=== PATIENT | male | born 1980 | race American Indian/Alaskan Native ===

== ENCOUNTER 2020-12-24 15:55 | Emergency (ER) | payer OTHER, SELFPAY ==
[2020-12-24 16:01] VITALS: BP 160/81; PULSE 102; RESP 18; TEMP 36.8; O2SAT 98; BMI 37.1
--- NOTE | 2020-12-24 16:19 | ECG_ITS ---
Test Reason : OD Blood Pressure : / mmHG Vent. Rate : 091 BPM Atrial Rate : 091 BPM P-R Int : 176 ms QRS Dur : 090 ms QT Int : 404 ms P-R-T Axes : 039 047 007 degrees QTc Int : 496 ms Normal sinus rhythm Possible Left atrial enlargement Prolonged QT Abnormal ECG When compared with ECG of 10-JUN-2014 00:23, No significant change was found Referred By: Mario Telles Electronically Signed By:AVINASH HOGAN
--- NOTE | 2020-12-24 16:19 | PC.NURSE ---
per provider concerns that pt has been given narcan due to nausea/uncontrolled diarrhea.
--- NOTE | 2020-12-24 16:22 | ED.GENADULT ---
HPI - General Adult General Chief complaint: General Medical Stated complaint: SUBSTANCE ABUSE,ABD PAIN Time Seen by Provider: 12/24/20 16:18 Source: patient Mode of arrival: EMS Limitations: no limitations History of Present Illness HPI narrative: Patient's T of substance abuse on methadone says that he used cocaine not any heroin or fentanyl [place] incontinent of stool and urine diffuse abdominal pain in the ER when patient arrived patient has been vomiting multiple times Related Data Allergies Allergy/AdvReac Type Severity Reaction Status Date / Time bee pollen [BEE STINGS] Allergy Intermediate HIVES Unverified 04/17/20 15:56 Penicillins Allergy Mild UNKNOWN Unverified 04/17/20 15:56 penicillin V Allergy Unknown Verified 03/04/20 00:00 SANJAY DELIGHT Allergy Mild HIVES Uncoded 04/17/20 15:56 Review of Systems Review of Systems: Constitutional : No Weight loss, No Fever, No Chills ENT/Mouth : No sore throat, No Rhinorrhea Eyes: No Eye Pain, No Swelling Cardiovascular : No Chest Pain, no palpitations Respiratory : No Cough, No Sputum, no shortness of breath Gastrointestinal : + Nausea, + Vomiting, + Diarrhea, ++ abdominal Pain, no black stools Genitourinary : No Dysuria, No Urinary Frequency Musculoskeletal : No joint pain, No Myalgias, No Joint Swelling Skin : No Skin Lesions, No rash Neuro : No Weakness, No Numbness, No Dizziness, No Headache Psych : No Anxiety/Panic, No Depression Heme/Lymph: No Bruising, No Lymphadenopathy Endocrine : No Polyuria, No Polydipsia All other systems reviewed and are negative PMFSH Past Medical History Medical History Crack cocaine use Drug abuse Heroin abuse Social History Social History Advance Directives: No Advance Directives Information Provided: No Physical Exam Vital Signs: Vital Signs: Last Vital Signs Temp 98.7 F 12/24/20 18:00 Pulse 93 12/24/20 18:00 Resp 16 12/24/20 18:00 BP 133/78 12/24/20 18:00 Pulse Ox 95 12/24/20 18:00 Body Mass Index 37.1 Appearance: Alert. Oriented X3. Diaphoretic retching and vomiting with perfuse watery diarrhea tachycardic. Eyes: PERRLA, No Nystagmus ENT: Pharynx normal. Oral Mucosa moist Neck: Normal inspection. Neck supple. CVS: Normal heart rate and rhythm. Pulses normal. Respiratory: No respiratory distress. Equal air entry bilateral, no wheezing/rales/rhonchi Abdomen: Soft and diffuse abdominal tenderness no focal tenderness or guarding Bowel sounds are present, no mass palpable, no CVA tenderness Skin: Skin warm and dry. Normal skin color. Normal skin turgor. Extremities: No lower extremity edema. No calf tenderness Neuro: Oriented X 3. No motor deficit. No sensory deficit.No cerebellar signs , cranial nerves II-XII intact Medical Decision Making MDM Narrative Medical decision making narrative: Patient likely opiate use and bystander likely gave him Narcan that the patient had withdrawal symptoms because patient is on methadone having diarrhea yawning nausea vomiting after Ativan patient is feeling much better. At this time patient able to drink p.o. fluids ambulatory discharge patient home patient refused to give urine sample of labs does not want detox Lab Data Labs: Lab Results 12/24/20 Range/Units 16:50 COVID-19 ([facility]) Negative (Negative) COVID-19 Clin Com See Note Discharge Plan Discharge Clinical Impression: Active substance abuse Patient Disposition: Home, Self-Care Instructions: Polysubstance Abuse (ED) Additional Instructions: Stop using cocaine/opiates Drink plenty of fluids follow-up with detox
[2020-12-24] MEDS: ondansetron HCL 4 MG/2 ML VIAL IVPUSH (16:52)
[2020-12-24] MEDS: Prochlorperazine Edisylate 10 MG/2 ML VIAL IVPUSH (16:52)
[2020-12-24] MEDS: 0.9 % Sodium Chloride 1,000 ML 999 ML IVCONT (16:52)
[2020-12-24] MEDS: Loperamide HCl 2 MG CAPSULE 4 MG PO (16:54)
[2020-12-24] MEDS: LORazepam 2 MG/ML VIAL IVPUSH (16:55)
--- NOTE | 2020-12-24 17:39 | PC.NURSE ---
per to md, due to multiple staff members attempting blood, including phlebotomy, plan to cancel labs.
[2020-12-24 17:44] LABS: COVID-19 Test Negative (Negative)
[2020-12-24 18:00] VITALS: BP 133/78; PULSE 93; RESP 16; TEMP 37.1; O2SAT 95
--- NOTE | 2020-12-24 18:11 | PC.NURSE ---
PATIENT ASK FOR A GLASS OF WATER ,PATIENT WAS ABLE TO HOLD FLUID DOWN .
--- NOTE | 2020-12-24 18:20 | MHC.RECOVSUP ---
? Reason for consult Recovery Support o Current location: ED19 o Identified substance use concern: Cocain - Withdrawal ? Intervention o Community resources provided o Harm reduction discussion ? Plan: o Patient to follow up with [facility] after discharge ? Additional information: Patient is currently on MAT(Methadone) for Heroin use.. But decided to use cocain and he states that he don't what happen(he blanked out) States that someone thought he was overdosing and Narcan Him.. and he went on a bad withdraw due to the Methadone.. Patient states that he is feeling better now.. We spoke about recovery and [facility] and he stated that he needs to try something new and that he will be checking it out..
== END 2020-12-24 19:21 | disposition home or self-care (01) ==
PROVIDERS: Emergency Provider Internal Medicine
DX: F11.19 Opioid abuse with unspecified opioid-induced disorder (principal); F14.10 Cocaine abuse, uncomplicated; Z20.822 Contact with and (suspected) exposure to COVID-19; Z71.51 Drug abuse counseling and surveillance of drug abuser; Z79.899 Other long term (current) drug therapy
CPT/HCPCS: 36415; 87635; 93005; 96365; 96375; 99284; J2060; J2405

== ENCOUNTER 2021-08-06 09:49 | Outpatient (REF) | payer OTHER, SELFPAY ==
[2021-08-06 14:29] LABS: Binax Now Covid-19 Ag Negative (Negative)
[2021-08-06 14:30] LABS: Binax Internal Control QC Valid
== END 2021-08-06 09:50 | disposition home or self-care (01) ==
LOC: HO.HMGCLDS 09:49
PROVIDERS: Visit Provider Physician Assistant
DX: Z20.822 Contact with and (suspected) exposure to COVID-19 (principal); J06.9 Acute upper respiratory infection, unspecified
CPT/HCPCS: 36415

== ENCOUNTER 2022-02-24 07:49 | Outpatient (REF) | payer OTHER, SELFPAY ==
[2022-02-24 08:43] LABS: COVID-19 Test Positive (Negative); IDNOW Serial# 16C4AD1C
== END 2022-02-24 07:50 | disposition home or self-care (01) ==
LOC: HO.LAB 07:49
PROVIDERS: PCP Internal Medicine; Visit Provider Internal Medicine
DX: Z20.822 Contact with and (suspected) exposure to COVID-19 (principal)
CPT/HCPCS: 87635; C9803

== ENCOUNTER 2022-12-14 10:05 | Emergency (ER) | payer OTHER, SELFPAY ==
--- NOTE | ~2022-12-14 | XR_ITS ---
EXAMINATION: XR TIBIA AND FIBULA, LEFT CLINICAL INFORMATION: Pain. Injury. COMPARISON: None available. TECHNIQUE: AP and lateral views of the left tibia and fibula were obtained. FINDINGS: The bones and soft tissues are normal. No fracture. No osseous lesions. XR/XR tibia fibula LT 2V IMPRESSION: Normal left tibia and fibula.
[2022-12-14 10:11] VITALS: BP 140/89; PULSE 70; RESP 18; TEMP 36.3; O2SAT 95; BMI 32.4
--- NOTE | 2022-12-14 10:28 | ED.GENADULT ---
HPI - General Adult General Chief complaint: General Medical Stated complaint: L Leg Cellulitis Time Seen by Provider: 12/14/22 10:27 Source: patient Mode of arrival: ambulatory Limitations: no limitations History of Present Illness HPI narrative: Patient is a 42 year old assigned male at with a history of IVDU presenting to the emergency department today with left lower leg swelling. Patient states that he caught his left lower leg on a pricker navas and now it is swollen, warm, and red. Patient states that this has happened to him before, he was given IV antibiotics then sent home on oral antibiotics. Patient states that he will not be staying in the hospital. Patient denies any dizziness, lightheadedness, abdominal pain, nausea, vomiting, fever, chills, blurry vision, double vision, loss of vision, chest pain, difficulty breathing, shortness of breath, back pain, night sweats, pain with urination, increased urinary frequency, increased urinary urgency, blood in his urine or stool, syncope or a near syncopal episode, bowel incontinence, bladder incontinence, bowel retention, bladder retention, or any other complaints at this time. Onset (ago): day(s) (4) Location: left and lower extremity Severity: moderate Severity scale (1-10): 5 Pain Consistency: constant Relieving factors: none Exacerbating factors: none Associated symptoms: denies other symptoms Treatments prior to arrival: none Related Data Previous Rx's Medication Instructions Recorded cephalexin 500 mg capsule 500 mg PO Q6H 7 days #28 caps 12/14/22 doxycycline hyclate 100 mg tablet 100 mg PO BID 7 days #14 tabs 12/14/22 Allergies Allergy/AdvReac Type Severity Reaction Status Date / Time penicillin V Allergy Unknown Verified 03/03/20 00:00 Review of Systems Constitutional: Constitutional: Reports no additional constitutional complaints, Denies chills, Denies fever(s) and Denies night sweats Eyes: Eyes: Reports no additional eye complaints, Denies blurry vision, Denies change in vision, Denies diplopia, Denies eye discharge, Denies loss of vision and Denies eye pain ENT: Denies dizziness Cardiovascular: Cardiovascular: Reports no additional cardiovascular complaints, Denies chest pain, Denies lightheadedness, Denies Loss of Consciousness and Denies dyspnea Respiratory: Respiratory: Reports no additional respiratory complaints and Denies dyspnea Gastrointestinal: Gastrointestinal: Reports no additional gastrointestinal complaints, Denies abdominal pain, Denies melena, Denies hematochezia, Denies change in bowel habits and Denies change in stool character Genitourinary: Genitourinary: Reports no additional male genitourinary complaints, Denies hematuria, Denies oliguria, Denies difficulty urinating, Denies dysuria, Denies urinary frequency, Denies urinary hesitancy, Denies urinary incontinence and Denies urinary urgency Musculoskeletal: Musculoskeletal: Reports no additional musculoskeletal complaints, Denies numbness and Denies tingling Comments: left lower leg swelling, warmth, and redness Neurologic: Denies dizziness, Denies loss of vision, Denies numbness and Denies tingling Psychiatric: Psychiatric: Reports no additional psychiatric complaints Endocrine: Endocrine: Reports no additional endocrine complaints Hematologic/Lymphatic: Hematologic/Lymphatic: Reports no additional hematologic/lymphatic complaints Allergic/Immunologic: Allergic/Immunologic: Reports no additional allergic/immunologic complaints PMFSH Past Medical History Attestation statement: The following information was validated with the patient. Source: old records reviewed and nursing notes reviewed Social History Social History Smoked in Last 30 Days: No Use of substances other than those prescribed or required for medical reasons: No Advance Directives: No Advance Directives Information Provided: No Physical Exam ED Vital Signs: Vital Signs - 24 hr 12/14/22 10:11 12/14/22 11:20 12/14/22 13:31 Temperature 97.3 F 98.9 F 98.7 F Pulse Rate 70 59 66 Respiratory Rate 18 16 Blood Pressure 140/89 H 113/63 124/71 Pulse Oximetry 95 96 97 Oxygen Delivery Method Room Air Room Air Room Air BMI result Body Mass Index 32.4 Const General: cooperative, no acute distress, alert and awake Nutritional Appearance: well nourished Orientation/consciousness: patient oriented x3 Limitations: no limitations HENMT Head: Yes normal to inspection and Yes atraumatic Ears: hearing grossly normal bilaterally and external ears normal General nose exam: Normal external nose present, no nasal discharge noted and no epistaxis Face and sinus: Yes normal facial exam, No abrasion and No laceration Mouth: Normal oral and palatal mucosa present, no drooling and no muffled voice Eyes General: appearance normal, both eyes and all related structures Periorbital: periorbital findings normal Eyelids: Yes eyelids normal Conjunctivae: conjunctivae normal Pupils: Equal, round and reactive pupils present EOM: EOMs intact bilaterally Neck Neck: Yes normal visual inspection, Yes full ROM and Yes no lymphadenopathy Chest Chest palpation & inspection: normal inspection of the chest Resp Effort & Inspection: normal respiratory effort and able to speak in complete sentences GI Inspection: Yes normal to inspection Neuro General: patient oriented x3 and moves all extremities Cranial nerves: Yes Equal, round and reactive pupils present Cognition (Neuro): normal cognition Motor exam (neuro): 5/5 motor strength present throughout Sensory Exam: Normal double simultaneous stimulation for sensation Coordination: [id number] test normal Extrem Other: General: Yes full ROM and Yes capillary refill normal Psych Appearance: grossly normal Mental Status: mental status grossly normal Affect: normal affect Attitude: cooperative Thought process: Normal thought process present Thought content: Normal thought content present Insight: Good insight present (Psych) Medications Administered Discontinued Medications Generic Name Dose Route Start Last Admin Trade Name Freq PRN Reason Stop Dose Admin Ceftriaxone Sodium 2 gm/ 50 mls @ 100 mls/hr 12/14/22 10:34 12/14/22 11:38 Sodium Chloride IV 12/14/22 11:03 Infused ONCE ONE Infusion Sodium Chloride 2,190 mls @ 2,190 mls/hr 12/14/22 10:37 12/14/22 12:20 Ns IV 12/14/22 11:36 Infused .Q1H STA Infusion Vancomycin HCl 2,000 mg in 500 mls @ 250 mls/hr 12/14/22 10:45 12/14/22 11:16 Vancomycin/Ns IV 12/14/22 12:44 250 mls/hr ONCE ONE Administration Medical Decision Making Medical Decision Making [facility] Narrative: Patient is a 42 year old assigned male at with a history of IVDUD presenting to the emergency department today with left lower leg infection. Patient's physical exam was as shown in the physical exam portion of this chart. Patient has a significant cellulitis present to the left lower extremity. Patient's blood work showed an elevated ESR of 46 and CRP of 7.83. Patient's left tib fib x-ray showed no acute process. I explained my physical exam findings as well as all test results to the patient. I answered all questions asked by the patient. I explained to the patient that given his history of IVDU and how severe this infection is, I recommend admission to the hospital for continued IV antibiotics and monitoring. Patient declined admission. I went over all risks to signing out against medical advice from the hospital and the patient verbalized understanding of these risks but continued to demand to leave. Patient received IV fluids and antibiotics while in the department. Patient's clinical presentation was not consistent with sepsis (@1200). I stressed the importance of the patient taking his medication as prescribed. I stressed the importance of the patient following up with his primary care provider. I stressed the importance of the patient returning to the emergency department immediately if he changes his mind about hospital admission, his symptoms were to worsen or if he were to develop any dizziness, shortness of breath difficulty breathing, chest pain, blurry vision, loss of vision, nausea, vomiting, abdominal pain, fever, chills, back pain, or any other complaints. Patient verbalized agreement and understanding with the risks associated with his decision to sign out against medical advice and he proceeded to sign out against medical advice. Differential Diagnosis Differential Diagnoses: The differential diagnosis associated with the presentation includes left lower leg cellulitis, history of IV drug use Admission/Observation Consideration of admission/observation: Escalation of care including admission/observation considered I recommended hospital admission for continued IV antibiotics and monitoring however, the patient refused admission and signed out against medical advice. Lab Data MDM Lab Attestation statement: I reviewed the patient's lab results. 12/14/22 10:56 12/14/22 10:56 Labs: Lab Results 12/14/22 12/14/22 12/14/22 Range/Units 10:55 10:56 10:56 WBC 7.7 (4.8-10.8) X10*3/uL RBC 4.67 (4.60-5.80) X10*6/uL Hgb 13.5 L (14.0-18.0) g/dl Hct 40.0 L (42.0-52.0) % MCV 85.7 (80.0-98.0) fL MCH 28.9 (27.0-33.0) pg MCHC 33.8 (31.0-36.0) g/dl RDW 13.5 (11.0-16.0) % Plt Count 241 (160-400) X10*3/uL MPV 10.0 (9.4-12.4) fL Immature Gran % (Auto) 0.9 H (0.0-0.4) % Neut % (Auto) 69.9 (45-73) % Lymph % (Auto) 18.9 L (20-40) % [place] % (Auto) 7.0 (2-11) % Eos % (Auto) 2.9 (0-4) % Baso % (Auto) 0.4 (0-2) % Lymph # (Auto) 1.5 (1.2-4.9) X10*3/uL [place] # (Auto) 0.5 (0.1-1.2) X10*3/uL Eos # (Auto) 0.2 (0.0-0.4) X10*3/uL Baso # (Auto) 0.0 (0.0-0.2) X10*3/uL Abs Immat Gran (auto) 0.07 H (0.00-0.03) X10*3/uL Absolute Neuts (auto) 5.4 (2.0-8.3) x10*3/uL Absolute Nucleated RBC 0.000 (0.0-0.012) X10*3/uL Nucleated RBC % (auto) 0.0 (0.0-0.2) /100WBC ESR 46 H (0-15) MM/HR Sodium (135-145) mmol/L Potassium (3.3-5.1) mmol/L Chloride (96-108) mmol/L Carbon Dioxide (22-29) mmol/L Anion Gap (12-20) BUN (9-16) mg/dL Creatinine (0.5-1.4) mg/dL Estim Creat Clear Calc Estimated GFR Random Glucose (60-115) mg/dL Lactic Acid 1.2 (0.5-2.0) mmol/L Calcium (8.4-10.2) mg/dL Magnesium (1.6-2.6) mg/dL Total Bilirubin (0.0-1.0) mg/dL AST (5-37) U/L ALT (0-40) U/L Alkaline Phosphatase (39-117) U/L C-Reactive Protein (< or = 0.50) mg/dL Total Protein (6.5-8.0) g/dL Albumin (3.5-5.0) g/dL 12/14/22 Range/Units 10:56 WBC (4.8-10.8) X10*3/uL RBC (4.60-5.80) X10*6/uL Hgb (14.0-18.0) g/dl Hct (42.0-52.0) % MCV (80.0-98.0) fL MCH (27.0-33.0) pg MCHC (31.0-36.0) g/dl RDW (11.0-16.0) % Plt Count (160-400) X10*3/uL MPV (9.4-12.4) fL Immature Gran % (Auto) (0.0-0.4) % Neut % (Auto) (45-73) % Lymph % (Auto) (20-40) % [place] % (Auto) (2-11) % Eos % (Auto) (0-4) % Baso % (Auto) (0-2) % Lymph # (Auto) (1.2-4.9) X10*3/uL [place] # (Auto) (0.1-1.2) X10*3/uL Eos # (Auto) (0.0-0.4) X10*3/uL Baso # (Auto) (0.0-0.2) X10*3/uL Abs Immat Gran (auto) (0.00-0.03) X10*3/uL Absolute Neuts (auto) (2.0-8.3) x10*3/uL Absolute Nucleated RBC (0.0-0.012) X10*3/uL Nucleated RBC % (auto) (0.0-0.2) /100WBC ESR (0-15) MM/HR Sodium 139 (135-145) mmol/L Potassium 3.8 (3.3-5.1) mmol/L Chloride 100 (96-108) mmol/L Carbon Dioxide 29 (22-29) mmol/L Anion Gap 14 (12-20) BUN 16 (9-16) mg/dL Creatinine 0.72 (0.5-1.4) mg/dL Estim Creat Clear Calc 156.8 Estimated GFR > 60 Random Glucose 87 (60-115) mg/dL Lactic Acid (0.5-2.0) mmol/L Calcium 9.2 (8.4-10.2) mg/dL Magnesium 1.9 (1.6-2.6) mg/dL Total Bilirubin 0.5 (0.0-1.0) mg/dL AST 22 (5-37) U/L ALT 21 (0-40) U/L Alkaline Phosphatase 140 H (39-117) U/L C-Reactive Protein 7.83 H (< or = 0.50) mg/dL Total Protein 7.2 (6.5-8.0) g/dL Albumin 3.8 (3.5-5.0) g/dL Independent Interpretation I performed an independent interpretation of an: Plain X-Ray Interpretation: My interpretation is in agreement with the radiologist's impression of this imaging study. EXAMINATION: XR TIBIA AND FIBULA, LEFT CLINICAL INFORMATION: Pain. Injury.? COMPARISON: None available.? TECHNIQUE: AP and lateral views of the left tibia and fibula were obtained. FINDINGS: The bones and soft tissues are normal. No fracture. No osseous lesions. XR/XR tibia fibula LT 2V IMPRESSION: Normal left tibia and fibula. Dictated By: Debby Anguiano MD Signed By: Electronically signed by Debby Anguiano MD 12/14/22 9983 Critical Care Time Critical Care Time Critical Care Time: Yes Total Critical Care Time: 45 Attestation: I spent 45 minutes of Critical Care Time with this patient. This does not include time spent on separately reported billable procedures. Discharge Plan Discharge Clinical Impression: Cellulitis Patient Disposition: Left Against Medical Advice Instructions: Cellulitis (DC) Additional Instructions: I recommended medical admission for continued IV antibiotics and monitoring of this infection however, you have refused to do so, even after being warned of the risks including , permanent disability, stroke, heart attack, sepsis, etc. Return to the emergency department immediately if your symptoms worsen or if you develop any dizziness, shortness of breath, difficulty breathing, chest pain, blurry vision, loss of vision, nausea, vomiting, abdominal pain, fever, chills, back pain, or any other complaints. Prescriptions: New cephalexin 500 mg capsule 500 mg PO Q6H 7 Days Qty: 28 0RF doxycycline hyclate 100 mg tablet 100 mg PO BID 7 Days Qty: 14 0RF Referrals: Sushma Marroquin MD [Primary Care Provider] - Stand Alone Forms: Against Medical Advice Interventions: ED Discharge Assessment Last Done: 12/14/22 13:49 Discharge Date/Time: 12/14/22 13:50 Print Language: Syriac
[2022-12-14 11:03] LABS: MANUAL DIFF FLAG NO
[2022-12-14] MEDS: 0.9 % Sodium Chloride 2,190 ML 2190 ML IV (11:03)
[2022-12-14] MEDS: cefTRIAXone sodium 2 GM in 0.9 % Sodium Chloride 50 ML IV (11:03)
[2022-12-14 11:05] LABS: Basophils Percent Auto 0.4 % (0-2); Eosinophils Absolute Auto 0.2 X10*3/uL (0.0-0.4); Eosinophils Percent Auto 2.9 % (0-4); Hemoglobin 13.5 g/dl (14.0-18.0); Imm Gran Abs Auto 0.07 X10*3/uL (0.00-0.03); Imm Gran Pct Auto 0.9 % (0.0-0.4); Lymphocytes Absolute Auto 1.5 X10*3/uL (1.2-4.9); Lymphocytes Percent Auto 18.9 % (20-40); Mean Corpuscular HGB Conc 33.8 g/dl (31.0-36.0); Mean Corpuscular Hemoglobin 28.9 pg (27.0-33.0); Mean Corpuscular Volume 85.7 fL (80.0-98.0); Monocytes Absolute Auto 0.5 X10*3/uL (0.1-1.2); Neutrophils Absolute Auto 5.4 x10*3/uL (2.0-8.3); Neutrophils Percent Auto 69.9 % (45-73); Platelet Count 241 X10*3/uL (160-400); Red Blood Count 4.67 X10*6/uL (4.60-5.80); Red Cell Distribution Width 13.5 % (11.0-16.0); White Blood Count 7.7 X10*3/uL (4.8-10.8)
[2022-12-14] MEDS: vancomycin/NS 2,000 MG/500 ML PLAST..BAG 250 MG IV (11:16)
[2022-12-14 11:17] LABS: Lactic Acid 1.2 mmol/L (0.5-2.0)
[2022-12-14 11:20] VITALS: BP 113/63; PULSE 59; TEMP 37.2; O2SAT 96
[2022-12-14 11:21] LABS: Alanine Aminotransferase 21 U/L (0-40); Albumin Level 3.8 g/dL (3.5-5.0); Alkaline Phosphatase 140 U/L (39-117); Anion Gap 14 (12-20); Aspartate Amino Transferase 22 U/L (5-37); Bilirubin Total 0.5 mg/dL (0.0-1.0); Blood Urea Nitrogen 16 mg/dL (9-16); C Reactive Protein 7.83 mg/dL (< or = 0.50); Calcium 9.2 mg/dL (8.4-10.2); Carbon Dioxide 29 mmol/L (22-29); Chloride 100 mmol/L (96-108); Creatinine Clr Calc Pharmacy 156.8; Estimated Glomerular Filt Rate > 60; Glucose Random 87 mg/dL (60-115); Magnesium 1.9 mg/dL (1.6-2.6); Potassium 3.8 mmol/L (3.3-5.1); Sodium 139 mmol/L (135-145); Total Protein 7.2 g/dL (6.5-8.0)
[2022-12-14 11:42] LABS: Erythrocyte Sedimentation Rate 46 MM/HR (0-15)
[2022-12-14 13:31] VITALS: BP 124/71; PULSE 66; RESP 16; TEMP 37.1; O2SAT 97
--- NOTE | 2022-12-14 13:50 | PC.NURSE ---
pt signed AMA form. pt declined to be admitted to hosp after much encouragement from provider.
== END 2022-12-14 13:50 | disposition left against medical advice (07) ==
PROVIDERS: Physician Assistant Medical; Emergency Provider Student in an Organized Health Care Education/Training Program; PCP Internal Medicine
DX: L03.116 Cellulitis of left lower limb (principal)
CPT/HCPCS: 36415; 73590; 80053; 83605; 83735; 85025; 85652; 86140; 87040; 96361; 96374; 96375; 99284; 99285; J0696; J3370

== ENCOUNTER 2024-01-17 18:30 | Emergency (ER) | payer OTHER, SELFPAY ==
--- NOTE | ~2024-01-17 | CT_ITS ---
EXAMINATION: CT ABDOMEN AND PELVIS WITHOUT CONTRAST CLINICAL INFORMATION: Right flank pain. COMPARISON: No pertinent prior studies are available for comparison. TECHNIQUE: Multidetector volumetric imaging was performed from the superior aspect of the liver through the pubic symphysis without contrast per renal stone protocol. Sagittal and coronal reformatted images were obtained on the technologist workstation. This CT examination was performed using dose optimization techniques as appropriate, variously including the following: *Automated exposure control *Adjustment of mA and/or kV according to patient size (this includes techniques or standardized protocols for targeted exams where dose is matched to indication/reason for exam; i.e. extremities or head) *Use of iterative reconstruction technique DLP: 631 mGy-cm. FINDINGS: LUNG BASES: Mild linear dependent atelectasis LIVER, GALLBLADDER, BILIARY TREE: The non-contrast liver is normal in size, shape, and attenuation. No focal hepatic lesion or biliary ductal dilatation is present. The gallbladder is contracted but otherwise unremarkable with no evidence of radiopaque gallstones, gallbladder wall thickening, or obvious pericholecystic inflammatory changes. PANCREAS: Unremarkable. SPLEEN: Unremarkable. ADRENAL GLANDS: Unremarkable. KIDNEYS AND URETERS: The kidneys are normal in size, shape, and attenuation. No hydronephrosis, hydroureter, or perinephric stranding. Nonobstructing 3 mm calculi in the lower pole collecting system of the right kidney. BLADDER: Decompressed and unremarkable GASTROINTESTINAL TRACT: Scattered colonic diverticulosis. No colonic wall thickening or pericolonic inflammatory change. Normal-appearing appendix in the right lower quadrant. Visualized small bowel unremarkable ABDOMINAL WALL: No significant hernia is appreciated. LYMPHOVASCULAR STRUCTURES: No lymphadenopathy. The aorta is unremarkable.. PELVIC VISCERA: Unremarkable. OSSEUS STRUCTURES: Unremarkable. CT/CT abdomen pelvis wo IV con IMPRESSION: Chronic appearing changes as described above.
[2024-01-17 18:56] VITALS: BP 135/61; PULSE 63; RESP 18; TEMP 37.2; O2SAT 97; BMI 27.3
--- NOTE | 2024-01-17 18:59 | ED_ITS ---
HPI - General Adult General Chief complaint: Abdominal Pain Stated complaint: kidney stones Time Seen by Provider: 01/17/24 20:52 Source: patient Mode of arrival: ambulatory Limitations: no limitations History of Present Illness ED Provider: Dr. Roxi Salvador HPI narrative: Patient comes to the emergency room complaining of right-sided flank pain starting today. Patient states that he has history of kidney stones. Denies dysuria or hematuria. Denies abdominal pain, denies any injury. Denies fever or chills Related Data Home Medications ?Medication ?Instructions ?Recorded ?Confirmed methadone 10 mg/5 mL oral solution 95 mg PO DAILY 08/06/21 Previous Rx's ?Medication ?Instructions ?Recorded albuterol sulfate 90 mcg/actuation 1 inh inhalation Q4-6H PRN 01/23/21 aerosol inhaler (Ventolin HFA) shortness of breath or wheezing #8.5 grams azithromycin 500 mg tablet 500 mg PO DAILY 5 days #5 tabs 01/23/21 prednisone 20 mg tablet 20 mg PO .COMPLEX #18 tabs 01/23/21 cephalexin 500 mg capsule 500 mg PO Q6H 7 days #28 caps 12/14/22 doxycycline hyclate 100 mg tablet 100 mg PO BID 7 days #14 tabs 12/14/22 ketorolac 10 mg tablet 10 mg PO Q8H PRN pain #10 tabs 01/17/24 prednisone 20 mg tablet 20 mg PO DAILY #3 tabs 01/17/24 Allergies Allergy/AdvReac Type Severity Reaction Status Date / Time bee pollen [BEE STINGS] Allergy Intermediate HIVES Verified 01/17/24 18:58 Penicillins Allergy Mild UNKNOWN Verified 01/17/24 18:58 penicillin V Allergy Unknown unknown Verified 01/17/24 18:58 SANJAY DELIGHT Allergy Mild HIVES Uncoded 01/17/24 18:58 Review of Systems 2 Review of Systems: Constitutional : No Weight loss, No Fever, No Chills, No Night Sweats, No Fatigue, No Malaise ENT/Mouth : No Hearing loss, No Ear Pain, No Nasal Congestion, No Sinus Pain, No Hoarseness, No sore throat, No Rhinorrhea, No Swallowing Difficulty Eyes: No Eye Pain, No Swelling, No Redness, No Foreign Body, No Discharge, No Vision Changes Cardiovascular : No Chest Pain, No SOB, No Dyspnea on Exertion, No Orthopnea, No Edema, No Palpitations Respiratory : No Cough, No Sputum, No Wheezing, No Smoke Exposure, No Dyspnea Gastrointestinal : No Nausea, No Vomiting, No Diarrhea, No Constipation, No abdominal Pain, No Hematochezia, No Melena Genitourinary : no irregular bleeding, No Dysuria, No Urinary Frequency, No Hematuria, No Urinary Incontinence, No Urgency, complaining of right-sided Flank Pain, No Urinary Flow Changes, No Hesitancy Musculoskeletal : No joint pain, No Myalgias, No Joint Swelling Skin : No Skin Lesions, No rash Neuro : No Weakness, No Numbness, No Paresthesias, No Loss of Consciousness, No Dizziness, No Headache Psych : No Anxiety/Panic, No Depression, No SI/HI/AH/VH, No Social Issues, Heme/Lymph: No Bruising, No Bleeding,No Lymphadenopathy Endocrine : No Polyuria, No Polydipsia, No Temperature Intolerance [facility] Past Medical History Medical History (Updated 01/18/24 @ 00:02 by Denisa Driscoll) Kidney stones Crack cocaine use Heroin abuse Drug abuse Social History Social History (System 05/19/23 @ 14:18 by Charito Antunez) Smoked in Last 30 Days: No Use of substances other than those prescribed or required for medical reasons: No Substance Use Type: Former Substance User Advance Directives: No Advance Directives Information Provided: No Physical Exam ED Vital Signs: Vital Signs - 24 hr 01/17/24 18:56 01/17/24 20:00 01/17/24 21:23 Temperature 98.9 F 98.2 F 98.2 F Pulse Rate 63 56 56 Respiratory Rate 18 13 13 Blood Pressure 135/61 111/71 111/71 Pulse Oximetry 97 95 95 Oxygen Delivery Method Room Air Room Air Room Air BMI result Body Mass Index 27.3 Const Other: Appearance: Alert. Oriented X3. No acute distress. Eyes: Pupils equal, round and reactive to light. ENT: Pharynx normal. Neck: Normal inspection. Neck supple. No lymph nodes noted. No crepitus CVS: Normal heart rate and rhythm. Pulses normal. Normal S1 and S2 Respiratory: No respiratory distress. Breath sounds normal. No Wheezing. No rales Abdomen: Soft and nontender. No rigidity. No distention. No abdominal pain Back: Pain to palpation over the middle back pain on the right, questionable CVA tenderness Skin: Skin warm and dry. Normal skin color. Normal skin turgor. Extremities: No lower extremity edema. No Lacerations. No Rash Neuro: Oriented X 3. No motor deficit. No sensory deficit. Moving all extremities. No slurred speech. CN 2 through 12 grossly intact Psych: calm, cooperative, normal affect Course Course Course Narrative: RME: DOne by Adin. 43-year-old male history of kidney stones presents to ED for right flank pain with nausea and vomiting. Patient has positive right CVA flank. Labs CT scan ordered. Medications Administered Discontinued Medications Generic Name Dose Route Start Last Admin Trade Name Freq PRN Reason Stop Dose Admin Cyclobenzaprine HCl 10 mg 01/17/24 20:59 01/17/24 21:11 Cyclobenzaprine Hcl 10 Mg Tablet PO 01/17/24 21:00 10 mg ONCE ONE Administration Ketorolac Tromethamine 60 mg 01/17/24 20:58 01/17/24 21:12 Ketorolac Tromethamine 60 Mg/2 Ml Vial IM 01/17/24 20:59 60 mg ONCE ONE Administration Prednisone 20 mg 01/17/24 20:58 01/17/24 21:11 Prednisone 20 Mg Tablet PO 01/17/24 20:59 20 mg ONCE ONE Administration Medical Decision Making Medical Decision Making [facility] Narrative: -my interpretation of labs: Hematology and chemistry at baseline, urinalysis negative for UTI or blood in the urine -my interpretation of CT scan of abdomen: Approximately 2-3 mm kidney stone within the kidney, ureters clear -is double the patient may be experiencing musculoskeletal pain rather than pain from a kidney stone, there is no blood in the urine or dilation to suggest a kidney stone passed. It may be a renal colic -patient was given IM Toradol, p.o. prednisone and cyclobenzaprine Differential Diagnosis Differential Diagnoses: The differential diagnosis associated with the presentation includes (As above) Admission/Observation Consideration of admission/observation: Escalation of care including admission/observation considered (Given patient's initial presentation, observation considered) Lab Data [facility] Lab Attestation statement: I reviewed the patient's lab results. 01/17/24 19:33 01/17/24 19:33 Labs: Lab Results 01/17/24 Range/Units 19:33 WBC 9.4 (4.8-10.8) X10*3/uL RBC 4.67 (4.60-5.80) X10*6/uL Hgb 13.4 L (14.0-18.0) g/dl Hct 40.3 L (42.0-52.0) % MCV 86.3 (80.0-98.0) fL MCH 28.7 (27.0-33.0) pg MCHC 33.3 (31.0-36.0) g/dl RDW 14.6 (11.0-16.0) % Plt Count 243 (160-400) X10*3/uL MPV 9.7 (9.4-12.4) fL Immature Gran % (Auto) 0.3 (0.0-0.4) % Neut % (Auto) 59.5 (45-73) % Lymph % (Auto) 31.3 (20-40) % [place] % (Auto) 6.6 (2-11) % Eos % (Auto) 2.0 (0-4) % Baso % (Auto) 0.3 (0-2) % Lymph # (Auto) 2.9 (1.2-4.9) X10*3/uL [place] # (Auto) 0.6 (0.1-1.2) X10*3/uL Eos # (Auto) 0.2 (0.0-0.4) X10*3/uL Baso # (Auto) 0.0 (0.0-0.2) X10*3/uL Abs Immat Gran (auto) 0.03 (0.00-0.03) X10*3/uL Absolute Neuts (auto) 5.6 (2.0-8.3) x10*3/uL Absolute Nucleated RBC 0.000 (0.0-0.012) X10*3/uL Nucleated RBC % (auto) 0.0 (0.0-0.2) /100WBC Sodium 136 (135-145) mmol/L Potassium 4.5 (3.3-5.1) mmol/L Chloride 101 (96-108) mmol/L Carbon Dioxide 27 (22-29) mmol/L Anion Gap 13 (12-20) BUN 16 (9-16) mg/dL Creatinine 0.93 (0.5-1.4) mg/dL Estim Creat Clear Calc 106.8 Estimated GFR > 60 Random Glucose 99 (60-115) mg/dL Calcium 9.2 (8.4-10.2) mg/dL Total Bilirubin 0.2 (0.0-1.0) mg/dL AST 19 (5-37) U/L ALT 16 (0-40) U/L Alkaline Phosphatase 120 H (39-117) U/L Total Protein 7.7 (6.5-8.0) g/dL Albumin 3.9 (3.5-5.0) g/dL Urine Color Yellow Urine Appearance Clear Urine pH 6.0 (5.0-9.0) Ur Specific [place] >= 1.030 H (1.005-1.025) Urine Protein Negative (Neg-Trace) mg/dL Urine Glucose (UA) Negative (Negative) mg/dL Urine Ketones Negative (Negative) mg/dL Urine Blood Negative (Negative) Urine Nitrite Negative (Negative) Ur Leukocyte Esterase Negative (Negative) Urine Opiates Screen POSITIVE H (Not Detect) Ur Buprenorphine Scrn Not Detected (Not Detect) ng/mL Ur Oxycodone Screen Not Detected (Not Detect) ng/mL Urine Methadone Screen Positive H (Not Detect) ng/mL Urine Fentanyl Screen POSITIVE H (Not Detect) Ur Barbiturates Screen Not Detected (Not Detect) Ur Phencyclidine Scrn Not Detected (Not Detect) Ur Amphetamines Screen Not Detected (Not Detect) U Benzodiazepines Scrn Not Detected (Not Detect) Urine Cocaine Screen POSITIVE H (Not Detect) U Marijuana (THC) Screen Not Detected (Not Detect) Independent Interpretation I performed an independent interpretation of an: CT Scan Radiology Impression Discussion of test interpretation with radiology: I have reviewed the radiologist's reading. Radiologist Impression: LUNG BASES: Mild linear dependent atelectasis LIVER, GALLBLADDER, BILIARY TREE: The non-contrast liver is normal in size, shape, and attenuation. No focal hepatic lesion or biliary ductal dilatation is present. The gallbladder is contracted but otherwise unremarkable with no evidence of radiopaque gallstones, gallbladder wall thickening, or obvious pericholecystic inflammatory changes. PANCREAS: Unremarkable. SPLEEN: Unremarkable. ADRENAL GLANDS: Unremarkable. KIDNEYS AND URETERS: The kidneys are normal in size, shape, and attenuation. No hydronephrosis, hydroureter, or perinephric stranding. Nonobstructing 3 mm calculi in the lower pole collecting system of the right kidney. BLADDER: Decompressed and unremarkable GASTROINTESTINAL TRACT: Scattered colonic diverticulosis. No colonic wall thickening or pericolonic inflammatory change. Normal-appearing appendix in the right lower quadrant. Visualized small bowel unremarkable ABDOMINAL WALL: No significant hernia is appreciated. LYMPHOVASCULAR STRUCTURES: No lymphadenopathy. The aorta is unremarkable.. PELVIC VISCERA: Unremarkable. OSSEUS STRUCTURES: Unremarkable. CT/CT abdomen pelvis wo IV con IMPRESSION: Chronic appearing changes as described above. Critical Care Time Critical Care Time Critical Care Time: Yes Total Critical Care Time: 35 Attestation: I have personally provided critical care time. Time includes review of lab data, radiology results, discussion with consultants, and monitoring for potential decompensation. Intervention performed as documented. Discharge Plan Discharge Clinical Impression: Renal colic Patient Disposition: Home, Self-Care Instructions: Renal Colic (ED) Additional Instructions: Please follow-up with your primary care physician tomorrow. If you have any worsening or new symptoms, please return to the emergency room or call 911 Prescriptions: New ketorolac 10 mg tablet 10 mg PO Q8H PRN (Reason: pain) Qty: 10 0RF Rx Instructions: maximum total duration of 5 days from all oral, intranasal, or parenteral formulations prednisone 20 mg tablet 20 mg PO DAILY Qty: 3 0RF No Action cephalexin 500 mg capsule 500 mg PO Q6H 7 Days Qty: 28 0RF doxycycline hyclate 100 mg tablet 100 mg PO BID 7 Days Qty: 14 0RF albuterol sulfate [Ventolin HFA] 90 mcg/actuation HFA aerosol inhaler 1 inh inhalation Q4-6H PRN (Reason: shortness of breath or wheezing) Qty: 8.5 0RF prednisone 20 mg tablet 20 mg PO .COMPLEX Qty: 18 0RF Rx Instructions: 20 mg PO 3 p.o. daily for 3 days followed by 2 p.o. daily for 3 days followed by 1 p.o. daily for 3 days; azithromycin 500 mg tablet 500 mg PO DAILY 5 Days Qty: 5 0RF methadone 10 mg/5 mL solution 95 mg PO DAILY Interventions: ED Discharge Assessment Last Done: 01/17/24 21:23 Discharge Date/Time: 01/17/24 21:23 Print Language: Yemeni
[2024-01-17 19:37] LABS: MANUAL DIFF FLAG NO
[2024-01-17 19:38] LABS: Basophils Percent Auto 0.3 % (0-2); Eosinophils Absolute Auto 0.2 X10*3/uL (0.0-0.4); Hematocrit 40.3 % (42.0-52.0); Hemoglobin 13.4 g/dl (14.0-18.0); Imm Gran Abs Auto 0.03 X10*3/uL (0.00-0.03); Imm Gran Pct Auto 0.3 % (0.0-0.4); Lymphocytes Absolute Auto 2.9 X10*3/uL (1.2-4.9); Lymphocytes Percent Auto 31.3 % (20-40); Mean Corpuscular HGB Conc 33.3 g/dl (31.0-36.0); Mean Corpuscular Hemoglobin 28.7 pg (27.0-33.0); Mean Corpuscular Volume 86.3 fL (80.0-98.0); Mean Platelet Volume 9.7 fL (9.4-12.4); Monocytes Absolute Auto 0.6 X10*3/uL (0.1-1.2); Monocytes Percent Auto 6.6 % (2-11); Neutrophils Absolute Auto 5.6 x10*3/uL (2.0-8.3); Neutrophils Percent Auto 59.5 % (45-73); Platelet Count 243 X10*3/uL (160-400); Red Blood Count 4.67 X10*6/uL (4.60-5.80); Red Cell Distribution Width 14.6 % (11.0-16.0); White Blood Count 9.4 X10*3/uL (4.8-10.8)
[2024-01-17 19:41] LABS: Appearance Urine Clear; Color Urine Yellow; Glucose Urine UA Negative (Negative); Leukocyte Esterase Urine Negative (Negative); Nitrite Urine Negative (Negative); Specific Gravity - Urine >= 1.030 (1.005-1.025); Urine Blood Negative (Negative); Urine Ketones Negative (Negative); Urine Protein Negative (Neg-Trace)
[2024-01-17 20:00] VITALS: BP 111/71; PULSE 56; RESP 13; TEMP 36.8; O2SAT 95
[2024-01-17 20:00] LABS: Alanine Aminotransferase 16 U/L (0-40); Albumin Level 3.9 g/dL (3.5-5.0); Alkaline Phosphatase 120 U/L (39-117); Anion Gap 13 (12-20); Aspartate Amino Transferase 19 U/L (5-37); Bilirubin Total 0.2 mg/dL (0.0-1.0); Blood Urea Nitrogen 16 mg/dL (9-16); Calcium 9.2 mg/dL (8.4-10.2); Carbon Dioxide 27 mmol/L (22-29); Chloride 101 mmol/L (96-108); Creatinine Clr Calc Pharmacy 106.8; Estimated Glomerular Filt Rate > 60; Glucose Random 99 mg/dL (60-115); Potassium 4.5 mmol/L (3.3-5.1); Sodium 136 mmol/L (135-145); Total Protein 7.7 g/dL (6.5-8.0)
[2024-01-17] MEDS: predniSONE 20 MG TABLET PO (21:11)
[2024-01-17] MEDS: Cyclobenzaprine HCl 10 MG TABLET PO (21:11)
[2024-01-17] MEDS: Ketorolac Tromethamine 60 MG/2 ML VIAL IM (21:12)
[2024-01-17 21:23] VITALS: BP 111/71; PULSE 56; RESP 13; TEMP 36.8; O2SAT 95
[2024-01-17 22:03] LABS: Amphetamine Screen Urine Not Detected (Not Detect); Barbiturates, Urine Not Detected (Not Detect); Benzodiazepines Screen Urine Not Detected (Not Detect); Buprenorphine Scr Not Detected (Not Detect); Cannabinoid Screen Urine Not Detected (Not Detect); Cocaine Screen Urine POSITIVE (Not Detect); Fentanyl, urine POSITIVE (Not Detect); Methadone Screen, Urine Positive (Not Detect); Opiate Screen Urine POSITIVE (Not Detect); Oxycodone Screen Urine Not Detected (Not Detect); Phencyclidine Screen Urine Not Detected (Not Detect)
== END 2024-01-17 21:23 | disposition home or self-care (01) ==
PROVIDERS: Physician Assistant; Emergency Provider Emergency Medicine; PCP Internal Medicine
DX: N20.0 Calculus of kidney (principal); Z87.442 Personal history of urinary calculi; R10.9 Unspecified abdominal pain; R11.2 Nausea with vomiting, unspecified; F11.20 Opioid dependence, uncomplicated; Z79.899 Other long term (current) drug therapy
CPT/HCPCS: 36415; 74176; 80053; 80307; 81003; 85025; 96372; 99284; J1885

== ENCOUNTER 2024-02-01 08:44 | Emergency (ER) | payer OTHER, SELFPAY ==
--- NOTE | ~2024-02-01 | US_ITS ---
EXAMINATION: US RETROPERITONEAL LIMITED (RENAL ONLY) CLINICAL INFORMATION: Right flank pain. COMPARISON: CT abdomen/pelvis 01/17/2024 TECHNIQUE: Real-time imaging of the kidneys. FINDINGS: RIGHT KIDNEY: 12.6 x 4.9 x 5.6 cm (SAG x AP x TRV). The kidney is normal in size, contour, and echogenicity. Renal cortical thickness is normal. No focal parenchymal lesions. 5 mm mid to lower pole nonobstructing calculus. No hydronephrosis. LEFT KIDNEY: 12.6 x 5.6 x 5.3 cm (SAG x AP x TRV). The kidney is normal in size, contour, and echogenicity. Renal cortical thickness is normal. No focal parenchymal lesions. 5 mm midpole nonobstructing calcification possibly vascular. No hydronephrosis. US/US renal BI IMPRESSION: Bilateral 5 mm nonobstructing calcifications. No hydronephrosis.
[2024-02-01 08:54] VITALS: BP 127/86; PULSE 94; RESP 18; TEMP 36.9; O2SAT 94; BMI 25.1
[2024-02-01] MEDS: Ketorolac Tromethamine 30 MG/ML VIAL IVPUSH (09:25)
[2024-02-01] MEDS: 0.9 % Sodium Chloride 1,000 ML 500 ML IVCONT (09:26)
[2024-02-01 09:29] LABS: MANUAL DIFF FLAG NO
--- NOTE | 2024-02-01 09:29 | PC.NURSE ---
pt has difficult iv access, this rn failed iv attempts x 2 in L fa. IV was est 22 ga in r fa. pt abd is soft and nontender with no discoloration. labs and urine have been sent to l;ab, pt is awaiting us.
[2024-02-01 09:30] LABS: Basophils Absolute Auto 0.1 X10*3/uL (0.0-0.2); Basophils Percent Auto 0.3 % (0-2); Eosinophils Absolute Auto 0.1 X10*3/uL (0.0-0.4); Eosinophils Percent Auto 0.5 % (0-4); Hematocrit 35.6 % (42.0-52.0); Hemoglobin 11.5 g/dl (14.0-18.0); Imm Gran Abs Auto 0.21 X10*3/uL (0.00-0.03); Imm Gran Pct Auto 1.3 % (0.0-0.4); Lymphocytes Absolute Auto 1.5 X10*3/uL (1.2-4.9); Lymphocytes Percent Auto 9.1 % (20-40); Mean Corpuscular HGB Conc 32.3 g/dl (31.0-36.0); Mean Corpuscular Volume 86.8 fL (80.0-98.0); Mean Platelet Volume 9.5 fL (9.4-12.4); Monocytes Absolute Auto 0.9 X10*3/uL (0.1-1.2); Monocytes Percent Auto 5.3 % (2-11); Neutrophils Absolute Auto 13.4 x10*3/uL (2.0-8.3); Neutrophils Percent Auto 83.5 % (45-73); Platelet Count 520 X10*3/uL (160-400); Red Cell Distribution Width 14.6 % (11.0-16.0)
[2024-02-01 09:38] LABS: Appearance Urine Cloudy; Color Urine Orange; Leukocyte Esterase Urine Trace (Negative); Nitrite Urine Positive (Negative); PH 5.5 (5.0-9.0); Specific Gravity - Urine >= 1.030 (1.005-1.025); UMIC TRIGGER UACC YES; Urine Blood Negative (Negative); Urine Protein 100 (2+) mg/dL (Neg-Trace)
[2024-02-01 09:44] LABS: Anion Gap 14 (12-20); Blood Urea Nitrogen 12 mg/dL (9-16); Calcium 9.6 mg/dL (8.4-10.2); Carbon Dioxide 34 mmol/L (22-29); Chloride 92 mmol/L (96-108); Creatinine Clr Calc Pharmacy 121.1; Estimated Glomerular Filt Rate > 60; Glucose Random 95 mg/dL (60-115); Sodium 137 mmol/L (135-145)
[2024-02-01 09:47] LABS: Bacteria Urine 2+ (None Seen); Epith (RTE) Cast Present; Granular Casts Urine Present; Hyaline Casts Urine 0-2 /LPF (0-2); RBC Urine 0-2 /HPF (0-2); UACC Culture Trigger YES; WBC Urine 0-5 /HPF (0-5)
[2024-02-01 10:30] VITALS: BP 123/72; PULSE 82; RESP 16; O2SAT 91
--- NOTE | 2024-02-01 11:40 | ED_ITS ---
HPI - Male Genitourinary General Chief complaint: Urogenital-Male Stated complaint: R FLANK PAIN,PAINFUL URINTION PER EMS Time Seen by Provider: 02/01/24 08:50 Source: patient Mode of arrival: ambulatory Limitations: no limitations History of Present Illness ED Provider: Dr. Orta HPI Narrative: Patient with right flank pain which he thinks is secondary to renal colic. Patient states that his pain has been getting worse. Onset (ago): day(s) Duration: constant Severity: moderate Related Data Home Medications ?Medication ?Instructions ?Recorded ?Confirmed methadone 10 mg/5 mL oral solution 95 mg PO DAILY 08/06/21 Previous Rx's ?Medication ?Instructions ?Recorded albuterol sulfate 90 mcg/actuation 1 inh inhalation Q4-6H PRN 01/23/21 aerosol inhaler (Ventolin HFA) shortness of breath or wheezing #8.5 grams azithromycin 500 mg tablet 500 mg PO DAILY 5 days #5 tabs 01/23/21 prednisone 20 mg tablet 20 mg PO .COMPLEX #18 tabs 01/23/21 cephalexin 500 mg capsule 500 mg PO Q6H 7 days #28 caps 12/14/22 doxycycline hyclate 100 mg tablet 100 mg PO BID 7 days #14 tabs 12/14/22 ketorolac 10 mg tablet 10 mg PO Q8H PRN pain #10 tabs 01/17/24 prednisone 20 mg tablet 20 mg PO DAILY #3 tabs 01/17/24 cephalexin 500 mg capsule 500 mg PO QID 10 days #40 caps 02/01/24 naproxen 500 mg tablet (Naprosyn) 500 mg PO BID #20 tabs 02/01/24 Allergies Allergy/AdvReac Type Severity Reaction Status Date / Time bee pollen [BEE STINGS] Allergy Intermediate HIVES Verified 02/01/24 08:56 Penicillins Allergy Mild UNKNOWN Verified 02/01/24 08:56 penicillin V Allergy Unknown unknown Verified 02/01/24 08:56 SANJAY DELIGHT Allergy Mild HIVES Uncoded 02/01/24 08:56 Review of Systems 2 Review of Systems: Yes all other systems are reviewed and are negative Neurologic: Denies Sensory deficit (Neuro) PMFSH Past Medical History Medical History Kidney stones Crack cocaine use Heroin abuse Drug abuse Social History Social History Substance Use Type: Former Substance User Advance Directives: No Physical Exam 2 Vital Signs: Vital Signs: Last Vital Signs Temp 98.5 F 02/01/24 08:54 Pulse 82 02/01/24 10:30 Resp 16 02/01/24 10:30 BP 123/72 02/01/24 10:30 Pulse Ox 91 L 02/01/24 10:30 O2 Del Method Room Air 02/01/24 10:30 BMI result Body Mass Index 25.1 Const: Other: male looking older than stated age in mild distress Nutritional Appearance: average body habitus Orientation/consciousness: oriented to person and patient oriented x3 Limitations: no limitations HEENT: Head: Yes normal to inspection Ears: external ears normal General nose exam: Normal external nose present Mouth: Normal oral and palatal mucosa present and oropharynx normal Throat: Yes posterior oropharynx normal Eyes: General: appearance normal, both eyes and all related structures Neck: Other: supple Neck: Yes normal visual inspection Chest: Chest palpation & inspection: normal inspection of the chest Resp: Auscultation: clear to auscultation bilaterally Cardio: Jugular venous distension: no JVD Rate: regular rate Rhythm: r egular rhythm Heart sounds: S1 normal heart sound present and S2 normal heart sound present GI: Inspection: Yes normal to inspection Palpation (GI): Soft to palpation, nontender and No hepatosplenomegaly present Auscultation: normal bowel sounds Back/Spine/Pelvis: Other: right CVAT Skin: General skin exam: no rashes or lesions noted Neuro: General: oriented to person and patient oriented x3 Cranial nerves: Yes CN's II-XII intact bilaterally Motor exam (neuro): 5/5 motor strength present throughout Sensory Exam: No Sensory deficit (Neuro) Extrem: General: Yes normal to inspection Psych: Appearance: grossly normal Course Reevaluation(s) Reevaluation #1: elevated WBC with nitrites in urine will treat for pyelonephritis Time: 11:57 Medications Administered Discontinued Medications Generic Name Dose Route Start Last Admin Trade Name Freq PRN Reason Stop Dose Admin Sodium Chloride 1,000 mls @ 500 mls/hr 02/01/24 09:00 02/01/24 11:55 Ns IVCONT 02/01/24 10:59 Infused .Q2H [place] Infusion Ceftriaxone Sodium 1 gm/ 50 mls @ 100 mls/hr 02/01/24 10:16 02/01/24 11:52 Sodium Chloride IV 02/01/24 10:45 100 mls/hr ONCE ONE Administration Ketorolac Tromethamine 30 mg 02/01/24 08:53 02/01/24 09:25 Ketorolac Tromethamine 30 Mg/Ml Vial IVPUSH 02/01/24 08:54 30 mg ONCE ONE Administration Potassium Chloride 20 meq 02/01/24 10:15 02/01/24 11:53 Potassium Chloride Er 20 Meq Tab.Er.Prt PO 02/01/24 10:16 20 meq ONCE ONE Administration Medical Decision Making Differential Diagnosis Differential Diagnoses: The differential diagnosis associated with the presentation includes (renal colic, pyelonephritis, UTI) Admission/Observation Consideration of admission/observation: Escalation of care including admission/observation considered (upon arrival admission was considered) Lab Data 02/01/24 09:21 02/01/24 09:21 Labs: Lab Results 02/01/24 Range/Units 09:21 WBC 16.0 H (4.8-10.8) X10*3/uL RBC 4.10 L (4.60-5.80) X10*6/uL Hgb 11.5 L (14.0-18.0) g/dl Hct 35.6 L (42.0-52.0) % MCV 86.8 (80.0-98.0) fL MCH 28.0 (27.0-33.0) pg MCHC 32.3 (31.0-36.0) g/dl RDW 14.6 (11.0-16.0) % Plt Count 520 H D (160-400) X10*3/uL MPV 9.5 (9.4-12.4) fL Immature Gran % (Auto) 1.3 H (0.0-0.4) % Neut % (Auto) 83.5 H (45-73) % Lymph % (Auto) 9.1 L (20-40) % [place] % (Auto) 5.3 (2-11) % Eos % (Auto) 0.5 (0-4) % Baso % (Auto) 0.3 (0-2) % Lymph # (Auto) 1.5 (1.2-4.9) X10*3/uL [place] # (Auto) 0.9 (0.1-1.2) X10*3/uL Eos # (Auto) 0.1 (0.0-0.4) X10*3/uL Baso # (Auto) 0.1 (0.0-0.2) X10*3/uL Abs Immat Gran (auto) 0.21 H (0.00-0.03) X10*3/uL Absolute Neuts (auto) 13.4 H (2.0-8.3) x10*3/uL Absolute Nucleated RBC 0.000 (0.0-0.012) X10*3/uL Nucleated RBC % (auto) 0.0 (0.0-0.2) /100WBC Sodium 137 (135-145) mmol/L Potassium 3.0 L D (3.3-5.1) mmol/L Chloride 92 L (96-108) mmol/L Carbon Dioxide 34 H (22-29) mmol/L Anion Gap 14 (12-20) BUN 12 (9-16) mg/dL Creatinine 0.82 (0.5-1.4) mg/dL Estim Creat Clear Calc 121.1 Estimated GFR > 60 Random Glucose 95 (60-115) mg/dL Calcium 9.6 (8.4-10.2) mg/dL Urine Color [place] Urine Appearance Cloudy Urine pH 5.5 (5.0-9.0) Ur Specific [place] >= 1.030 H (1.005-1.025) Urine Protein 100 (2+) H (Neg-Trace) mg/dL Urine Glucose (UA) See Note (Negative) mg/dL Urine Ketones See Note (Negative) mg/dL Urine Blood Negative (Negative) Urine Nitrite Positive H (Negative) Ur Leukocyte Esterase Trace H (Negative) Urine RBC 0-2 (0-2) /HPF Urine WBC 0-5 (0-5) /HPF Ur Squamous Epith Cells 6-10 (0-2) /HPF Urine Bacteria 2+ (None Seen) Epithelial Casts Present Hyaline Casts 0-2 (0-2) /LPF Granular Casts Present Independent Interpretation I performed an independent interpretation of an: Ultrasound (no hydro seen) Radiology Impression Discussion of test interpretation with radiology: I have reviewed the radiologist's reading. External Record Review External record reviewed: Outpatient record Chronic Conditions Patient?s care impacted by: Other (polysubstance abuse) Social Determinants Patient?s care significantly limited by Social Determinants of Health including: Alcoholism and drug addiction in family Discharge Plan Discharge Clinical Impression: Urinary tract infection, Acute pyelonephritis Patient Disposition: Home, Self-Care Instructions: Urinary Tract Infection in Men (ED) Prescriptions: New naproxen [Naprosyn] 500 mg tablet 500 mg PO BID Qty: 20 0RF cephalexin 500 mg capsule 500 mg PO QID 10 Days Qty: 40 0RF No Action ketorolac 10 mg tablet 10 mg PO Q8H PRN (Reason: pain) Qty: 10 0RF Rx Instructions: maximum total duration of 5 days from all oral, intranasal, or parenteral formulations prednisone 20 mg tablet 20 mg PO DAILY Qty: 3 0RF cephalexin 500 mg capsule 500 mg PO Q6H 7 Days Qty: 28 0RF doxycycline hyclate 100 mg tablet 100 mg PO BID 7 Days Qty: 14 0RF albuterol sulfate [Ventolin HFA] 90 mcg/actuation HFA aerosol inhaler 1 inh inhalation Q4-6H PRN (Reason: shortness of breath or wheezing) Qty: 8.5 0RF prednisone 20 mg tablet 20 mg PO .COMPLEX Qty: 18 0RF Rx Instructions: 20 mg PO 3 p.o. daily for 3 days followed by 2 p.o. daily for 3 days followed by 1 p.o. daily for 3 days; azithromycin 500 mg tablet 500 mg PO DAILY 5 Days Qty: 5 0RF methadone 10 mg/5 mL solution 95 mg PO DAILY Print Language: Brazilian
[2024-02-01] MEDS: cefTRIAXone sodium 1 GM in 0.9 % Sodium Chloride 50 ML IV (11:52)
[2024-02-01] MEDS: Potassium Chloride ER 20 MEQ TAB.ER.PRT PO (11:53)
[2024-02-01 12:26] VITALS: BP 123/72; PULSE 82; RESP 16; TEMP 36.9; O2SAT 91
== END 2024-02-01 12:27 | disposition home or self-care (01) ==
PROVIDERS: Emergency Provider Emergency Medicine; PCP Internal Medicine
DX: N39.0 Urinary tract infection, site not specified (principal); N12 Tubulo-interstitial nephritis, not specified as acute or chronic; R10.9 Unspecified abdominal pain; F19.90 Other psychoactive substance use, unspecified, uncomplicated
CPT/HCPCS: 36415; 76775; 80048; 81001; 85025; 87086; 96361; 96374; 96375; 99284; J0696; J1885

== ENCOUNTER 2024-02-06 08:16 | Outpatient (AMB) | payer OTHER, SELFPAY ==
--- NOTE | 2024-02-06 08:33 | MHC.OFFWIV ---
Intake Vital Signs 02/06/24 08:34 Height 5 ft 11 in Weight 196 lb 8 oz BMI 27.4 BP 120/74 Blood Pressure Location Rt brachial Position Sitting Pulse 80 Pulse Source Pulse Oximeter Temp 98.6 F Temp Source Oral Pulse Oximetry (%) 94 Intake Visit Reasons: EP body aches chills loss appetite fever Intake Note: pt is here for positive at home covid test Patient Tobacco Use Status: Never used Tobacco Allergies bee pollen [BEE STINGS] Allergy (Intermediate, Verified 02/06/24 08:40) HIVES Penicillins Allergy (Mild, Verified 02/06/24 08:40) UNKNOWN penicillin V Allergy (Unknown, Verified 02/06/24 08:40) unknown SANJAY DELIGHT Allergy (Mild, Uncoded 02/01/24 08:56) HIVES Do you need a note to return to daycare/school/sports/work: No HPI HPI Comments History of Present Illness Details The patient is a 43-year-old male complaining of 3 days of fatigue, fevers, chills, body aches. He states prior to that, he had a bout of a kidney infection with kidney stones. He denies any chest pain or shortness of breath but does state he has asthma and is in need of an inhaler. He states nothing seems to make it better or worse [facility] Medical History Kidney stones Crack cocaine use Heroin abuse Drug abuse Social History Patient Tobacco Use Status: Never used Tobacco Substance Use Type: Former Substance User Review of Systems Const All systems reviewed & are unremarkable except as noted in HPI and below Physical Exam Vital Signs: Last Vital Signs Temp 98.6 F 02/06/24 08:34 Pulse 80 02/06/24 08:34 BP 120/74 02/06/24 08:34 Pulse Ox 94 02/06/24 08:34 BMI result Body Mass Index 27.4 Const General: cooperative, healthy appearing, comfortable, no acute distress and well developed Orientation/consciousness: patient oriented x3 Limitations: no limitations HEENT Head: Yes normal to inspection General nose exam: Normal external nose present and Normal nares present Eyes General: appearance normal, both eyes and all related structures Neck Neck: Yes normal visual inspection and Yes full ROM Resp Effort & Inspection: normal respiratory effort and able to speak in complete sentences Auscultation: clear to auscultation bilaterally Cardio Rate: regular rate Rhythm: regular rhythm Heart sounds: normal S1 and S2 Skin General skin exam: no rashes or lesions noted Neuro General: patient oriented x3 Extrem General: Yes normal to inspection Assessment & Plan Assessment & Plan (1) URI (upper respiratory infection): Code(s): J06.9 - Acute upper respiratory infection, unspecified Qualifiers: URI type: unspecified viral URI Qualified Code(s): J06.9 - Acute upper respiratory infection, unspecified Plan: sent covid/flu/rsv test. Pt would be too late to start Paxlovid. Recommended treat himself with [id number] medications and isolating himself 24 hours after symptoms resolve. Plan see above Orders: Orders SARS-CoV2/FLU/RSV Today J06.9 - Acute upper respiratory infection, unspecified Medications: New albuterol sulfate 90 mcg/actuation 2 puffs inhalation Q6H PRN 8.5 grams 0RF shortness of breath or wheezing Coding Level of Care Code Est Pt Level 3 (66221) Diagnoses Viral upper respiratory tract infection J06.9 URI type: unspecified viral URI
[2024-02-06 08:34] VITALS: BP 120/74; PULSE 80; TEMP 37; O2SAT 94; BMI 27.4
== END 2024-02-06 09:16 | disposition home or self-care (01) ==
PROVIDERS: PCP Internal Medicine; Visit Provider Physician Assistant
DX: J06.9 Acute upper respiratory infection, unspecified (principal)
CPT/HCPCS: 99213

== ENCOUNTER 2024-02-06 10:44 | Outpatient (REF) | payer OTHER, SELFPAY | END 2024-02-06 10:45 | disposition home or self-care (01) | LOC: HO.CHCLNP 10:44 | PROVIDERS: Visit Provider Physician Assistant | DX: Z13.89 Encounter for screening for other disorder (principal) ==

== ENCOUNTER 2024-02-07 10:05 | Outpatient (AMB) | payer OTHER, SELFPAY ==
[2024-02-07 10:10] VITALS: BP 126/78; PULSE 80; O2SAT 98
--- NOTE | 2024-02-07 10:10 | A.OFFPC_ITS ---
Vital Signs 3 02/07/24 10:10 Weight 194 lb 6 oz BP 126/78 Blood Pressure Location Rt brachial Position Sitting Pulse 80 Pulse Source Pulse Oximeter Pulse Oximetry (%) 98 Oxygen Delivery Method Room Air Intake Visit Reasons: Kidney Stones Allergies bee pollen [BEE STINGS] Allergy (Intermediate, Verified 02/07/24 10:17) HIVES Penicillins Allergy (Mild, Verified 02/07/24 10:17) UNKNOWN penicillin V Allergy (Unknown, Verified 02/07/24 10:17) unknown SANJAY DELIGHT Allergy (Mild, Uncoded 02/01/24 08:56) HIVES Medication List - Last Reconciled 02/07/24 by Sushma Marroquin MD albuterol sulfate 90 mcg/actuation (Ventolin HFA) 1 inh inhalation Q4-6H PRN albuterol sulfate 90 mcg/actuation 2 puffs inhalation Q6H PRN cephalexin 500 mg PO QID 10 days methadone 95 mg PO DAILY naproxen (Naprosyn) 500 mg PO BID Tobacco use date assessed: 02/07/24 Dental Screening Dental Screen Date: 02/07/24 Did you have a dental visit in the last 12 months?: No Did you have a dental problem in the last 6 months where you did not have access to dental care?: No Was dental information given to patient?: No HPI Kidney Stones 2 HPI0 Details Patient is a 43-year-old gentleman who came in today for his initial establish care visit and hospital discharge follow-up dated 02/01/2024 Patient presented to emergency room [facility] with a chief complaint of right flank pain and painful urination Which started few days prior to arrival and was getting worse In emergency room patient was found to be slightly anemic with hemoglobin of 11.5 And leukocytosis of 16 UA shows positive nitrite After evaluation patient was discharged with a diagnosis of acute pyelonephritis and was started on cephalexin 500 mg q.i.d. 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 How often do you have a drink containing alcohol?: Never 3. How often do you have six or more drinks on one occasion?: Never Total Score: 0 Score Reviewed/Action Taken: Yes Review of Systems Const Denies chills and Denies fever(s) ENT Denies epistaxis and Denies nasal discharge Card Denies chest pain Resp Denies chest congestion, Denies cough and Denies hemoptysis GI Denies diarrhea and Denies nausea Skin/Breast Denies rash Neuro Reports no additional complaints Psych Reports no additional complaints Endo Reports no additional complaints Physical exam (Primary Care) Vital Signs: Last Vital Signs Pulse 80 02/07/24 10:10 BP 126/78 02/07/24 10:10 Pulse Ox 98 02/07/24 10:10 Oxygen Delivery Method Room Air 02/07/24 10:10 Tobacco/Smoking Status: Tobacco use Status Tobacco use date assessed 02/07/24 02/07/24 10:17 Patient Tobacco Use Status Never used Tobacco 02/07/24 10:15 e-Cigarette/Vaping Use Never Used 02/07/24 10:17 Const General: cooperative, comfortable and no acute distress Orientation/consciousness: patient oriented x3 HENMT Head: Yes normocephalic Eyes General: appearance normal, both eyes and all related structures Neck Neck: Yes supple Resp Effort & Inspection: normal respiratory effort, no cough and no stridor Cardio Rhythm: regular rhythm Heart sounds: S1 normal heart sound present and S2 normal heart sound present Back/Spine/Pelvis Back/spine/pelvis image: 2 1. Pain with percussion Skin General skin exam: turgor normal Neuro General: patient oriented x3, tone normal and moves all extremities Extrem Right lower extremity: no edema Left lower extremity: no edema Assessment and Plan Assessment & Plan (1) Encounter to establish care: Code(s): Z76.89 - Persons encountering health services in other specified circumstances (2) Kidney stones: Code(s): N20.0 - Calculus of kidney (3) Acute pyelonephritis: Code(s): N10 - Acute pyelonephritis (4) Methadone dependence: Code(s): F11.20 - Opioid dependence, uncomplicated (5) Anemia: Code(s): D64.9 - Anemia, unspecified Qualifiers: Anemia type: other cause Other causes of anemia: chronic disease, other Qualified Code(s): D63.8 - Anemia in other chronic diseases classified elsewhere (6) Allergic asthma: Code(s): J45.909 - Unspecified asthma, uncomplicated Qualifiers: Asthma complication type: uncomplicated Asthma persistence: i ntermittent Asthma severity: mild Qualified Code(s): J45.20 - Mild intermittent asthma, uncomplicated Plan Patient is a 43-year-old gentleman who came in today for his initial establish care visit and hospital discharge follow-up dated 02/01/2024 Patient presented to emergency room [facility] with a chief complaint of right flank pain and painful urination Which started few days prior to arrival and was getting worse In emergency room patient was found to be slightly anemic with hemoglobin of 11.5 And leukocytosis of 16 UA shows positive nitrite After evaluation patient was discharged with a diagnosis of acute pyelonephritis and was started on cephalexin 500 mg q.i.d. 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 Orders: Referrals 2 Urology Referral N10 - Acute pyelonephritis, N20.0 - Calculus of kidney Medications: New 2 nitrofurantoin monohyd/m-cryst 100 mg (Macrobid) must administer with a meal/food 100 mg PO Q12H 14 caps 0RF 7 days Discontinued 2 cephalexin Discontinued Reason: Doctor's Order 500 mg PO QID 10 days 40 caps 0RF Coding Level of Care Code New Pt Level 4 (93582) Diagnoses Encounter to establish care Z76.89 Kidney stones N20.0 Acute pyelonephritis N10 Methadone dependence F11.20 Anemia in other chronic diseases classified elsewhere D63.8 Anemia type: other cause Other causes of anemia: chronic disease, other Mild intermittent extrinsic asthma without complication J45.20 Asthma complication type: uncomplicated Asthma persistence: intermittent Asthma severity: mild
== END 2024-02-07 11:27 | disposition home or self-care (01) ==
PROVIDERS: PCP Internal Medicine; Visit Provider Internal Medicine
DX: Z76.89 Persons encountering health services in other specified circumstances (principal); N20.0 Calculus of kidney; N10 Acute pyelonephritis; F11.20 Opioid dependence, uncomplicated; D63.8 Anemia in other chronic diseases classified elsewhere; J45.20 Mild intermittent asthma, uncomplicated
CPT/HCPCS: 99204

== ENCOUNTER 2024-02-18 09:37 | Inpatient (IN) | payer OTHER, SELFPAY ==
[2024-02-18] VITALS (8 sets, daily range): BP systolic 120–134; BP diastolic 74–83; PULSE 66–88; RESP 14–24; TEMP 36.7–38; O2SAT 88–96; BMI 25.7
--- NOTE | 2024-02-18 | ECG_ITS ---
Test Reason : SHORTNESS OF BREATH Blood Pressure : / mmHG Vent. Rate : 079 BPM Atrial Rate : 079 BPM P-R Int : 162 ms QRS Dur : 094 ms QT Int : 366 ms P-R-T Axes : 016 074 -18 degrees QTc Int : 419 ms Normal sinus rhythm Nonspecific ST and T wave abnormality Abnormal ECG When compared with ECG of 24-DEC-2020 16:58, Nonspecific T wave abnormality now evident in Anterolateral leads QT has shortened Referred By: Troy Acosta Electronically Signed By:ROSITA GARCIA MD
--- NOTE | ~2024-02-18 | XR_ITS ---
EXAMINATION: XR CHEST CLINICAL INFORMATION: Follow-up right chest tube COMPARISON: 02/22/2024 TECHNIQUE: Frontal view of the chest was obtained. FINDINGS: There are 2 pigtail catheters overlying the right lung base, one of which is new compared to prior. Stable appearance of right IJ central line. Lungs are mildly hypoinflated. Residual small right pleural effusion is suspected with adjacent heterogeneous basilar parenchymal opacity. No appreciable pneumothorax. Subsegmental atelectasis in the mid to lower left lung. The cardiomediastinal silhouette is stable. No acute osseous findings are seen. XR/XR chest 1V IMPRESSION: Two pigtail catheters overlying the right lung base, one of which is new compared to prior. Residual small right pleural effusion suspected along with adjacent basilar opacity.
--- NOTE | ~2024-02-18 | US_ITS ---
43-year-old man with a right paraspinal abscess that communicates with the known right empyema. Patient presents for drainage of the paraspinal abscess. PROCEDURES: 1. Limited preprocedure ultrasound of the back. Permanent images saved in PACS. 2. Ultrasound-guided drainage of the right paraspinal abscess. 3. Limited post procedure ultrasound of the back. Permanent images saved in PACS. CLINICIANS: Curt Montemayor PA-C MEDICATIONS: -Lidocaine 1% 10 mL SQ -Antibiotics: None -For additional details, please see nursing flowsheet. COMPLICATIONS: None ESTIMATED BLOOD LOSS: < 5 ml CONTRAST: None SPECIMENS: Sample sent for culture. PROCEDURE NOTE: The procedure, risks, benefits, and alternatives were carefully explained to the patient and written informed consent was obtained. The patient was placed in a sitting position on the exam table. A timeout was performed. A limited ultrasound of the neck was performed to localize the right paravertebral abscess and choose appropriate needle entry and trajectory. The patient was prepped and draped in usual sterile fashion. The skin and deeper soft tissues were anesthetized with lidocaine. Under ultrasound guidance, a 10 [place] all-purpose drain was placed into the paraspinal abscess via trocar technique. A total of 5 mL of thick purulent/bloody fluid was aspirated. A sample sent for culture. The drain was secured to the skin with a 3-0 nylon suture. A dry dressing was applied. The drainage catheter was connected to a ANASTASIA bulb. There were no immediate complications. The patient was stable after the procedure and was transferred back to the medical floor. US/US drain visceral Impression: Ultrasound drainage of right paraspinal abscess This procedure was performed by Curt Montemayor PA-C and supervised by Dr. Boo.
--- NOTE | ~2024-02-18 | XR_ITS ---
EXAMINATION: XR CHEST CLINICAL INFORMATION: Reason for Exam f/u right thoracotomy, decortication COMPARISON: Chest radiograph 02/24/2024, CT chest 02/23/2024 TECHNIQUE: One view of the chest FINDINGS: Lines and tubes: Right internal jugular central venous catheter tip terminates overlying the cavoatrial junction. EKG leads overlie the patient. Right-sided thoracostomy tubes in similar alignment. Surgical clips overlie the right hemithorax. Similar right chest wall subcutaneous emphysema. Similar moderate left and small right pleural effusions with patchy multifocal parenchymal airspace opacities possibly slightly increased in the right upper lobe with respect to prior. There is subdiaphragmatic lucency under the right hemidiaphragm raising the suspicion for potential extraluminal free air. No pneumothorax. Unchanged cardiomediastinal silhouette with some leftward mediastinal shift. XR/XR chest 1V IMPRESSION: 1. There is subdiaphragmatic lucency under the right hemidiaphragm raising the suspicion for potential extraluminal intra-abdominal free air, recommend correlation with clinical symptoms and CT abdomen and pelvis could be confirmatory if warranted. 2. Similar moderate left and small right pleural effusions with patchy multifocal parenchymal airspace opacities possibly slightly increased in the right upper lobe with respect to prior. 3. Right-sided thoracostomy tubes in similar alignment. Similar right chest wall subcutaneous emphysema. The findings and recommendations were discussed with Hannah العلي by telephone at 02/25/2024 4:29 PM and it was ascertained that the content and urgency of the report was understood at the time of direct communication.
--- NOTE | ~2024-02-18 | XR_ITS ---
EXAMINATION: XR CHEST CLINICAL INFORMATION: Status post right decortication COMPARISON: 02/25/2024 TECHNIQUE: Frontal view of the chest was obtained. FINDINGS: Right IJ central line tip lies in the region of the upper right atrium. Redemonstrated right chest tube with tip at the apex. Redemonstrated elevation of the right hemidiaphragm. Redemonstrated lucency at the right lung base, for which it is difficult with certainty whether this represents a basilar pneumothorax versus intra-abdominal free air. Persistent heterogeneous opacity in the mid to lower right lung along with small pleural effusion. Left lung appears well-aerated. The cardiomediastinal silhouette is stable. No acute osseous findings are seen. XR/XR chest 1V IMPRESSION: 1. Redemonstrated lucency at the right lung base, for which it is difficult with certainty whether this represents a basilar pneumothorax versus intra-abdominal free air. 2. Persistent heterogeneous opacity in the mid to lower right lung along with small pleural effusion, similar to prior.
--- NOTE | ~2024-02-18 | XR_ITS ---
EXAMINATION: XR CHEST CLINICAL INFORMATION: Central line placement COMPARISON: CT chest from 02/18/2024 TECHNIQUE: Frontal view of the chest was obtained. FINDINGS: Right internal jugular central venous catheter is seen with the distal tip at the cavoatrial junction in good position. No pneumothorax. There is opacification of the right lung base with an air-fluid level consistent with underlying empyema. Left lung is grossly clear. XR/XR chest 1V IMPRESSION: 1. Right internal jugular central venous catheter in good position. No pneumothorax. 2. Right lung base empyema.
--- NOTE | ~2024-02-18 | XR_ITS ---
EXAMINATION: XR CHEST CLINICAL INFORMATION: Follow-up chest tube COMPARISON: Chest radiograph 02/18/2024 CT chest 02/18/2024 TECHNIQUE: Frontal view of the chest was obtained. FINDINGS: Since the prior study, a chest tube is present at the right lung base and there is been decrease in size of a large right pleural effusion/empyema. There is no pneumothorax. A right IJ catheter remains with its tip in the mid right atria. There are some patchy parenchymal changes in the right lung sparing the apices. No evidence of CHF. No left pleural effusion XR/XR chest 1V IMPRESSION: Decrease in size of right pleural effusion/empyema with chest tube in place. No pneumothorax.
--- NOTE | ~2024-02-18 | CT_ITS ---
EXAMINATION: CT CHEST WITHOUT IV CONTRAST CT ABDOMEN AND PELVIS WITHOUT IV CONTRAST CLINICAL INFORMATION: Pain. Right flank pain. Evaluate for obstructive uropathy. COMPARISON: CT of abdomen and pelvis from 01/17/2024. TECHNIQUE: Noncontrast multidetector CT imaging examination of the chest, abdomen and pelvis was performed. Coronal and sagittal reformatted images were generated at the technologist's workstation and submitted for review. This CT examination was performed using dose optimization techniques as appropriate, variously including the following: *Automated exposure control *Adjustment of mA and/or kV according to patient size (this includes techniques or standardized protocols for targeted exams where dose is matched to indication/reason for exam; i.e. extremities or head) *Use of iterative reconstruction technique DLP: 244 mGy-cm for the chest CT and 627 mGy-cm for the abdomen/pelvis CT FINDINGS: CHEST - LUNGS AND PLEURA: Trachea and mainstem bronchi are widely patent and normal in caliber. Trace left pleural effusion is present and there appears to be minimal atelectasis in the posteroinferior left lower lobe. A thick-walled fluid collection containing gas bubbles and air-fluid level is present in the posterior right hemithorax. This appears to be arising out of the pleural space and compressing the right lower lobe. The collection measures up to nearly 14 cm transverse, 11.5 cm AP and 19 cm craniocaudal and exerts mass effect upon the posterior right hemidiaphragm and underlying liver. There also appears to be fluid and gas in the posterior extrapleural space, and fluid appears to be tracking around region of 9th and 10th ribs, and a fluid collection in the adjacent right paraspinal muscles is 5.7 x 3.9 x 13.5 cm. CARDIOVASCULAR: The heart size is normal. No pericardial effusion. Pulmonary arteries and thoracic aorta are normal in caliber. MEDIASTINUM/LOWER NECK: No mediastinal mass. The esophagus and partially visualized thyroid gland are unremarkable. LYMPHATICS: No axillary or internal mammary lymphadenopathy. No bulky hilar lymphadenopathy is seen on this noncontrast examination. Mild lymphadenopathy is present within the mediastinum. For example, a subcarinal lymph node is 1.2 cm in short axis dimension and nearby lymph nodes adjacent proximal mainstem bronchi measure up to 1 cm short axis dimension. BONES AND THORACIC SOFT TISSUES: There appears to be increased irregularity at the right 10th rib costotransverse junction and osteopenia of the rib and mild fragmentation of the transverse process. Several gas bubbles are present within the paraspinal tissues of the posterior lower thoracic spine. There are no erosions at thoracic vertebral endplates. Schmorl's nodes of the T7 and T12 superior endplates. Hemangioma of the T5 vertebral body. ABDOMEN AND PELVIS - HEPATOBILIARY: There is hepatomegaly and diffuse hepatic steatosis. No focal liver lesions are seen on this noncontrast examination. Gallbladder is unremarkable. No dilated bile ducts. PANCREAS: No edema, mass or pancreatic ductal dilatation. SPLEEN: 16.5 cm maximum dimension. ADRENAL GLANDS: Normal. KIDNEYS AND URETERS: Kidneys are normal in size. No hydronephrosis. 0.2 x 0.4 cm calyceal stone of the lower pole of the right kidney. The ureters are unremarkable. BOWEL AND PERITONEUM: Stomach is unremarkable. No dilated bowel loops. No evidence of inflammatory change along the gastrointestinal tract. No pneumoperitoneum. Trace amount free fluid is seen in the posterior pelvic cul-de-sac. ABDOMINAL WALL: Chronic protrusion of fat into the proximal left inguinal canal. VESSELS: Unremarkable. LYMPH NODES: No pathologic sized lymph nodes in the abdomen or pelvis. No inguinal lymphadenopathy. BLADDER AND PROSTATE GLAND: Unremarkable. MUSCULOSKELETAL: Lumbar vertebra have well preserved height and alignment. Lumbar disc spaces are maintained. Sacroiliac joints are unremarkable. CT/CT abdomen pelvis wo IV con IMPRESSION: * Compared to 01/17/2024, there appears to be new articular surface irregularity at the costotransverse junction of the right 10th rib and mild osseous fragmentation of the transverse process. In this region, there is a circumscribed fluid collection (as well as gas bubbles) in the paraspinal tissues and fluid filling the posterior pleural space of the right hemithorax. The loculated collection exerts mass effect upon the right lower lobe. Consider possibility that infection has arisen out of the area of the right 10th costotransverse junction. Alternatively, if this patient had recent pneumonia, then there could have been development of a large empyema and decompression into the posterior paraspinal tissues. * Diffuse hepatic steatosis and hepatosplenomegaly. * Small stone in the lower pole the right kidney. No ureteral stones or hydroureteronephrosis.
--- NOTE | ~2024-02-18 | US_ITS ---
PROCEDURE: Ultrasound-guided chest tube placement HISTORY: Right empyema SPECIMEN: A specimen was appropriately labeled and sent to the laboratory as requested ACCESS: 5 fr Yueh needle/catheter MEDICATIONS: 10 mL 1% lidocaine TECHNIQUE/FINDINGS Appropriate preprocedural clinical history and imaging studies were reviewed. The patient was brought to the department and placed in the seated position. Ultrasound images of the right thorax were obtained to localize a large complex fluid collection. Permanent ultrasound images were saved. The risks and benefits and possible complications were discussed with the patient and consent form was signed. An area of the patient's right back was prepped and draped in the usual sterile fashion. 10 mL of 1% lidocaine was used to obtain local anesthesia of the skin and deeper tissues. A 25 gauge hypodermic needle was introduced to sample pleural fluid and demonstrate a safe access route. A 5 [place] Yueh catheter was then used to access the pleural cavity. Thick purulent fluid was immediately aspirated. A 0.035 guidewire was then placed through the catheter and coiled into the chest. The access site was then dilated. A 12 fr locking catheter was then advanced over the wire and into the right pleural space. The wire was removed and the catheter was secured to the skin with a 3-0 Ethilon suture and a sterile dressing was applied over the site. The catheter was then connected to a closed chest drainage system. The patient tolerated the procedure well. There were no immediate complications US/US drain thoracentesis Impression: Ultrasound-guided right chest tube placement yielding thick purulent fluid. This procedures performed by Curt Montemayor PA-C and supervised by Dr. Boo.
--- NOTE | ~2024-02-18 | CT_ITS ---
EXAMINATION: CT CHEST WITH CONTRAST CLINICAL INFORMATION: Right lung abscess and empyema COMPARISON: 02/18/2024 TECHNIQUE: Multidetector volumetric CT imaging of the chest was obtained after the administration of 65 mL of Omnipaque 350 intravenous contrast without immediate adverse reactions. Axial MIP volume rendering provided. Sagittal and coronal reformatted images were obtained. This CT examination was performed using dose optimization techniques as appropriate, variously including the following: *Automated exposure control *Adjustment of mA and/or kV according to patient size (this includes techniques or standardized protocols for targeted exams where dose is matched to indication/reason for exam; i.e. extremities or head) *Use of iterative reconstruction technique DLP: 141 mGy-cm FINDINGS: LUNGS/PLEURA: Large thick-walled fluid collection in the right hemithorax is markedly decreased in size. A drainage catheter is is seen in the posterior/inferior pleural space. There is residual loculated thick walled fluid collection with areas of fluid and air consistent with empyema more superiorly from the drainage catheter and could represent undrained loculated segments of the empyema. Largest area measures approximately 7.1 x 3.19 cm. There is a second drainage catheter in the subcutaneous soft tissues of the right posterior chest wall. No significant residual fluid is seen around the drainage catheter. There is however still an undrained paraspinal musculature abscess more medially although this is decreased in size and currently measures 4.2 x 2.3 cm. There is improved aeration within the right lower lobe. There are patchy areas of atelectasis and airspace opacity throughout the right lower lobe. Increased peribronchial vascular groundglass opacities seen within the right middle lobe compared to the prior exam. Left lung base atelectasis and trace left pleural effusion is again seen. MEDIASTINUM: Heart is mildly enlarged. Pericardium appears normal. Diffuse lymphadenopathy throughout the mediastinum and bilateral carmenza. There is a right internal jugular vein central venous catheter extending into the cavoatrial junction. AXILLA: No lymphadenopathy. UPPER ABDOMEN: Unremarkable OSSEOUS STRUCTURES: Cortical lucency is again noted is seen within the medial right 10th posterior rib and costovertebral junction CT/CT chest w IV con IMPRESSION: 1. Marked interval decrease in size of the right pleural empyema. There is a residual loculated empyema more superiorly from the drainage catheter which could represent undrained segments of the empyema. 2. No significant residual fluid around the drainage catheter in the subcutaneous soft tissues of the right posterior chest wall. There is however still an undrained paraspinal musculature abscess more medially although this is decreased in size. 3. Improved aeration within the right lower lobe with patchy areas of atelectasis and airspace opacity. Increased peribronchial vascular groundglass opacities within the right middle lobe compared to the prior exam. 4. Diffuse lymphadenopathy throughout the mediastinum and bilateral carmenza.
--- NOTE | ~2024-02-18 | XR_ITS ---
EXAMINATION: XR CHEST CLINICAL INFORMATION: f/u right thoracotomy, decortication COMPARISON: Chest x-ray and CT chest February 23, 2024 TECHNIQUE: Frontal portable view of the chest was obtained. 1722 hours FINDINGS: Air collection under the right right hemidiaphragm versus subpulmonic air consistent with recent surgery. 2 right-sided chest tubes in place. Linear and patchy airspace opacities at lung bases bilateral. Right IJ catheter tip projects over the right atrium. XR/XR chest 1V IMPRESSION: 1. Air collection under right hemidiaphragm versus subpulmonic air consistent with recent surgery. 2. 2 right-sided chest tubes in place. 3. Bibasilar airspace disease.
--- NOTE | ~2024-02-18 | XR_ITS ---
EXAMINATION: XR CHEST CLINICAL INFORMATION: Follow-up right pleural effusion. COMPARISON: Chest radiograph 02/21/2024 TECHNIQUE: Frontal view of the chest was obtained. FINDINGS: Heart size within normal limits allowing for technique. Some mild patchy changes are present in the right lung similar to prior. A pigtail catheter is present at the right lung base unchanged in position when compared to prior. There is no significant pleural effusion seen. No pneumothorax. Right IJ catheter with tip at right atrium. XR/XR chest 1V IMPRESSION: No significant pleural effusion is seen. Right-sided pigtail catheter is unchanged in position.
--- NOTE | ~2024-02-18 | XR_ITS ---
EXAMINATION: XR CHEST CLINICAL INFORMATION: Follow-up chest tube removal. COMPARISON: 02/27/2024 5:[address] chest 02/23/2024. TECHNIQUE: Frontal view of the chest was obtained on 02/27/2024 at 12:10 PM. FINDINGS: The heart size is borderline. A right IJ line has its tip in unchanged position in the right atrium. Compared with the prior study, the right-sided chest tube has been removed. Bibasilar atelectasis is again noted. Curvilinear lucency at the right lung base remains present with differential diagnosis including free intraperitoneal air versus small loculated subpulmonic pneumothorax. XR/XR chest 1V IMPRESSION: Status post removal of right-sided chest tube. Curvilinear lucency at the right lung base remains present with differential diagnosis including free intraperitoneal air versus small loculated subpulmonic pneumothorax. CT scan could distinguish between these 2. I suspect that the more likely diagnosis is loculated pneumothorax as some loculated air could be seen in this region on the 02/23/2024 CT scan.
[2024-02-18 09:54] LABS: Appearance Urine Cloudy; Glucose Urine UA Negative (Negative); Leukocyte Esterase Urine Small (1+) (Negative); PH 5.5 (5.0-9.0); Specific Gravity - Urine 1.025 (1.005-1.025); UMIC TRIGGER UACC YES; Urine Blood Negative (Negative); Urine Ketones Negative (Negative)
[2024-02-18 09:55] LABS: Color Urine Orange
--- NOTE | 2024-02-18 09:59 | ED_ITS ---
HPI - Male Genitourinary General Chief complaint: Urogenital-Male Stated complaint: Kidney Stones & UTI Time Seen by Provider: 02/18/24 09:50 Source: patient Mode of arrival: ambulatory Limitations: no limitations History of Present Illness ED Provider: DR. Melchor HPI Narrative: 43-year-old male came in for evaluation of right flank pain, patient with history of kidney stones, and recently was diagnosed with right pyelonephritis and just finished a course of oral antibiotic (Keflex ). Patient return for persistence of right flank pain. No nausea, no vomiting , no dysuria, no hematuria. Patient had remote history of kidney stones with lithotripsy Related Data Home Medications ?Medication ?Instructions ?Recorded ?Confirmed methadone 10 mg/5 mL oral solution 95 mg PO DAILY 08/06/21 02/07/24 Previous Rx's ?Medication ?Instructions ?Recorded albuterol sulfate 90 mcg/actuation 1 inh inhalation Q4-6H PRN 01/23/21 aerosol inhaler (Ventolin HFA) shortness of breath or wheezing #8.5 grams naproxen 500 mg tablet (Naprosyn) 500 mg PO BID #20 tabs 02/01/24 albuterol sulfate 90 mcg/actuation 2 puff inhalation Q6H PRN 02/06/24 aerosol inhaler shortness of breath or wheezing #8.5 grams nitrofurantoin 100 mg PO Q12H 7 days #14 caps 02/07/24 monohydrate/macrocrystals 100 mg capsule (Macrobid) Allergies Allergy/AdvReac Type Severity Reaction Status Date / Time bee pollen [BEE STINGS] Allergy Intermediate HIVES Verified 02/18/24 09:41 Penicillins Allergy Mild UNKNOWN Verified 02/18/24 09:41 penicillin V Allergy Unknown unknown Verified 02/18/24 09:41 SANJAY DELIGHT Allergy Mild HIVES Uncoded 02/18/24 09:41 Review of Systems 2 Review of Systems: all other systems are reviewed and are negative Constitutional: Reports as per HPI and Reports no additional constitutional complaints Eyes: Reports as per HPI and Reports no additional eye complaints Reports system reviewed and no additional complaints, except as documented Cardiovascular: Reports as per HPI and Reports no additional cardiovascular complaints Respiratory: Reports as per HPI and Reports no additional respiratory complaints Gastrointestinal: Reports as per HPI and Reports no additional gastrointestinal complaints Genitourinary: Reports no additional female genitourinary complaints Musculoskeletal: Reports no additional musculoskeletal complaints Skin/Breast: Reports system reviewed and no additional complaints, except as docu Psychiatric: Reports no additional psychiatric complaints Endocrine: Reports no additional endocrine complaints Hematologic/Lymphatic: Reports no additional hematologic/lymphatic complaints Allergic/Immunologic: Reports no additional allergic/immunologic complaints Reports system reviewed and no additional complaints, except as documented and Reports Abnormal speech present [facility] Past Medical History Medical History Kidney stones Crack cocaine use Heroin abuse Drug abuse Social History Social History Housing: Apartment Patient Tobacco Use Status: Never used Tobacco Smoked in Last 30 Days: No e-Cigarette/Vaping Use: Never Used Use of substances other than those prescribed or required for medical reasons: No Substance Use Type: Former Substance User Advance Directives: No Advance Directives Information Provided: No service: No Current occupational status: unemployed Cognitive needs: No Hearing needs: No Vision needs: No Physical Exam 2 Vital Signs: Vital Signs: Last Vital Signs Temp 98.2 F 02/18/24 12:56 Pulse 66 02/18/24 12:56 Resp 14 02/18/24 12:56 BP 120/78 02/18/24 12:56 Pulse Ox 92 02/18/24 12:56 O2 Del Method Room Air 02/18/24 12:56 BMI result Body Mass Index 25.7 Vital signs have been reviewed and appear to be correct. Blood pressure elevated. Heart rate normal. Respiratory rate normal. Temperature normal. Oxygen saturation normal. Appearance: Alert. Oriented X3. No acute distress. Head: Normal external exam. Normocephalic. Atraumatic. No [place] signs noted. No raccoon eyes noted Eyes: PERRLA. EOMI. Conjunctiva and sclera normal. Eyelids normal. ENT: TM's Normal. Pharynx normal. Uvula midline. Moist mucous membranes. No trismus noted. No drooling noted. No muffled voice noted. Neck: Normal inspection. Neck supple. FROM. No adenopathy. Thyroid Normal. No meningeal signs. No neck mass noted. CVS: Normal heart rate and rhythm. Heart sound normal. No murmurs noted. Pulses normal throughout. Respiratory: No respiratory distress. Painless inspiration. Breath sounds normal. No wheezes/rales/rhonchi noted. Chest nontender. No accessory muscle usage noted or decreased air movement noted. Abdomen: Soft and nontender. Bowel sounds normal in all 4 quadrants. No distention noted. No organomegaly noted. No visible injury noted. Back: R CVA tenderness. 5 x 5 cm area of bulging very tender to touch, normal color skin above it. Full range of motion noted. Skin: Skin warm and dry. Normal skin color. Normal skin turgor. No rashes/lesions/lacerations noted. Extremities: No lower extremity edema. Extremities exhibit normal range of motion. Extremities nontender. Neuro: Oriented X 3. Cranial nerve exam: II-XII are grossly intact No motor deficit. No sensory deficit. Reflexes normal. Course Reevaluation(s) Reevaluation #1: right flank pain previously diagnosed with right pyelonephritis finish a course of Keflex patient return for increased pain and persistent of symptoms. 1. Urine is not suggesting UTI or pyelonephritis. 2. CT of the chest showing right intrathoracic mass that could be a fluid collection. 3. Start the patient on prophylactic antibiotic. 4. The case discussed with Dr. Almazan who recommended to admit to the hospitalist service, get Infectious Disease consultation, pulmonary disease consultation, and IR when available. The case discussed with Dr. Acosta who agreed on the plan. Time: 15:04 Medications Administered Generic Name Dose Route Start Last Admin Trade Name Freq PRN Reason Stop Dose Admin Levofloxacin 250 mg in 50 mls @ 50 mls/hr 02/18/24 14:00 02/18/24 14:46 Levaquin IV 02/18/24 16:59 50 mls/hr Q1H [place] Administration Discontinued Medications Generic Name Dose Route Start Last Admin Trade Name Freq PRN Reason Stop Dose Admin Sodium Chloride 1,000 mls @ 999 mls/hr 02/18/24 09:57 02/18/24 14:49 Ns IV 02/18/24 10:57 Infused .Q1H1M ONE Infusion Ceftriaxone Sodium 1 gm/ 50 mls @ 100 mls/hr 02/18/24 09:57 02/18/24 11:28 Sodium Chloride IV 02/18/24 10:26 Infused ONCE ONE Infusion Ketorolac Tromethamine 30 mg 02/18/24 09:57 02/18/24 10:46 Ketorolac Tromethamine 30 Mg/Ml Vial IVPUSH 02/18/24 09:58 30 mg ONCE ONE Administration Oxycodone HCl 5 mg 02/18/24 10:04 02/18/24 10:45 Oxycodone Hcl Immed Release 5 Mg Tablet PO 02/18/24 10:05 5 mg ONCE ONE Administration Medical Decision Making Differential Diagnosis Differential Diagnoses: The differential diagnosis associated with the presentation includes ( UTI, pyelonephritis, empyema, pneumonia, pleural effusion, obstructive uropathy, colitis, diverticulitis,) Admission/Observation Consideration of admission/observation: Escalation of care including admission/observation considered Consult Healthcare Provider Management of the patient was discussed with: Hospitalist ( Dr. Acosta) and Allocation Analyst (Dr. Almazan) Lab Data MDM Lab Attestation statement: I reviewed the patient's lab results. 02/18/24 10:33 02/18/24 10:33 Labs: Lab Results 02/18/24 02/18/24 02/18/24 Range/Units 09:48 10:33 10:34 WBC 15.1 H (4.8-10.8) X10*3/uL RBC 3.65 L (4.60-5.80) X10*6/uL Hgb 9.8 L (14.0-18.0) g/dl Hct 30.2 L (42.0-52.0) % MCV 82.7 (80.0-98.0) fL MCH 26.8 L (27.0-33.0) pg MCHC 32.5 (31.0-36.0) g/dl RDW 14.2 (11.0-16.0) % Plt Count 363 D (160-400) X10*3/uL MPV 9.8 (9.4-12.4) fL Immature Gran % (Auto) 1.1 H (0.0-0.4) % Neut % (Auto) 81.9 H (45-73) % Lymph % (Auto) 9.9 L (20-40) % [place] % (Auto) 6.3 (2-11) % Eos % (Auto) 0.6 (0-4) % Baso % (Auto) 0.2 (0-2) % Lymph # (Auto) 1.5 (1.2-4.9) X10*3/uL [place] # (Auto) 1.0 (0.1-1.2) X10*3/uL Eos # (Auto) 0.1 (0.0-0.4) X10*3/uL Baso # (Auto) 0.0 (0.0-0.2) X10*3/uL Abs Immat Gran (auto) 0.17 H (0.00-0.03) X10*3/uL Absolute Neuts (auto) 12.5 H (2.0-8.3) x10*3/uL Absolute Nucleated RBC 0.000 (0.0-0.012) X10*3/uL Nucleated RBC % (auto) 0.0 (0.0-0.2) /100WBC Smear Tech's Comments VERIFIED Sodium 133 L (135-145) mmol/L Potassium 3.8 D (3.3-5.1) mmol/L Chloride 92 L (96-108) mmol/L Carbon Dioxide 28 (22-29) mmol/L Anion Gap 17 (12-20) BUN 10 (9-16) mg/dL Creatinine 0.69 (0.5-1.4) mg/dL Estim Creat Clear Calc 143.9 Estimated GFR > 60 Random Glucose 112 (60-115) mg/dL Lactic Acid 1.1 (0.5-2.0) mmol/L Calcium 9.1 (8.4-10.2) mg/dL Total Bilirubin 1.1 H (0.0-1.0) mg/dL Direct Bilirubin 0.8 H (0.0-0.5) mg/dL AST 33 (5-37) U/L ALT 27 (0-40) U/L Alkaline Phosphatase 466 H (39-117) U/L Total Protein 7.5 (6.5-8.0) g/dL Albumin 2.6 L (3.5-5.0) g/dL Lipase 7 L (8-78) U/L Urine Color [place] A Urine Appearance Cloudy Urine pH 5.5 (5.0-9.0) Ur Specific [place] 1.025 (1.005-1.025) Urine Protein See Note (Neg-Trace) mg/dL Urine Glucose (UA) Negative (Negative) mg/dL Urine Ketones Negative (Negative) mg/dL Urine Blood Negative (Negative) Urine Nitrite See Note (Negative) Ur Leukocyte Esterase Small (1+) H (Negative) Urine RBC 0-2 (0-2) /HPF Urine WBC 0-5 (0-5) /HPF Ur Squamous Epith Cells 3-5 (0-2) /HPF Urine Bacteria None Seen (None Seen) Hyaline Casts 0-2 (0-2) /LPF Independent Interpretation I performed an independent interpretation of an: CT Scan ( chest/ Abdomen/ Pelvis:* Compared to 01/17/2024, there appears to be new articular surface irregularity at the costotransverse junction of the right 10th rib and mild osseous fragmentation of the transverse process. In this region, there is a circumscribed fluid collection (as well as gas bubbles)) Radiology Impression Discussion of test interpretation with radiology: I have reviewed the radiologist's reading. Critical Care Time Critical Care Time Critical Care Time: Yes Total Critical Care Time: 60 Attestation: The patient was critically ill with a high probability of imminent or life- threatening deterioration. I spent greater than 30 minutes of discontinuous time evaluating the patient, delivering critical care at the bedside, discussing evaluating data with consultants. Critical care time does not include time spent performing separately billable procedures or teaching. Time spent performing critical care was 60 minutes. Discharge Plan Discharge Clinical Impression: Acute flank pain Patient Disposition: Admitted As Inpatient Prescriptions: No Action naproxen [Naprosyn] 500 mg tablet 500 mg PO BID Qty: 20 0RF albuterol sulfate [Ventolin HFA] 90 mcg/actuation HFA aerosol inhaler 1 inh inhalation Q4-6H PRN (Reason: shortness of breath or wheezing) Qty: 8.5 0RF methadone 10 mg/5 mL solution 95 mg PO DAILY nitrofurantoin monohyd/m-cryst [Macrobid] 100 mg capsule 100 mg PO Q12H 7 Days Qty: 14 0RF Rx Instructions: must administer with a meal/food albuterol sulfate 90 mcg/actuation HFA aerosol inhaler 2 puff inhalation Q6H PRN (Reason: shortness of breath or wheezing) Qty: 8.5 0RF Print Language: Romansh
[2024-02-18 10:02] LABS: Bacteria Urine None Seen (None Seen); Hyaline Casts Urine 0-2 /LPF (0-2); RBC Urine 0-2 /HPF (0-2); UACC Culture Trigger YES; WBC Urine 0-5 /HPF (0-5)
--- NOTE | 2024-02-18 10:32 | PC.NURSE ---
Pt reports UTI symptoms for last month, taking PO ABX but it hasn't been working. Now reports right flank pain, 10/ along with urinary symptoms. Pt appears uncomfortable. Alert and oriented, breathing even and unlabored, skim clammy.
[2024-02-18 10:41] LABS: PLT CLUMP 1; Red Cell Distribution Width 14.2 % (11.0-16.0); SCAN SMEAR FLAG 1
[2024-02-18] MEDS: oxyCODONE HCl Immed Release 5 MG TABLET PO ×3 (10:45→22:30)
[2024-02-18] MEDS: Ketorolac Tromethamine 30 MG/ML VIAL IVPUSH (10:46)
[2024-02-18] MEDS: 0.9 % Sodium Chloride 1,000 ML 999 ML IV (10:47)
[2024-02-18] MEDS: cefTRIAXone sodium 1 GM in 0.9 % Sodium Chloride 50 ML IV (10:47)
[2024-02-18 10:52] LABS: Basophils Percent Auto 0.2 % (0-2); Eosinophils Absolute Auto 0.1 X10*3/uL (0.0-0.4); Eosinophils Percent Auto 0.6 % (0-4); Hematocrit 30.2 % (42.0-52.0); Hemoglobin 9.8 g/dl (14.0-18.0); Imm Gran Abs Auto 0.17 X10*3/uL (0.00-0.03); Imm Gran Pct Auto 1.1 % (0.0-0.4); Lymphocytes Absolute Auto 1.5 X10*3/uL (1.2-4.9); Lymphocytes Percent Auto 9.9 % (20-40); MANUAL DIFF FLAG SCAN; Mean Corpuscular HGB Conc 32.5 g/dl (31.0-36.0); Mean Corpuscular Hemoglobin 26.8 pg (27.0-33.0); Mean Corpuscular Volume 82.7 fL (80.0-98.0); Mean Platelet Volume 9.8 fL (9.4-12.4); Monocytes Percent Auto 6.3 % (2-11); Neutrophils Absolute Auto 12.5 x10*3/uL (2.0-8.3); Neutrophils Percent Auto 81.9 % (45-73); Red Blood Count 3.65 X10*6/uL (4.60-5.80)
[2024-02-18 10:56] LABS: Lactic Acid 1.1 mmol/L (0.5-2.0)
[2024-02-18 10:59] LABS: White Blood Count 15.1 X10*3/uL (4.8-10.8)
[2024-02-18 11:00] LABS: Alanine Aminotransferase 27 U/L (0-40); Albumin Level 2.6 g/dL (3.5-5.0); Alkaline Phosphatase 466 U/L (39-117); Anion Gap 17 (12-20); Aspartate Amino Transferase 33 U/L (5-37); Bilirubin Direct 0.8 mg/dL (0.0-0.5); Bilirubin Total 1.1 mg/dL (0.0-1.0); Blood Urea Nitrogen 10 mg/dL (9-16); Calcium 9.1 mg/dL (8.4-10.2); Carbon Dioxide 28 mmol/L (22-29); Chloride 92 mmol/L (96-108); Creatinine Clr Calc Pharmacy 143.9; Estimated Glomerular Filt Rate > 60; Glucose Random 112 mg/dL (60-115); Lipase 7 U/L (8-78); Platelet Count 363 X10*3/uL (160-400); Potassium 3.8 mmol/L (3.3-5.1); Sodium 133 mmol/L (135-145); Total Protein 7.5 g/dL (6.5-8.0)
[2024-02-18 11:02] LABS: SLIDE REVIEW VERIFIED
[2024-02-18] MEDS: levoFLOXacin/D5W 250 MG/50 ML PIGGYBACK 50 MG IV ×3 (14:46→17:14)
--- NOTE | 2024-02-18 15:19 | P.HPHOSP_ITS ---
History of Present Illness Date of Service: 02/18/24 Chief Complaint: Right mid back pain with radiation to right anterior chest. 43-year-old gentleman with past medical history significant for mild intermittent asthma on prn albuterol, history of opioid use disorder on methadone, was recently evaluated at [facility] on January 31 for right flank pain and painful urination was diagnosed to have acute pyelonephritis and was discharged home on Keflex 500 mg q.i.d. for 10 days and Naprosyn a renal ultrasound showed bilateral 5 mm non obstructing calculus, no hydronephrosis, Prior to that patient evaluated in ED on January 16 for renal colic and abdominal and pelvic CT scan was obtained that was unremarkable, patient presented today due to persistent constant, severe right mid chest pain with radiation to right anterior chest of 2-3 weeks' duration associated with weight loss 10-15 lb, decreased appetite, intermittent nausea, chills, mild cough productive of yellow phlegm and shortness of breath, he denies vomiting, no diarrhea, no abdominal pain, no urinary symptoms of urgency frequency, no fevers , denies trauma, in the emergency room workup showed WBC count 15.1 hematocrit 30.2 down from 40.3 on January 22, sodium 133, potassium 3.8 creatinine 0.69, alk-phos 466, total bili 1.1 normal AST and ALT, albumin 2.6, U tox positive for opiates, methadone, fentanyl, cocaine patient denies history of smoking, no alcohol, denies history of IV drug use, he sniffs cocaine and heroin, CT abdomen pelvis and CT chest showed thick walled fluid collection containing gas bubbles and air-fluid in the posterior right hemithorax appears to be arising out of the pleural space and compressing the right lower lobe collection measures nearly 14 cm transfers, 11.5 cm AP and 19 cm craniocaudal and exert mass effect upon the posterior right hemidiaphragm and underlying liver there also appears to be fluid and gas in the posterior extrapleural space and fluid appears to be tracking around region of 9th and 10th ribs and a fluid collection in the adjacent right paraspinal muscle is 5.7 x 3.9 x13.5 cm, in emergency room patient treated with IV analgesics, IV vancomycin and Levaquin now being admitted for continued IV antibiotic and for IR consultation for chest tube placement on Tuesday as per thoracic surgery recommendation. Review of Systems 2 Review of Systems: General no headache, no dizziness positive chills, weight loss decreased appetite CVS no chest pain, no palpitation. Respiratory mild cough productive of yellowish phlegm Gastrointestinal + nausea, no vomiting, no abdominal pain no urgency no frequency Skin no rash All other system reviewed and are negative [facility] Medical History Kidney stones Crack cocaine use Heroin abuse Drug abuse Pertinent family history: Both parents are alive, father and grandfather have diabetes mellitus, grandmother had breast cancer, grandfather has prostate cancer. Social History Household Members: Family Housing: House Patient Tobacco Use Status: Never used Tobacco Smoked in Last 30 Days: No e-Cigarette/Vaping Use: Never Used Use of substances other than those prescribed or required for medical reasons: No Substance Use Type: Crack/Cocaine Currently Displaying Signs/Symptoms of Drug Intoxication Withdrawal: No Have you been hit, kicked, punched, or otherwise hurt by someone within the past year? If so, by whom?: No Do you feel safe in your current relationship?: No Current Relationship Is there a partner from a previous relationship who is making you feel unsafe now?: No Are you made to feel afraid or neglected: No Advance Directives: No Advance Directives Information Provided: No Do you have a plan to hurt others: No Plan Recently lost weight without trying: Yes How much weight loss: 2-13 pounds Eating poorly because of decreased appetite: Yes Nutrition screen score: 4 Nutrition Risks: Anorexia Poor oral hygiene: No service: No Current occupational status: unemployed Cognitive needs: No Hearing needs: No Vision needs: No Meds Allergies Allergy/AdvReac Type Severity Reaction Status Date / Time bee pollen [BEE STINGS] Allergy Intermediate HIVES Verified 02/18/24 09:41 Penicillins Allergy Mild UNKNOWN Verified 02/18/24 09:41 penicillin V Allergy Unknown unknown Verified 02/18/24 09:41 SANJAY DELIGHT Allergy Mild HIVES Uncoded 02/18/24 09:41 Active Medications: Current Medications Acetaminophen (Acetaminophen 325 Mg Tablet) 650 mg PO Q6H PRN PRN Reason: Pain, Mild (Pain Scale 1-3), fever or headache Calcium Carbonate (Calcium Carbonate 750 Mg Tab.Chew) 750 mg PO Q4H PRN PRN Reason: Heartburn Hydromorphone HCl (Hydromorphone Hcl 0.5 Mg/0.5 Ml Syringe) 0.5 mg IVPUSH Q4H PRN; Protocol PRN Reason: Pain, Severe (Pain Scale 7-10) Vancomycin HCl (Vancomycin/Ns) 2,000 mg in 500 mls @ 250 mls/hr IV ONCE ONE Stop: 02/18/24 15:26 Levofloxacin (Levaquin) 250 mg in 50 mls @ 50 mls/hr IV Q1H [place] Stop: 02/18/24 16:59 Last Admin: 02/18/24 14:46 Dose: 50 mls/hr Vancomycin HCl 1,250 mg/ (Sodium Chloride) 250 mls @ 166.667 mls/hr IV Q12H [place] Cefepime HCl 2 gm/ Sodium (Chloride) 50 mls @ 100 mls/hr IV Q8H [place] Magnesium Hydroxide (Milk Of Magnesia 30 Ml Oral.Susp) 30 ml PO DAILY PRN PRN Reason: Constipation Melatonin (Melatonin 3 Mg Tablet) 6 mg PO BEDTIME PRN PRN Reason: Insomnia Oxycodone HCl (Oxycodone Hcl Immed Release 5 Mg Tablet) 5 mg PO Q6H PRN PRN Reason: Pain, Severe (Pain Scale 7-10) Pharmacy Consult (Consult Rx Vancomycin Dosing) 1 each MISCELLANE DAILY PRN PRN Reason: Consult order Sodium Chloride (0.9 % Sodium Chloride Flush 3 Ml Syringe) 3 ml [facility]FLUSH [facility] Home Medications ?Medication ?Instructions ?Recorded ?Confirmed ?Last Taken ?Type methadone 10 mg/5 mL oral solution 140 mg PO DAILY 08/06/21 02/19/24 02/18/24 08:19 History 140 mg Physical Exam 2 Vital Signs and Narrative: Vital Signs: Last Vital Signs Temp 98.2 F 02/18/24 12:56 Pulse 66 02/18/24 12:56 Resp 14 02/18/24 12:56 BP 120/78 02/18/24 12:56 Pulse Ox 92 02/18/24 12:56 O2 Del Method Room Air 02/18/24 12:56 BMI result Body Mass Index 25.7 Const: Other: General awake alert x3 in acute distress due to pain. Anicteric sclera Neck no JVD. CVS regular rate rhythm, Respiratory lungs diminished breath sounds right base, no respiratory distress, no wheeze, no rhonchi. Gastrointestinal abdomen soft, mild right upper abdominal tenderness to palpation,bowel sounds audible, no guarding , no rigidity. Extremities no edema. Back right mid back raised golf ball size area tender to palpation ,no redness, no warmth no fluctuation or induration /right lower thoracic paraspinal swelling ,tender to palpation. Neuro non focal, speech clear. Skin no rash Psych appropriate affect Results Labs 02/19/24 05:33 02/19/24 05:33 Labs: Laboratory Results - last 24 hr 02/18/24 02/18/24 02/18/24 09:48 10:33 10:34 MCV 82.7 MCH 26.8 L MCHC 32.5 RDW 14.2 Plt Count 363 D MPV 9.8 Immature Gran % (Auto) 1.1 H Neut % (Auto) 81.9 H Lymph % (Auto) 9.9 L [place] % (Auto) 6.3 Eos % (Auto) 0.6 Baso % (Auto) 0.2 Lymph # (Auto) 1.5 [place] # (Auto) 1.0 Eos # (Auto) 0.1 Baso # (Auto) 0.0 Abs Immat Gran (auto) 0.17 H Absolute Neuts (auto) 12.5 H Absolute Nucleated RBC 0.000 Nucleated RBC % (auto) 0.0 Smear Tech's Comments VERIFIED Anion Gap 17 Estim Creat Clear Calc 143.9 Estimated GFR > 60 Random Glucose 112 Lactic Acid 1.1 Calcium 9.1 Total Bilirubin 1.1 H Direct Bilirubin 0.8 H AST 33 ALT 27 Alkaline Phosphatase 466 H Total Protein 7.5 Albumin 2.6 L Lipase 7 L Urine Color [place] A Urine Appearance Cloudy Urine pH 5.5 Ur Specific [place] 1.025 Urine Protein See Note Urine Glucose (UA) Negative Urine Ketones Negative Urine Blood Negative Urine Nitrite See Note Ur Leukocyte Esterase Small (1+) H Urine RBC 0-2 Urine WBC 0-5 Ur Squamous Epith Cells 3-5 Urine Bacteria None Seen Hyaline Casts 0-2 Imaging Radiologist's Impressions: Impressions Abdomen/Pelvis CT 02/18/24 11:05 IMPRESSION: * Compared to 01/17/2024, there appears to be new articular surface irregularity at the costotransverse junction of the right 10th rib and mild osseous fragmentation of the transverse process. In this region, there is a circumscribed fluid collection (as well as gas bubbles) in the paraspinal tissues and fluid filling the posterior pleural space of the right hemithorax. The loculated collection exerts mass effect upon the right lower lobe. Consider possibility that infection has arisen out of the area of the right 10th costotransverse junction. Alternatively, if this patient had recent pneumonia, then there could have been development of a large empyema and decompression into the posterior paraspinal tissues. * Diffuse hepatic steatosis and hepatosplenomegaly. * Small stone in the lower pole the right kidney. No ureteral stones or hydroureteronephrosis. Chest CT 02/18/24 11:05 IMPRESSION: * Compared to 01/17/2024, there appears to be new articular surface irregularity at the costotransverse junction of the right 10th rib and mild osseous fragmentation of the transverse process. In this region, there is a circumscribed fluid collection (as well as gas bubbles) in the paraspinal tissues and fluid filling the posterior pleural space of the right hemithorax. The loculated collection exerts mass effect upon the right lower lobe. Consider possibility that infection has arisen out of the area of the right 10th costotransverse junction. Alternatively, if this patient had recent pneumonia, then there could have been development of a large empyema and decompression into the posterior paraspinal tissues. * Diffuse hepatic steatosis and hepatosplenomegaly. * Small stone in the lower pole the right kidney. No ureteral stones or hydroureteronephrosis. Assessment and Plan (1) Methadone dependence: Status: Acute (2) Acute upper back pain: Status: Acute (3) Acute hyponatremia: Status: Acute Plan 43-year-old gentleman with past medical history significant for mild intermittent asthma on prn albuterol, history of opioid use disorder on methadone, recently treated for acute pyelonephritis with Keflex presented to [facility] emergency room with greater than 2 week history of right upper back pain with radiation to right anterior chest associated with chills, weight loss, decreased appetite, shortness of breath , workup in the emergency room showed Thick walled fluid collection containing gas bubbles and air-fluid level in the posterior right hemithorax appear to be arising out of the pleural space and compressing the right lower lobe, exerting mass effect upon the posterior right hemidiaphragm and underlying liver there also appears to be fluid and gas in the posterior extrapleural space and fluid appears to be tracking around region of 9th and 10th ribs and a fluid collection in the adjacent right paraspinal muscle, patient will be admitted to [facility] for IV antibiotics and IR drainage. CT abdomen and pelvis obtained January 16 showed normal lung examination except mild linear dependent atelectasis/and nonobstructing 3 mm calculi lower pole collecting system of right kidney. Abdominal ultrasound January 31 showed 5 mm lower pole nonobstructing calculus right kidney and 5 mm nonobstructing calcification possibly vascular left kidney with no hydronephrosis Acute Right upper back and anterior chest wall pain : due to a loculated fluid collection exerting mass effect upon right lower lobe/and possible infection arising from the right 10 costo transverse junction (likely purulent fluid collection with history of IV drug use) Case discussed with Dr. Almazan from thoracic surgery he recommend patient to be admitted to medical service and consult IR for chest tube placement on Tuesday; he doesn't believe the patient needs to be transfer out for this. Will treat with IV vancomycin , IV cefepime and flagyl, follow blood cultures x2 (allergy to penicillin) IR consultation for chest tube placement/pulmonary consultation/ID consultation IV Dilaudid and oxycodone for pain management Cough medication/supportive care Acute on chronic normocytic anemia Likely due to infection monitor CBC, hematocrit above transfusion threshold Acute hyponatremia likely due to pulmonary process and decreased by mouth intake Treat underlying infection, IV normal saline, check TSH and serum osmolality Follow BMP Opiate use disorder continue methadone Illicit drug use U tox positive for fentanyl, cocaine, methadone and opiates, initially denied IV drug use later agreed for using IV drugs 6-8 weeks ago. Addiction Team consult Mild Intermittent asthma continue home inhalers no acute exacerbation noted DVT prophylaxis with Lovenox Full code In my clinical judgment patient need to night inpatient hospitalization for management of fluid collection right hemithorax with mass affect right lower lobe, requiring IV antibiotics, IR drainage and expert consultation treatment can not be provided in less acute setting. Quality Stroke Does the patient have a stroke diagnosis?: No VTE Prior VTE?: No VTE Risk Level:: Medical - moderate - high VTE Device Contraindication: Treatment Not Indicated VTE Drug Contraindication: N/A - Med Ordered
--- NOTE | 2024-02-18 15:22 | PHA.MEDREC ---
Pharmacy Consult ? Medication Reconciliation Pharmacy has completed the medication reconciliation. Spoke with patient to confirm. He finished his antibiotics and is not currently taking anything for the pain. He reports methadone 140mg last took this morning and he gets it from [facility].
--- NOTE | 2024-02-18 15:40 | PC.NURSE ---
Pt very hard IV stick, took multiple attempts to get initial IV access. ABX late due to pt having pain with vanco infusing, tolerated other ABX better. Having other RNs attempt IV access for vanco.
[2024-02-18] MEDS: HYDROmorphone HCl 0.5 MG/0.5 ML SYRINGE IVPUSH ×2 (15:51→19:59)
[2024-02-18 16:24] LABS: Thyroid Stimulating Hormone 0.28 uIU/mL (0.32-4.0)
--- NOTE | 2024-02-18 16:50 | PHA.PROG ---
Admission Date/Time: February 18, 2024 15:07 Indication: Weight in k.7 kg Adjusted body weight in K.7 [place] body weight in Kg: Obesity Dosing Indication % IBW: Serum Creatinine - Last 168 Hours 02/18/24 10:33 Creatinine 0.69 Estimated CrCl and GFR - Last 168 Hours 02/18/24 10:33 Estim Creat Clear Calc 143.9 Estimated GFR > 60 Vancomycin Loading Dose: 2000 Current Vancomycin Dosing Regimen:1250 MG Q 12 HOURS Vancomycin Monitoring using AUC goal of 400 - 600 range with trough as surrogate marker: Date and Time for next Vancomycin Level to be drawn: 02/19/24 1400 Pharmacist Comments on Vancomycin Plan: WILL CHECK A RANDOM LEVEL AFTER 2 DOSES Vancomycin dosing will take advantage of [employer] as a clinical decision support tool that uses Bayesian modeling to calculate individual patient's pharmacokinetic parameters and forecast the patient's drug concentration time course with the target goal AUC 24 range of 400 - 600 mg/L/hr.
--- NOTE | 2024-02-18 16:53 | PC.NURSE ---
EJ attempted by provider unsuccessful. U.S guided line placed by provider in left arm, patent, Vanco started. Approx 20 mins later, pt alerted RN that he has pain in left arm at IV, IV noted to be infiltrated and swollen. Vanco stopped and arm wrapped. Pt is very hard IV stick, awaiting provider orders for further guidance.
[2024-02-18] MEDS: 0.9 % Sodium Chloride Flush 3 ML SYRINGE IVFLUSH (17:14)
--- NOTE | 2024-02-18 17:37 | PC.NURSE ---
Admitting provider requested ED provider do central line. MD at bedside at this time placing central line.
[2024-02-18] MEDS: 0.9 % Sodium Chloride 1,000 ML 100 ML IVCONT (18:17)
--- NOTE | 2024-02-18 18:18 | PC.NURSE ---
Pt tolerated central line placement well, triple lumen in right side placed by MD. Md confirmed on xray.
[2024-02-18] MEDS: vancomycin/NS 2,000 MG/500 ML PLAST..BAG 250 MG IV (18:20)
--- NOTE | 2024-02-18 18:25 | PC.NURSE ---
Pt noted to have increased WOB and increase in cough with sputum production. SPo2 assessed and is 88-90% on RA. Pt placed on 2L O2 NC and repositioned more upright, reports overall improvement in breathing. Sat improves to 93-96% on O2. Provider alerted.
[2024-02-18] MEDS: cefEPime HCl 2 GM in 0.9 % Sodium Chloride 50 ML IV (21:59)
[2024-02-18] MEDS: Melatonin 3 MG TABLET 6 MG PO (22:07)
[2024-02-18] MEDS: ondansetron HCL 4 MG/2 ML VIAL IVPUSH (23:31)
[2024-02-19] VITALS (8 sets, daily range): BP systolic 103–131; BP diastolic 60–78; PULSE 66–78; RESP 17–22; TEMP 36.2–37.3; O2SAT 92–95
[2024-02-19] MEDS: HYDROmorphone HCl 0.5 MG/0.5 ML SYRINGE IVPUSH ×6 (01:51→22:36)
[2024-02-19] MEDS: ondansetron HCL 4 MG/2 ML VIAL IVPUSH ×4 (01:53→22:00)
--- NOTE | 2024-02-19 04:07 | PC.NURSE ---
CMT alerted this nurse of pt entering ventricular bigeminy. pt no c/o new changes. episode of n/v preceded entering bigeminy rhythm. quickly converted back to NSR. vitals normal, charted, and MD aware. zofran given with therapeutic effect. pt with call small in reach, plan of care ongoing.
[2024-02-19] MEDS: vancomycin HCL 1,250 MG in 0.9 % Sodium Chloride 250 ML 166.67 MG IV (04:29)
[2024-02-19 06:13] LABS: Anion Gap 12 (12-20); Blood Urea Nitrogen 10 mg/dL (9-16); Calcium 8.9 mg/dL (8.4-10.2); Carbon Dioxide 30 mmol/L (22-29); Chloride 95 mmol/L (96-108); Creatinine Clr Calc Pharmacy 121.1; Estimated Glomerular Filt Rate > 60; Glucose Random 124 mg/dL (60-115); Potassium 3.3 mmol/L (3.3-5.1); Sodium 134 mmol/L (135-145)
[2024-02-19] MEDS: cefEPime HCl 2 GM in 0.9 % Sodium Chloride 50 ML IV ×3 (06:19→21:35)
[2024-02-19] MEDS: oxyCODONE HCl Immed Release 5 MG TABLET PO (06:19)
[2024-02-19 06:26] LABS: Hematocrit 26.8 % (42.0-52.0); Hemoglobin 8.8 g/dl (14.0-18.0); Mean Corpuscular HGB Conc 32.8 g/dl (31.0-36.0); Mean Corpuscular Hemoglobin 27.3 pg (27.0-33.0); Mean Corpuscular Volume 83.2 fL (80.0-98.0); Platelet Count 379 X10*3/uL (160-400); Red Blood Count 3.22 X10*6/uL (4.60-5.80); Red Cell Distribution Width 14.4 % (11.0-16.0); White Blood Count 15.8 X10*3/uL (4.8-10.8)
--- NOTE | 2024-02-19 06:37 | PC.NURSE ---
Methadone dose verification- Patient gave this RN verbal permission to speak with Alana to verify current methadone dosage. According to Elis, RN patient last dosed yesterday 02/18/24 @8:19am for Methadone 140mg PO. He was provided with 2 take home bottles at that time as well.
--- NOTE | 2024-02-19 07:47 | HE.PHANOTE ---
Methadone verification form received, Marcela Iman methadone dose 140 mg, last dose 02/18/24
[2024-02-19] MEDS: methADONE HCl 20 MG/2 ML ORAL.CONC 140 MG PO (08:09)
[2024-02-19] MEDS: 0.9 % Sodium Chloride Flush 3 ML SYRINGE IVFLUSH ×3 (08:09→21:42)
[2024-02-19] MEDS: 0.9 % Sodium Chloride 1,000 ML 100 ML IVCONT ×3 (08:10→22:37)
--- NOTE | 2024-02-19 08:26 | MHC.CM.PN ---
CM met with Patient at bedside. Patient lives in an apartment with his Parents and he is functionally independent. Home/resume Methadone from [facility] VS [facility] if LT IVABT is needed. CM has initiated and will follow for dc planning. PCP is Dr. Sushma Marroquin.
[2024-02-19] MEDS: Calcium Carbonate 750 MG TAB.CHEW PO (09:35)
[2024-02-19] MEDS: Famotidine/PF 20 MG/2 ML VIAL IVPUSH (09:35)
[2024-02-19] MEDS: metroNIDAZOLE/NS 500 MG/100 ML PIGGYBACK 100 MG IV ×2 (09:35→17:14)
--- NOTE | 2024-02-19 11:45 | P.CONPL_ITS ---
History of Present Illness History of Present Illness Consult date: 02/19/24 Chief complaint: Right mid back pain Narrative: This is an inpatient pulmonary consultation. The patient is a 43-year-old gentleman with past medical history significant for mild intermittent asthma on prn albuterol, history of opioid use disorder presents to the ED with persistent constant, severe right mid chest pain with radiation to right anterior chest of 2-3 weeks' duration associated with weight loss 10-15 lb, decreased appetite, intermittent nausea, chills, mild cough productive of yellow phlegm and shortness of breath, he denies vomiting, no diarrhea, no abdominal pain, CT chest, personally reviewed by me, showed thick walled fluid collection containing gas bubbles and air-fluid in the posterior right hemithorax appears to be arising out of the pleural space and compressing the right lower lobe collection measures nearly 14 cm transfers, 11.5 cm AP and 19 cm craniocaudal and exert mass effect upon the posterior right hemidiaphragm and underlying liver there also appears to be fluid and gas in the posterior extrapleural space and fluid appears to be tracking around region of 9th and 10th ribs and a fluid collection in the adjacent right paraspinal muscle is 5.7 x 3.9 x13.5 cm, in emergency room patient treated with IV analgesics, IV vancomycin and Levaquin now being admitted for continued IV antibiotic. The patient is awaiting thoracic surgery evaluation. Review of Systems 2 Review of Systems: General no headache, no dizziness positive chills, weight loss decreased appetite CVS no chest pain, no palpitation. Respiratory mild cough productive of yellowish phlegm Gastrointestinal + nausea, no vomiting, no abdominal pain no urgency no frequency Skin no rash All other system reviewed and are negative PMFSH Past Medical History Medical History Kidney stones Crack cocaine use Heroin abuse Drug abuse Social History Social History Household Members: Family Housing: House Patient Tobacco Use Status: Never used Tobacco Smoked in Last 30 Days: No e-Cigarette/Vaping Use: Never Used Use of substances other than those prescribed or required for medical reasons: No Substance Use Type: Crack/Cocaine Currently Displaying Signs/Symptoms of Drug Intoxication Withdrawal: No Have you been hit, kicked, punched, or otherwise hurt by someone within the past year? If so, by whom?: No Do you feel safe in your current relationship?: No Current Relationship Is there a partner from a previous relationship who is making you feel unsafe now?: No Are you made to feel afraid or neglected: No Advance Directives: No Advance Directives Information Provided: No Do you have a plan to hurt others: No Plan Recently lost weight without trying: Yes How much weight loss: 2-13 pounds Eating poorly because of decreased appetite: Yes Nutrition screen score: 4 Nutrition Risks: Anorexia Poor oral hygiene: No service: No Current occupational status: unemployed Cognitive needs: No Hearing needs: No Vision needs: No Meds Allergies Allergy/AdvReac Type Severity Reaction Status Date / Time bee pollen [BEE STINGS] Allergy Intermediate HIVES Verified 02/18/24 09:41 Penicillins Allergy Mild UNKNOWN Verified 02/18/24 09:41 penicillin V Allergy Unknown unknown Verified 02/18/24 09:41 SANJAY DELIGHT Allergy Mild HIVES Uncoded 02/18/24 09:41 Active Medications: Current Medications Acetaminophen (Acetaminophen 325 Mg Tablet) 650 mg PO Q6H PRN PRN Reason: Pain, Mild (Pain Scale 1-3), fever or headache Albuterol Sulfate (Albuterol Sulfate 90 Mcg 8 Gm Inhaler) 2 puff INHALE Q6H PRN PRN Reason: shortness of breath or wheezing Calcium Carbonate (Calcium Carbonate 750 Mg Tab.Chew) 750 mg PO Q4H PRN PRN Reason: Heartburn Last Admin: 02/19/24 09:35 Dose: 750 mg Famotidine (Famotidine/Pf 20 Mg/2 Ml Vial) 20 mg IVPUSH DAILY [facility] Last Admin: 02/19/24 09:35 Dose: 20 mg Guaifenesin/Dextromethorphan (Guaifenesin Dm 200/20/10 Ml 10 Ml Syrup) 10 ml PO TID [facility] Last Admin: 02/19/24 08:11 Dose: Not Given Hydromorphone HCl (Hydromorphone Hcl 0.5 Mg/0.5 Ml Syringe) 0.5 mg IVPUSH Q4H PRN; Protocol PRN Reason: Pain, Severe (Pain Scale 7-10) Last Admin: 02/19/24 09:35 Dose: 0.5 mg Vancomycin HCl 1,250 mg/ (Sodium Chloride) 250 mls @ 166.667 mls/hr IV Q12H [facility] Last Infusion: 02/19/24 06:29 Dose: Infused Cefepime HCl 2 gm/ Sodium (Chloride) 50 mls @ 100 mls/hr IV Q8H [facility] Last Infusion: 02/19/24 07:48 Dose: Infused Sodium Chloride (Ns) 1,000 mls @ 100 mls/hr IVCONT .Q10H [facility] Last Admin: 02/19/24 08:10 Dose: 100 mls/hr Metronidazole (Flagyl) 500 mg in 100 mls @ 100 mls/hr IV Q8H [facility] Last Infusion: 02/19/24 10:35 Dose: Infused Magnesium Hydroxide (Milk Of Magnesia 30 Ml Oral.Susp) 30 ml PO DAILY PRN PRN Reason: Constipation Melatonin (Melatonin 3 Mg Tablet) 6 mg PO BEDTIME PRN PRN Reason: Insomnia Last Admin: 02/18/24 22:07 Dose: 6 mg Methadone HCl (Methadone Hcl 20 Mg/2 Ml Oral.Conc) 140 mg PO DAILY [facility] Last Admin: 02/19/24 08:09 Dose: 140 mg Ondansetron HCl (Ondansetron Hcl 4 Mg/2 Ml Vial) 4 mg IVPUSH Q6H PRN PRN Reason: Nausea and Vomiting Last Admin: 02/19/24 05:34 Dose: 4 mg Oxycodone HCl (Oxycodone Hcl Immed Release 5 Mg Tablet) 5 mg PO Q4H PRN PRN Reason: Pain, Moderate(Pain Scale 4-6) Last Admin: 02/19/24 06:19 Dose: 5 mg Pharmacy Consult (Consult Rx Vancomycin Dosing) 1 each MISCELLANE DAILY PRN PRN Reason: Consult order Sodium Chloride (0.9 % Sodium Chloride Flush 3 Ml Syringe) 3 ml IVFLUSH QSHIFT [facility] Last Admin: 02/19/24 08:09 Dose: 3 ml Home Medications ?Medication ?Instructions ?Recorded ?Confirmed ?Last Taken ?Type methadone 10 mg/5 mL oral solution 140 mg PO DAILY 08/06/21 02/19/24 02/18/24 08:19 History 140 mg Physical Exam 2 Vital Signs: Vital Signs: Last Vital Signs Temp 97.3 F 02/19/24 11:22 Pulse 66 02/19/24 11:22 Resp 17 02/19/24 11:22 BP 122/73 02/19/24 11:22 Pulse Ox 94 02/19/24 11:22 O2 Del Method Nasal Cannula 02/19/24 11:22 O2 Flow Rate 2 02/19/24 11:22 BMI result Body Mass Index 25.7 Const: General: cooperative, no acute distress and well developed O rientation/consciousness: patient oriented x3 Limitations: no limitations HEENT: Head: Yes normal to inspection General nose exam: Normal external nose present and Normal nares present Eyes: General: appearance normal, both eyes and all related structures Neck: Neck: Yes normal visual inspection and Yes full ROM Resp: Effort & Inspection: normal respiratory effort and able to speak in complete sentences Auscultation: clear to auscultation bilaterally Cardio: Rate: regular rate Rhythm: regular rhythm Heart sounds: normal S1 and S2 Back/Spine/Pelvis: Thoracic/Lumbar Spine: mass Skin: General skin exam: no rashes or lesions noted Neuro: General: patient oriented x3 Extrem: General: Yes normal to inspection Results Laboratory Findings 02/19/24 05:33 02/19/24 05:33 Abnormal lab findings: Abnormal Labs 02/18/24 02/18/24 02/19/24 09:48 10:33 05:33 WBC 15.1 H 15.8 H RBC 3.65 L 3.22 L Hgb 9.8 L 8.8 L Hct 30.2 L 26.8 L MCH 26.8 L Immature Gran % (Auto) 1.1 H Neut % (Auto) 81.9 H Lymph % (Auto) 9.9 L Abs Immat Gran (auto) 0.17 H Absolute Neuts (auto) 12.5 H Sodium 133 L 134 L Chloride 92 L 95 L Carbon Dioxide 30 H Random Glucose 124 H Total Bilirubin 1.1 H Direct Bilirubin 0.8 H Alkaline Phosphatase 466 H Albumin 2.6 L Lipase 7 L TSH 0.28 L Urine Color [place] A Ur Leukocyte Esterase Small (1+) H Assessment and Plan (1) Empyema lung: Status: Acute (2) Abscess: Status: Acute (3) IV drug abuse: Status: Acute Plan continue abx: CTX/VAnco/Flagyl Needs an urgent surgical evaluation and evacuation of purulent fluid collection. guarged Procedures Date of Service Date of Service: 02/19/24
--- NOTE | 2024-02-19 13:23 | HO.PM.IMPN ---
Subjective Subjective Date of Service: 02/19/24 Interval History: Being followed for right mid back and anterior chest wall pain. Complaining of shortness of breath, persistent upper back and upper abdominal pain, had low-grade fever overnight, complaining of chills, nausea and indigestion, tolerating diet, no diarrhea, no headache, no dizziness no other acute issues overnight. Review of Systems All other system reviewed and are negative. Physical Exam Vital Signs: Vital Signs: Last Vital Signs Temp 97.3 F 02/19/24 11:22 Pulse 66 02/19/24 11:22 Resp 17 02/19/24 11:22 BP 122/73 02/19/24 11:22 Pulse Ox 94 02/19/24 11:22 O2 Del Method Nasal Cannula 02/19/24 11:22 O2 Flow Rate 2 02/19/24 11:22 BMI result Body Mass Index 25.7 Const: Other: General awake alert x3 ,in acute distress due to pain. Anicteric sclera Neck no JVD. CVS regular rate rhythm, Respiratory lungs diminished breath sounds right base, no respiratory distress, no wheeze, no rhonchi. Gastrointestinal abdomen soft, mild right upper abdominal tenderness to palpation,bowel sounds audible, no guarding , no rigidity. Extremities no edema. Back right mid back raised golf ball size area tender to palpation ,no redness, no warmth, no fluctuation ,or induration /right lower thoracic paraspinal swelling ,tender to palpation. Neuro non focal, speech clear. Skin no rash Psych appropriate affect Objective Data Active Medications Acetaminophen (Acetaminophen 325 Mg Tablet) 650 mg PO Q6H PRN PRN Reason: Pain, Mild (Pain Scale 1-3), fever or headache Albuterol Sulfate (Albuterol Sulfate 90 Mcg 8 Gm Inhaler) 2 puff INHALE Q6H PRN PRN Reason: shortness of breath or wheezing Calcium Carbonate (Calcium Carbonate 750 Mg Tab.Chew) 750 mg PO Q4H PRN PRN Reason: Heartburn Last Admin: 02/19/24 09:35 Dose: 750 mg Documented By: LEONARD Famotidine (Famotidine/Pf 20 Mg/2 Ml Vial) 20 mg IVPUSH DAILY [place] Last Admin: 02/19/24 09:35 Dose: 20 mg Documented By: LEONARD Guaifenesin/Dextromethorphan (Guaifenesin Dm 200/20/10 Ml 10 Ml Syrup) 10 ml PO TID [facility] Last Admin: 02/19/24 08:11 Dose: Not Given Documented By: LEONARD Non-Admin Reason: Patient Refused Hydromorphone HCl (Hydromorphone Hcl 0.5 Mg/0.5 Ml Syringe) 0.5 mg IVPUSH Q4H PRN; Protocol PRN Reason: Pain, Severe (Pain Scale 7-10) Last Admin: 02/19/24 09:35 Dose: 0.5 mg Documented By: LEONARD Vancomycin HCl 1,250 mg/ (Sodium Chloride) 250 mls @ 166.667 mls/hr IV Q12H [facility] Last Infusion: 02/19/24 06:29 Dose: Infused Documented By: JEEVAN Cefepime HCl 2 gm/ Sodium (Chloride) 50 mls @ 100 mls/hr IV Q8H [facility] Last Infusion: 02/19/24 07:48 Dose: Infused Documented By: LEONARD Sodium Chloride (Ns) 1,000 mls @ 100 mls/hr IVCONT .Q10H [facility] Last Admin: 02/19/24 08:10 Dose: 100 mls/hr Documented By: LEONARD Metronidazole (Flagyl) 500 mg in 100 mls @ 100 mls/hr IV Q8H [facility] Last Infusion: 02/19/24 10:35 Dose: Infused Documented By: LEONARD Magnesium Hydroxide (Milk Of Magnesia 30 Ml Oral.Susp) 30 ml PO DAILY PRN PRN Reason: Constipation Melatonin (Melatonin 3 Mg Tablet) 6 mg PO BEDTIME PRN PRN Reason: Insomnia Last Admin: 02/18/24 22:07 Dose: 6 mg Documented By: JEEVAN Methadone HCl (Methadone Hcl 20 Mg/2 Ml Oral.Conc) 140 mg PO DAILY [facility] Last Admin: 02/19/24 08:09 Dose: 140 mg Documented By: LEONARD Ondansetron HCl (Ondansetron Hcl 4 Mg/2 Ml Vial) 4 mg IVPUSH Q6H PRN PRN Reason: Nausea and Vomiting Last Admin: 02/19/24 05:34 Dose: 4 mg Documented By: JEEVAN Comments: approved early administration Oxycodone HCl (Oxycodone Hcl Immed Release 5 Mg Tablet) 5 mg PO Q4H PRN PRN Reason: Pain, Moderate(Pain Scale 4-6) Last Admin: 02/19/24 06:19 Dose: 5 mg Documented By: JEEVAN Pharmacy Consult (Consult Rx Vancomycin Dosing) 1 each MISCELLANE DAILY PRN PRN Reason: Consult order Sodium Chloride (0.9 % Sodium Chloride Flush 3 Ml Syringe) 3 ml IVFLUSH QSHIFT [facility] Last Admin: 02/19/24 08:09 Dose: 3 ml Documented By: LEONARD Labs 02/19/24 05:33 02/19/24 05:33 Labs: Laboratory Results - last 24 hr 02/18/24 02/19/24 10:33 05:33 MCV 83.2 MCH 27.3 MCHC 32.8 RDW 14.4 Plt Count 379 MPV 10.0 Absolute Nucleated RBC 0.000 Nucleated RBC % (auto) 0.0 Anion Gap 12 Estim Creat Clear Calc 121.1 Estimated GFR > 60 Random Glucose 124 H Calcium 8.9 TSH 0.28 L Microbiology Microbiology Results: Microbiology 02/18/24 10:39 Blood Culture - Preliminary Blood - Venous No growth after 24 hours. 02/18/24 10:33 Blood Culture - Preliminary Blood - Venous No growth after 24 hours. Assessment and Plan (1) IV drug abuse: Status: Acute (2) Abscess: Status: Acute (3) Empyema lung: Status: Acute (4) Acute hyponatremia: Status: Acute Plan 43-year-old gentleman with past medical history significant for mild intermittent asthma on prn albuterol, history of opioid use disorder on methadone, recently treated for acute pyelonephritis with Keflex presented to [facility] emergency room with greater than 2 week history of right upper back pain with radiation to right anterior chest associated with chills, weight loss, decreased appetite, shortness of breath , workup in the emergency room showed Thick walled fluid collection containing gas bubbles and air-fluid level in the posterior right hemithorax appear to be arising out of the pleural space and compressing the right lower lobe, exerting mass effect upon the posterior right hemidiaphragm and underlying liver there also appears to be fluid and gas in the posterior extrapleural space and fluid appears to be tracking around region of 9th and 10th ribs and a fluid collection in the adjacent right paraspinal muscle, patient will be admitted to [facility] for IV antibiotics and IR drainage. CT abdomen and pelvis obtained January 16 showed normal lung examination except mild linear dependent atelectasis/and nonobstructing 3 mm calculi lower pole collecting system of right kidney. Abdominal ultrasound January 31 showed 5 mm lower pole nonobstructing calculus right kidney and 5 mm nonobstructing calcification possibly vascular left kidney with no hydronephrosis Acute Right upper back and anterior chest wall pain : due to a loculated fluid collection exerting mass effect upon right lower lobe/and possible infection arising from the right 10 costo transverse junction (likely purulent fluid collection with history of IV drug use) Sepsis due to empyema with leukocytosis and tachypnea,. Case discussed with Dr. Almazan from thoracic surgery he recommend patient to be admitted to medical service and consult IR for chest tube placement on Tuesday; he doesn't believe the patient needs to be transfer out for this. Continue IV vancomycin , IV cefepime and flagyl, follow blood cultures x2 (allergy to penicillin) IR consultation for chest tube placement/ID consultation Seen by pulmonology they recommend urgent evacuation of purulent fluid collection right chest. Continue IV Dilaudid and oxycodone for pain management, antiemetics, IV Pepcid for GI prophylaxis. Cough medication/supportive care NPO after midnight/check PT INR CBC and BMP Acute hypoxic respiratory failure Likely due to above continue O2 supplement, monitor respiratory status closely. Acute on chronic normocytic anemia Likely due to infection, H&H dropped to 26.8 likely dilutional and from infection, monitor CBC, hematocrit above transfusion threshold. Acute hyponatremia likely due to pulmonary process and decreased by mouth intake. Treat underlying infection, IV normal saline, TSH 0.28 , question subclinical hyperthyroidism.Follow BMP. Opiate use disorder continue methadone. Illicit drug use U tox positive for fentanyl, cocaine, methadone and opiates, initially denied IV drug use later agreed for using IV drugs 6-8 weeks ago. Addiction Team consult. Mild Intermittent asthma continue home inhalers no acute exacerbation noted DVT prophylaxis with compression boots Full code In my clinical judgment patient need continued inpatient hospitalization for management of fluid collection right hemithorax with mass affect right lower lobe, requiring IV antibiotics, IR drainage and expert consultation treatment can not be provided in less acute setting. Quality Stroke Does the patient have a stroke diagnosis?: No VTE Prior VTE?: No VTE Risk Level:: Medical - moderate - high VTE Device Contraindication: Treatment Not Indicated VTE Drug Contraindication: N/A - Med Ordered
[2024-02-19] MEDS: Benzonatate 100 MG CAPSULE PO ×2 (14:48→21:35)
[2024-02-19] MEDS: Potassium Chloride ER 20 MEQ TAB.ER.PRT 40 MEQ PO (14:48)
[2024-02-19 15:03] LABS: Vancomycin Random 17.3 mcg/mL (15-20)
--- NOTE | 2024-02-19 15:13 | HE.PHANOTE ---
marija suarez: Continue current dosing regimen. Current trough is 17.3. expected auc is 588 with 1250 q12. Renal function is stable at this time. Continue daily monitoring of creatinine and will recheck trough on 02/19 to ensure safety and efficacy. He is slightly higher than insight believes he should be at this time so dose may need to be reduced once next level comes back.
[2024-02-19] MEDS: oxyCODONE HCl Immed Release 5 MG TABLET 7.5 MG PO ×2 (15:26→21:40)
[2024-02-19] MEDS: vancomycin HCL 1,250 MG in 0.9 % Sodium Chloride 250 ML 1667.66 MG IV (15:28)
[2024-02-19] MEDS: Acetaminophen 325 MG TABLET 650 MG PO (19:06)
[2024-02-19] MEDS: Melatonin 3 MG TABLET 6 MG PO (22:36)
[2024-02-20] VITALS (7 sets, daily range): BP systolic 106–146; BP diastolic 60–80; PULSE 67–86; RESP 18–20; TEMP 36.9–37.7; O2SAT 91–97
[2024-02-20] MEDS: metroNIDAZOLE/NS 500 MG/100 ML PIGGYBACK 100 MG IV ×2 (00:50→08:20)
[2024-02-20] MEDS: oxyCODONE HCl Immed Release 5 MG TABLET 7.5 MG PO ×4 (01:43→16:08)
[2024-02-20] MEDS: HYDROmorphone HCl 0.5 MG/0.5 ML SYRINGE IVPUSH ×4 (03:00→22:51)
[2024-02-20] MEDS: vancomycin HCL 1,250 MG in 0.9 % Sodium Chloride 250 ML 166.67 MG IV ×2 (04:22→17:36)
[2024-02-20] MEDS: ondansetron HCL 4 MG/2 ML VIAL IVPUSH ×2 (04:22→19:53)
[2024-02-20] MEDS: cefEPime HCl 2 GM in 0.9 % Sodium Chloride 50 ML IV ×3 (05:59→21:07)
[2024-02-20 07:11] LABS: Anion Gap 15 (12-20); Blood Urea Nitrogen 9 mg/dL (9-16); Calcium 8.8 mg/dL (8.4-10.2); Carbon Dioxide 26 mmol/L (22-29); Chloride 98 mmol/L (96-108); Creatinine Clr Calc Pharmacy 121.1; Estimated Glomerular Filt Rate > 60; Glucose Random 95 mg/dL (60-115); Potassium 3.6 mmol/L (3.3-5.1); Sodium 135 mmol/L (135-145)
[2024-02-20 07:17] LABS: INTERNATIONAL NORM RATIO 2.7 (0.9-1.1); Prothrombin Time 32.4 SEC (11.1-13.3)
[2024-02-20 07:31] LABS: Hematocrit 26.9 % (42.0-52.0); Hemoglobin 8.6 g/dl (14.0-18.0); Mean Corpuscular Hemoglobin 27.1 pg (27.0-33.0); Mean Corpuscular Volume 84.9 fL (80.0-98.0); Mean Platelet Volume 10.2 fL (9.4-12.4); Platelet Count 383 X10*3/uL (160-400); Red Blood Count 3.17 X10*6/uL (4.60-5.80); Red Cell Distribution Width 14.5 % (11.0-16.0); White Blood Count 14.1 X10*3/uL (4.8-10.8)
[2024-02-20] MEDS: 0.9 % Sodium Chloride Flush 3 ML SYRINGE IVFLUSH ×2 (08:11→17:35)
[2024-02-20] MEDS: methADONE HCl 20 MG/2 ML ORAL.CONC 140 MG PO (08:13)
[2024-02-20] MEDS: Benzonatate 100 MG CAPSULE PO ×3 (08:15→19:49)
[2024-02-20] MEDS: Phytonadione (Vit K1) Oral 10 MG/ML AMPUL PO (08:16)
[2024-02-20] MEDS: Famotidine/PF 20 MG/2 ML VIAL IVPUSH (08:21)
--- NOTE | 2024-02-20 08:48 | HO.THORCONS ---
History of Present Illness Consult details Consult date: 02/20/24 Narrative: Patient presents with a proximally 2 to three-week history of feeling unwell with right-sided chest pain, respiratory symptoms including shortness of breath. Patient was evaluated ER and workup was including CT scan of the chest demonstrates a right empyema. Patient has a significant intra thoracic collection which is compressing the right lower lobe. Patient was admitted and underwent restorative measures as well as thoracic and pulmonary consultation. Chart was reviewed patient evaluated. Patient has significant history of IVDA. He denies any other chronic illnesses including HIV or hepatitis. He states he has been tested for these several times and is negative. He has never had any respiratory issues of significance prior to this. [facility] Past Medical History Medical History Kidney stones Crack cocaine use Heroin abuse Drug abuse Social History Social History Household Members: Family Housing: House Patient Tobacco Use Status: Never used Tobacco Smoked in Last 30 Days: No e-Cigarette/Vaping Use: Never Used Use of substances other than those prescribed or required for medical reasons: No Substance Use Type: Crack/Cocaine Currently Displaying Signs/Symptoms of Drug Intoxication Withdrawal: No Have you been hit, kicked, punched, or otherwise hurt by someone within the past year? If so, by whom?: No Do you feel safe in your current relationship?: No Current Relationship Is there a partner from a previous relationship who is making you feel unsafe now?: No Are you made to feel afraid or neglected: No Advance Directives: No Advance Directives Information Provided: No Do you have a plan to hurt others: No Plan Recently lost weight without trying: Yes How much weight loss: 2-13 pounds Eating poorly because of decreased appetite: Yes Nutrition screen score: 4 Nutrition Risks: Anorexia Poor oral hygiene: No service: No Current occupational status: unemployed Cognitive needs: No Hearing needs: No Vision needs: No Meds Allergies Allergy/AdvReac Type Severity Reaction Status Date / Time bee pollen [BEE STINGS] Allergy Intermediate HIVES Verified 02/18/24 09:41 Penicillins Allergy Mild UNKNOWN Verified 02/18/24 09:41 penicillin V Allergy Unknown unknown Verified 02/18/24 09:41 SANJAY DELIGHT Allergy Mild HIVES Uncoded 02/18/24 09:41 Active Medications: Current Medications Acetaminophen (Acetaminophen 325 Mg Tablet) 650 mg PO Q6H PRN PRN Reason: Pain, Mild (Pain Scale 1-3), fever or headache Last Admin: 02/19/24 19:06 Dose: 650 mg Albuterol Sulfate (Albuterol Sulfate 90 Mcg 8 Gm Inhaler) 2 puff INHALE Q6H PRN PRN Reason: shortness of breath or wheezing Benzonatate (Benzonatate 100 Mg Capsule) 100 mg PO TID [facility] Last Admin: 02/20/24 08:15 Dose: 100 mg Calcium Carbonate (Calcium Carbonate 750 Mg Tab.Chew) 750 mg PO Q4H PRN PRN Reason: Heartburn Last Admin: 02/19/24 09:35 Dose: 750 mg Famotidine (Famotidine/Pf 20 Mg/2 Ml Vial) 20 mg IVPUSH DAILY [facility] Last Admin: 02/20/24 08:21 Dose: 20 mg Hydromorphone HCl (Hydromorphone Hcl 0.5 Mg/0.5 Ml Syringe) 0.5 mg IVPUSH Q4H PRN; Protocol PRN Reason: Pain, Severe (Pain Scale 7-10) Last Admin: 02/20/24 08:09 Dose: 0.5 mg Vancomycin HCl 1,250 mg/ (Sodium Chloride) 250 mls @ 166.667 mls/hr IV Q12H [facility] Last Infusion: 02/20/24 06:05 Dose: Infused Cefepime HCl 2 gm/ Sodium (Chloride) 50 mls @ 100 mls/hr IV Q8H [facility] Last Admin: 02/20/24 05:59 Dose: 100 mls/hr Sodium Chloride (Ns) 1,000 mls @ 100 mls/hr IVCONT .Q10H [facility] Last Admin: 02/19/24 22:37 Dose: 100 mls/hr Metronidazole (Flagyl) 500 mg in 100 mls @ 100 mls/hr IV Q8H [facility] Last Admin: 02/20/24 08:20 Dose: 100 mls/hr Magnesium Hydroxide (Milk Of Magnesia 30 Ml Oral.Susp) 30 ml PO DAILY PRN PRN Reason: Constipation Melatonin (Melatonin 3 Mg Tablet) 6 mg PO BEDTIME PRN PRN Reason: Insomnia Last Admin: 02/19/24 22:36 Dose: 6 mg Methadone HCl (Methadone Hcl 20 Mg/2 Ml Oral.Conc) 140 mg PO DAILY [facility] Last Admin: 02/20/24 08:13 Dose: 140 mg Ondansetron HCl (Ondansetron Hcl 4 Mg/2 Ml Vial) 4 mg IVPUSH Q6H PRN PRN Reason: Nausea and Vomiting Last Admin: 02/20/24 04:22 Dose: 4 mg Oxycodone HCl (Oxycodone Hcl Immed Release 5 Mg Tablet) 7.5 mg PO Q4H PRN PRN Reason: Pain, Moderate(Pain Scale 4-6) Last Admin: 02/20/24 05:40 Dose: 7.5 mg Pharmacy Consult (Consult Rx Vancomycin Dosing) 1 each MISCELLANE DAILY PRN PRN Reason: Consult order Sodium Chloride (0.9 % Sodium Chloride Flush 3 Ml Syringe) 3 ml IVFLUSH [facility] Last Admin: 02/20/24 08:11 Dose: 3 ml Home Medications ?Medication ?Instructions ?Recorded ?Confirmed ?Last Taken ?Type methadone 10 mg/5 mL oral solution 140 mg PO DAILY 08/06/21 02/19/24 02/18/24 08:19 History 140 mg Physical Exam Vital Signs: Vital Signs: Last Vital Signs Temp 98.4 F 02/20/24 08:00 Pulse 86 02/20/24 08:00 Resp 18 02/20/24 08:00 BP 146/80 H 02/20/24 08:00 Pulse Ox 97 02/20/24 08:00 O2 Del Method Room Air 02/20/24 08:00 O2 Flow Rate 2 02/20/24 03:12 BMI result Body Mass Index 25.7 Chest: Other: Chest diminished breath sounds right, left clear. GI: Other: Abdomen moderately corpulent, soft, benign Results Labs 02/20/24 05:35 02/20/24 05:35 Labs: Abnormal lab results 02/20/24 Range/Units 05:35 WBC 14.1 H (4.8-10.8) X10*3/uL RBC 3.17 L (4.60-5.80) X10*6/uL Hgb 8.6 L (14.0-18.0) g/dl Hct 26.9 L (42.0-52.0) % PT 32.4 H (11.1-13.3) SEC INR 2.7 H (0.9-1.1) Short CBC 02/20/24 Range/Units 05:35 WBC 14.1 H (4.8-10.8) X10*3/uL Hgb 8.6 L (14.0-18.0) g/dl Hct 26.9 L (42.0-52.0) % Plt Count 383 (160-400) X10*3/uL BMP 02/20/24 05:35 Sodium 135 Potassium 3.6 Chloride 98 Carbon Dioxide 26 BUN 9 Creatinine 0.82 Calcium 8.8 Urine 02/18/24 Range/Units 09:48 Urine Color Yell A Urine Appearance Cloudy Urine pH 5.5 (5.0-9.0) Ur Specific [place] 1.025 (1.005-1.025) Urine Protein See Note (Neg-Trace) mg/dL Urine Glucose (UA) Negative (Negative) mg/dL All other labs normal. Assessment and Plan (1) Empyema lung: Status: Acute Plan Current plan is to arrange for IR directed drainage of the patient's posterior lateral collection indirect further interventions and studies based on these results. If the patient has a good result with resolution of the parapneumonic effusion, he can avoid tPA or decortication. To follow Procedures Date of Service Date of Service: 02/20/24
--- NOTE | 2024-02-20 10:24 | PM.PROC ---
Brief Operative Note Date of procedure: 02/20/24 Pre-op diagnosis: Right empyema Post-op diagnosis: same Procedure: US right chest tube 12 fr drain placed. Thick purulent fluid aspirated. Anesthesia: local Disposition: floor
[2024-02-20] MEDS: Lidocaine HCl 1 % MPF 5 ML VIAL 10 ML SUBCUT (11:03)
[2024-02-20 11:12] LABS: Prothrombin Time 24.2 SEC (11.1-13.3)
[2024-02-20] MEDS: 0.9 % Sodium Chloride 1,000 ML 100 ML IVCONT (11:43)
--- NOTE | 2024-02-20 11:52 | MHC.CM.PN ---
Per rounds, pt is not ready for DC, he is getting a chest tube today. CM to follow and assist with DC planning.
--- NOTE | 2024-02-20 13:57 | HO.PM.IMPN ---
Subjective Subjective Date of Service: 02/20/24 Interval History: Being followed for right upper back and right-sided chest pain due to large fluid collection with mass affect on right lung. Complaining of persistent right-sided pain, oxygenation stable on 2 L, denies worsening shortness of breath, no fevers, no chills WBC trending down, NPO for chest tube placement no acute issues overnight. Review of Systems All other system reviewed and are negative. Physical Exam Vital Signs: Vital Signs: Last Vital Signs Temp 99.0 F 02/20/24 11:58 Pulse 67 02/20/24 11:58 Resp 18 02/20/24 11:58 BP 112/61 02/20/24 11:58 Pulse Ox 95 02/20/24 11:58 O2 Del Method Room Air 02/20/24 11:58 O2 Flow Rate 2 02/20/24 03:12 BMI result Body Mass Index 25.7 Const: Other: General awake alert x3 ,in acute distress due to pain. Anicteric sclera Neck no JVD. CVS regular rate rhythm, Respiratory lungs diminished breath sounds right base, no respiratory distress, no wheeze, no rhonchi. Right chest tube in place. Gastrointestinal abdomen soft, mild right upper abdominal tenderness to palpation,bowel sounds audible, no guarding , no rigidity. Extremities no edema. Neuro non focal, speech clear. Skin no rash Psych appropriate affect Objective Data Active Medications Acetaminophen (Acetaminophen 325 Mg Tablet) 650 mg PO Q6H PRN PRN Reason: Pain, Mild (Pain Scale 1-3), fever or headache Last Admin: 02/19/24 19:06 Dose: 650 mg Documented By: LEONARD Albuterol Sulfate (Albuterol Sulfate 90 Mcg 8 Gm Inhaler) 2 puff INHALE Q6H PRN PRN Reason: shortness of breath or wheezing Benzonatate (Benzonatate 100 Mg Capsule) 100 mg PO TID [facility] Last Admin: 02/20/24 08:15 Dose: 100 mg Documented By: PEPITO Calcium Carbonate (Calcium Carbonate 750 Mg Tab.Chew) 750 mg PO Q4H PRN PRN Reason: Heartburn Last Admin: 02/19/24 09:35 Dose: 750 mg Documented By: LEONARD Famotidine (Famotidine/Pf 20 Mg/2 Ml Vial) 20 mg IVPUSH DAILY [facility] Last Admin: 02/20/24 08:21 Dose: 20 mg Documented By: PEPITO Hydromorphone HCl (Hydromorphone Hcl 0.5 Mg/0.5 Ml Syringe) 0.5 mg IVPUSH Q3H PRN; Protocol PRN Reason: Pain, Severe (Pain Scale 7-10) Vancomycin HCl 1,250 mg/ (Sodium Chloride) 250 mls @ 166.667 mls/hr IV Q12H [facility] Last Infusion: 02/20/24 06:05 Dose: Infused Documented By: SNOW Cefepime HCl 2 gm/ Sodium (Chloride) 50 mls @ 100 mls/hr IV Q8H [facility] Last Infusion: 02/20/24 11:52 Dose: Infused Documented By: PEPITO Sodium Chloride (Ns) 1,000 mls @ 100 mls/hr IVCONT .Q10H [facility] Last Admin: 02/20/24 11:43 Dose: 100 mls/hr Documented By: PEPITO Metronidazole (Flagyl) 500 mg in 100 mls @ 100 mls/hr IV Q8H [facility] Last Infusion: 02/20/24 11:52 Dose: Infused Documented By: PEPITO Magnesium Hydroxide (Milk Of Magnesia 30 Ml Oral.Susp) 30 ml PO DAILY PRN PRN Reason: Constipation Melatonin (Melatonin 3 Mg Tablet) 6 mg PO BEDTIME PRN PRN Reason: Insomnia Last Admin: 02/19/24 22:36 Dose: 6 mg Documented By: SNOW Methadone HCl (Methadone Hcl 20 Mg/2 Ml Oral.Conc) 140 mg PO DAILY [facility] Last Admin: 02/20/24 08:13 Dose: 140 mg Documented By: PEPITO Ondansetron HCl (Ondansetron Hcl 4 Mg/2 Ml Vial) 4 mg IVPUSH Q6H PRN PRN Reason: Nausea and Vomiting Last Admin: 02/20/24 04:22 Dose: 4 mg Documented By: SNOW Oxycodone HCl (Oxycodone Hcl Immed Release 5 Mg Tablet) 7.5 mg PO Q4H PRN PRN Reason: Pain, Moderate(Pain Scale 4-6) Last Admin: 02/20/24 11:51 Dose: 7.5 mg Documented By: PEPITO Pharmacy Consult (Consult Rx Vancomycin Dosing) 1 each MISCELLANE DAILY PRN PRN Reason: Consult order Sodium Chloride (0.9 % Sodium Chloride Flush 3 Ml Syringe) 3 ml IVFLUSH QSHIFT [facility] Last Admin: 02/20/24 08:11 Dose: 3 ml Documented By: PEPITO Labs 02/20/24 05:35 02/20/24 05:35 Labs: Laboratory Results - last 24 hr 02/19/24 02/20/24 02/20/24 14:16 05:35 10:58 MCV 84.9 MCH 27.1 MCHC 32.0 RDW 14.5 Plt Count 383 MPV 10.2 Absolute Nucleated RBC 0.000 Nucleated RBC % (auto) 0.0 PT 32.4 H 24.2 H D INR 2.7 H 2.0 H Anion Gap 15 Estim Creat Clear Calc 121.1 Estimated GFR > 60 Random Glucose 95 Calcium 8.8 Random Vancomycin 17.3 Blood Type O Positive Antibody Screen NEGATIVE Microbiology Microbiology Results: Microbiology 02/18/24 10:39 Blood Culture - Preliminary Blood - Venous No growth after 48 hours. 02/18/24 10:33 Blood Culture - Preliminary Blood - Venous No growth after 48 hours. 02/18/24 Unknown Urine Culture - Final Urine clean catch - Clean Catch Midstream No growth. Assessment and Plan (1) IV drug abuse: Status: Acute (2) Abscess: Status: Acute (3) Empyema lung: Status: Acute (4) Acute hyponatremia: Status: Acute Plan 43-year-old gentleman with past medical history significant for mild intermittent asthma on prn albuterol, history of opioid use disorder on methadone, recently treated for acute pyelonephritis with Keflex presented to [place] emergency room with greater than 2 week history of right upper back pain with radiation to right anterior chest associated with chills, weight loss, decreased appetite, shortness of breath , workup in the emergency room showed Thick walled fluid collection containing gas bubbles and air-fluid level in the posterior right hemithorax appear to be arising out of the pleural space and compressing the right lower lobe, exerting mass effect upon the posterior right hemidiaphragm and underlying liver there also appears to be fluid and gas in the posterior extrapleural space and fluid appears to be tracking around region of 9th and 10th ribs and a fluid collection in the adjacent right paraspinal muscle, patient will be admitted to [facility] for IV antibiotics and IR drainage. CT abdomen and pelvis obtained January 16 showed normal lung examination except mild linear dependent atelectasis/and nonobstructing 3 mm calculi lower pole collecting system of right kidney. Abdominal ultrasound January 31 showed 5 mm lower pole nonobstructing calculus right kidney and 5 mm nonobstructing calcification possibly vascular left kidney with no hydronephrosis Acute Right upper back and anterior chest wall pain : due to a loculated fluid collection exerting mass effect upon right lower lobe/and possible infection arising from the right 10 costo transverse junction likely empyema Sepsis due to empyema with leukocytosis and tachypnea,. WBC trending down, tachypnea resolved Continue IV vancomycin , IV cefepime and flagyl, started on 02/17, blood cultures x2 are negative IR place right-sided chest tube 40 cc thick purulent fluid was drained, later noticed to have 140 mL fluid in chest tube Continue IV Dilaudid and oxycodone for pain management, antiemetics, Pepcid for GI prophylaxis. Cough medication/supportive care Follow fluid g stain culture sensitivity and adjust antibiotics. Seen by Dr. Almazan depending on progress, it will be decided regarding tPA versus decortication. Being followed by pulmonology. Repeat chest x-ray at a.m. Elevated INR due to poor nutrition treated with vitamin K INR improved from 2.7-2.0 Acute hypoxic respiratory failure Likely due to above continue O2 supplement, monitor respiratory status closely. Acute on chronic normocytic anemia Likely due to infection, H&H dropped to 26.9 likely dilutional and from infection, monitor CBC, hematocrit above transfusion threshold. Check stool guaiac and iron studies Acute hyponatremia likely due to pulmonary process and decreased by mouth intake. Resolved with IV fluid, TSH 0.28 likely subclinical hyperthyroidism outpatient TSH follow-up Opiate use disorder continue methadone. Illicit drug use U tox positive for fentanyl, cocaine, methadone and opiates, initially denied IV drug use later agreed for using IV drugs 6-8 weeks ago. Addiction Team consult. Mild Intermittent asthma continue home inhalers no acute exacerbation noted. DVT prophylaxis with compression boots/add Lovenox Full code In my clinical judgment patient need continued inpatient hospitalization for management of fluid collection right hemithorax status post chest tube placement on IV antibiotics required close follow-up on chest tube drainage and further treatment depending on progress, treatment can not be provided in less acute setting. Quality Stroke Does the patient have a stroke diagnosis?: No VTE Prior VTE?: No VTE Risk Level:: Medical - moderate - high VTE Device Contraindication: Treatment Not Indicated VTE Drug Contraindication: N/A - Med Ordered
[2024-02-20 15:07] LABS: Vancomycin Random 15.4 mcg/mL (15-20)
[2024-02-20] MEDS: metroNIDAZOLE/NS 500 MG/100 ML PIGGYBACK 1000 MG IV (18:37)
[2024-02-21] MEDS: metroNIDAZOLE/NS 500 MG/100 ML PIGGYBACK 100 MG IV ×2 (00:32→08:22)
[2024-02-21] MEDS: HYDROmorphone HCl 0.5 MG/0.5 ML SYRINGE IVPUSH ×7 (01:57→23:50)
[2024-02-21] MEDS: oxyCODONE HCl Immed Release 5 MG TABLET 7.5 MG PO ×4 (03:10→21:56)
[2024-02-21] MEDS: ondansetron HCL 4 MG/2 ML VIAL IVPUSH ×2 (03:10→20:10)
[2024-02-21] MEDS: vancomycin HCL 1,250 MG in 0.9 % Sodium Chloride 250 ML 166.67 MG IV ×2 (03:11→15:44)
[2024-02-21 03:19] VITALS: BP 108/63; PULSE 70; RESP 18; TEMP 37.3; O2SAT 94
[2024-02-21] MEDS: cefEPime HCl 2 GM in 0.9 % Sodium Chloride 50 ML IV ×3 (05:35→21:48)
[2024-02-21 06:37] LABS: Hematocrit 26.5 % (42.0-52.0); Hemoglobin 8.7 g/dl (14.0-18.0); Mean Corpuscular HGB Conc 32.8 g/dl (31.0-36.0); Mean Corpuscular Hemoglobin 27.7 pg (27.0-33.0); Mean Corpuscular Volume 84.4 fL (80.0-98.0); Mean Platelet Volume 9.5 fL (9.4-12.4); Platelet Count 361 X10*3/uL (160-400); Red Blood Count 3.14 X10*6/uL (4.60-5.80); Red Cell Distribution Width 14.5 % (11.0-16.0); White Blood Count 11.4 X10*3/uL (4.8-10.8)
[2024-02-21 07:03] LABS: Creatinine Clr Calc Pharmacy 132.4; Estimated Glomerular Filt Rate > 60; Iron 12 mcg/dL (45-160); Percent Iron Saturation 13 % (15-50); Total Iron Binding Capacity 95 mcg/dL (228-428); Unsaturated Iron Binding 83 ug/dL
[2024-02-21 07:19] LABS: Ferritin 1029 ng/mL (20-250)
[2024-02-21 07:47] VITALS: BP 110/65; PULSE 70; RESP 20; TEMP 36; O2SAT 92
[2024-02-21] MEDS: Famotidine/PF 20 MG/2 ML VIAL IVPUSH (08:06)
[2024-02-21] MEDS: Benzonatate 100 MG CAPSULE PO ×3 (08:06→20:05)
[2024-02-21] MEDS: methADONE HCl 20 MG/2 ML ORAL.CONC 140 MG PO (08:08)
[2024-02-21] MEDS: 0.9 % Sodium Chloride Flush 3 ML SYRINGE IVFLUSH ×3 (08:23→23:35)
--- NOTE | 2024-02-21 08:59 | PM.PNTS ---
Subjective Subjective Date of Service: 02/21/24 Interval history: Status post IR drainage of right pleural collection. Patient had a tremendous response to chest tube placement. Chest x-ray this morning demonstrates complete resolution of pleural fluid. Pleur-evac demonstrates grossly purulent material. Physical Exam Vital Signs: Vital Signs: Last Vital Signs Temp 96.8 F 02/21/24 07:47 Pulse 70 02/21/24 07:47 Resp 20 02/21/24 07:47 BP 110/65 02/21/24 07:47 Pulse Ox 92 02/21/24 07:47 O2 Del Method Nasal Cannula 02/21/24 07:47 O2 Flow Rate 1 02/21/24 07:47 BMI result Body Mass Index 25.7 Chest: Other: Chest breath sounds bilaterally. Chest tube intact and Pleur-evac as noted above. Procedures Date of Service Date of Service: 02/21/24 Progress Note: A&P Assessment and plan (1) Empyema lung: Status: Acute Plan Continue current plan. Await final culture results. Encourage incentive spirometry, out of bed. To follow Time Spent With Patient Time: Total time managing care of this patient today ____ minutes. Quality Stroke Does the patient have a stroke diagnosis?: No VTE Prior VTE?: No VTE Risk Level:: Medical - moderate - high VTE Device Contraindication: Treatment Not Indicated VTE Drug Contraindication: N/A - Med Ordered
[2024-02-21 10:56] VITALS: BP 110/63; PULSE 57; RESP 20; TEMP 36.1; O2SAT 93
--- NOTE | 2024-02-21 12:18 | HO.PM.IMPN ---
Subjective Subjective Date of Service: 02/21/24 Interval History: Complaining of pain right chest, persistent purulent drainage from right chest tube, no fevers no chills, tolerating diet no nausea no vomiting no abdominal pain, no other acute events overnight. Review of Systems All other system reviewed and are negative. Physical Exam Vital Signs: Vital Signs: Last Vital Signs Temp 97.0 F 02/21/24 10:56 Pulse 57 02/21/24 10:56 Resp 20 02/21/24 10:56 BP 110/63 02/21/24 10:56 Pulse Ox 93 02/21/24 10:56 O2 Del Method Nasal Cannula 02/21/24 10:56 O2 Flow Rate 1 02/21/24 10:56 BMI result Body Mass Index 25.7 Const: Other: General awake alert x3 ,in acute distress due to pain. Anicteric sclera Neck no JVD. CVS regular rate rhythm, Respiratory lungs improved aeration right base, no respiratory distress, no wheeze, no rhonchi. Right chest tube in place. Gastrointestinal abdomen soft, mild right upper abdominal tenderness to palpation,bowel sounds audible, no guarding , no rigidity. Extremities no edema. Neuro non focal, speech clear. Skin no rash Psych appropriate affect Objective Data Active Medications Acetaminophen (Acetaminophen 325 Mg Tablet) 650 mg PO Q6H PRN PRN Reason: Pain, Mild (Pain Scale 1-3), fever or headache Last Admin: 02/19/24 19:06 Dose: 650 mg Documented By: LEONARD Albuterol Sulfate (Albuterol Sulfate 90 Mcg 8 Gm Inhaler) 2 puff INHALE Q6H PRN PRN Reason: shortness of breath or wheezing Benzonatate (Benzonatate 100 Mg Capsule) 100 mg PO TID [facility] Last Admin: 02/21/24 08:06 Dose: 100 mg Documented By: NELLY Calcium Carbonate (Calcium Carbonate 750 Mg Tab.Chew) 750 mg PO Q4H PRN PRN Reason: Heartburn Last Admin: 02/19/24 09:35 Dose: 750 mg Documented By: LEONARD Famotidine (Famotidine/Pf 20 Mg/2 Ml Vial) 20 mg IVPUSH DAILY [facility] Last Admin: 02/21/24 08:06 Dose: 20 mg Documented By: NELLY Hydromorphone HCl (Hydromorphone Hcl 0.5 Mg/0.5 Ml Syringe) 0.5 mg IVPUSH Q3H PRN; Protocol PRN Reason: Pain, Severe (Pain Scale 7-10) Last Admin: 02/21/24 09:44 Dose: 0.5 mg Documented By: NELLY Vancomycin HCl 1,250 mg/ (Sodium Chloride) 250 mls @ 166.667 mls/hr IV Q12H [facility] Last Infusion: 02/21/24 06:29 Dose: Infused Documented By: MARTHA Cefepime HCl 2 gm/ Sodium (Chloride) 50 mls @ 100 mls/hr IV Q8H [facility] Last Infusion: 02/21/24 06:22 Dose: Infused Documented By: MARTHA Metronidazole (Flagyl) 500 mg in 100 mls @ 100 mls/hr IV Q8H [facility] Last Infusion: 02/21/24 09:22 Dose: Infused Documented By: NELLY Magnesium Hydroxide (Milk Of Magnesia 30 Ml Oral.Susp) 30 ml PO DAILY PRN PRN Reason: Constipation Melatonin (Melatonin 3 Mg Tablet) 6 mg PO BEDTIME PRN PRN Reason: Insomnia Last Admin: 02/19/24 22:36 Dose: 6 mg Documented By: SNOW Methadone HCl (Methadone Hcl 20 Mg/2 Ml Oral.Conc) 140 mg PO DAILY [facility] Last Admin: 02/21/24 08:08 Dose: 140 mg Documented By: NELLY Ondansetron HCl (Ondansetron Hcl 4 Mg/2 Ml Vial) 4 mg IVPUSH Q6H PRN PRN Reason: Nausea and Vomiting Last Admin: 02/21/24 03:10 Dose: 4 mg Documented By: MARTHA Oxycodone HCl (Oxycodone Hcl Immed Release 5 Mg Tablet) 7.5 mg PO Q4H PRN PRN Reason: Pain, Moderate(Pain Scale 4-6) Last Admin: 02/21/24 08:07 Dose: 7.5 mg Documented By: NELLY Pharmacy Consult (Consult Rx Vancomycin Dosing) 1 each MISCELLANE DAILY PRN PRN Reason: Consult order Sodium Chloride (0.9 % Sodium Chloride Flush 3 Ml Syringe) [facility] Last Admin: 02/21/24 08:23 Dose: 3 ml Documented By: NELLY Labs 02/21/24 06:20 02/21/24 06:20 Labs: Laboratory Results - last 24 hr 02/20/24 02/21/24 14:37 06:20 MCV 84.4 MCH 27.7 MCHC 32.8 RDW 14.5 Plt Count 361 MPV 9.5 Absolute Nucleated RBC 0.000 Nucleated RBC % (auto) 0.0 Estim Creat Clear Calc 132.4 Estimated GFR > 60 Iron 12 L TIBC 95 L % Saturation 13 L Unsat Iron Binding 83 Ferritin 1029 H Random Vancomycin 15.4 Microbiology Microbiology Results: Microbiology 02/20/24 10:30 Gram Stain - Final Pleural Fluid Routine Culture - Preliminary Staphylococcus aureus Anaerobic Culture - Preliminary Culture in progress. 02/18/24 10:39 Blood Culture - Preliminary Blood - Venous No growth after 48 hours. 02/18/24 10:33 Blood Culture - Preliminary Blood - Venous No growth after 48 hours. Assessment and Plan (1) IV drug abuse: Status: Acute (2) Abscess: Status: Acute (3) Empyema lung: Status: Acute (4) Acute hyponatremia: Status: Acute Plan 43-year-old gentleman with past medical history significant for mild intermittent asthma on prn albuterol, history of opioid use disorder on methadone, recently treated for acute pyelonephritis with Keflex presented to [place] emergency room with greater than 2 week history of right upper back pain with radiation to right anterior chest associated with chills, weight loss, decreased appetite, shortness of breath , workup in the emergency room showed Thick walled fluid collection containing gas bubbles and air-fluid level in the posterior right hemithorax appear to be arising out of the pleural space and compressing the right lower lobe, exerting mass effect upon the posterior right hemidiaphragm and underlying liver there also appears to be fluid and gas in the posterior extrapleural space and fluid appears to be tracking around region of 9th and 10th ribs and a fluid collection in the adjacent right paraspinal muscle, patient will be admitted to [facility] for IV antibiotics and IR drainage. CT abdomen and pelvis obtained January 16 showed normal lung examination except mild linear dependent atelectasis/and nonobstructing 3 mm calculi lower pole collecting system of right kidney. Abdominal ultrasound January 31 showed 5 mm lower pole nonobstructing calculus right kidney and 5 mm nonobstructing calcification possibly vascular left kidney with no hydronephrosis Acute Right upper back and anterior chest wall pain : due to a loculated fluid collection exerting mass effect upon right lower lobe/and possible infection arising from the right 10 costo transverse junction likely empyema Sepsis due to empyema with leukocytosis and tachypnea,. WBC trending down, tachypnea resolved on IV vancomycin , IV cefepime and flagyl, started on 02/17, blood cultures x2 negative 48h, right pleural fluid culture positive for Staph aureus, sensitivity pending Will DC IV Flagyl , follow final sensitivities IR place right-sided chest tube 40 cc thick purulent fluid was drained, later noticed to have >2000 ml drainage in last 24 hours Continue IV Dilaudid and oxycodone for pain management, antiemetics, Pepcid for GI prophylaxis. Cough medication/supportive care/IS Repeat chest x-ray showed decrease in size of right pleural effusion/empyema, no pneumothorax Being followed by thoracic surgery. Elevated INR due to poor nutrition treated with vitamin K INR improved from 2.7-2.0 Acute hypoxic respiratory failure Likely due to above continue O2 supplement, wean as tolerated not on home oxygen. Acute on chronic normocytic anemia Likely due to infection, H&H dropped to 26.9 likely dilutional and from infection, repeat hematocrit unchanged , hematocrit above transfusion threshold. Iron studies showed low iron, elevated ferritin, likely anemia of inflammatory disease/poor nutrition, will place on iron supplement upon dc , stool guaiac pend. Acute hyponatremia likely due to pulmonary process and decreased by mouth intake. Resolved with IV fluid, TSH 0.28 likely subclinical hyperthyroidism check T4 and T3 Opiate use disorder continue methadone. Illicit drug use U tox positive for fentanyl, cocaine, methadone and opiates, initially denied IV drug use later agreed for using IV drugs 6-8 weeks ago. Addiction Team consult. Mild Intermittent asthma continue home inhalers no acute exacerbation noted. DVT prophylaxis with compression boots/add Lovenox Full code In my clinical judgment patient need continued inpatient hospitalization for management of fluid collection right hemithorax status post chest tube placement on IV antibiotics required close follow-up on chest tube drainage and further treatment depending on progress, treatment can not be provided in less acute setting. Quality Stroke Does the patient have a stroke diagnosis?: No VTE Prior VTE?: No VTE Risk Level:: Medical - moderate - high VTE Device Contraindication: Treatment Not Indicated VTE Drug Contraindication: N/A - Med Ordered
--- NOTE | 2024-02-21 12:34 | PC.NURSE ---
this rn assumed care at shift change, attending md clayton requested to document i'o for patient chest tube on the date of 02/20/24 am shift. this rn found a reading of 1250 as of 7am this am. output creamy valencia in color i/o documented per md request
[2024-02-21 14:20] LABS: Vancomycin Random 13.6 mcg/mL (15-20)
--- NOTE | 2024-02-21 14:26 | HE.PHANOTE ---
Re: Vanco Renal function improving. Trough returned at 13.6. Continue current dose of 1250 mg 12HM, with predicted AUC 457, predicted trough 12.1. Next random trough to be drawn 02/21 @1400.
[2024-02-21 15:40] VITALS: BP 113/72; PULSE 75; RESP 16; TEMP 36.4; O2SAT 94
--- NOTE | 2024-02-21 16:15 | MHC.RECOVRN ---
Briefly met with pt in 472 after consult placed to Addiction Medicine for OUD. Pt had presented to the ED after recent dx with UTI and kidney infection, had been sent home with abx but reported no improvement. Pt reported pain in right flank and urinary symptoms. Upon evaluation, pt admitted for treatment of acute right upper back and anterior chest wall pain due to a loculated fluid collection exerting mass effect upon right lower lobe/and possible infection. Pt sitting in chair, awake, alert, easily engages in conversation. Discussion was brief as mom was present. Pt reports he is currently receiving methadone, 140 mg daily x 4 years through [employer]. Pt reports he is comfortable at this dose. Plan for t/w to meet with pt to continue conversation tomorrow.
[2024-02-21 19:37] VITALS: BP 115/73; PULSE 61; RESP 19; TEMP 36.8; O2SAT 92
[2024-02-21 23:46] VITALS: BP 130/74; PULSE 71; RESP 18; TEMP 36.1; O2SAT 94
[2024-02-22] MEDS: oxyCODONE HCl Immed Release 5 MG TABLET 7.5 MG PO ×2 (01:52→22:13)
[2024-02-22] MEDS: ondansetron HCL 4 MG/2 ML VIAL IVPUSH ×2 (01:53→17:30)
[2024-02-22 03:53] VITALS: BP 121/69; PULSE 68; RESP 19; TEMP 37.2; O2SAT 95
[2024-02-22] MEDS: HYDROmorphone HCl 0.5 MG/0.5 ML SYRINGE IVPUSH ×5 (04:02→20:17)
[2024-02-22] MEDS: vancomycin HCL 1,250 MG in 0.9 % Sodium Chloride 250 ML 166.66 MG IV (04:03)
[2024-02-22] MEDS: cefEPime HCl 2 GM in 0.9 % Sodium Chloride 50 ML IV ×3 (05:45→22:05)
[2024-02-22 07:23] LABS: Creatinine Clr Calc Pharmacy 130.7; Estimated Glomerular Filt Rate > 60
[2024-02-22 07:38] VITALS: BP 128/67; PULSE 65; RESP 20; TEMP 36.8; O2SAT 90
--- NOTE | 2024-02-22 07:46 | HO.PM.IMPN ---
Subjective Subjective Date of Service: 02/22/24 Interval History: Seen in follow up for empyema Interval history: Reports only mild discomfort in the left chest. No shortness of breath, cough. Chest tube in place with serosanguinous draingage Review of Systems Review of Systems: Yes all other systems are reviewed and are negative Physical Exam Vital Signs: Vital Signs: Last Vital Signs Temp 98.3 F 02/22/24 07:38 Pulse 65 02/22/24 07:38 Resp 20 02/22/24 07:38 BP 128/67 02/22/24 07:38 Pulse Ox 90 L 02/22/24 07:38 O2 Del Method Room Air 02/22/24 07:38 O2 Flow Rate 1 02/21/24 23:46 BMI result Body Mass Index 25.7 Constitutional - Awake and Alert, No apparent distress Eyes - PERRLA, EOMI Cardiovascular - S1S2, RRR, No edema Respiratory - Normal lung expansion, Normal respiratory effort, No respiratory distress, CTA bilaterally Chest- baseball sized area of swelling/fluctuance over the left posterior chest focal ttp. Chest tube in place Gastrointestinal - NT / ND; +BS; No rebound or guarding - No CVA tenderness Extremities - no calf tenderness bilaterally, no swelling Musculoskeletal - Normal inspection, normal ROM Skin - Warm/Dry Neurological - Alert & oriented x3, CN II-XII in tact, 5/5 strength BUE and BLE Psychological - Appropriate affect Objective Data Active Medications Acetaminophen (Acetaminophen 325 Mg Tablet) 650 mg PO Q6H PRN PRN Reason: Pain, Mild (Pain Scale 1-3), fever or headache Last Admin: 02/19/24 19:06 Dose: 650 mg Documented By: LEONARD Albuterol Sulfate (Albuterol Sulfate 90 Mcg 8 Gm Inhaler) 2 puff INHALE Q6H PRN PRN Reason: shortness of breath or wheezing Benzonatate (Benzonatate 100 Mg Capsule) 100 mg PO TID [facility] Last Admin: 02/21/24 20:05 Dose: 100 mg Documented By: NAKUL Calcium Carbonate (Calcium Carbonate 750 Mg Tab.Chew) 750 mg PO Q4H PRN PRN Reason: Heartburn Last Admin: 02/19/24 09:35 Dose: 750 mg Documented By: LEONARD Famotidine (Famotidine/Pf 20 Mg/2 Ml Vial) 20 mg IVPUSH DAILY [facility] Last Admin: 02/21/24 08:06 Dose: 20 mg Documented By: NELLY Hydromorphone HCl (Hydromorphone Hcl 0.5 Mg/0.5 Ml Syringe) 0.5 mg IVPUSH Q3H PRN; Protocol PRN Reason: Pain, Severe (Pain Scale 7-10) Last Admin: 02/22/24 04:02 Dose: 0.5 mg Documented By: KAYE Vancomycin HCl 1,250 mg/ (Sodium Chloride) 250 mls @ 166.667 mls/hr IV Q12H [facility] Last Infusion: 02/22/24 05:45 Dose: Infused Documented By: KAYE Cefepime HCl 2 gm/ Sodium (Chloride) 50 mls @ 100 mls/hr IV Q8H [facility] Last Infusion: 02/22/24 06:23 Dose: Infused Documented By: KAYE Magnesium Hydroxide (Milk Of Magnesia 30 Ml Oral.Susp) 30 ml PO DAILY PRN PRN Reason: Constipation Melatonin (Melatonin 3 Mg Tablet) 6 mg PO BEDTIME PRN PRN Reason: Insomnia Last Admin: 02/19/24 22:36 Dose: 6 mg Documented By: SNOW Methadone HCl (Methadone Hcl 20 Mg/2 Ml Oral.Conc) 140 mg PO DAILY [facility] Last Admin: 02/21/24 08:08 Dose: 140 mg Documented By: NELLY Ondansetron HCl (Ondansetron Hcl 4 Mg/2 Ml Vial) 4 mg IVPUSH Q6H PRN PRN Reason: Nausea and Vomiting Last Admin: 02/22/24 01:53 Dose: 4 mg Documented By: KAYE Oxycodone HCl (Oxycodone Hcl Immed Release 5 Mg Tablet) 7.5 mg PO Q4H PRN PRN Reason: Pain, Moderate(Pain Scale 4-6) Last Admin: 02/22/24 01:52 Dose: 7.5 mg Documented By: KAYE Pharmacy Consult (Consult Rx Vancomycin Dosing) 1 each MISCELLANE DAILY PRN PRN Reason: Consult order Sodium Chloride (0.9 % Sodium Chloride Flush 3 Ml Syringe) 3 ml IVFLUSH QSHIFT [facility] Last Admin: 02/21/24 23:35 Dose: 3 ml Documented By: HO.ANDERM Labs 02/21/24 06:20 02/22/24 06:46 Labs: Laboratory Results - last 24 hr 02/21/24 02/22/24 13:55 06:46 Hold Purple Top SEE NOTE Estim Creat Clear Calc 130.7 Estimated GFR > 60 Random Vancomycin 13.6 L Microbiology Microbiology Results: Microbiology 02/20/24 10:30 Gram Stain - Final Pleural Fluid Routine Culture - Preliminary Staphylococcus aureus Anaerobic Culture - Preliminary Culture in progress. Assessment and Plan (1) IV drug abuse: Status: Acute (2) Abscess: Status: Acute (3) Empyema lung: Status: Acute (4) Acute hyponatremia: Status: Acute Plan 43-year-old gentleman with past medical history significant for mild intermittent asthma on prn albuterol, history of opioid use disorder on methadone, recently treated for acute pyelonephritis with Keflex presented to [place] emergency room with greater than 2 week history of right upper back pain with radiation to right anterior chest associated with chills, weight loss, decreased appetite, shortness of breath , workup in the emergency room showed Thick walled fluid collection containing gas bubbles and air-fluid level in the posterior right hemithorax appear to be arising out of the pleural space and compressing the right lower lobe, exerting mass effect upon the posterior right hemidiaphragm and underlying liver there also appears to be fluid and gas in the posterior extrapleural space and fluid appears to be tracking around region of 9th and 10th ribs and a fluid collection in the adjacent right paraspinal muscle, patient will be admitted to [facility] for IV antibiotics and IR drainage. CT abdomen and pelvis obtained January 16 showed normal lung examination except mild linear dependent atelectasis/and nonobstructing 3 mm calculi lower pole collecting system of right kidney. Abdominal ultrasound January 31 showed 5 mm lower pole nonobstructing calculus right kidney and 5 mm nonobstructing calcification possibly vascular left kidney with no hydronephrosis Acute Right upper back and anterior chest wall pain : due to a loculated fluid collection exerting mass effect upon right lower lobe/and possible infection arising from the right 10 costo transverse junction likely empyema Sepsis due to empyema with leukocytosis and tachypnea,. WBC trending down, tachypnea resolved on IV vancomycin , IV cefepime and flagyl, started on 02/17, blood cultures x2 negative 48h, right pleural fluid culture positive for Staph aureus, sensitivity pending Will DC IV Flagyl and cefepime on 02/21. Pleural fluid culture growing MRSA IR place right-sided chest tube 40 cc thick purulent fluid was drained, later noticed to have >2000 ml drainage in last 24 hours. Now with serosanguinout drainage 02/21. Chest tube to be removed tomorrow per Dr. Almazan Continue IV Dilaudid and oxycodone for pain management, antiemetics, Pepcid for GI prophylaxis. Cough medication/supportive care/IS Repeat chest x-ray showed decrease in size of right pleural effusion/empyema, no pneumothorax Being followed by thoracic surgery still with focal collection R posterior chest. IR to drainage under U/S 02/21 for symptomatic relief On discharge PO linezolid 600mg BID x2-[address] Espitia to see outpatient to determine final duration Elevated INR due to poor nutrition treated with vitamin K INR improved from 2.7-2.0 Acute hypoxic respiratory failure Likely due to above continue O2 supplement, wean as tolerated not on home oxygen. Acute on chronic normocytic anemia Likely due to infection, H&H dropped to 26.9 likely dilutional and from infection, repeat hematocrit unchanged , hematocrit above transfusion threshold. Iron studies showed low iron, elevated ferritin, likely anemia of inflammatory disease/poor nutrition, will place on iron supplement upon dc , stool guaiac pend. Acute hyponatremia likely due to pulmonary process and decreased by mouth intake. Resolved with IV fluid, TSH 0.28 likely subclinical hyperthyroidism check T4 and T3 Opiate use disorder continue methadone. Illicit drug use U tox positive for fentanyl, cocaine, methadone and opiates, initially denied IV drug use later agreed for using IV drugs 6-8 weeks ago. Addiction Team consult. Mild Intermittent asthma continue home inhalers no acute exacerbation noted. DVT prophylaxis with compression boots/add Lovenox Full code In my clinical judgment patient need continued inpatient hospitalization for management of fluid collection right hemithorax status post chest tube placement on IV antibiotics required close follow-up on chest tube drainage and further treatment depending on progress, treatment can not be provided in less acute setting. Plan for Quality Stroke Does the patient have a stroke diagnosis?: No VTE Prior VTE?: No VTE Risk Level:: Medical - moderate - high VTE Device Contraindication: Treatment Not Indicated VTE Drug Contraindication: N/A - Med Ordered
[2024-02-22] MEDS: Famotidine/PF 20 MG/2 ML VIAL IVPUSH (07:52)
[2024-02-22] MEDS: 0.9 % Sodium Chloride Flush 3 ML SYRINGE IVFLUSH ×3 (07:52→20:17)
[2024-02-22] MEDS: Benzonatate 100 MG CAPSULE PO ×3 (07:52→20:17)
[2024-02-22] MEDS: methADONE HCl 20 MG/2 ML ORAL.CONC 140 MG PO (07:52)
--- NOTE | 2024-02-22 08:58 | PM.PNTS ---
Subjective Subjective Date of Service: 02/22/24 Interval history: Feels improved this morning, denies shortness of breath. Able to ambulate to bathroom. Using incentive spirometer. Physical Exam Vital Signs: Vital Signs: Last Vital Signs Temp 98.3 F 02/22/24 07:38 Pulse 65 02/22/24 07:38 Resp 20 02/22/24 07:38 BP 128/67 02/22/24 07:38 Pulse Ox 90 L 02/22/24 07:38 O2 Del Method Room Air 02/22/24 07:38 O2 Flow Rate 1 02/21/24 23:46 BMI result Body Mass Index 25.7 Const: General: comfortable and alert Orientation/consciousness: patient oriented x3 Chest: Other: right posterior chest tube in place seropurulent drainage in pleurvac, no air leak Resp: Effort & Inspection: normal respiratory effort, Actively coughing and no respiratory distress Skin: General skin exam: no rashes or lesions noted Neuro: General: patient oriented x3 Procedures Date of Service Date of Service: 02/22/24 Progress Note: A&P Assessment and plan (1) Empyema lung: Status: Acute Plan Continued improvement in right empyema with chest tube in place, output remains purulent but beginning to become more serous. WBC has been continuously downtrending. Pleural cultures grew MRSA. Keep chest tube in place to water seal, repeat CXR tomorrow. If continues to improve possible dc chest tube tomorrow. Encouraged incentive spirometry, out of bed. Time Spent With Patient Time: Total time managing care of this patient today ____ minutes. Quality Stroke Does the patient have a stroke diagnosis?: No VTE Prior VTE?: No VTE Risk Level:: Medical - moderate - high VTE Device Contraindication: Treatment Not Indicated VTE Drug Contraindication: N/A - Med Ordered
[2024-02-22 11:37] VITALS: BP 104/67; PULSE 58; RESP 20; TEMP 36.3; O2SAT 93
--- NOTE | 2024-02-22 13:02 | MHC.CM.PN ---
Per rounds, pt. is not ready for DC, pt. has chest tube in place, may be able to transition to P.O. ABX tomorrow. CM to follow for DC needs.
--- NOTE | 2024-02-22 13:12 | MHC.RECOVRN ---
Met with pt to follow up and provide support. Pt sitting in chair, sleeping, wakes to voice. Pt reports occasional substance use including heroin/fentanyl and crack cocaine. Pt reports last use a couple weeks ago. Discussed recovery resources and supports. Pt reports sister is in recovery and is supportive and also sees a counselor through [facility]. Pt is not currently interested in referrals for other supports, feels comfortable and confident with his recovery. Pt encouraged to reach out if needed. Denies questions or concerns at this time.
--- NOTE | 2024-02-22 14:56 | PM.PROC ---
Brief Operative Note Date of procedure: 02/22/24 Pre-op diagnosis: right paravertebral abscess/ right empyema Post-op diagnosis: same Procedure: US drainage of right paravertebral abscess 10 fr drain placed. Thick purulent/bloody fluid aspirated and sent for culture. Anesthesia: local
[2024-02-22 15:33] VITALS: BP 108/67; PULSE 60; RESP 18; TEMP 36.7; O2SAT 95
--- NOTE | 2024-02-22 16:00 | PC.NURSE ---
Upon return to the room from the procedure patient reported that the chest tube collection chamber was knocked over in transport. Drainage chamber was replaced and surgeon champion of sustainable design notified.
[2024-02-22] MEDS: vancomycin HCL 1,250 MG in 0.9 % Sodium Chloride 250 ML 166.67 MG IV (16:21)
[2024-02-22 20:00] VITALS: BP 114/70; PULSE 70; RESP 18; TEMP 36.8; O2SAT 91
[2024-02-23] VITALS (8 sets, daily range): BP systolic 94–132; BP diastolic 55–77; PULSE 51–75; RESP 16–20; TEMP 36.1–37.1; O2SAT 91–97
--- NOTE | 2024-02-23 | ECG_ITS ---
Test Reason : GINETTE Blood Pressure : / mmHG Vent. Rate : 049 BPM Atrial Rate : 049 BPM P-R Int : 178 ms QRS Dur : 090 ms QT Int : 630 ms P-R-T Axes : 025 007 007 degrees QTc Int : 569 ms Sinus bradycardia Otherwise normal ECG When compared with ECG of 18-FEB-2024 20:15, Vent. rate has decreased BY 30 BPM Questionable change in QRS axis QT has lengthened - difficult to assess QT interval due to flat T wave Referred By: Hannah Pavon Electronically Signed By:AVINASH HOGAN
[2024-02-23] MEDS: ondansetron HCL 4 MG/2 ML VIAL IVPUSH ×2 (00:04→06:03)
[2024-02-23] MEDS: HYDROmorphone HCl 0.5 MG/0.5 ML SYRINGE IVPUSH ×5 (02:21→22:14)
[2024-02-23] MEDS: vancomycin HCL 1,250 MG in 0.9 % Sodium Chloride 250 ML 166.67 MG IV ×2 (03:20→16:20)
[2024-02-23] MEDS: cefEPime HCl 2 GM in 0.9 % Sodium Chloride 50 ML IV (05:30)
[2024-02-23 06:30] LABS: Creatinine Clr Calc Pharmacy 136.1; Estimated Glomerular Filt Rate > 60
[2024-02-23] MEDS: Benzonatate 100 MG CAPSULE PO ×3 (08:53→22:15)
[2024-02-23] MEDS: Famotidine/PF 20 MG/2 ML VIAL IVPUSH (08:53)
[2024-02-23] MEDS: methADONE HCl 20 MG/2 ML ORAL.CONC 140 MG PO (08:54)
[2024-02-23] MEDS: 0.9 % Sodium Chloride Flush 3 ML SYRINGE IVFLUSH ×3 (09:00→22:15)
[2024-02-23 13:36] LABS: Anion Gap 13 (12-20)
[2024-02-23 13:40] LABS: Blood Urea Nitrogen 10 mg/dL (9-16); Calcium 8.4 mg/dL (8.4-10.2); Carbon Dioxide 30 mmol/L (22-29); Chloride 99 mmol/L (96-108); Glucose Random 91 mg/dL (60-115); Magnesium 1.6 mg/dL (1.6-2.6); Potassium 3.5 mmol/L (3.3-5.1); Sodium 138 mmol/L (135-145)
--- NOTE | 2024-02-23 14:27 | P.PNIM_ITS ---
Subjective Subjective Date of Service: 02/23/24 Interval History: Seen and examined this morning Follow-up for right side empyema s/p drain placed 02/21 by IR +cough Review of Systems Review of Systems: Yes all other systems are reviewed and are negative Constitutional Constitutional: Denies chills and Denies fever(s) Respiratory Respiratory: Reports cough Gastrointestinal Gastrointestinal: Denies abdominal pain Physical Exam 2 Vital Signs: Vital Signs: Last Vital Signs Temp 97.0 F 02/23/24 11:44 Pulse 51 02/23/24 11:44 Resp 18 02/23/24 11:44 BP 94/55 L 02/23/24 11:44 Pulse Ox 94 02/23/24 11:44 O2 Del Method Room Air 02/23/24 11:44 O2 Flow Rate 1 02/21/24 23:46 BMI result Body Mass Index 25.7 Const: General: no acute distress, alert and awake Nutritional Appearance: average body habitus Orientation/consciousness: patient oriented x3 Chest: Other: right chest tube, drain in place Resp: Effort & Inspection: normal respiratory effort, able to speak in complete sentences, no respiratory distress and no use of accessory muscles Neuro: General: patient oriented x3, moves all extremities and CN's II-XI intact bilaterally Extrem: General: Yes no pedal edema Objective Data Active Medications Acetaminophen (Acetaminophen 325 Mg Tablet) 650 mg PO Q6H PRN PRN Reason: Pain, Mild (Pain Scale 1-3), fever or headache Last Admin: 02/19/24 19:06 Dose: 650 mg Documented By: LEONARD Albuterol Sulfate (Albuterol Sulfate 90 Mcg 8 Gm Inhaler) 2 puff INHALE Q6H PRN PRN Reason: shortness of breath or wheezing Benzonatate (Benzonatate 100 Mg Capsule) 100 mg PO TID [facility] Last Admin: 02/23/24 08:53 Dose: 100 mg Documented By: LIZ Calcium Carbonate (Calcium Carbonate 750 Mg Tab.Chew) 750 mg PO Q4H PRN PRN Reason: Heartburn Last Admin: 02/19/24 09:35 Dose: 750 mg Documented By: LEONARD Famotidine (Famotidine/Pf 20 Mg/2 Ml Vial) 20 mg IVPUSH DAILY [facility] Last Admin: 02/23/24 08:53 Dose: 20 mg Documented By: LIZ Hydromorphone HCl (Hydromorphone Hcl 0.5 Mg/0.5 Ml Syringe) 0.5 mg IVPUSH Q3H PRN; Protocol PRN Reason: Pain, Severe (Pain Scale 7-10) Last Admin: 02/23/24 08:53 Dose: 0.5 mg Documented By: LIZ Vancomycin HCl 1,250 mg/ (Sodium Chloride) 250 mls @ 166.667 mls/hr IV Q12H [facility] Last Infusion: 02/23/24 05:28 Dose: Infused Documented By: CLIFTON Magnesium Sulfate (Magnesium Sulfate/H2o) 2 gm in 50 mls @ 25 mls/hr IV ONCE ONE Stop: 02/23/24 16:23 Magnesium Hydroxide (Milk Of Magnesia 30 Ml Oral.Susp) 30 ml PO DAILY PRN PRN Reason: Constipation Melatonin (Melatonin 3 Mg Tablet) 6 mg PO BEDTIME PRN PRN Reason: Insomnia Last Admin: 02/19/24 22:36 Dose: 6 mg Documented By: SNOW Methadone HCl (Methadone Hcl 20 Mg/2 Ml Oral.Conc) 70 mg PO DAILY [facility] Ondansetron HCl (Ondansetron Hcl 4 Mg/2 Ml Vial) 4 mg IVPUSH Q6H PRN PRN Reason: Nausea and Vomiting Last Admin: 02/23/24 06:03 Dose: 4 mg Documented By: CLIFTON Oxycodone HCl (Oxycodone Hcl Immed Release 5 Mg Tablet) 7.5 mg PO Q4H PRN PRN Reason: Pain, Moderate(Pain Scale 4-6) Last Admin: 02/22/24 22:13 Dose: 7.5 mg Documented By: CLIFTON Pharmacy Consult (Consult Rx Vancomycin Dosing) 1 each MISCELLANE DAILY PRN PRN Reason: Consult order Sodium Chloride (0.9 % Sodium Chloride Flush 3 Ml Syringe) 3 ml IVFLUSH QSHIFT [facility] Last Admin: 02/23/24 09:00 Dose: 3 ml Documented By: LIZ Labs 02/21/24 06:20 02/23/24 06:02 Labs: Laboratory Results - last 24 hr 02/22/24 02/23/24 13:55 06:02 Hold Purple Top SEE NOTE Anion Gap 13 Estim Creat Clear Calc 136.1 Estimated GFR > 60 Random Glucose 91 Calcium 8.4 Magnesium 1.6 Random Vancomycin 15.0 Microbiology Microbiology Results: Microbiology 02/18/24 10:39 Blood Culture - Final Blood - Venous No growth after 5 days. 02/18/24 10:33 Blood Culture - Final Blood - Venous No growth after 5 days. 02/22/24 14:28 Gram Stain - Final Back Routine Culture - Preliminary Staphylococcus aureus Anaerobic Culture - Preliminary Culture in progress. 02/20/24 10:30 Gram Stain - Final Pleural Fluid Routine Culture - Final Methicillin Res Staph Aureus Anaerobic Culture - Preliminary Culture in progress. Assessment and Plan (1) Empyema lung: Status: Acute Plan 43-year-old gentleman with past medical history significant for mild intermittent asthma on prn albuterol, history of opioid use disorder on methadone, recently treated for acute pyelonephritis with Keflex presented to [place] emergency room with greater than 2 week history of right upper back pain with radiation to right anterior chest associated with chills, weight loss, decreased appetite, shortness of breath , workup in the emergency room showed Thick walled fluid collection containing gas bubbles and air-fluid level in the posterior right hemithorax appear to be arising out of the pleural space and compressing the right lower lobe, exerting mass effect upon the posterior right hemidiaphragm and underlying liver there also appears to be fluid and gas in the posterior extrapleural space and fluid appears to be tracking around region of 9th and 10th ribs and a fluid collection in the adjacent right paraspinal muscle, patient will be admitted to [facility] for IV antibiotics and IR drainage. CT abdomen and pelvis obtained January 16 showed normal lung examination except mild linear dependent atelectasis/and nonobstructing 3 mm calculi lower pole collecting system of right kidney. Abdominal ultrasound January 31 showed 5 mm lower pole nonobstructing calculus right kidney and 5 mm nonobstructing calcification possibly vascular left kidney with no hydronephrosis Acute Right upper back and anterior chest wall pain: due to a loculated fluid collection exerting mass effect upon right lower lobe/and possible infection arising from the right 10 costo transverse junction likely empyema Sepsis due to empyema with leukocytosis and tachypnea,. WBC trending down, tachypnea resolved on IV vancomycin blood cultures x2 negative 48h, right pleural fluid culture positive for MRSA DC IV Flagyl and cefepime IR place right-sided chest tube 40 cc thick purulent fluid was drained Continue IV Dilaudid and oxycodone for pain management, antiemetics, Pepcid for GI prophylaxis. Cough medication/supportive care/IS Repeat chest x-ray showed decrease in size of right pleural effusion/empyema, no pneumothorax Being followed by thoracic surgery still with focal collection R posterior chest. s/p IR drainage under U/S 02/21 for symptomatic relief - drain placed On discharge PO linezolid 600mg BID x2-[address] Espitia to see outpatient to determine final duration Elevated INR due to poor nutrition treated with vitamin K INR improved from 2.7-2.0 Acute hypoxic respiratory failure Due to above. Resolved weaned onto room air Acute on chronic normocytic anemia Likely due to infection, H&H dropped to 26.9 likely dilutional and from infection, repeat hematocrit unchanged , hematocrit above transfusion threshold. Iron studies showed low iron, elevated ferritin, likely anemia of inflammatory disease/poor nutrition, will place on iron supplement upon dc Acute hyponatremia likely due to pulmonary process and decreased by mouth intake. Resolved with IV fluid TSH 0.28 likely subclinical hyperthyroidism check T4 and T3 Opiate use disorder continue methadone. Illicit drug use U tox positive for fentanyl, cocaine, methadone and opiates, initially denied IV drug use later agreed for using IV drugs 6-8 weeks ago. Addiction Team consult - not currently interested in referrals for other support Mild Intermittent asthma continue home inhalers no acute exacerbation noted. DVT prophylaxis with compression boots Full code In my clinical judgment patient need continued inpatient hospitalization for management of fluid collection right hemithorax status post chest tube placement on IV antibiotics required close follow-up on chest tube drainage and further treatment depending on progress, treatment can not be provided in less acute setting Quality Stroke Does the patient have a stroke diagnosis?: No VTE Prior VTE?: No VTE Risk Level:: Medical - moderate - high VTE Device Contraindication: Treatment Not Indicated VTE Drug Contraindication: N/A - Med Ordered
--- NOTE | 2024-02-23 15:15 | HE.PHANOTE ---
RE: VANCO DOSING Trough came back as 17 (predicted to be 13.8). Based to renal function and indication, continue with 1250 mg q12h. Next trough is scheduled for 02/24/24 @1400.
[2024-02-23] MEDS: Magnesium Sulfate/H2O 2 GM/50 ML PIGGYBACK IV (15:35)
[2024-02-23] MEDS: Milk of Magnesia 30 ML ORAL.SUSP PO (15:35)
[2024-02-23] MEDS: iohexoL 350 MG/ML 100 ML INFUS..BTL 65 ML IV (15:40)
[2024-02-24] VITALS (29 sets, daily range): BP systolic 109–152; BP diastolic 60–99; PULSE 58–121; RESP 16–32; TEMP 36–37.1; O2SAT 91–96
[2024-02-24] MEDS: oxyCODONE HCl Immed Release 5 MG TABLET 7.5 MG PO (01:48)
[2024-02-24] MEDS: vancomycin HCL 1,250 MG in 0.9 % Sodium Chloride 250 ML 166.67 MG IV ×2 (03:28→16:58)
[2024-02-24] MEDS: Prochlorperazine Edisylate 10 MG/2 ML VIAL 5 MG IVPUSH (04:59)
--- NOTE | 2024-02-24 05:26 | PC.NURSE ---
Addendum entered by Loretta Mosqueda RN 02/24/24 06:37: EKG showing Qtc improved now 496. Dr. Brenden Madrigal notified. Original Note: Pt c/o nausea without vomiting this morning. Only antiemetic ordered was zofran prn, however, EKG from yesterday 02/22 was reviewed and showed QTc of 569. Pt has denies chest pain or other acute issues this shift, no changes in EKG appreciated. Covering Dr. Brenden Madrigal notified. MD orders for prn compazine instead of zofran. Routine EKG also ordered for 06:30 by for follow up on Qtc.
--- NOTE | 2024-02-24 06:30 | ECG_ITS ---
Test Reason : F/U prolonged QT Blood Pressure : / mmHG Vent. Rate : 060 BPM Atrial Rate : 060 BPM P-R Int : 196 ms QRS Dur : 092 ms QT Int : 496 ms P-R-T Axes : 031 033 012 degrees QTc Int : 496 ms Normal sinus rhythm Cannot rule out Anterior infarct , age undetermined Nonspecific ST and T wave abnormality Abnormal ECG When compared with ECG of 23-FEB-2024 12:45, QT has shortened Referred By: Sabiha Madrigal Electronically Signed By:AVINASH HOGAN
[2024-02-24] MEDS: methADONE HCl 20 MG/2 ML ORAL.CONC 70 MG PO (08:16)
[2024-02-24] MEDS: 0.9 % Sodium Chloride Flush 3 ML SYRINGE IVFLUSH (08:17)
[2024-02-24] MEDS: HYDROmorphone HCl 0.5 MG/0.5 ML SYRINGE IVPUSH ×5 (08:17→17:49)
[2024-02-24] MEDS: Famotidine/PF 20 MG/2 ML VIAL IVPUSH (08:17)
--- NOTE | 2024-02-24 08:44 | PM.PNTS ---
Subjective Subjective Date of Service: 02/23/24 Interval history: Patient with no acute respiratory distress. Status post IR drainage of posterior collection. Original chest tube drain minimal output. No air leak. Physical Exam Vital Signs: Vital Signs: Last Vital Signs Temp 97.9 F 02/24/24 06:53 Pulse 61 02/24/24 06:53 Resp 18 02/24/24 06:53 BP 120/70 02/24/24 06:53 Pulse Ox 91 L 02/24/24 06:53 O2 Del Method Room Air 02/24/24 06:53 O2 Flow Rate 1 02/21/24 23:46 BMI result Body Mass Index 25.7 Chest: Other: Chest tube sites clean dry and intact. Breath sounds bilaterally. Procedures Date of Service Date of Service: 02/24/24 Progress Note: A&P Assessment and plan (1) Empyema lung: Status: Acute Plan Current plan is to arrange for follow-up CT scan and assess patient's right empyema indirect further interventions/studies based on these results and the patient's clinical course. Time Spent With Patient Time: Total time managing care of this patient today ____ minutes. Quality Stroke Does the patient have a stroke diagnosis?: No VTE Prior VTE?: No VTE Risk Level:: Medical - moderate - high VTE Device Contraindication: Treatment Not Indicated VTE Drug Contraindication: N/A - Med Ordered
--- NOTE | 2024-02-24 08:46 | PM.PNTS ---
Subjective Subjective Date of Service: 02/24/24 Interval history: Patient has no new issues or complaints. Complaining of chest tube site pain x2. Minimal output from both drains. CT scan demonstrates residual collection and inferior posterior chest. Physical Exam Vital Signs: Vital Signs: Last Vital Signs Temp 97.9 F 02/24/24 06:53 Pulse 61 02/24/24 06:53 Resp 18 02/24/24 06:53 BP 120/70 02/24/24 06:53 Pulse Ox 91 L 02/24/24 06:53 O2 Del Method Room Air 02/24/24 06:53 O2 Flow Rate 1 02/21/24 23:46 BMI result Body Mass Index 25.7 Chest: Other: Chest tubes intact. Minimal output. Procedures Date of Service Date of Service: 02/24/24 Progress Note: A&P Assessment and plan (1) Empyema lung: Status: Acute Plan I had a discussion with the patient that his tubes although drained the majority of his empyema, they are not able to completely drain his right hemithorax with residual collection at the posterolateral area. My recommendation is for VATS possible open decortication for today. I discussed at length with the patient the risks, benefits, alternatives of the procedure which included but not limited to bleeding, infection, recurrence, numbness, pain, scarring, and the patient wished to proceed. All questions answered. Arrangements were made for this for today. Time Spent With Patient Time: Total time managing care of this patient today ____ minutes. Quality Stroke Does the patient have a stroke diagnosis?: No VTE Prior VTE?: No VTE Risk Level:: Medical - moderate - high VTE Device Contraindication: Treatment Not Indicated VTE Drug Contraindication: N/A - Med Ordered
[2024-02-24 09:58] LABS: Hematocrit 29.1 % (42.0-52.0); Hemoglobin 9.3 g/dl (14.0-18.0); Mean Corpuscular Hemoglobin 26.6 pg (27.0-33.0); Mean Corpuscular Volume 83.4 fL (80.0-98.0); Mean Platelet Volume 10.1 fL (9.4-12.4); Platelet Count 385 X10*3/uL (160-400); Red Blood Count 3.49 X10*6/uL (4.60-5.80); Red Cell Distribution Width 14.4 % (11.0-16.0); White Blood Count 8.6 X10*3/uL (4.8-10.8)
[2024-02-24 10:15] LABS: Anion Gap 12 (12-20); Blood Urea Nitrogen 7 mg/dL (9-16); Calcium 8.1 mg/dL (8.4-10.2); Carbon Dioxide 31 mmol/L (22-29); Chloride 99 mmol/L (96-108); Creatinine Clr Calc Pharmacy 148.2; Estimated Glomerular Filt Rate > 60; Glucose Random 82 mg/dL (60-115); Potassium 4.2 mmol/L (3.3-5.1); Sodium 138 mmol/L (135-145)
--- NOTE | 2024-02-24 12:45 | P.PNIM_ITS ---
Subjective Subjective Date of Service: 02/24/24 Interval History: Seen and examined this morning Follow-up for right empyema Repeat chest CT showing persistent paraspinal musculature abscess Patient denies shortness of breath, cough significantly improved. Denies fever, chills Review of Systems Review of Systems: Yes all other systems are reviewed and are negative Constitutional Constitutional: Denies chills and Denies fever(s) Cardiovascular Cardiovascular: Denies chest pain, Denies palpitations and Denies dyspnea Respiratory Respiratory: Reports cough and Denies dyspnea Endocrine Endocrine: Denies palpitations Physical Exam 2 Vital Signs: Vital Signs: Last Vital Signs Temp 98.7 F 02/24/24 10:59 Pulse 58 02/24/24 10:59 Resp 18 02/24/24 10:59 BP 109/60 02/24/24 10:59 Pulse Ox 92 02/24/24 10:59 O2 Del Method Room Air 02/24/24 10:59 O2 Flow Rate 1 02/21/24 23:46 BMI result Body Mass Index 25.7 Const: General: no acute distress, alert and awake Nutritional Appearance: average body habitus Orientation/consciousness: patient oriented x3 Chest: Other: right chest tube, drain in place Resp: Effort & Inspection: normal respiratory effort, able to speak in complete sentences, no respiratory distress and no use of accessory muscles Neuro: General: patient oriented x3, moves all extremities and CN's II-XI intact bilaterally Extrem: General: Yes no pedal edema Objective Data Active Medications Acetaminophen (Acetaminophen 325 Mg Tablet) 650 mg PO Q6H PRN PRN Reason: Pain, Mild (Pain Scale 1-3), fever or headache Last Admin: 02/19/24 19:06 Dose: 650 mg Documented By: LEONARD Albuterol Sulfate (Albuterol Sulfate 90 Mcg 8 Gm Inhaler) 2 puff INHALE Q6H PRN PRN Reason: shortness of breath or wheezing Benzonatate (Benzonatate 100 Mg Capsule) 100 mg PO TID [facility] Last Admin: 02/24/24 08:18 Dose: Not Given Documented By: CARL Non-Admin Reason: NPO Calcium Carbonate (Calcium Carbonate 750 Mg Tab.Chew) 750 mg PO Q4H PRN PRN Reason: Heartburn Last Admin: 02/19/24 09:35 Dose: 750 mg Documented By: LEONARD Famotidine (Famotidine/Pf 20 Mg/2 Ml Vial) 20 mg IVPUSH DAILY [facility] Last Admin: 02/24/24 08:17 Dose: 20 mg Documented By: CARL Hydromorphone HCl (Hydromorphone Hcl 0.5 Mg/0.5 Ml Syringe) 0.5 mg IVPUSH Q3H PRN; Protocol PRN Reason: Pain, Severe (Pain Scale 7-10) Last Admin: 02/24/24 08:17 Dose: 0.5 mg Documented By: CARL Vancomycin HCl 1,250 mg/ (Sodium Chloride) 250 mls @ 166.667 mls/hr IV Q12H [facility] Last Infusion: 02/24/24 04:58 Dose: Infused Documented By: JANN Magnesium Hydroxide (Milk Of Magnesia 30 Ml Oral.Susp) 30 ml PO DAILY PRN PRN Reason: Constipation Last Admin: 02/23/24 15:35 Dose: 30 ml Documented By: LIZ Melatonin (Melatonin 3 Mg Tablet) 6 mg PO BEDTIME PRN PRN Reason: Insomnia Last Admin: 02/19/24 22:36 Dose: 6 mg Documented By: SNOW Methadone HCl (Methadone Hcl 20 Mg/2 Ml Oral.Conc) 70 mg PO DAILY [facility] Last Admin: 02/24/24 08:16 Dose: 70 mg Documented By: CARL Oxycodone HCl (Oxycodone Hcl Immed Release 5 Mg Tablet) 7.5 mg PO Q4H PRN PRN Reason: Pain, Moderate(Pain Scale 4-6) Last Admin: 02/24/24 01:48 Dose: 7.5 mg Documented By: JANN Pharmacy Consult (Consult Rx Vancomycin Dosing) 1 each MISCELLANE DAILY PRN PRN Reason: Consult order Polyethylene Glycol (Polyethylene Glycol 3350 17 Gm Powd.Pack) 17 gm PO BID [facility] Prochlorperazine Edisylate (Prochlorperazine Edisylate 10 Mg/2 Ml Vial) 5 mg IVPUSH Q4H PRN PRN Reason: Nausea and Vomiting Last Admin: 02/24/24 04:59 Dose: 5 mg Documented By: JANN Senna (Sennosides 8.6 Mg Tablet) 8.6 mg PO BEDTIME [place] Sodium Chloride (0.9 % Sodium Chloride Flush 3 Ml Syringe) 3 ml IVFLUSH QSHIFT [place] Last Admin: 02/24/24 08:17 Dose: 3 ml Documented By: CARL Labs 02/24/24 09:06 02/24/24 09:06 Labs: Laboratory Results - last 24 hr 02/23/24 02/23/24 02/24/24 06:02 14:31 09:06 MCV 83.4 MCH 26.6 L MCHC 32.0 RDW 14.4 Plt Count 385 MPV 10.1 Absolute Nucleated RBC 0.000 Nucleated RBC % (auto) 0.0 Hold Purple Top Anion Gap 13 12 Estim Creat Clear Calc 136.1 148.2 Estimated GFR > 60 > 60 Random Glucose 91 82 Calcium 8.4 8.1 L Magnesium 1.6 Hold Yellow Top Random Vancomycin 17.0 Blood Type Antibody Screen 02/24/24 09:50 MCV MCH MCHC RDW Plt Count MPV Absolute Nucleated RBC Nucleated RBC % (auto) Hold Purple Top SEE NOTE Anion Gap Estim Creat Clear Calc Estimated GFR Random Glucose Calcium Magnesium Hold Yellow Top See Note Random Vancomycin Blood Type O Positive Antibody Screen NEGATIVE Microbiology Microbiology Results: Microbiology 02/22/24 14:28 Gram Stain - Final Back Routine Culture - Preliminary Staphylococcus aureus Anaerobic Culture - Preliminary Culture in progress. 02/20/24 10:30 Gram Stain - Final Pleural Fluid Routine Culture - Final Methicillin Res Staph Aureus Anaerobic Culture - Preliminary Culture in progress. 02/18/24 10:39 Blood Culture - Final Blood - Venous No growth after 5 days. 02/18/24 10:33 Blood Culture - Final Blood - Venous No growth after 5 days. Assessment and Plan (1) Empyema lung: Status: Acute Plan 43-year-old gentleman with past medical history significant for mild intermittent asthma on prn albuterol, history of opioid use disorder on methadone, recently treated for acute pyelonephritis with Keflex presented to [place] emergency room with greater than 2 week history of right upper back pain with radiation to right anterior chest associated with chills, weight loss, decreased appetite, shortness of breath , workup in the emergency room showed Thick walled fluid collection containing gas bubbles and air-fluid level in the posterior right hemithorax appear to be arising out of the pleural space and compressing the right lower lobe, exerting mass effect upon the posterior right hemidiaphragm and underlying liver there also appears to be fluid and gas in the posterior extrapleural space and fluid appears to be tracking around region of 9th and 10th ribs and a fluid collection in the adjacent right paraspinal muscle, patient will be admitted to [facility] for IV antibiotics and IR drainage. CT abdomen and pelvis obtained January 16 showed normal lung examination except mild linear dependent atelectasis/and nonobstructing 3 mm calculi lower pole collecting system of right kidney. Abdominal ultrasound January 31 showed 5 mm lower pole nonobstructing calculus right kidney and 5 mm nonobstructing calcification possibly vascular left kidney with no hydronephrosis sepsis due to right empyema WBC & tachypnea resolved blood cultures x2 negative 48h, right pleural fluid culture positive for MRSA Continue IV vancomycin DC IV Flagyl and cefepime s/p IR place right-sided chest tube 02/19 s/p IR drainage under U/S 02/21 for symptomatic relief - drain placed repeat Chest CT 02/22 showing residual collection - VATS possible open decortication planned for today Thoracic surgery following On discharge PO linezolid 600mg BID x2-[address] Espitia to see outpatient to determine final duration Elevated INR due to poor nutrition treated with vitamin K INR improved from 2.7-2.0 Acute hypoxic respiratory failure Due to above. Resolved weaned onto room air Acute on chronic normocytic anemia Likely due to infection, H&H dropped to 26.9 likely dilutional and from infection, repeat hematocrit unchanged , hematocrit above transfusion threshold. Iron studies showed low iron, elevated ferritin, likely anemia of inflammatory disease/poor nutrition, will place on iron supplement upon dc Acute hyponatremia likely due to pulmonary process and decreased by mouth intake. Resolved with IV fluid TSH 0.28 likely subclinical hyperthyroidism check T4 and T3 Opiate use disorder continue methadone-> dose decreased due to increasing QT and bradycardia addiction medicine following polysubstance use disorder U tox positive for fentanyl, cocaine, methadone and opiates, initially denied IV drug use later agreed for using IV drugs 6-8 weeks ago. Addiction Team consult - not currently interested in referrals for other support Mild Intermittent asthma continue home inhalers no acute exacerbation noted. DVT prophylaxis with compression boots Full code In my clinical judgment patient need continued inpatient hospitalization for management of fluid collection right hemithorax status post chest tube placement on IV antibiotics required close follow-up on chest tube drainage and further treatment depending on progress, treatment can not be provided in less acute setting Quality Stroke Does the patient have a stroke diagnosis?: No VTE Prior VTE?: No VTE Risk Level:: Medical - moderate - high VTE Device Contraindication: Treatment Not Indicated VTE Drug Contraindication: N/A - Med Ordered
--- NOTE | 2024-02-24 13:15 | MHC.CM.PN ---
Per rounds and EMR review, pt is not ready for DC, has chest tube in place and is on IV ABX. CM to follow for DC needs.
--- NOTE | 2024-02-24 14:31 | P.CONAN_ITS ---
[facility] Active Problems Active Problems: All Active Problems IV drug abuse (Acute) Abscess (Acute) Empyema lung (Acute) Acute hyponatremia (Acute) Acute upper back pain (Acute) Acute flank pain (Acute) Kidney stones (Acute) Allergic asthma (Acute) Anemia (Acute) Methadone dependence (Acute) Encounter to establish care (Acute) URI (upper respiratory infection) (Acute) Acute sinusitis (Acute) Past Medical History Medical History Kidney stones Crack cocaine use Heroin abuse Drug abuse Family History Family history of problems with anesthesia: No Surgical History History of Problems with Anesthesia: No Social History Social History Household Members: Family Housing: House Comment: pt refusing alarms; educated to call before getting up Patient Tobacco Use Status: Never used Tobacco Smoked in Last 30 Days: No e-Cigarette/Vaping Use: Never Used Use of substances other than those prescribed or required for medical reasons: Yes Substance Use Type: Crack/Cocaine Currently Displaying Signs/Symptoms of Drug Intoxication Withdrawal: No Have you been hit, kicked, punched, or otherwise hurt by someone within the past year? If so, by whom?: No Do you feel safe in your current relationship?: No Current Relationship Is there a partner from a previous relationship who is making you feel unsafe now?: No Are you made to feel afraid or neglected: No Are you DNR?: No Advance Directives: No Advance Directives Information Provided: No Do you have a plan to hurt others: No Plan Recently lost weight without trying: Yes How much weight loss: 2-13 pounds Eating poorly because of decreased appetite: Yes Nutrition screen score: 4 Nutrition Risks: Anorexia Poor oral hygiene: No service: No Current occupational status: unemployed Cognitive needs: No Hearing needs: No Vision needs: No Meds Allergies Allergy/AdvReac Type Severity Reaction Status Date / Time bee pollen [BEE STINGS] Allergy Intermediate HIVES Verified 02/24/24 13:42 Penicillins Allergy Mild UNKNOWN Verified 02/24/24 13:42 penicillin V Allergy Unknown unknown Verified 02/24/24 13:42 SANJAY DELIGHT Allergy Mild HIVES Uncoded 02/24/24 13:42 Active Medications: Current Medications Acetaminophen (Acetaminophen 325 Mg Tablet) 650 mg PO Q6H PRN PRN Reason: Pain, Mild (Pain Scale 1-3), fever or headache Last Admin: 02/19/24 19:06 Dose: 650 mg Albuterol Sulfate (Albuterol Sulfate 90 Mcg 8 Gm Inhaler) 2 puff INHALE Q6H PRN PRN Reason: shortness of breath or wheezing Benzonatate (Benzonatate 100 Mg Capsule) 100 mg PO TID [facility] Last Admin: 02/24/24 08:18 Dose: Not Given Calcium Carbonate (Calcium Carbonate 750 Mg Tab.Chew) 750 mg PO Q4H PRN PRN Reason: Heartburn Last Admin: 02/19/24 09:35 Dose: 750 mg Famotidine (Famotidine/Pf 20 Mg/2 Ml Vial) 20 mg IVPUSH DAILY [facility] Last Admin: 02/24/24 08:17 Dose: 20 mg Hydromorphone HCl (Hydromorphone Hcl 0.5 Mg/0.5 Ml Syringe) 0.5 mg IVPUSH Q3H PRN; Protocol PRN Reason: Pain, Severe (Pain Scale 7-10) Last Admin: 02/24/24 08:17 Dose: 0.5 mg Vancomycin HCl 1,250 mg/ (Sodium Chloride) 250 mls @ 166.667 mls/hr IV Q12H [facility] Last Infusion: 02/24/24 04:58 Dose: Infused Magnesium Hydroxide (Milk Of Magnesia 30 Ml Oral.Susp) 30 ml PO DAILY PRN PRN Reason: Constipation Last Admin: 02/23/24 15:35 Dose: 30 ml Melatonin (Melatonin 3 Mg Tablet) 6 mg PO BEDTIME PRN PRN Reason: Insomnia Last Admin: 02/19/24 22:36 Dose: 6 mg Methadone HCl (Methadone Hcl 20 Mg/2 Ml Oral.Conc) 70 mg PO DAILY [facility] Last Admin: 02/24/24 08:16 Dose: 70 mg Oxycodone HCl (Oxycodone Hcl Immed Release 5 Mg Tablet) 7.5 mg PO Q4H PRN PRN Reason: Pain, Moderate(Pain Scale 4-6) Last Admin: 02/24/24 01:48 Dose: 7.5 mg Pharmacy Consult (Consult Rx Vancomycin Dosing) 1 each MISCELLANE DAILY PRN PRN Reason: Consult order Polyethylene Glycol (Polyethylene Glycol 3350 17 Gm Powd.Pack) 17 gm PO BID [facility] Prochlorperazine Edisylate (Prochlorperazine Edisylate 10 Mg/2 Ml Vial) 5 mg IVPUSH Q4H PRN PRN Reason: Nausea and Vomiting Last Admin: 02/24/24 04:59 Dose: 5 mg Senna (Sennosides 8.6 Mg Tablet) 8.6 mg PO BEDTIME [place] Sodium Chloride (0.9 % Sodium Chloride Flush 3 Ml Syringe) 3 ml IVFLUSH QSHIFT [place] Last Admin: 02/24/24 08:17 Dose: 3 ml Home Medications ?Medication ?Instructions ?Recorded ?Confirmed ?Last Taken ?Type methadone 10 mg/5 mL oral solution 140 mg PO DAILY 08/06/21 02/19/24 02/18/24 08:19 History 140 mg Exam Height,Weight and Vital Signs: Height 5 ft 11 in Weight 83.7 kg Last Vital Signs Temp 98.7 F 02/24/24 13:59 Pulse 61 02/24/24 13:59 Resp 16 02/24/24 13:59 BP 133/78 02/24/24 13:59 Pulse Ox 91 L 02/24/24 13:59 O2 Del Method Room Air 02/24/24 13:59 O2 Flow Rate 1 02/21/24 23:46 Pertinent Lab Results Pertinent Lab Results: Laboratory Tests 02/18/24 02/18/24 02/18/24 09:48 10:33 10:34 WBC 15.1 H RBC 3.65 L Hgb 9.8 L Hct 30.2 L MCV 82.7 MCH 26.8 L MCHC 32.5 RDW 14.2 Plt Count 363 D MPV 9.8 Immature Gran % (Auto) 1.1 H Neut % (Auto) 81.9 H Lymph % (Auto) 9.9 L [place] % (Auto) 6.3 Eos % (Auto) 0.6 Baso % (Auto) 0.2 Lymph # (Auto) 1.5 [place] # (Auto) 1.0 Eos # (Auto) 0.1 Baso # (Auto) 0.0 Abs Immat Gran (auto) 0.17 H Absolute Neuts (auto) 12.5 H Absolute Nucleated RBC 0.000 Nucleated RBC % (auto) 0.0 Smear Tech's Comments VERIFIED Hold Purple Top PT INR Sodium 133 L Potassium 3.8 D Chloride 92 L Carbon Dioxide 28 Anion Gap 17 BUN 10 Creatinine 0.69 Estim Creat Clear Calc 143.9 Estimated GFR > 60 Random Glucose 112 Lactic Acid 1.1 Calcium 9.1 Magnesium Iron TIBC % Saturation Unsat Iron Binding Ferritin Total Bilirubin 1.1 H Direct Bilirubin 0.8 H AST 33 ALT 27 Alkaline Phosphatase 466 H Total Protein 7.5 Albumin 2.6 L Lipase 7 L TSH 0.28 L Hold Yellow Top Urine Color [place] A Urine Appearance Cloudy Urine pH 5.5 Ur Specific [place] 1.025 Urine Protein See Note Urine Glucose (UA) Negative Urine Ketones Negative Urine Blood Negative Urine Nitrite See Note Ur Leukocyte Esterase Small (1+) H Urine RBC 0-2 Urine WBC 0-5 Ur Squamous Epith Cells 3-5 Urine Bacteria None Seen Hyaline Casts 0-2 Random Vancomycin Blood Type Antibody Screen 02/19/24 02/19/24 02/20/24 05:33 14:16 05:35 WBC 15.8 H 14.1 H RBC 3.22 L 3.17 L Hgb 8.8 L 8.6 L Hct 26.8 L 26.9 L MCV 83.2 84.9 MCH 27.3 27.1 MCHC 32.8 32.0 RDW 14.4 14.5 Plt Count 379 383 MPV 10.0 10.2 Immature Gran % (Auto) Neut % (Auto) Lymph % (Auto) [place] % (Auto) Eos % (Auto) Baso % (Auto) Lymph # (Auto) [place] # (Auto) Eos # (Auto) Baso # (Auto) Abs Immat Gran (auto) Absolute Neuts (auto) Absolute Nucleated RBC 0.000 0.000 Nucleated RBC % (auto) 0.0 0.0 Smear Tech's Comments Hold Purple Top PT 32.4 H INR 2.7 H Sodium 134 L 135 Potassium 3.3 3.6 Chloride 95 L 98 Carbon Dioxide 30 H 26 Anion Gap 12 15 BUN 10 9 Creatinine 0.82 0.82 Estim Creat Clear Calc 121.1 121.1 Estimated GFR > 60 > 60 Random Glucose 124 H 95 Lactic Acid Calcium 8.9 8.8 Magnesium Iron TIBC % Saturation Unsat Iron Binding Ferritin Total Bilirubin Direct Bilirubin AST ALT Alkaline Phosphatase Total Protein Albumin Lipase TSH Hold Yellow Top Urine Color Urine Appearance Urine pH Ur Specific [place] Urine Protein Urine Glucose (UA) Urine Ketones Urine Blood Urine Nitrite Ur Leukocyte Esterase Urine RBC Urine WBC Ur Squamous Epith Cells Urine Bacteria Hyaline Casts Random Vancomycin 17.3 Blood Type Antibody Screen 02/20/24 02/20/24 02/21/24 10:58 14:37 06:20 WBC 11.4 H RBC 3.14 L Hgb 8.7 L Hct 26.5 L MCV 84.4 MCH 27.7 MCHC 32.8 RDW 14.5 Plt Count 361 MPV 9.5 Immature Gran % (Auto) Neut % (Auto) Lymph % (Auto) [place] % (Auto) Eos % (Auto) Baso % (Auto) Lymph # (Auto) [place] # (Auto) Eos # (Auto) Baso # (Auto) Abs Immat Gran (auto) Absolute Neuts (auto) Absolute Nucleated RBC 0.000 Nucleated RBC % (auto) 0.0 Smear Tech's Comments Hold Purple Top PT 24.2 H D INR 2.0 H Sodium Potassium Chloride Carbon Dioxide Anion Gap BUN Creatinine 0.75 Estim Creat Clear Calc 132.4 Estimated GFR > 60 Random Glucose Lactic Acid Calcium Magnesium Iron 12 L TIBC 95 L % Saturation 13 L Unsat Iron Binding 83 Ferritin 1029 H Total Bilirubin Direct Bilirubin AST ALT Alkaline Phosphatase Total Protein Albumin Lipase TSH Hold Yellow Top Urine Color Urine Appearance Urine pH Ur Specific [place] Urine Protein Urine Glucose (UA) Urine Ketones Urine Blood Urine Nitrite Ur Leukocyte Esterase Urine RBC Urine WBC Ur Squamous Epith Cells Urine Bacteria Hyaline Casts Random Vancomycin 15.4 Blood Type O Positive Antibody Screen NEGATIVE 02/21/24 02/22/24 02/22/24 13:55 06:46 13:55 WBC RBC Hgb Hct MCV MCH MCHC RDW Plt Count MPV Immature Gran % (Auto) Neut % (Auto) Lymph % (Auto) [place] % (Auto) Eos % (Auto) Baso % (Auto) Lymph # (Auto) [place] # (Auto) Eos # (Auto) Baso # (Auto) Abs Immat Gran (auto) Absolute Neuts (auto) Absolute Nucleated RBC Nucleated RBC % (auto) Smear Tech's Comments Hold Purple Top SEE NOTE PT INR Sodium Potassium Chloride Carbon Dioxide Anion Gap BUN Creatinine 0.76 Estim Creat Clear Calc 130.7 Estimated GFR > 60 Random Glucose Lactic Acid Calcium Magnesium Iron TIBC % Saturation Unsat Iron Binding Ferritin Total Bilirubin Direct Bilirubin AST ALT Alkaline Phosphatase Total Protein Albumin Lipase TSH Hold Yellow Top Urine Color Urine Appearance Urine pH Ur Specific [place] Urine Protein Urine Glucose (UA) Urine Ketones Urine Blood Urine Nitrite Ur Leukocyte Esterase Urine RBC Urine WBC Ur Squamous Epith Cells Urine Bacteria Hyaline Casts Random Vancomycin 13.6 L 15.0 Blood Type Antibody Screen 02/23/24 02/23/24 02/24/24 06:02 14:31 09:06 WBC 8.6 RBC 3.49 L Hgb 9.3 L Hct 29.1 L MCV 83.4 MCH 26.6 L MCHC 32.0 RDW 14.4 Plt Count 385 MPV 10.1 Immature Gran % (Auto) Neut % (Auto) Lymph % (Auto) [place] % (Auto) Eos % (Auto) Baso % (Auto) Lymph # (Auto) [place] # (Auto) Eos # (Auto) Baso # (Auto) Abs Immat Gran (auto) Absolute Neuts (auto) Absolute Nucleated RBC 0.000 Nucleated RBC % (auto) 0.0 Smear Tech's Comments Hold Purple Top SEE NOTE PT INR Sodium 138 138 Potassium 3.5 4.2 Chloride 99 99 Carbon Dioxide 30 H 31 H Anion Gap 13 12 BUN 10 7 L Creatinine 0.73 0.67 Estim Creat Clear Calc 136.1 148.2 Estimated GFR > 60 > 60 Random Glucose 91 82 Lactic Acid Calcium 8.4 8.1 L Magnesium 1.6 Iron TIBC % Saturation Unsat Iron Binding Ferritin Total Bilirubin Direct Bilirubin AST ALT Alkaline Phosphatase Total Protein Albumin Lipase TSH Hold Yellow Top Urine Color Urine Appearance Urine pH Ur Specific [place] Urine Protein Urine Glucose (UA) Urine Ketones Urine Blood Urine Nitrite Ur Leukocyte Esterase Urine RBC Urine WBC Ur Squamous Epith Cells Urine Bacteria Hyaline Casts Random Vancomycin 17.0 Blood Type Antibody Screen 02/24/24 09:50 WBC RBC Hgb Hct MCV MCH MCHC RDW Plt Count MPV Immature Gran % (Auto) Neut % (Auto) Lymph % (Auto) [place] % (Auto) Eos % (Auto) Baso % (Auto) Lymph # (Auto) [place] # (Auto) Eos # (Auto) Baso # (Auto) Abs Immat Gran (auto) Absolute Neuts (auto) Absolute Nucleated RBC Nucleated RBC % (auto) Smear Tech's Comments Hold Purple Top SEE NOTE PT INR Sodium Potassium Chloride Carbon Dioxide Anion Gap BUN Creatinine Estim Creat Clear Calc Estimated GFR Random Glucose Lactic Acid Calcium Magnesium Iron TIBC % Saturation Unsat Iron Binding Ferritin Total Bilirubin Direct Bilirubin AST ALT Alkaline Phosphatase Total Protein Albumin Lipase TSH Hold Yellow Top See Note Urine Color Urine Appearance Urine pH Ur Specific [place] Urine Protein Urine Glucose (UA) Urine Ketones Urine Blood Urine Nitrite Ur Leukocyte Esterase Urine RBC Urine WBC Ur Squamous Epith Cells Urine Bacteria Hyaline Casts Random Vancomycin Blood Type O Positive Antibody Screen NEGATIVE Airway Mallampati Class: II TM Dist: >3cm Neck ROM: Full Heart: rrr Lungs: cta Assessment and Plan Assessment Anesthesia Assessment: Anesthesia Plan Discussed and Chart Reviewed Final Anesthetic Review Family History of Problems with Anesthesia: No History of Problems with Anesthesia: No NPO: Yes ASA Class: III Final Preanesthetic Review: No Changes in Pt Med Stat, Meds/Allgs Chart Reviewed and Consent Obtained/Reviewed Patient Risk: Intermediate Procedure Risk: Intermediate Anesthetic Plan Anesthetic Plan: GA Disposition: Standard PACU
--- NOTE | 2024-02-24 16:52 | P.OP_ITS ---
Operative Note Operative Note Date of Service: 02/24/24 Narrative: Preoperative diagnosis: [] Empyema right hemithorax Postop diagnosis: [] The same Procedure [] vats converted to right mini thoracotomy, decortication right lung, empyemectomy,pneumonolysis, intercostal nerve block, bronchoscopy Surgeon: [] Tha Clockmaker Apprentice: [] Altaf Type of Anesthesia: Double-lumen general Indication for surgery: [] Bronchoscopy was used to assess for any intraluminal pathology of which there was none. It was also used to assist anesthesia in the placement of double-lumen tube. Intra operative findings demonstrated very large multiloculated empyema cavity causing significant atelectasis to the right lower lobe and the lower part of the middle lobe and upper lobes. Patient had a very thickened rind affecting those parts of the lung. Dense adhesions of the right lower lobe to the hemidiaphragm and costal margin necessitating pneumonolysis to free the lung up and allow decortication. Patient already has had multiple prior cultures taken from pleural fluid Findings: Patient brought to the operating room, placed on operative table supine position, after an adequate level of general anesthesia was induced, patient underwent bronchoscopy as noted above. He was Was then placed in the left lateral decubitus position. Right chest was prepped and draped in usual sterile fashion. Commencing with a anterolateral 5th intercostal space anterior axillary line port placed under direct vision, findings demonstrated dense and extensive adhesions of the lung to the diaphragm , chest wall a which precluded safe placement of additional ports were vats procedure. Conversion to an open procedure was then undertaken with extension of the port site incision, and transecting through skin, subcutaneous tissue, latissimus dorsi muscle. Serratus anterior muscle was preserved, a retracted from the field. Sixth intercostal space was opened along the upper margin of the 7th rib. Findings were as noted above. Posterior aspect of the 6th rib was transected to enhance exposure. Packs and retractors were placed once the adhesions of the lung to the costal margin and diaphragm were taken down. Multiloculated empyema cavity underwent empyemectomy. Next dense rinds of the affected lower lobe and upper and lower lobes were removed to allow full expansion of the entire lung. Small para vertebral infective abscess process seen on the CT was also drained and debrided. In taking down the extremely dense adhesion of the right lower lobe to the hemidiaphragm, a small diaphragmatic defect was created and uneventfully closed using interrupted vertical mattress 0 Prolene sutures. At completion of the procedure, chest cavity was filled with saline and lung re- expanded with minimal air leaks demonstrated. Wound was irrigated and secured hemostasis. Through 2 separate stab wound incisions, anterior apical and posterior basal 28 Maltese chest tube were placed and secured the skin using 0 silk suture. Wound was closed in the following manner; over and over 1. Dexon suture x4 were used to reapproximate the ribs. Latissimus dorsi muscle was closed with running 1. Dexon suture. Running deep dermal 2-0 Vicryl suture followed by running subcuticular 4-0 Vicryl sutures were placed. Steri-Strips and sterile dressings were applied. Chest tubes were connected to a Pleur-evac and lung re-expanded with minimal air leak demonstrated. Intercostal nerve block using Exparel was then performed. Steri-Strips and sterile dressings were applied. Sponge, needle, and instrument counts were reported correct. Patient tolerated the procedure well and emerged from anesthesia in stable condition to recovery room. Postprocedure chest x-ray pending. EBL minimal
[2024-02-24] MEDS: HYDROmorphone HCl/NS 10 MG/50 ML PIGGYBACK IV (17:58)
[2024-02-24] MEDS: 0.9 % Sodium Chloride 500 ML 20 ML IV (18:25)
--- NOTE | 2024-02-24 19:33 | PC.NURSE ---
Patient returned from surgery this evening at 18:50. Handover report given to continuity writer from PACU nurses. Patient observed and was very lethargic and diaphoretic. Patient arousable to name and light touch. Patient observed with Triple Lumen to RIJ. Patient remained on 4L oxygen via N/C with saturation of 94%. Patient skin assessed and noted with two chest tube sites connected to one atrium device. Chest tube connected to wall suction per provider order. Dressing site assessed and no crepitus noted, and dressing site remained dry clean and intact. Patient observed with Solano catheter in place draining yellow urine. Per PACU nurse this solano was placed today during procedure. Patient is connected to CLERICAL ASSISTANT pump set with bolus doses. Patient educated on utilization of CLERICAL ASSISTANT pump to help with pain management. Patient also educated on importance of using call small and calling for staff before attempting to self transfer. Patient educated on importance of not touching or playing with chest tubes. Safety measures implemented and report given to evening RN.
--- NOTE | 2024-02-24 20:57 | PM.EVENT ---
Event Note Date of Service: 02/24/24 Event Note: Methadone dose decreased on 02/23 to 70mg daily (from 140mg) due to prolonged QT and bradycardia follow up EKG QT has shortened, lytes and Mg WNL Recommendations -methadone increased to 100mg 02/24. -follow up EKG-if no change on 02/25 can go back to previous dose of 140mg. Time Spent With Patient Time: Total time managing care of this patient today ____ minutes.
[2024-02-24 21:18] LABS: Vancomycin Random 28.1 mcg/mL (15-20)
[2024-02-24] MEDS: Sennosides 8.6 MG TABLET PO (21:30)
[2024-02-24] MEDS: polyethylene glycoL 3350 17 GM POWD.PACK PO (21:30)
[2024-02-24] MEDS: Benzonatate 100 MG CAPSULE PO (21:30)
[2024-02-24] MEDS: Acetaminophen 1,000 MG/100 ML PIGGYBACK 400 MG IV (21:31)
[2024-02-24] MEDS: 0.9 % Sodium Chloride 1,000 ML 999 ML IV (21:44)
[2024-02-25] VITALS (15 sets, daily range): BP systolic 144–178; BP diastolic 76–107; PULSE 72–92; RESP 16–20; TEMP 36–37.3; O2SAT 92–99
[2024-02-25] MEDS: 0.9 % Sodium Chloride Flush 3 ML SYRINGE IVFLUSH ×3 (00:58→15:43)
[2024-02-25] MEDS: Acetaminophen 1,000 MG/100 ML PIGGYBACK 400 MG IV ×3 (04:37→17:16)
[2024-02-25] MEDS: vancomycin HCL 1,000 MG in 0.9 % Sodium Chloride 250 ML 270 MG IV (04:58)
[2024-02-25 07:07] LABS: MANUAL DIFF FLAG NO
[2024-02-25 07:11] LABS: Basophils Percent Auto 0.2 % (0-2); Eosinophils Percent Auto 0.1 % (0-4); Hematocrit 25.8 % (42.0-52.0); Hemoglobin 8.5 g/dl (14.0-18.0); Imm Gran Abs Auto 0.18 X10*3/uL (0.00-0.03); Imm Gran Pct Auto 1.4 % (0.0-0.4); Lymphocytes Absolute Auto 1.6 X10*3/uL (1.2-4.9); Lymphocytes Percent Auto 12.1 % (20-40); Mean Corpuscular HGB Conc 32.9 g/dl (31.0-36.0); Mean Corpuscular Volume 81.9 fL (80.0-98.0); Mean Platelet Volume 11.4 fL (9.4-12.4); Monocytes Absolute Auto 0.8 X10*3/uL (0.1-1.2); Monocytes Percent Auto 6.3 % (2-11); Neutrophils Absolute Auto 10.7 x10*3/uL (2.0-8.3); Neutrophils Percent Auto 79.9 % (45-73); Platelet Count 238 X10*3/uL (160-400); Red Blood Count 3.15 X10*6/uL (4.60-5.80); Red Cell Distribution Width 14.3 % (11.0-16.0); White Blood Count 13.3 X10*3/uL (4.8-10.8)
[2024-02-25 07:38] LABS: Creatinine Clr Calc Pharmacy 155.2; Estimated Glomerular Filt Rate > 60
[2024-02-25 08:20] LABS: Anion Gap 16 (12-20)
[2024-02-25 08:22] LABS: Blood Urea Nitrogen 8 mg/dL (9-16); Calcium 8.5 mg/dL (8.4-10.2); Carbon Dioxide 26 mmol/L (22-29); Chloride 99 mmol/L (96-108); Glucose Random 157 mg/dL (60-115); Potassium 3.6 mmol/L (3.3-5.1); Sodium 137 mmol/L (135-145)
[2024-02-25] MEDS: polyethylene glycoL 3350 17 GM POWD.PACK PO (09:12)
[2024-02-25] MEDS: methADONE HCl 20 MG/2 ML ORAL.CONC 70 MG PO (09:13)
[2024-02-25] MEDS: Benzonatate 100 MG CAPSULE PO ×3 (09:14→20:19)
[2024-02-25] MEDS: Famotidine/PF 20 MG/2 ML VIAL IVPUSH (09:14)
[2024-02-25] MEDS: bisacodyL 10 MG SUPP.RECT PR (09:42)
--- NOTE | 2024-02-25 12:18 | P.PNADD_ITS ---
Subjective Subjective Date of Service: 02/25/24 Reason For Visit: Right mid back pain Interim History: Patient seen in follow up methadone dose decreased to 70mg following QT prolongation patient awake, alert reporting mild withdrawal sx since dose decrease yesterday --mild body aches pain well managed Review of Systems Constitutional: Reports as per HPI Mental Status Exam Mental Status Exam Level of Consciousness: Awake, Appropriate and Alert Patient Behavior: Appropriate Mood Description: Calm Diagnostics Vital Signs (24Hr): Vital Signs - 24 hr 02/24/24 13:59 02/24/24 16:58 02/24/24 17:03 Temperature 98.7 F 97.9 F Pulse Rate 61 112 H 113 H Respiratory Rate 16 28 H 30 H Blood Pressure 133/78 123/81 128/89 Pulse Oximetry 91 L 94 93 Oxygen Delivery Method Room Air Simple Mask Simple Mask Oxygen Flow Rate 10 10 02/24/24 17:08 02/24/24 17:13 02/24/24 17:18 Temperature Pulse Rate 121 H 118 H 121 H Respiratory Rate 32 H 32 H 30 H Blood Pressure 140/87 H 145/95 H 133/97 H Pulse Oximetry 93 93 94 Oxygen Delivery Method Simple Mask Simple Mask Simple Mask Oxygen Flow Rate 10 10 10 02/24/24 17:23 02/24/24 17:27 02/24/24 17:28 Temperature Pulse Rate 120 H 116 H Respiratory Rate 30 H 30 H 30 H Blood Pressure 127/94 H 127/94 H Pulse Oximetry 94 94 Oxygen Delivery Method Simple Mask Simple Mask Oxygen Flow Rate 10 10 02/24/24 17:33 02/24/24 17:33 02/24/24 17:38 Temperature Pulse Rate 113 H 116 H Respiratory Rate 28 H 28 H 28 H Blood Pressure 136/93 H 138/94 H Pulse Oximetry 93 95 Oxygen Delivery Method Simple Mask Simple Mask Oxygen Flow Rate 10 10 02/24/24 17:38 02/24/24 17:43 02/24/24 17:48 Temperature Pulse Rate 115 H 119 H Respiratory Rate 28 H 28 H 26 H Blood Pressure 146/97 H 137/90 H Pulse Oximetry 94 94 Oxygen Delivery Method Nasal Cannula with ETCO2 Nasal Cannula with ETCO2 Oxygen Flow Rate 5 5 02/24/24 17:49 02/24/24 17:53 02/24/24 17:58 Temperature Pulse Rate 112 H 111 H Respiratory Rate 32 H 27 H 27 H Blood Pressure 139/98 H 147/94 H Pulse Oximetry 94 94 Oxygen Delivery Method Simple Mask Oxygen Flow Rate 5 02/24/24 17:58 02/24/24 18:03 02/24/24 18:08 Temperature Pulse Rate 114 H 111 H 110 H Respiratory Rate 26 H 26 H 27 H Blood Pressure 147/94 H 142/98 H 137/93 H Pulse Oximetry 94 92 92 Oxygen Delivery Method Simple Mask Nasal Cannula with ETCO2 Nasal Cannula with ETCO2 Oxygen Flow Rate 5 4 4 02/24/24 18:13 02/24/24 18:18 02/24/24 18:23 Temperature 97.0 F Pulse Rate 108 H 112 H 108 H Respiratory Rate 27 H 27 H 30 H Blood Pressure 141/95 H 152/77 H 134/95 H Pulse Oximetry 93 93 93 Oxygen Delivery Method Nasal Cannula with ETCO2 Nasal Cannula with ETCO2 Nasal Cannula with ETCO2 Oxygen Flow Rate 4 4 4 02/24/24 19:08 02/24/24 20:00 02/24/24 22:00 Temperature 96.8 F 97.6 F 97.7 F Pulse Rate 65 104 H 104 H Respiratory Rate 22 H 18 18 Blood Pressure 129/75 140/74 H 146/99 H Pulse Oximetry 94 96 96 Oxygen Delivery Method Nasal Cannula Nasal Cannula Oxygen Flow Rate 4 4 02/24/24 22:01 02/25/24 00:00 02/25/24 01:00 Temperature 96.8 F 97.0 F Pulse Rate 91 80 Respiratory Rate 18 16 16 Blood Pressure 150/76 H 168/94 H Pulse Oximetry 97 96 Oxygen Delivery Method Nasal Cannula Nasal Cannula Oxygen Flow Rate 4 4 02/25/24 03:00 02/25/24 05:00 02/25/24 07:00 Temperature 97.2 F 97.8 F 98.5 F Pulse Rate 87 72 91 Respiratory Rate 18 16 19 Blood Pressure 167/94 H 174/97 H 156/86 H Pulse Oximetry 95 98 99 Oxygen Delivery Method Nasal Cannula Nasal Cannula Nasal Cannula Oxygen Flow Rate 4 4 4 02/25/24 09:00 02/25/24 11:00 Temperature 97.0 F 97.1 F Pulse Rate 83 77 Respiratory Rate 18 19 Blood Pressure 161/93 H 144/81 H Pulse Oximetry 92 98 Oxygen Delivery Method Room Air Nasal Cannula Oxygen Flow Rate 2 BMI result Body Mass Index 25.7 Labs 02/27/24 06:17 02/27/24 06:17 Labs: Laboratory Results - last 48 hr 02/23/24 02/23/24 02/24/24 06:02 14:31 09:06 WBC 8.6 RBC 3.49 L Hgb 9.3 L Hct 29.1 L MCV 83.4 MCH 26.6 L MCHC 32.0 RDW 14.4 Plt Count 385 MPV 10.1 Immature Gran % (Auto) Neut % (Auto) Lymph % (Auto) [place] % (Auto) Eos % (Auto) Baso % (Auto) Lymph # (Auto) [place] # (Auto) Eos # (Auto) Baso # (Auto) Abs Immat Gran (auto) Absolute Neuts (auto) Absolute Nucleated RBC 0.000 Nucleated RBC % (auto) 0.0 Hold Purple Top Sodium 138 138 Potassium 3.5 4.2 Chloride 99 99 Carbon Dioxide 30 H 31 H Anion Gap 13 12 BUN 10 7 L Creatinine 0.73 0.67 Estim Creat Clear Calc 136.1 148.2 Estimated GFR > 60 > 60 Random Glucose 91 82 Calcium 8.4 8.1 L Magnesium 1.6 Hold Yellow Top Random Vancomycin 17.0 Blood Type Antibody Screen 02/24/24 02/24/24 02/25/24 09:50 20:37 06:33 WBC 13.3 H RBC 3.15 L Hgb 8.5 L Hct 25.8 L MCV 81.9 MCH 27.0 MCHC 32.9 RDW 14.3 Plt Count 238 D MPV 11.4 Immature Gran % (Auto) 1.4 H Neut % (Auto) 79.9 H Lymph % (Auto) 12.1 L [place] % (Auto) 6.3 Eos % (Auto) 0.1 Baso % (Auto) 0.2 Lymph # (Auto) 1.6 [place] # (Auto) 0.8 Eos # (Auto) 0.0 Baso # (Auto) 0.0 Abs Immat Gran (auto) 0.18 H Absolute Neuts (auto) 10.7 H Absolute Nucleated RBC 0.000 Nucleated RBC % (auto) 0.0 Hold Purple Top SEE NOTE Sodium 137 Potassium 3.6 Chloride 99 Carbon Dioxide 26 Anion Gap 16 BUN 8 L Creatinine 0.64 Estim Creat Clear Calc 155.2 Estimated GFR > 60 Random Glucose 157 H Calcium 8.5 Magnesium Hold Yellow Top See Note Random Vancomycin 28.1 H* Blood Type O Positive Antibody Screen NEGATIVE Imaging Radiology Impressions: ITS Impressions Abdomen/Pelvis CT 02/18/24 11:05 IMPRESSION: * Compared to 01/17/2024, there appears to be new articular surface irregularity at the costotransverse junction of the right 10th rib and mild osseous fragmentation of the transverse process. In this region, there is a circumscribed fluid collection (as well as gas bubbles) in the paraspinal tissues and fluid filling the posterior pleural space of the right hemithorax. The loculated collection exerts mass effect upon the right lower lobe. Consider possibility that infection has arisen out of the area of the right 10th costotransverse junction. Alternatively, if this patient had recent pneumonia, then there could have been development of a large empyema and decompression into the posterior paraspinal tissues. * Diffuse hepatic steatosis and hepatosplenomegaly. * Small stone in the lower pole the right kidney. No ureteral stones or hydroureteronephrosis. Chest CT 02/18/24 11:05 IMPRESSION: * Compared to 01/17/2024, there appears to be new articular surface irregularity at the costotransverse junction of the right 10th rib and mild osseous fragmentation of the transverse process. In this region, there is a circumscribed fluid collection (as well as gas bubbles) in the paraspinal tissues and fluid filling the posterior pleural space of the right hemithorax. The loculated collection exerts mass effect upon the right lower lobe. Consider possibility that infection has arisen out of the area of the right 10th costotransverse junction. Alternatively, if this patient had recent pneumonia, then there could have been development of a large empyema and decompression into the posterior paraspinal tissues. * Diffuse hepatic steatosis and hepatosplenomegaly. * Small stone in the lower pole the right kidney. No ureteral stones or hydroureteronephrosis. Chest X-Ray 02/18/24 17:58 IMPRESSION: 1. Right internal jugular central venous catheter in good position. No pneumothorax. 2. Right lung base empyema. Thoracentesis/Paracentesis US 02/20/24 10:30 Impression: Ultrasound-guided right chest tube placement yielding thick purulent fluid. This procedures performed by Curt Montemayor PA-C and supervised by Dr. Boo. Chest X-Ray 02/21/24 05:49 IMPRESSION: Decrease in size of right pleural effusion/empyema with chest tube in place. No pneumothorax. Chest X-Ray 02/22/24 08:50 IMPRESSION: No significant pleural effusion is seen. Right-sided pigtail catheter is unchanged in position. Chest X-Ray 02/23/24 05:58 IMPRESSION: Two pigtail catheters overlying the right lung base, one of which is new compared to prior. Residual small right pleural effusion suspected along with adjacent basilar opacity. Chest CT 02/23/24 15:51 IMPRESSION: 1. Marked interval decrease in size of the right pleural empyema. There is a residual loculated empyema more superiorly from the drainage catheter which could represent undrained segments of the empyema. 2. No significant residual fluid around the drainage catheter in the subcutaneous soft tissues of the right posterior chest wall. There is however still an undrained paraspinal musculature abscess more medially although this is decreased in size. 3. Improved aeration within the right lower lobe with patchy areas of atelectasis and airspace opacity. Increased peribronchial vascular groundglass opacities within the right middle lobe compared to the prior exam. 4. Diffuse lymphadenopathy throughout the mediastinum and bilateral carmenza. Chest X-Ray 02/24/24 17:25 IMPRESSION: 1. Air collection under right hemidiaphragm versus subpulmonic air consistent with recent surgery. 2. 2 right-sided chest tubes in place. 3. Bibasilar airspace disease. Medications Medications Current Medications Albuterol Sulfate (Albuterol Sulfate 90 Mcg 8 Gm Inhaler) 2 puff INHALE Q6H PRN PRN Reason: shortness of breath or wheezing Benzonatate (Benzonatate 100 Mg Capsule) 100 mg PO TID [facility] Last Admin: 02/25/24 09:14 Dose: 100 mg Bisacodyl (Bisacodyl 10 Mg Supp.Rect) 10 mg MS BEDTIME PRN PRN Reason: Constipation Last Admin: 02/25/24 09:42 Dose: 10 mg Calcium Carbonate (Calcium Carbonate 750 Mg Tab.Chew) 750 mg PO Q4H PRN PRN Reason: Heartburn Last Admin: 02/19/24 09:35 Dose: 750 mg Famotidine (Famotidine/Pf 20 Mg/2 Ml Vial) 20 mg IVPUSH DAILY [facility] Last Admin: 02/25/24 09:14 Dose: 20 mg Hydromorphone HCl (Dilaudid) 10 mg in 50 mls @ 0 mls/hr IV .Q0M [facility]; Protocol Last Admin: 02/24/24 17:58 Dose: 0.1 mg/hr, 0.5 mls/hr Sodium Chloride (Ns) 500 mls @ 20 mls/hr IV .Q24H [facility] Last Admin: 02/24/24 18:25 Dose: 20 mls/hr Acetaminophen (Ofirmev) 1,000 mg in 100 mls @ 400 mls/hr IV Q6H [facility] Last Infusion: 02/25/24 09:33 Dose: Infused Vancomycin HCl 1,000 mg/ (Sodium Chloride) 270 mls @ 270 mls/hr IV Q12H [facility] Last Infusion: 02/25/24 06:06 Dose: Infused Magnesium Hydroxide (Milk Of Magnesia 30 Ml Oral.Susp) 30 ml PO DAILY PRN PRN Reason: Constipation Last Admin: 02/23/24 15:35 Dose: 30 ml Melatonin (Melatonin 3 Mg Tablet) 6 mg PO BEDTIME PRN PRN Reason: Insomnia Last Admin: 02/19/24 22:36 Dose: 6 mg Methadone HCl (Methadone Hcl 20 Mg/2 Ml Oral.Conc) 70 mg PO DAILY [facility] Last Admin: 02/25/24 09:13 Dose: 70 mg Naloxone HCl (Naloxone Hcl 0.4 Mg/Ml Vial) 0.2 mg IVPUSH Q2M PRN PRN Reason: Excessive sedation or RR < 8 Pharmacy Consult (Consult Rx Vancomycin Dosing) 1 each MISCELLANE DAILY PRN PRN Reason: Consult order Polyethylene Glycol (Polyethylene Glycol 3350 17 Gm Powd.Pack) 17 gm PO BID [facility] Last Admin: 02/25/24 09:12 Dose: 17 gm Prochlorperazine Edisylate (Prochlorperazine Edisylate 10 Mg/2 Ml Vial) 5 mg IVPUSH Q4H PRN PRN Reason: Nausea and Vomiting Last Admin: 02/24/24 04:59 Dose: 5 mg Senna (Sennosides 8.6 Mg Tablet) 8.6 mg PO BEDTIME [facility] Last Admin: 02/24/24 21:30 Dose: 8.6 mg Sodium Chloride (0.9 % Sodium Chloride Flush 3 Ml Syringe) 3 ml IVFLUSH QSHIFT [facility] Last Admin: 02/25/24 09:14 Dose: 3 ml Allergies Allergies Allergy/AdvReac Type Severity Reaction Status Date / Time bee pollen [BEE STINGS] Allergy Intermediate HIVES Verified 02/24/24 13:42 Penicillins Allergy Mild UNKNOWN Verified 02/24/24 13:42 penicillin V Allergy Unknown unknown Verified 02/24/24 13:42 SANJAY DELIGHT Allergy Mild HIVES Uncoded 02/24/24 13:42 Assessment & Plan Assessment & Plan (1) Opioid use disorder: Status: Acute Code(s): F11.90 - Opioid use, unspecified, uncomplicated Assessment and Plan: * methadone at 70 mg with INDUSTRIAL THERAPIST pump following VATS procedure * can increase methadone to address withdrawal sx reported by patient * will follow up Tuesday Total time managing care of this patient today ____ minutes.
--- NOTE | 2024-02-25 12:58 | HO.POSTANES ---
Post Anesthesia Evaluation Post Anesthesia Evaluation Date of Service: 02/25/24 Vital Signs: Vital Signs Temp Pulse Resp BP Pulse Ox O2 Del Method O2 Flow Rate 02/25/24 11:00 97.1 F 77 19 144/81 H 98 Nasal Cannula 2 02/25/24 09:00 97.0 F 83 18 161/93 H 92 Room Air 02/25/24 07:00 98.5 F 91 19 156/86 H 99 Nasal Cannula 4 02/25/24 05:00 97.8 F 72 16 174/97 H 98 Nasal Cannula 4 02/25/24 03:00 97.2 F 87 18 167/94 H 95 Nasal Cannula 4 02/25/24 01:00 97.0 F 80 16 168/94 H 96 Nasal Cannula 4 Anesthesia: General Endotracheal-GETA Mental Status: Awake Pain Control: Satisfactory (increased level of post-op pain) Nausea/Vomiting: None Hydration: Adequate Anesthesia-Related Issues: No Anes. Related Issues
[2024-02-25] MEDS: HYDROmorphone HCl/NS 10 MG/50 ML PIGGYBACK IV (13:35)
--- NOTE | 2024-02-25 14:34 | HO.PM.IMPN ---
Subjective Subjective Date of Service: 02/25/24 Interval History: seen and examined this morning follow up for right empyema s/p right miini thoracotomy, decortication 02/23 pain under adequate controlled Review of Systems Review of Systems: Yes all other systems are reviewed and are negative Constitutional Constitutional: Denies chills and Denies fever(s) Cardiovascular Cardiovascular: Denies chest pain Respiratory Respiratory: Denies cough Physical Exam Vital Signs: Vital Signs: Last Vital Signs Temp 97.7 F 02/25/24 13:00 Pulse 73 02/25/24 13:00 Resp 18 02/25/24 13:00 BP 154/84 H 02/25/24 13:00 Pulse Ox 94 02/25/24 13:00 O2 Del Method Nasal Cannula 02/25/24 13:00 O2 Flow Rate 1 02/25/24 13:00 BMI result Body Mass Index 25.7 Const: General: no acute distress, alert and awake Nutritional Appearance: average body habitus Orientation/consciousness: patient oriented x3 Chest: Other: right chest tube, drain in place Resp: Effort & Inspection: normal respiratory effort, able to speak in complete sentences, no respiratory distress and no use of accessory muscles Cardio: Rate: regular rate GI: Inspection: No distended Palpation (GI): Soft to palpation and nontender Neuro: General: patient oriented x3, moves all extremities and CN's II-XI intact bilaterally Extrem: Other: trace leg edema Objective Data Active Medications Albuterol Sulfate (Albuterol Sulfate 90 Mcg 8 Gm Inhaler) 2 puff INHALE Q6H PRN PRN Reason: shortness of breath or wheezing Benzonatate (Benzonatate 100 Mg Capsule) 100 mg PO TID [facility] Last Admin: 02/25/24 09:14 Dose: 100 mg Documented By: CYNTHIA Bisacodyl (Bisacodyl 10 Mg Supp.Rect) 10 mg [place] BEDTIME PRN PRN Reason: Constipation Last Admin: 02/25/24 09:42 Dose: 10 mg Documented By: CYNTHIA Comments: provider made aware of early administration Calcium Carbonate (Calcium Carbonate 750 Mg Tab.Chew) 750 mg PO Q4H PRN PRN Reason: Heartburn Last Admin: 02/19/24 09:35 Dose: 750 mg Documented By: LEONARD Famotidine (Famotidine/Pf 20 Mg/2 Ml Vial) 20 mg IVPUSH DAILY [facility] Last Admin: 02/25/24 09:14 Dose: 20 mg Documented By: CYNTHIA Hydromorphone HCl (Dilaudid) 10 mg in 50 mls @ 0 mls/hr IV .Q0M [facility]; Protocol Last Admin: 02/25/24 13:35 Dose: 0.1 mg/hr, 0.5 mls/hr Documented By: CYNTHIA Sodium Chloride (Ns) 500 mls @ 20 mls/hr IV .Q24H [facility] Last Admin: 02/24/24 18:25 Dose: 20 mls/hr Documented By: LEIGHTON Acetaminophen (Ofirmev) 1,000 mg in 100 mls @ 400 mls/hr IV Q6H [facility] Last Infusion: 02/25/24 09:33 Dose: Infused Documented By: CYNTHIA Vancomycin HCl 1,000 mg/ (Sodium Chloride) 270 mls @ 270 mls/hr IV Q12H [facility] Last Infusion: 02/25/24 06:06 Dose: Infused Documented By: KAYE Magnesium Hydroxide (Milk Of Magnesia 30 Ml Oral.Susp) 30 ml PO DAILY PRN PRN Reason: Constipation Last Admin: 02/23/24 15:35 Dose: 30 ml Documented By: LIZ Melatonin (Melatonin 3 Mg Tablet) 6 mg PO BEDTIME PRN PRN Reason: Insomnia Last Admin: 02/19/24 22:36 Dose: 6 mg Documented By: SNOW Methadone HCl (Methadone Hcl 20 Mg/2 Ml Oral.Conc) 70 mg PO DAILY [facility] Last Admin: 02/25/24 09:13 Dose: 70 mg Documented By: CYNTHIA Naloxone HCl (Naloxone Hcl 0.4 Mg/Ml Vial) 0.2 mg IVPUSH Q2M PRN PRN Reason: Excessive sedation or RR < 8 Pharmacy Consult (Consult Rx Vancomycin Dosing) 1 each MISCELLANE DAILY PRN PRN Reason: Consult order Polyethylene Glycol (Polyethylene Glycol 3350 17 Gm Powd.Pack) 17 gm PO BID [facility] Last Admin: 02/25/24 09:12 Dose: 17 gm Documented By: CYNTHIA Prochlorperazine Edisylate (Prochlorperazine Edisylate 10 Mg/2 Ml Vial) 5 mg IVPUSH Q4H PRN PRN Reason: Nausea and Vomiting Last Admin: 02/24/24 04:59 Dose: 5 mg Documented By: JANN Stearns (Sennosides 8.6 Mg Tablet) 8.6 mg PO BEDTIME [facility] Last Admin: 02/24/24 21:30 Dose: 8.6 mg Documented By: DANNY Sodium Chloride (0.9 % Sodium Chloride Flush 3 Ml Syringe) 3 ml IVFLUSH QSHIFT [facility] Last Admin: 02/25/24 09:14 Dose: 3 ml Documented By: CYNTHIA Labs 02/25/24 06:33 02/25/24 06:33 Labs: Laboratory Results - last 24 hr 02/24/24 02/25/24 20:37 06:33 MCV 81.9 MCH 27.0 MCHC 32.9 RDW 14.3 Plt Count 238 D MPV 11.4 Immature Gran % (Auto) 1.4 H Neut % (Auto) 79.9 H Lymph % (Auto) 12.1 L [place] % (Auto) 6.3 Eos % (Auto) 0.1 Baso % (Auto) 0.2 Lymph # (Auto) 1.6 [place] # (Auto) 0.8 Eos # (Auto) 0.0 Baso # (Auto) 0.0 Abs Immat Gran (auto) 0.18 H Absolute Neuts (auto) 10.7 H Absolute Nucleated RBC 0.000 Nucleated RBC % (auto) 0.0 Anion Gap 16 Estim Creat Clear Calc 155.2 Estimated GFR > 60 Random Glucose 157 H Calcium 8.5 Random Vancomycin 28.1 H* Microbiology Microbiology Results: Microbiology 02/20/24 10:30 Gram Stain - Final Pleural Fluid Routine Culture - Final Methicillin Res Staph Aureus Anaerobic Culture - Final 02/22/24 14:28 Gram Stain - Final Back Routine Culture - Final Methicillin Res Staph Aureus Anaerobic Culture - Preliminary Culture in progress. Assessment and Plan (1) Status post thoracotomy: Status: Acute (2) Empyema lung: Status: Acute Plan 43-year-old gentleman with past medical history significant for mild intermittent asthma, history of opioid use disorder on methadone, recently treated for acute pyelonephritis with Keflex presented to [place] emergency room with greater than 2 week history of right upper back pain with radiation to right anterior chest associated with chills, weight loss, decreased appetite and shortness of breath. Workup in the emergency room showed Thick walled fluid collection containing gas bubbles and air-fluid level in the posterior right hemithorax appear to be arising out of the pleural space and compressing the right lower lobe, exerting mass effect upon the posterior right hemidiaphragm and underlying liver there also appears to be fluid and gas in the posterior extrapleural space and fluid appears to be tracking around region of 9th and 10th ribs and a fluid collection in the adjacent right paraspinal muscle, patient will be admitted to [facility] for IV antibiotics and IR drainage. sepsis due to right empyema WBC & tachypnea resolved. wbc trending up today, likely in response to surgery blood cultures x2 negative 48h, right pleural fluid culture positive for MRSA Continue IV vancomycin DC IV Flagyl and cefepime s/p IR place right-sided chest tube 02/19 s/p IR drainage under U/S 02/21 for symptomatic relief - drain placed repeat Chest CT 02/22 showing residual collection - s/p vats converted to right mini thoracotomy, decortication right lung, empyemectomy,pneumonolysis, intercostal nerve block, bronchoscopy 02/23 Thoracic surgery following On discharge PO linezolid 600mg BID x2-[address] Espitia to see outpatient to determine final duration Elevated INR due to poor nutrition treated with vitamin K INR improved from 2.7-2.0 Acute hypoxic respiratory failure Due to above. Acute on chronic normocytic anemia Likely due to infection, H&H dropped to 26.9 likely dilutional and from infection, repeat hematocrit unchanged , hematocrit above transfusion threshold. Iron studies showed low iron, elevated ferritin, likely anemia of inflammatory disease/poor nutrition, will place on iron supplement upon dc Acute hyponatremia likely due to pulmonary process and decreased by mouth intake. Resolved with IV fluid TSH 0.28 likely subclinical hyperthyroidism check T4 and T3 Opiate use disorder continue methadone-> dose decreased due to increasing QT and bradycardia now on 70 mg daily addiction medicine following polysubstance use disorder U tox positive for fentanyl, cocaine, methadone and opiates, initially denied IV drug use later agreed for using IV drugs 6-8 weeks ago. Addiction Team consult - not currently interested in referrals for other support Mild Intermittent asthma continue home inhalers no acute exacerbation noted. DVT prophylaxis with compression boots; resume chemo-prophylaxis on 02/25 per surgery Full code Requires ongoing inpatient hospitalization for management of fluid collection right hemithorax status post chest tube placement on IV antibiotics post-surgical care, treatment can not be provided in less acute setting Quality Stroke Does the patient have a stroke diagnosis?: No VTE Prior VTE?: No VTE Risk Level:: Medical - moderate - high VTE Device Contraindication: Treatment Not Indicated VTE Drug Contraindication: N/A - Med Ordered
--- NOTE | 2024-02-25 14:54 | PM.PNTS ---
Subjective Subjective Date of Service: 02/25/24 Interval history: Uneventful evening. Incisional pain well controlled. No respiratory issues. Chest x-ray this morning within normal limits. Minimal serosanguineous output from Pleur-evac. No air leak demonstrated. Physical Exam Vital Signs: Vital Signs: Last Vital Signs Temp 97.7 F 02/25/24 13:00 Pulse 73 02/25/24 13:00 Resp 18 02/25/24 13:00 BP 154/84 H 02/25/24 13:00 Pulse Ox 94 02/25/24 13:00 O2 Del Method Nasal Cannula 02/25/24 13:00 O2 Flow Rate 1 02/25/24 13:00 BMI result Body Mass Index 25.7 Chest: Other: Dressing clean dry and intact. Chest tubes in tact Procedures Date of Service Date of Service: 02/25/24 Progress Note: A&P Assessment and plan (1) Empyema lung: Status: Acute (2) Status post thoracotomy: Status: Acute Plan Postop day 1 status post right empyemectomy/decortication. Overall, patient is doing well. DC Hernandez, wean O2 off, encourage incentive spirometry, out of bed, diet as tolerated. Time Spent With Patient Time: Total time managing care of this patient today ____ minutes. Quality Stroke Does the patient have a stroke diagnosis?: No VTE Prior VTE?: No VTE Risk Level:: Medical - moderate - high VTE Device Contraindication: Treatment Not Indicated VTE Drug Contraindication: N/A - Med Ordered
[2024-02-25 15:28] LABS: Vancomycin Random 13.4 mcg/mL (15-20)
[2024-02-25] MEDS: Milk of Magnesia 30 ML ORAL.SUSP PO (15:43)
[2024-02-25] MEDS: vancomycin HCL 1,250 MG in 0.9 % Sodium Chloride 250 ML 166.67 MG IV (17:15)
[2024-02-25] MEDS: Prochlorperazine Edisylate 10 MG/2 ML VIAL 5 MG IVPUSH (17:39)
[2024-02-25] MEDS: 0.9 % Sodium Chloride 500 ML 20 ML IV (17:41)
--- NOTE | 2024-02-25 19:39 | PC.NURSE ---
Patient was alert and oriented X4. Patient remains on tele monitor resulting in SR. Patient weaned down to 1L oxygen via N/C. Patient admits to having shortness of breath at rest and with exertion. Patient lung sounds diminished throughout. Patient has double chest tube connected to 1 drainage canister to R flank. Chest tube remains connected to wall suction. Chest tube site assessed and dressing remains CDI. No crepitus, tidaling or air leak noted. Patient had Hernandez catheter in place that was removed at 13:15. Patient able to urinate in urinal at 15:00 and had multiple episodes of urination into urinal this evening. Patient continues to have [employer] Dilaudid pump ordered with bolus doses and patient is tolerating. Patient assisted into recliner this afternoon. Family at bedside and updated on plan of care. Frequent rounding performed throughout shift and safety maintained.
[2024-02-26] VITALS (11 sets, daily range): BP systolic 127–162; BP diastolic 70–101; PULSE 77–101; RESP 16–20; TEMP 36.2–37.1; O2SAT 90–94
[2024-02-26] MEDS: Acetaminophen 1,000 MG/100 ML PIGGYBACK 400 MG IV ×4 (00:31→16:54)
[2024-02-26] MEDS: HYDROmorphone HCl/NS 10 MG/50 ML PIGGYBACK IV ×2 (02:16→13:26)
[2024-02-26] MEDS: Prochlorperazine Edisylate 10 MG/2 ML VIAL 5 MG IVPUSH ×2 (05:36→16:07)
[2024-02-26] MEDS: vancomycin HCL 1,250 MG in 0.9 % Sodium Chloride 250 ML 166.67 MG IV ×2 (05:37→16:03)
[2024-02-26 06:50] LABS: Creatinine Clr Calc Pharmacy 157.7; Estimated Glomerular Filt Rate > 60
[2024-02-26] MEDS: Famotidine/PF 20 MG/2 ML VIAL IVPUSH (08:01)
[2024-02-26] MEDS: Benzonatate 100 MG CAPSULE PO ×3 (08:01→21:46)
[2024-02-26] MEDS: methADONE HCl 20 MG/2 ML ORAL.CONC 100 MG PO (08:01)
[2024-02-26] MEDS: 0.9 % Sodium Chloride Flush 3 ML SYRINGE IVFLUSH ×2 (08:01→16:04)
--- NOTE | 2024-02-26 12:19 | P.PNIM_ITS ---
Subjective Subjective Date of Service: 02/26/24 Interval History: Seen and examined this morning Follow-up for right empyema status post VATS/decortication Pain better controlled with higher dose of methadone, pain at chest tube site Review of Systems Review of Systems: Yes all other systems are reviewed and are negative Constitutional Constitutional: Denies chills and Denies fever(s) Cardiovascular Cardiovascular: Denies palpitations and Denies dyspnea Respiratory Respiratory: Denies cough and Denies dyspnea Endocrine Endocrine: Denies palpitations Physical Exam 2 Vital Signs: Vital Signs: Last Vital Signs Temp 97.4 F 02/26/24 11:15 Pulse 78 02/26/24 11:15 Resp 18 02/26/24 11:15 BP 150/90 H 02/26/24 11:15 Pulse Ox 94 02/26/24 11:15 O2 Del Method Room Air 02/26/24 11:15 O2 Flow Rate 1 02/25/24 23:00 Oxygen Flow Rate 1 02/25/24 17:08 BMI result Body Mass Index 25.7 Const: General: cooperative, no acute distress, alert and awake Nutritional Appearance: average body habitus Orientation/consciousness: patient oriented x3 Chest: Other: right chest tube, thoracotomy dressing clean and dry Resp: Effort & Inspection: normal respiratory effort, able to speak in complete sentences, no respiratory distress and no use of accessory muscles Cardio: Rate: regular rate GI: Inspection: No distended Palpation (GI): Soft to palpation and nontender Neuro: General: patient oriented x3, moves all extremities and CN's II-XI intact bilaterally Extrem: Other: trace leg edema General: Yes no pedal edema Objective Data Active Medications Albuterol Sulfate (Albuterol Sulfate 90 Mcg 8 Gm Inhaler) 2 puff INHALE Q6H PRN PRN Reason: shortness of breath or wheezing Benzonatate (Benzonatate 100 Mg Capsule) 100 mg PO TID [place] Last Admin: 02/26/24 08:01 Dose: 100 mg Documented By: MINDY Bisacodyl (Bisacodyl 10 Mg Supp.Rect) 10 mg [place] BEDTIME PRN PRN Reason: Constipation Last Admin: 02/25/24 09:42 Dose: 10 mg Documented By: CYNTHIA Comments: provider made aware of early administration Calcium Carbonate (Calcium Carbonate 750 Mg Tab.Chew) 750 mg PO Q4H PRN PRN Reason: Heartburn Last Admin: 02/19/24 09:35 Dose: 750 mg Documented By: LEONARD Famotidine (Famotidine/Pf 20 Mg/2 Ml Vial) 20 mg IVPUSH DAILY [facility] Last Admin: 02/26/24 08:01 Dose: 20 mg Documented By: MINDY Hydromorphone HCl (Dilaudid) 10 mg in 50 mls @ 0 mls/hr IV .Q0M [facility]; Protocol Last Admin: 02/26/24 02:16 Dose: 0.1 mg/hr, 0.5 mls/hr Documented By: DANNY Sodium Chloride (Ns) 500 mls @ 20 mls/hr IV .Q24H [facility] Last Admin: 02/25/24 17:41 Dose: 20 mls/hr Documented By: CYNTHIA Vancomycin HCl 1,250 mg/ (Sodium Chloride) 250 mls @ 166.667 mls/hr IV Q12H [facility] Last Infusion: 02/26/24 08:00 Dose: Infused Documented By: MINDY Acetaminophen (Ofirmev) 1,000 mg in 100 mls @ 400 mls/hr IV Q6H [facility] Last Infusion: 02/26/24 07:59 Dose: Infused Documented By: MINDY Magnesium Hydroxide (Milk Of Magnesia 30 Ml Oral.Susp) 30 ml PO DAILY PRN PRN Reason: Constipation Last Admin: 02/25/24 15:43 Dose: 30 ml Documented By: CYNTHIA Melatonin (Melatonin 3 Mg Tablet) 6 mg PO BEDTIME PRN PRN Reason: Insomnia Last Admin: 02/19/24 22:36 Dose: 6 mg Documented By: SNOW Methadone HCl (Methadone Hcl 20 Mg/2 Ml Oral.Conc) 100 mg PO DAILY [facility] Last Admin: 02/26/24 08:01 Dose: 100 mg Documented By: MINDY Naloxone HCl (Naloxone Hcl 0.4 Mg/Ml Vial) 0.2 mg IVPUSH Q2M PRN PRN Reason: Excessive sedation or RR < 8 Pharmacy Consult (Consult Rx Vancomycin Dosing) 1 each MISCELLANE DAILY PRN PRN Reason: Consult order Polyethylene Glycol (Polyethylene Glycol 3350 17 Gm Powd.Pack) 17 gm PO BID [facility] Last Admin: 02/26/24 08:03 Dose: Not Given Documented By: MINDY Non-Admin Reason: Patient Refused Prochlorperazine Edisylate (Prochlorperazine Edisylate 10 Mg/2 Ml Vial) 5 mg IVPUSH Q4H PRN PRN Reason: Nausea and Vomiting Last Admin: 02/26/24 05:36 Dose: 5 mg Documented By: DANNY Senna (Sennosides 8.6 Mg Tablet) 8.6 mg PO BEDTIME [facility] Last Admin: 02/25/24 20:19 Dose: Not Given Documented By: DANNY Non-Admin Reason: Patient Refused Sodium Chloride (0.9 % Sodium Chloride Flush 3 Ml Syringe) 3 ml IVFLUSH QSHIFT ON [facility] Last Admin: 02/26/24 08:01 Dose: 3 ml Documented By: MINDY Labs 02/25/24 06:33 02/26/24 06:01 Labs: Laboratory Results - last 24 hr 02/25/24 02/26/24 15:01 06:01 Estim Creat Clear Calc 157.7 Estimated GFR > 60 Random Vancomycin 13.4 L Microbiology Microbiology Results: Microbiology 02/22/24 14:28 Gram Stain - Final Back Routine Culture - Final Methicillin Res Staph Aureus Anaerobic Culture - Preliminary Culture in progress. 02/20/24 10:30 Gram Stain - Final Pleural Fluid Routine Culture - Final Methicillin Res Staph Aureus Anaerobic Culture - Final Assessment and Plan (1) Empyema lung: Status: Acute Plan 43-year-old gentleman with past medical history significant for mild intermittent asthma, history of opioid use disorder on methadone, recently treated for acute pyelonephritis with Keflex presented to [place] emergency room with greater than 2 week history of right upper back pain with radiation to right anterior chest associated with chills, weight loss, decreased appetite and shortness of breath. Workup in the emergency room showed Thick walled fluid collection containing gas bubbles and air-fluid level in the posterior right hemithorax appear to be arising out of the pleural space and compressing the right lower lobe, exerting mass effect upon the posterior right hemidiaphragm and underlying liver there also appears to be fluid and gas in the posterior extrapleural space and fluid appears to be tracking around region of 9th and 10th ribs and a fluid collection in the adjacent right paraspinal muscle, patient will be admitted to [facility] for IV antibiotics and IR drainage. sepsis due to right empyema blood cultures x2 negative 48h, right pleural fluid culture positive for MRSA Continue IV vancomycin DC IV Flagyl and cefepime s/p IR place right-sided chest tube 02/19 s/p IR drainage under U/S 02/21 for persistent fluid collection repeat Chest CT 02/22 showing residual collection - s/p vats converted to right mini thoracotomy, decortication right lung, empyemectomy,pneumonolysis, intercostal nerve block, bronchoscopy 02/23 Thoracic surgery following On discharge PO linezolid 600mg BID x2-[address] Espitia to see outpatient to determine final duration Elevated INR due to poor nutrition treated with vitamin K INR improved from 2.7-2.0 Acute hypoxic respiratory failure Due to above, weaned off oxygen and on room air Acute on chronic normocytic anemia Likely due to infection, H&H dropped to 26.9 likely dilutional and from infection, repeat hematocrit unchanged , hematocrit above transfusion threshold. Iron studies showed low iron, elevated ferritin, likely anemia of inflammatory disease/poor nutrition, will place on iron supplement upon dc Acute hyponatremia likely due to pulmonary process and decreased by mouth intake. Resolved with IV fluid TSH 0.28 likely subclinical hyperthyroidism check T4 and T3 Opiate use disorder continue methadone-> dose decreased by 50 % to 70 mg due to increasing QT and bradycardia increased back to 100 mg daily 02/25. recommend to repeat EKG 02/26 and increase dose back to 140 if Qtc remains normal and HR stable addiction medicine following polysubstance use disorder U tox positive for fentanyl, cocaine, methadone and opiates, initially denied IV drug use later agreed for using IV drugs 6-8 weeks ago. Addiction Team consult - not currently interested in referrals for other support Mild Intermittent asthma continue home inhalers no acute exacerbation noted. DVT prophylaxis with compression boots; resume chemo-prophylaxis on 02/25 per surgery, if CBC stable Full code Requires ongoing inpatient hospitalization for management of empyema, on IV antibiotics, post-surgical care, treatment can not be provided in less acute setting Quality Stroke Does the patient have a stroke diagnosis?: No VTE Prior VTE?: No VTE Risk Level:: Medical - moderate - high VTE Device Contraindication: Treatment Not Indicated VTE Drug Contraindication: N/A - Med Ordered
[2024-02-26 13:18] LABS: Hematocrit 26.6 % (42.0-52.0); Hemoglobin 8.7 g/dl (14.0-18.0); Mean Corpuscular HGB Conc 32.7 g/dl (31.0-36.0); Mean Corpuscular Hemoglobin 27.1 pg (27.0-33.0); Mean Corpuscular Volume 82.9 fL (80.0-98.0); PLT CLUMP 1; Red Blood Count 3.21 X10*6/uL (4.60-5.80); Red Cell Distribution Width 14.6 % (11.0-16.0)
[2024-02-26 13:44] LABS: Platelet Count 318 X10*3/uL (160-400)
[2024-02-26 13:45] LABS: Mean Platelet Volume 11.2 fL (9.4-12.4)
[2024-02-26] MEDS: guaiFENesin DM 100/10/5 ML 5 ML SYRUP PO (13:52)
--- NOTE | 2024-02-26 14:27 | PM.PNTS ---
Subjective Subjective Date of Service: 02/26/24 Interval history: Patient having expected incisional discomfort but otherwise doing well. Off oxygen. Chest tube output minimal no air leak. Physical Exam Vital Signs: Vital Signs: Last Vital Signs Temp 97.4 F 02/26/24 11:15 Pulse 78 02/26/24 11:15 Resp 18 02/26/24 11:15 BP 150/90 H 02/26/24 11:15 Pulse Ox 94 02/26/24 11:15 O2 Del Method Room Air 02/26/24 11:15 O2 Flow Rate 1 02/25/24 23:00 Oxygen Flow Rate 1 02/25/24 17:08 BMI result Body Mass Index 25.7 Chest: Other: Dressing and taken down incision clean dry and intact. No chest tube dressings placed. Procedures Date of Service Date of Service: 02/26/24 Progress Note: A&P Assessment and plan (1) Status post thoracotomy: Status: Acute Plan Chest tube to water seal, a.m. chest x-ray. If all looks good, chest tube removal tomorrow. We will need VNA services upon discharge for chest tube site care Time Spent With Patient Time: Total time managing care of this patient today ____ minutes. Quality Stroke Does the patient have a stroke diagnosis?: No VTE Prior VTE?: No VTE Risk Level:: Medical - moderate - high VTE Device Contraindication: Treatment Not Indicated VTE Drug Contraindication: N/A - Med Ordered
[2024-02-26] MEDS: Heparin Sodium,Porcine 5,000 UNIT/ML VIAL 5000 UNIT SUBCUT (16:03)
[2024-02-26] MEDS: vancomycin HCL 1,500 MG in 0.9 % Sodium Chloride 500 ML 333.33 MG IV (16:54)
[2024-02-26] MEDS: 0.9 % Sodium Chloride 500 ML 20 ML IV (16:54)
[2024-02-26] MEDS: polyethylene glycoL 3350 17 GM POWD.PACK PO (21:46)
[2024-02-27] VITALS (8 sets, daily range): BP systolic 107–143; BP diastolic 57–87; PULSE 72–96; RESP 16–91; TEMP 34.4–36.9; O2SAT 92–94
--- NOTE | 2024-02-27 | ECG_ITS ---
Test Reason : QTC CHECK Blood Pressure : / mmHG Vent. Rate : 075 BPM Atrial Rate : 075 BPM P-R Int : 164 ms QRS Dur : 092 ms QT Int : 458 ms P-R-T Axes : 023 000 -06 degrees QTc Int : 511 ms Normal sinus rhythm Nonspecific T wave abnormality Abnormal ECG When compared with ECG of 24-FEB-2024 06:04, No significant change was found Referred By: Cherelle Brady Electronically Signed By:Joni Arcos
[2024-02-27] MEDS: HYDROmorphone HCl/NS 10 MG/50 ML PIGGYBACK IV (00:16)
[2024-02-27] MEDS: guaiFENesin DM 100/10/5 ML 5 ML SYRUP PO (00:30)
[2024-02-27] MEDS: Acetaminophen 1,000 MG/100 ML PIGGYBACK 400 MG IV ×4 (00:34→18:46)
[2024-02-27] MEDS: Heparin Sodium,Porcine 5,000 UNIT/ML VIAL 5000 UNIT SUBCUT ×2 (02:33→17:05)
[2024-02-27] MEDS: 0.9 % Sodium Chloride Flush 3 ML SYRINGE IVFLUSH ×3 (02:37→17:06)
[2024-02-27] MEDS: vancomycin HCL 1,500 MG in 0.9 % Sodium Chloride 500 ML 333.3 MG IV (04:28)
[2024-02-27] MEDS: Prochlorperazine Edisylate 10 MG/2 ML VIAL 5 MG IVPUSH ×2 (04:37→17:17)
[2024-02-27 06:22] LABS: MANUAL DIFF FLAG NO
--- NOTE | 2024-02-27 06:35 | P.PNGS_ITS ---
Subjective Subjective Date of Service: 02/27/24 <David Garcia - Last Filed: 02/27/24 07:23> 02/27/24 <Pamela Solitario PA-C - Last Filed: 02/27/24 07:39> 02/27/24 <Armando Almazan MD - Last Filed: 02/27/24 10:21> Interval history: No acute overnight events, just expected pain around incision and chest tube. Osmany is breathing with some discomfort, no SOB, mentions occasional non- productive cough. He has some trouble sleeping due to the pain. No significant chest tube output in last 12 hours, chest tube to water seal. Has been OOB to chair through the night but ambulation is limited by tubing. <Daivd Garcia - Last Filed: 02/27/24 07:23> Physical Exam 2 Vital Signs: Vital Signs: Last Vital Signs Temp 97.6 F 02/27/24 03:03 Pulse 85 02/27/24 03:03 Resp 20 02/27/24 03:03 BP 139/84 02/27/24 03:03 Pulse Ox 93 02/27/24 03:03 O2 Del Method Room Air 02/27/24 03:03 O2 Flow Rate 1 02/25/24 23:00 Oxygen Flow Rate 1 02/25/24 17:08 BMI result Body Mass Index 25.7 <David Garcia - Last Filed: 02/27/24 07:23> Const: General: cooperative and no acute distress <David Garcia - Last Filed: 02/27/24 07:23> Orientation/consciousness: patient oriented x3 <David Garcia - Last Filed: 02/27/24 07:23> Chest: Other: Left chest incisions are clean and dry. Appropriately tender. Chest tube with serosanguineous discharge, no air leaks. <David Garcia - Last Filed: 02/27/24 07:23> Other: right chest incisions are clean and dry. Appropriately tender. Chest tube with serosanguineous discharge, no air leaks. <Pamela Solitario PA-C - Last Filed: 02/27/24 07:39> Resp: Effort & Inspection: able to speak in complete sentences and labored <David Garcia - Last Filed: 02/27/24 07:23> Neuro: General: patient oriented x3 <David Garcia - Last Filed: 02/27/24 07:23> Objective Data Active Medications Albuterol Sulfate (Albuterol Sulfate 90 Mcg 8 Gm Inhaler) 2 puff INHALE Q6H PRN PRN Reason: shortness of breath or wheezing Benzonatate (Benzonatate 100 Mg Capsule) 100 mg PO TID [facility] Last Admin: 02/26/24 21:46 Dose: 100 mg Documented By: RUCHI Bisacodyl (Bisacodyl 10 Mg Supp.Rect) 10 mg [place] BEDTIME PRN PRN Reason: Constipation Last Admin: 02/25/24 09:42 Dose: 10 mg Documented By: CYNTHIA Comments: provider made aware of early administration Calcium Carbonate (Calcium Carbonate 750 Mg Tab.Chew) 750 mg PO Q4H PRN PRN Reason: Heartburn Last Admin: 02/19/24 09:35 Dose: 750 mg Documented By: LEONARD Famotidine (Famotidine/Pf 20 Mg/2 Ml Vial) 20 mg IVPUSH DAILY [facility] Last Admin: 02/26/24 08:01 Dose: 20 mg Documented By: MINDY Guaifenesin/Dextromethorphan (Guaifenesin Dm 100/10/5 Ml 5 Ml Syrup) 5 ml PO Q6H PRN PRN Reason: Cough Last Admin: 02/27/24 00:30 Dose: 5 ml Documented By: RUCHI Heparin Sodium (Porcine) (Heparin Sodium,Porcine 5,000 Unit/Ml Vial) 5,000 unit SUBCUT Q12H [facility] Last Admin: 02/27/24 02:33 Dose: 5,000 unit Documented By: RUCHI Hydromorphone HCl (Dilaudid) 10 mg in 50 mls @ 0 mls/hr IV .Q0M [facility]; Protocol Last Admin: 02/27/24 00:16 Dose: 0.1 mg/hr, 0.5 mls/hr Documented By: RUCHI Sodium Chloride (Ns) 500 mls @ 20 mls/hr IV .Q24H [facility] Last Admin: 02/26/24 16:54 Dose: 20 mls/hr Documented By: MINDY Acetaminophen (Ofirmev) 1,000 mg in 100 mls @ 400 mls/hr IV Q6H [facility] Last Infusion: 02/27/24 02:40 Dose: Infused Documented By: RUCHI Vancomycin HCl 1,500 mg/ (Sodium Chloride) 500 mls @ 333.333 mls/hr IV Q12H [facility] Last Admin: 02/27/24 04:28 Dose: 333.3 mls/hr Documented By: RUCHI Magnesium Hydroxide (Milk Of Magnesia 30 Ml Oral.Susp) 30 ml PO DAILY PRN PRN Reason: Constipation Last Admin: 02/25/24 15:43 Dose: 30 ml Documented By: CYNTHIA Melatonin (Melatonin 3 Mg Tablet) 6 mg PO BEDTIME PRN PRN Reason: Insomnia Last Admin: 02/19/24 22:36 Dose: 6 mg Documented By: SNOW Methadone HCl (Methadone Hcl 20 Mg/2 Ml Oral.Conc) 100 mg PO DAILY [facility] Last Admin: 02/26/24 08:01 Dose: 100 mg Documented By: MINDY Naloxone HCl (Naloxone Hcl 0.4 Mg/Ml Vial) 0.2 mg IVPUSH Q2M PRN PRN Reason: Excessive sedation or RR < 8 Pharmacy Consult (Consult Rx Vancomycin Dosing) 1 each MISCELLANE DAILY PRN PRN Reason: Consult order Polyethylene Glycol (Polyethylene Glycol 3350 17 Gm Powd.Pack) 17 gm PO BID [facility] Last Admin: 02/26/24 21:46 Dose: 17 gm Documented By: RUCHI Prochlorperazine Edisylate (Prochlorperazine Edisylate 10 Mg/2 Ml Vial) 5 mg IVPUSH Q4H PRN PRN Reason: Nausea and Vomiting Last Admin: 02/27/24 04:37 Dose: 5 mg Documented By: RUCHI Senna (Sennosides 8.6 Mg Tablet) 8.6 mg PO BEDTIME [facility] Last Admin: 02/26/24 21:46 Dose: Not Given Documented By: RUCHI Non-Admin Reason: Patient Refused Sodium Chloride (0.9 % Sodium Chloride Flush 3 Ml Syringe) 3 ml IVFLUSH QSHIFT [facility] Last Admin: 02/27/24 02:37 Dose: 3 ml Documented By: RUCHI <David Garcia - Last Filed: 02/27/24 07:23> Labs CBC & Chem 7: 02/27/24 06:17 02/27/24 06:17 <David Garcia - Last Filed: 02/27/24 07:23> Labs: Laboratory Results - last 24 hr 02/26/24 02/26/24 02/26/24 06:01 13:03 15:10 MCV 82.9 MCH 27.1 MCHC 32.7 RDW 14.6 Plt Count 318 D MPV 11.2 Absolute Nucleated RBC 0.000 Nucleated RBC % (auto) 0.0 Estim Creat Clear Calc 157.7 Estimated GFR > 60 Random Vancomycin 14.0 L <David Garcia - Last Filed: 02/27/24 07:23> Microbiology Microbiology Results: Microbiology 02/22/24 14:28 Gram Stain - Final Back Routine Culture - Final Methicillin Res Staph Aureus Anaerobic Culture - Preliminary Culture in progress. <David Garcia - Last Filed: 02/27/24 07:23> Procedures Date of Service Date of Service: 02/27/24 <David Garcia - Last Filed: 02/27/24 07:23> 02/27/24 <Pamela Solitario PA-C - Last Filed: 02/27/24 07:39> 02/27/24 <Armando Almazan MD - Last Filed: 02/27/24 10:21> Progress Note: A&P Assessment and plan (1) Status post thoracotomy: Status: Acute <David Garcia - Last Filed: 02/27/24 07:23> (2) Empyema lung: Status: Acute <David Garcia - Last Filed: 02/27/24 07:23> Assessment and Plan: POD3 s/p empyemectomy/decortication. Osmany has some expected respiratory difficulties and pain, but is overall doing well. Chest tube w/ no new recent output. Chest X-ray appears improved, persistent small pleural effusion. D/c chest tube at this time. D/c NON DESTRUCTIVE EVALUATION TECHNICIAN and transition to prn analgesics. Encourage OOB and spirometer. <David Garcia - Last Filed: 02/27/24 07:23> POD3 s/p empyemectomy/decortication. Osmany has some expected respiratory difficulties and pain, but is overall doing well. Chest tube w/ no new recent output. Chest X-ray appears improved, persistent small pleural effusion. D/c chest tube at this time. D/c NON DESTRUCTIVE EVALUATION TECHNICIAN and transition to prn analgesics. Encourage OOB and spirometer. POD# 3 s/p right thoracotomy, empyemectomy/decortication. Doing fairly well post operatively, off supplemental O2. Chest tube to water seal yesterday, scant output, small air leak on exam this morning. CXR with good aeration this morning, very small effusion. Will return to remove one chest tube. Dc NON DESTRUCTIVE EVALUATION TECHNICIAN, transition to PRN analgesics. Continue OOB and incentive spirometer. <Pamela Solitario PA-C - Last Filed: 02/27/24 07:39> POD3 s/p empyemectomy/decortication. Osmany has some expected respiratory difficulties and pain, but is overall doing well. Chest tube w/ no new recent output. Chest X-ray appears improved, persistent small pleural effusion. D/c chest tube at this time. D/c NON DESTRUCTIVE EVALUATION TECHNICIAN and transition to prn analgesics. Encourage OOB and spirometer. POD# 3 s/p right thoracotomy, empyemectomy/decortication. Doing fairly well post operatively, off supplemental O2. Chest tube to water seal yesterday, scant output, small air leak on exam this morning. CXR with good aeration this morning, very small effusion. Will return to remove one chest tube. Dc NON DESTRUCTIVE EVALUATION TECHNICIAN, transition to PRN analgesics. Continue OOB and incentive spirometer. To remove both chest tubes placed <Armando Almazan MD - Last Filed: 02/27/24 10:21> Time Spent With Patient Time: Total time managing care of this patient today ____ minutes. <David Garcia - Last Filed: 02/27/24 07:23> Quality Stroke Does the patient have a stroke diagnosis?: No <David Garcia - Last Filed: 02/27/24 07:23> VTE Prior VTE?: No <David Garcia - Last Filed: 02/27/24 07:23> VTE Risk Level:: Medical - moderate - high <David Garcia - Last Filed: 02/27/24 07:23> VTE Device Contraindication: Treatment Not Indicated <David Garcia - Last Filed: 02/27/24 07:23> VTE Drug Contraindication: N/A - Med Ordered <David Garcia - Last Filed: 02/27/24 07:23>
[2024-02-27 06:50] LABS: Anion Gap 12 (12-20); Blood Urea Nitrogen 6 mg/dL (9-16); Calcium 8.6 mg/dL (8.4-10.2); Carbon Dioxide 28 mmol/L (22-29); Chloride 100 mmol/L (96-108); Creatinine Clr Calc Pharmacy 143.9; Estimated Glomerular Filt Rate > 60; Glucose Random 102 mg/dL (60-115); Potassium 3.4 mmol/L (3.3-5.1); Sodium 137 mmol/L (135-145)
[2024-02-27 06:58] LABS: Basophils Percent Auto 0.3 % (0-2); Eosinophils Absolute Auto 0.2 X10*3/uL (0.0-0.4); Eosinophils Percent Auto 1.9 % (0-4); Hematocrit 26.7 % (42.0-52.0); Hemoglobin 8.7 g/dl (14.0-18.0); Lymphocytes Absolute Auto 2.3 X10*3/uL (1.2-4.9); Lymphocytes Percent Auto 23.8 % (20-40); Mean Corpuscular HGB Conc 32.6 g/dl (31.0-36.0); Mean Corpuscular Hemoglobin 27.2 pg (27.0-33.0); Mean Corpuscular Volume 83.4 fL (80.0-98.0); Mean Platelet Volume 10.5 fL (9.4-12.4); Monocytes Absolute Auto 0.6 X10*3/uL (0.1-1.2); Monocytes Percent Auto 6.6 % (2-11); Neutrophils Absolute Auto 6.3 x10*3/uL (2.0-8.3); Neutrophils Percent Auto 66.4 % (45-73); Platelet Count 386 X10*3/uL (160-400); Red Cell Distribution Width 14.6 % (11.0-16.0); White Blood Count 9.5 X10*3/uL (4.8-10.8)
[2024-02-27 07:01] LABS: Free T4 (Free Thyroxine) 1.38 ng/dL (0.71-1.85)
[2024-02-27] MEDS: methADONE HCl 20 MG/2 ML ORAL.CONC 100 MG PO (09:15)
[2024-02-27] MEDS: Famotidine/PF 20 MG/2 ML VIAL IVPUSH (09:16)
[2024-02-27] MEDS: Benzonatate 100 MG CAPSULE PO ×3 (09:20→20:59)
--- NOTE | 2024-02-27 11:38 | MHC.CM.PN ---
EMR REVIEWED, PT POD3 THORECTOMY/EMPYEMECTOMY/DECORTCATION, TPER SURGICAL NOTE PLAN FOR REMOVAL AT LEAST 1/2 CHEST TUBES, CULTERES + MRSA, ANTIC PT WILL NOT BE CLEARED FOR DC FOR ANOTHER 1-2 DAYS PER HOSPITALIST, CM WILL CONT TO FOLLOW DC NEEDS.
--- NOTE | 2024-02-27 13:23 | P.PNADD_ITS ---
Subjective Subjective Date of Service: 02/27/24 Reason For Visit: Right mid back pain Interim History: Patient seen in follow up reports feeling much better now that chest tubes have been removed reporting some difficult sleeping with decrease in methadone dose Review of Systems Acute medical concerns: Yes Review of Systems Constitutional: Reports as per HPI Mental Status Exam Mental Status Exam Patient Appearance: Appropriate Level of Consciousness: Awake, Appropriate and Alert Patient Behavior: Appropriate and Talkative Diagnostics Vital Signs (24Hr): Vital Signs - 24 hr 02/26/24 14:55 02/26/24 16:16 02/26/24 17:00 Temperature 97.5 F Pulse Rate 77 85 Respiratory Rate 20 16 Blood Pressure 127/70 144/90 H Pulse Oximetry 92 94 90 L Oxygen Delivery Method Room Air Room Air Room Air 02/26/24 17:00 02/26/24 19:11 02/26/24 23:30 Temperature 97.8 F 97.4 F Pulse Rate 85 80 90 Respiratory Rate 16 20 20 Blood Pressure 144/90 H 137/76 146/95 H Pulse Oximetry 90 L 92 Oxygen Delivery Method Room Air Room Air Room Air 02/27/24 00:00 02/27/24 03:03 02/27/24 07:24 Temperature 98.4 F 97.6 F 94 F L Pulse Rate 96 85 75 Respiratory Rate 91 H 20 20 Blood Pressure 130/87 139/84 143/75 H Pulse Oximetry 92 93 94 Oxygen Delivery Method Room Air Room Air Room Air 02/27/24 09:51 02/27/24 12:00 Temperature 97 F 96.8 F Pulse Rate 82 83 Respiratory Rate 20 20 Blood Pressure 125/84 124/80 Pulse Oximetry 94 93 Oxygen Delivery Method Room Air Room Air BMI result Body Mass Index 25.7 Labs 02/28/24 13:41 02/28/24 13:41 Labs: Laboratory Results - last 48 hr 02/25/24 02/26/24 02/26/24 15:01 06:01 13:03 WBC 12.0 H RBC 3.21 L Hgb 8.7 L Hct 26.6 L MCV 82.9 MCH 27.1 MCHC 32.7 RDW 14.6 Plt Count 318 D MPV 11.2 Immature Gran % (Auto) Neut % (Auto) Lymph % (Auto) Sampson % (Auto) Eos % (Auto) Baso % (Auto) Lymph # (Auto) Sampson # (Auto) Eos # (Auto) Baso # (Auto) Abs Immat Gran (auto) Absolute Neuts (auto) Absolute Nucleated RBC 0.000 Nucleated RBC % (auto) 0.0 Sodium Potassium Chloride Carbon Dioxide Anion Gap BUN Creatinine 0.63 Estim Creat Clear Calc 157.7 Estimated GFR > 60 Random Glucose Calcium Free T4 Random Vancomycin 13.4 L 02/26/24 02/27/24 15:10 06:17 WBC 9.5 RBC 3.20 L Hgb 8.7 L Hct 26.7 L MCV 83.4 MCH 27.2 MCHC 32.6 RDW 14.6 Plt Count 386 MPV 10.5 Immature Gran % (Auto) 1.0 H Neut % (Auto) 66.4 Lymph % (Auto) 23.8 Sampson % (Auto) 6.6 Eos % (Auto) 1.9 Baso % (Auto) 0.3 Lymph # (Auto) 2.3 Sampson # (Auto) 0.6 Eos # (Auto) 0.2 Baso # (Auto) 0.0 Abs Immat Gran (auto) 0.10 H Absolute Neuts (auto) 6.3 Absolute Nucleated RBC 0.000 Nucleated RBC % (auto) 0.0 Sodium 137 Potassium 3.4 Chloride 100 Carbon Dioxide 28 Anion Gap 12 BUN 6 L Creatinine 0.69 Estim Creat Clear Calc 143.9 Estimated GFR > 60 Random Glucose 102 Calcium 8.6 Free T4 1.38 Random Vancomycin 14.0 L Imaging Radiology Impressions: ITS Impressions Abdomen/Pelvis CT 02/18/24 11:05 IMPRESSION: * Compared to 01/17/2024, there appears to be new articular surface irregularity at the costotransverse junction of the right 10th rib and mild osseous fragmentation of the transverse process. In this region, there is a circumscribed fluid collection (as well as gas bubbles) in the paraspinal tissues and fluid filling the posterior pleural space of the right hemithorax. The loculated collection exerts mass effect upon the right lower lobe. Consider possibility that infection has arisen out of the area of the right 10th costotransverse junction. Alternatively, if this patient had recent pneumonia, then there could have been development of a large empyema and decompression into the posterior paraspinal tissues. * Diffuse hepatic steatosis and hepatosplenomegaly. * Small stone in the lower pole the right kidney. No ureteral stones or hydroureteronephrosis. Chest CT 02/18/24 11:05 IMPRESSION: * Compared to 01/17/2024, there appears to be new articular surface irregularity at the costotransverse junction of the right 10th rib and mild osseous fragmentation of the transverse process. In this region, there is a circumscribed fluid collection (as well as gas bubbles) in the paraspinal tissues and fluid filling the posterior pleural space of the right hemithorax. The loculated collection exerts mass effect upon the right lower lobe. Consider possibility that infection has arisen out of the area of the right 10th costotransverse junction. Alternatively, if this patient had recent pneumonia, then there could have been development of a large empyema and decompression into the posterior paraspinal tissues. * Diffuse hepatic steatosis and hepatosplenomegaly. * Small stone in the lower pole the right kidney. No ureteral stones or hydroureteronephrosis. Chest X-Ray 02/18/24 17:58 IMPRESSION: 1. Right internal jugular central venous catheter in good position. No pneumothorax. 2. Right lung base empyema. Thoracentesis/Paracentesis US 02/20/24 10:30 Impression: Ultrasound-guided right chest tube placement yielding thick purulent fluid. This procedures performed by Curt Montemayor PA-C and supervised by Dr. Boo. Chest X-Ray 02/21/24 05:49 IMPRESSION: Decrease in size of right pleural effusion/empyema with chest tube in place. No pneumothorax. Chest X-Ray 02/22/24 08:50 IMPRESSION: No significant pleural effusion is seen. Right-sided pigtail catheter is unchanged in position. Chest X-Ray 02/23/24 05:58 IMPRESSION: Two pigtail catheters overlying the right lung base, one of which is new compared to prior. Residual small right pleural effusion suspected along with adjacent basilar opacity. Chest CT 02/23/24 15:51 IMPRESSION: 1. Marked interval decrease in size of the right pleural empyema. There is a residual loculated empyema more superiorly from the drainage catheter which could represent undrained segments of the empyema. 2. No significant residual fluid around the drainage catheter in the subcutaneous soft tissues of the right posterior chest wall. There is however still an undrained paraspinal musculature abscess more medially although this is decreased in size. 3. Improved aeration within the right lower lobe with patchy areas of atelectasis and airspace opacity. Increased peribronchial vascular groundglass opacities within the right middle lobe compared to the prior exam. 4. Diffuse lymphadenopathy throughout the mediastinum and bilateral carmenza. Chest X-Ray 02/24/24 17:25 IMPRESSION: 1. Air collection under right hemidiaphragm versus subpulmonic air consistent with recent surgery. 2. 2 right-sided chest tubes in place. 3. Bibasilar airspace disease. Chest X-Ray 02/25/24 07:20 IMPRESSION: 1. There is subdiaphragmatic lucency under the right hemidiaphragm raising the suspicion for potential extraluminal intra-abdominal free air, recommend correlation with clinical symptoms and CT abdomen and pelvis could be confirmatory if warranted. 2. Similar moderate left and small right pleural effusions with patchy multifocal parenchymal airspace opacities possibly slightly increased in the right upper lobe with respect to prior. 3. Right-sided thoracostomy tubes in similar alignment. Similar right chest wall subcutaneous emphysema. The findings and recommendations were discussed with Hannah العلي by telephone at 02/25/2024 4:29 PM and it was ascertained that the content and urgency of the report was understood at the time of direct communication. Chest X-Ray 02/27/24 05:52 IMPRESSION: 1. Redemonstrated lucency at the right lung base, for which it is difficult with certainty whether this represents a basilar pneumothorax versus intra-abdominal free air. 2. Persistent heterogeneous opacity in the mid to lower right lung along with small pleural effusion, similar to prior. Medications Medications Current Medications Albuterol Sulfate (Albuterol Sulfate 90 Mcg 8 Gm Inhaler) 2 puff INHALE Q6H PRN PRN Reason: shortness of breath or wheezing Benzonatate (Benzonatate 100 Mg Capsule) 100 mg PO TID [place] Last Admin: 02/27/24 09:20 Dose: 100 mg Bisacodyl (Bisacodyl 10 Mg Supp.Rect) 10 mg [place] BEDTIME PRN PRN Reason: Constipation Last Admin: 02/25/24 09:42 Dose: 10 mg Calcium Carbonate (Calcium Carbonate 750 Mg Tab.Chew) 750 mg PO Q4H PRN PRN Reason: Heartburn Last Admin: 02/19/24 09:35 Dose: 750 mg Famotidine (Famotidine/Pf 20 Mg/2 Ml Vial) 20 mg IVPUSH DAILY [facility] Last Admin: 02/27/24 09:16 Dose: 20 mg Guaifenesin/Dextromethorphan (Guaifenesin Dm 100/10/5 Ml 5 Ml Syrup) 5 ml PO Q6H PRN PRN Reason: Cough Last Admin: 02/27/24 00:30 Dose: 5 ml Heparin Sodium (Porcine) (Heparin Sodium,Porcine 5,000 Unit/Ml Vial) 5,000 unit SUBCUT Q12H [facility] Last Admin: 02/27/24 02:33 Dose: 5,000 unit Hydromorphone HCl (Hydromorphone Hcl 1 Mg/Ml Syringe) 1 mg IVPUSH Q3H PRN; Protocol PRN Reason: Pain, Severe (Pain Scale 7-10) Acetaminophen (Ofirmev) 1,000 mg in 100 mls @ 400 mls/hr IV Q6H [facility] Last Admin: 02/27/24 06:35 Dose: 400 mls/hr Vancomycin HCl 1,500 mg/ (Sodium Chloride) 500 mls @ 333.333 mls/hr IV Q12H [facility] Last Admin: 02/27/24 04:28 Dose: 333.3 mls/hr Magnesium Hydroxide (Milk Of Magnesia 30 Ml Oral.Susp) 30 ml PO DAILY PRN PRN Reason: Constipation Last Admin: 02/25/24 15:43 Dose: 30 ml Melatonin (Melatonin 3 Mg Tablet) 6 mg PO BEDTIME PRN PRN Reason: Insomnia Last Admin: 02/19/24 22:36 Dose: 6 mg Methadone HCl (Methadone Hcl 20 Mg/2 Ml Oral.Conc) 100 mg PO DAILY [facility] Last Admin: 02/27/24 09:15 Dose: 100 mg Naloxone HCl (Naloxone Hcl 0.4 Mg/Ml Vial) 0.2 mg IVPUSH Q2M PRN PRN Reason: Excessive sedation or RR < 8 Oxycodone HCl (Oxycodone Hcl Immed Release 5 Mg Tablet) 10 mg PO Q4H PRN PRN Reason: Pain, Moderate(Pain Scale 4-6) Pharmacy Consult (Consult Rx Vancomycin Dosing) 1 each MISCELLANE DAILY PRN PRN Reason: Consult order Polyethylene Glycol (Polyethylene Glycol 3350 17 Gm Powd.Pack) 17 gm PO BID [facility] Last Admin: 02/27/24 09:32 Dose: Not Given Prochlorperazine Edisylate (Prochlorperazine Edisylate 10 Mg/2 Ml Vial) 5 mg IVPUSH Q4H PRN PRN Reason: Nausea and Vomiting Last Admin: 02/27/24 04:37 Dose: 5 mg Senna (Sennosides 8.6 Mg Tablet) 8.6 mg PO BEDTIME [facility] Last Admin: 02/26/24 21:46 Dose: Not Given Sodium Chloride (0.9 % Sodium Chloride Flush 3 Ml Syringe) 3 ml IVFLUSH QSHIFT [facility] Last Admin: 02/27/24 09:20 Dose: 3 ml Allergies Allergies Allergy/AdvReac Type Severity Reaction Status Date / Time bee pollen [BEE STINGS] Allergy Intermediate HIVES Verified 02/24/24 13:42 Penicillins Allergy Mild UNKNOWN Verified 02/24/24 13:42 penicillin V Allergy Unknown unknown Verified 02/24/24 13:42 SANJAY DELIGHT Allergy Mild HIVES Uncoded 02/24/24 13:42 Assessment & Plan Assessment & Plan (1) Opioid use disorder: Status: Acute Code(s): F11.90 - Opioid use, unspecified, uncomplicated Assessment and Plan: * follow up EKG--if no issues dose can be increaed back to 140mg Total time managing care of this patient today __15__ minutes.
--- NOTE | 2024-02-27 14:53 | HO.PM.IMPN ---
Subjective Subjective Date of Service: 02/27/24 Interval History: pain control adequate except at night when he has difficulty sleeping no dyspnea no fever Thoracic Surgery to remove chest tubes today Review of Systems Review of Systems: Yes all other systems are reviewed and are negative Physical Exam Vital Signs: Vital Signs: Last Vital Signs Temp 96.8 F 02/27/24 12:00 Pulse 83 02/27/24 12:00 Resp 20 02/27/24 12:00 BP 124/80 02/27/24 12:00 Pulse Ox 93 02/27/24 12:00 O2 Del Method Room Air 02/27/24 12:00 O2 Flow Rate 1 02/25/24 23:00 Oxygen Flow Rate 1 02/25/24 17:08 BMI result Body Mass Index 25.7 Gen: in no acute distress HEENT: sclera anicteric, moist mucus membranes Neck: supple Lungs: diminished on R, chest tubes to water seal x2 without air leak Heart: regular rate and rhythm, no murmurs Abd: soft, non-tender, non-distended Ext: no edema Skin: warm/well-perfused Neuro: alert and oriented x3, no focal findings Psych: appropriate affect Objective Data Active Medications Albuterol Sulfate (Albuterol Sulfate 90 Mcg 8 Gm Inhaler) 2 puff INHALE Q6H PRN PRN Reason: shortness of breath or wheezing Benzonatate (Benzonatate 100 Mg Capsule) 100 mg PO TID [facility] Last Admin: 02/27/24 09:20 Dose: 100 mg Documented By: FLY Bisacodyl (Bisacodyl 10 Mg Supp.Rect) 10 mg [place] BEDTIME PRN PRN Reason: Constipation Last Admin: 02/25/24 09:42 Dose: 10 mg Documented By: CYNTHIA Comments: provider made aware of early administration Calcium Carbonate (Calcium Carbonate 750 Mg Tab.Chew) 750 mg PO Q4H PRN PRN Reason: Heartburn Last Admin: 02/19/24 09:35 Dose: 750 mg Documented By: LEONARD Famotidine (Famotidine/Pf 20 Mg/2 Ml Vial) 20 mg IVPUSH DAILY [facility] Last Admin: 02/27/24 09:16 Dose: 20 mg Documented By: FLY Guaifenesin/Dextromethorphan (Guaifenesin Dm 100/10/5 Ml 5 Ml Syrup) 5 ml PO Q6H PRN PRN Reason: Cough Last Admin: 02/27/24 00:30 Dose: 5 ml Documented By: RUCHI Heparin Sodium (Porcine) (Heparin Sodium,Porcine 5,000 Unit/Ml Vial) 5,000 unit SUBCUT Q12H [facility] Last Admin: 02/27/24 02:33 Dose: 5,000 unit Documented By: RUCHI Hydromorphone HCl (Hydromorphone Hcl 1 Mg/Ml Syringe) 1 mg IVPUSH Q3H PRN; Protocol PRN Reason: Pain, Severe (Pain Scale 7-10) Acetaminophen (Ofirmev) 1,000 mg in 100 mls @ 400 mls/hr IV Q6H [facility] Last Admin: 02/27/24 13:40 Dose: 400 mls/hr Documented By: FLY Vancomycin HCl 1,500 mg/ (Sodium Chloride) 500 mls @ 333.333 mls/hr IV Q12H [facility] Last Infusion: 02/27/24 06:00 Dose: Infused Documented By: SINDI Magnesium Hydroxide (Milk Of Magnesia 30 Ml Oral.Susp) 30 ml PO DAILY PRN PRN Reason: Constipation Last Admin: 02/25/24 15:43 Dose: 30 ml Documented By: CYNTHIA Melatonin (Melatonin 3 Mg Tablet) 6 mg PO BEDTIME PRN PRN Reason: Insomnia Last Admin: 02/19/24 22:36 Dose: 6 mg Documented By: SNOW Methadone HCl (Methadone Hcl 20 Mg/2 Ml Oral.Conc) 100 mg PO DAILY [facility] Last Admin: 02/27/24 09:15 Dose: 100 mg Documented By: FLY Naloxone HCl (Naloxone Hcl 0.4 Mg/Ml Vial) 0.2 mg IVPUSH Q2M PRN PRN Reason: Excessive sedation or RR < 8 Oxycodone HCl (Oxycodone Hcl Immed Release 5 Mg Tablet) 10 mg PO Q4H PRN PRN Reason: Pain, Moderate(Pain Scale 4-6) Pharmacy Consult (Consult Rx Vancomycin Dosing) 1 each MISCELLANE DAILY PRN PRN Reason: Consult order Polyethylene Glycol (Polyethylene Glycol 3350 17 Gm Powd.Pack) 17 gm PO BID [facility] Last Admin: 02/27/24 09:32 Dose: Not Given Documented By: FLY Non-Admin Reason: Patient Refused Prochlorperazine Edisylate (Prochlorperazine Edisylate 10 Mg/2 Ml Vial) 5 mg IVPUSH Q4H PRN PRN Reason: Nausea and Vomiting Last Admin: 02/27/24 04:37 Dose: 5 mg Documented By: RUCHI Senna (Sennosides 8.6 Mg Tablet) 8.6 mg PO BEDTIME [facility] Last Admin: 02/26/24 21:46 Dose: Not Given Documented By: RUCHI Non-Admin Reason: Patient Refused Sodium Chloride (0.9 % Sodium Chloride Flush 3 Ml Syringe) 3 ml IVFLUSH QSHIFT [facility] Last Admin: 02/27/24 09:20 Dose: 3 ml Documented By: FLY Labs 02/27/24 06:17 02/27/24 06:17 Labs: Laboratory Results - last 24 hr 02/26/24 02/27/24 15:10 06:17 MCV 83.4 MCH 27.2 MCHC 32.6 RDW 14.6 Plt Count 386 MPV 10.5 Immature Gran % (Auto) 1.0 H Neut % (Auto) 66.4 Lymph % (Auto) 23.8 [place] % (Auto) 6.6 Eos % (Auto) 1.9 Baso % (Auto) 0.3 Lymph # (Auto) 2.3 [place] # (Auto) 0.6 Eos # (Auto) 0.2 Baso # (Auto) 0.0 Abs Immat Gran (auto) 0.10 H Absolute Neuts (auto) 6.3 Absolute Nucleated RBC 0.000 Nucleated RBC % (auto) 0.0 Anion Gap 12 Estim Creat Clear Calc 143.9 Estimated GFR > 60 Random Glucose 102 Calcium 8.6 Free T4 1.38 Random Vancomycin 14.0 L Microbiology Microbiology Results: Microbiology 02/22/24 14:28 Gram Stain - Final Back Routine Culture - Final Methicillin Res Staph Aureus Anaerobic Culture - Final Assessment and Plan (1) Empyema lung: Status: Acute Plan d10 43yo M with mild intermittent asthma, OUD on methadone, recent acute pyelonephritis treated with cephalexin presenting with 2 wk hx of R upper back pain radiating to chest with chills, weight loss, and dyspnea found to have large right empyema sepsis due to R-sided empyema - 02/20/24 drainage + chest tube placement - 02/22/24 repeat IR drainage for persistent fluid collection - 02/24/24 VATS converted to mini-thoracotomy, decortication with empyemectomy, pneumonolysis, and intercostal nerve block + bronchoscopy - chest tubes out today per Dr Almazan, CXR afterwards - currently on vancomycin IV; per ID eventually to d/c on PO linezolid 600 mg bid x2-4 wk with outpt f/u to determine final duration - transition from hydromorphone [employer] to IV pushes acute hypoxic resp failure - weaned off O2 acute/chronic anemia - due to infection + iron deficiency; will place on iron supplement upon discharge home coagulopathy - due to poor nutrition; treated with vitamin K; recheck INR hyponatremia - resolved after IV fluids sick euthyroid syndrome - repeat TFTs in 6 wk OUD - methadone dose decreased 50% due to increased QTc + bradycardia; increased back to 100 mg daily 02/26/24; hold off on increase to usual dose of 140 mg daily pending improvement in QTc polysubstane abuse disorder - Addiction Medicine consulted; not interested in referrals for other support; screen HBV/HCV/HIV mild intermittent asthma - prn albuterol VTE ppx - UFH dispo - eventual home In my clinical judgment, the patient requires continued inpatient hospitalization for the following reasons: IV ABX, postop care Total time managing care of this patient today: 45 minutes. Quality Stroke Does the patient have a stroke diagnosis?: No VTE Prior VTE?: No VTE Risk Level:: Medical - moderate - high VTE Device Contraindication: Treatment Not Indicated VTE Drug Contraindication: N/A - Med Ordered
--- NOTE | 2024-02-27 16:35 | P.CNID_ITS ---
History of Present Illness Data of Consult Service Date: 02/27/24 Requesting physician: Cherelle Brady Primary Care Provider: Sushma Marroquin MD [facility] Reason for consult: right pleural empyema He presents with right mid back pain for a week. He has right empyema. He has MRSA. Review of Systems 2 Review of Systems: Yes all other systems are reviewed and are negative PMFSH Past Medical History Medical History Kidney stones Crack cocaine use Heroin abuse Drug abuse Social History Social History Household Members: Family Housing: House Comment: pt refusing alarms; educated to call before getting up Patient Tobacco Use Status: Never used Tobacco Smoked in Last 30 Days: No e-Cigarette/Vaping Use: Never Used Use of substances other than those prescribed or required for medical reasons: Yes Substance Use Type: Crack/Cocaine Currently Displaying Signs/Symptoms of Drug Intoxication Withdrawal: No Have you been hit, kicked, punched, or otherwise hurt by someone within the past year? If so, by whom?: No Do you feel safe in your current relationship?: No Current Relationship Is there a partner from a previous relationship who is making you feel unsafe now?: No Are you made to feel afraid or neglected: No Are you DNR?: No Advance Directives: No Advance Directives Information Provided: No Do you have a plan to hurt others: No Plan Recently lost weight without trying: Yes How much weight loss: 2-13 pounds Eating poorly because of decreased appetite: Yes Nutrition screen score: 4 Nutrition Risks: Anorexia Poor oral hygiene: No service: No Current occupational status: unemployed Cognitive needs: No Hearing needs: No Vision needs: No Meds Allergies Allergy/AdvReac Type Severity Reaction Status Date / Time bee pollen [BEE STINGS] Allergy Intermediate HIVES Verified 02/24/24 13:42 Penicillins Allergy Mild UNKNOWN Verified 02/24/24 13:42 penicillin V Allergy Unknown unknown Verified 02/24/24 13:42 SANJAY DELIGHT Allergy Mild HIVES Uncoded 02/24/24 13:42 Active Medications: Current Medications Albuterol Sulfate (Albuterol Sulfate 90 Mcg 8 Gm Inhaler) 2 puff INHALE Q6H PRN PRN Reason: shortness of breath or wheezing Benzonatate (Benzonatate 100 Mg Capsule) 100 mg PO TID [facility] Last Admin: 02/27/24 09:20 Dose: 100 mg Bisacodyl (Bisacodyl 10 Mg Supp.Rect) 10 mg [place] BEDTIME PRN PRN Reason: Constipation Last Admin: 02/25/24 09:42 Dose: 10 mg Calcium Carbonate (Calcium Carbonate 750 Mg Tab.Chew) 750 mg PO Q4H PRN PRN Reason: Heartburn Last Admin: 02/19/24 09:35 Dose: 750 mg Famotidine (Famotidine/Pf 20 Mg/2 Ml Vial) 20 mg IVPUSH DAILY [facility] Last Admin: 02/27/24 09:16 Dose: 20 mg Guaifenesin/Dextromethorphan (Guaifenesin Dm 100/10/5 Ml 5 Ml Syrup) 5 ml PO Q6H PRN PRN Reason: Cough Last Admin: 02/27/24 00:30 Dose: 5 ml Heparin Sodium (Porcine) (Heparin Sodium,Porcine 5,000 Unit/Ml Vial) 5,000 unit SUBCUT Q12H [facility] Last Admin: 02/27/24 02:33 Dose: 5,000 unit Hydromorphone HCl (Hydromorphone Hcl 1 Mg/Ml Syringe) 1 mg IVPUSH Q3H PRN; Protocol PRN Reason: Pain, Severe (Pain Scale 7-10) Acetaminophen (Ofirmev) 1,000 mg in 100 mls @ 400 mls/hr IV Q6H [facility] Last Admin: 02/27/24 13:40 Dose: 400 mls/hr Vancomycin HCl 1,500 mg/ (Sodium Chloride) 500 mls @ 333.333 mls/hr IV Q12H [facility] Last Infusion: 02/27/24 06:00 Dose: Infused Magnesium Hydroxide (Milk Of Magnesia 30 Ml Oral.Susp) 30 ml PO DAILY PRN PRN Reason: Constipation Last Admin: 02/25/24 15:43 Dose: 30 ml Melatonin (Melatonin 3 Mg Tablet) 6 mg PO BEDTIME PRN PRN Reason: Insomnia Last Admin: 02/19/24 22:36 Dose: 6 mg Methadone HCl (Methadone Hcl 20 Mg/2 Ml Oral.Conc) 100 mg PO DAILY [facility] Last Admin: 02/27/24 09:15 Dose: 100 mg Naloxone HCl (Naloxone Hcl 0.4 Mg/Ml Vial) 0.2 mg IVPUSH Q2M PRN PRN Reason: Excessive sedation or RR < 8 Oxycodone HCl (Oxycodone Hcl Immed Release 5 Mg Tablet) 10 mg PO Q4H PRN PRN Reason: Pain, Moderate(Pain Scale 4-6) Pharmacy Consult (Consult Rx Vancomycin Dosing) 1 each MISCELLANE DAILY PRN PRN Reason: Consult order Polyethylene Glycol (Polyethylene Glycol 3350 17 Gm Powd.Pack) 17 gm PO BID [facility] Last Admin: 02/27/24 09:32 Dose: Not Given Prochlorperazine Edisylate (Prochlorperazine Edisylate 10 Mg/2 Ml Vial) 5 mg IVPUSH Q4H PRN PRN Reason: Nausea and Vomiting Last Admin: 02/27/24 04:37 Dose: 5 mg Senna (Sennosides 8.6 Mg Tablet) 8.6 mg PO BEDTIME [facility] Last Admin: 02/26/24 21:46 Dose: Not Given Sodium Chloride (0.9 % Sodium Chloride Flush 3 Ml Syringe) 3 ml IVFLUSH QSMDFT [facility] Last Admin: 02/27/24 09:20 Dose: 3 ml Home Medications ?Medication ?Instructions ?Recorded ?Confirmed ?Last Taken ?Type methadone 10 mg/5 mL oral solution 140 mg PO DAILY 08/06/21 02/19/24 02/18/24 08:19 History 140 mg Physical Exam 2 Vital Signs: Vital Signs: Last Vital Signs Temp 97.0 F 02/27/24 15:01 Pulse 72 02/27/24 15:01 Resp 16 02/27/24 15:01 BP 107/59 L 02/27/24 15:01 Pulse Ox 93 02/27/24 15:01 O2 Del Method Room Air 02/27/24 15:01 O2 Flow Rate 1 02/25/24 23:00 Oxygen Flow Rate 1 02/25/24 17:08 BMI result Body Mass Index 25.7 Const: General: cooperative HEENT: Head: Yes normal to inspection Face and sinus: Yes normal facial exam Mouth: Normal oral and palatal mucosa present Teeth and gingiva: d entition normal Eyes: General: appearance normal, both eyes and all related structures P upils: Equal, round and reactive pupils present Resp: Effort & Inspection: normal respiratory effort Cardio: Rate: regular rate Rhythm: regular rhythm GI: Palpation (GI): Soft to palpation and nontender : General: Yes no CVA tenderness Back/Spine/Pelvis: Back: no CVA tenderness Skin: General skin exam: no rashes or lesions noted Neuro: General: moves all extremities Cranial nerves: Yes Equal, round and reactive pupils present Extrem: General: Yes normal to inspection Psych: Appearance: grossly normal Results Labs 02/27/24 06:17 02/27/24 06:17 Labs: Short CBC 02/27/24 Range/Units 06:17 WBC 9.5 (4.8-10.8) X10*3/uL Hgb 8.7 L (14.0-18.0) g/dl Hct 26.7 L (42.0-52.0) % Plt Count 386 (160-400) X10*3/uL BMP 02/27/24 06:17 Sodium 137 Potassium 3.4 Chloride 100 Carbon Dioxide 28 BUN 6 L Creatinine 0.69 Calcium 8.6 Microbiology Microbiology Results: Microbiology 02/22/24 14:28 Back Gram Stain - Final 02/22/24 14:28 Back Routine Culture - Final Methicillin Res Staph Aureus 02/22/24 14:28 Back Anaerobic Culture - Final 02/20/24 10:30 Pleural Fluid Gram Stain - Final 02/20/24 10:30 Pleural Fluid Routine Culture - Final Methicillin Res Staph Aureus 02/20/24 10:30 Pleural Fluid Anaerobic Culture - Final 02/18/24 10:39 Blood - Venous Blood Culture - Final No growth after 5 days. 02/18/24 10:33 Blood - Venous Blood Culture - Final No growth after 5 days. 02/18/24 Unknown Urine clean catch - Clean Catch Midstream Urine Culture - Final No growth. Assessment and Plan (1) Status post thoracotomy: Status: Acute (2) IV drug abuse: Status: Acute (3) Empyema lung: Status: Acute Plan He just had chest tube out and apparently empyema resolving. Po linezolid for 14 days
[2024-02-27] MEDS: vancomycin HCL 1,500 MG in 0.9 % Sodium Chloride 500 ML 334 MG IV (17:06)
[2024-02-27] MEDS: Sennosides 8.6 MG TABLET PO (20:58)
[2024-02-27] MEDS: polyethylene glycoL 3350 17 GM POWD.PACK PO (20:59)
[2024-02-27] MEDS: oxyCODONE HCl Immed Release 5 MG TABLET 10 MG PO (22:18)
[2024-02-28] VITALS: BP 133/82; PULSE 76; RESP 18; TEMP 37.1; O2SAT 93
--- NOTE | 2024-02-28 | ECG_ITS ---
Test Reason : QTC CHECK Blood Pressure : / mmHG Vent. Rate : 070 BPM Atrial Rate : 070 BPM P-R Int : 170 ms QRS Dur : 094 ms QT Int : 448 ms P-R-T Axes : 035 001 013 degrees QTc Int : 483 ms Normal sinus rhythm Nonspecific T wave abnormality Prolonged QT Abnormal ECG When compared with ECG of 27-FEB-2024 14:30, No significant change was found Referred By: Cherelle Brady Electronically Signed By:Joni Arcos
[2024-02-28] MEDS: Acetaminophen 1,000 MG/100 ML PIGGYBACK 400 MG IV ×3 (00:44→12:57)
[2024-02-28] MEDS: 0.9 % Sodium Chloride Flush 3 ML SYRINGE IVFLUSH ×2 (00:45→09:26)
[2024-02-28] MEDS: Heparin Sodium,Porcine 5,000 UNIT/ML VIAL 5000 UNIT SUBCUT (03:24)
[2024-02-28] MEDS: oxyCODONE HCl Immed Release 5 MG TABLET 10 MG PO ×3 (03:24→13:25)
[2024-02-28 04:00] VITALS: BP 123/76; PULSE 78; RESP 18; TEMP 36.4; O2SAT 93
[2024-02-28 04:24] LABS: HIV AB/AG Nonreactive (Nonreactive); HIV Num 1 0.07 S/CO (0.00-0.99); ~HepC Num1 16.76 S/CO (0.00-0.79); ~Hepatitis C Antibody Reactive (Nonreactive)
[2024-02-28] MEDS: vancomycin HCL 1,500 MG in 0.9 % Sodium Chloride 500 ML 333.3 MG IV (05:31)
[2024-02-28] MEDS: Prochlorperazine Edisylate 10 MG/2 ML VIAL 5 MG IVPUSH (05:40)
--- NOTE | 2024-02-28 06:41 | PM.PNGS ---
Subjective Subjective Date of Service: 02/28/24 Interval history: No acute overnight events. Osmany states that he feels better and is ready to leave . His pain is currently well controlled off [employer] and now on oral analgesics. Continues to report some pain localized to incision and location of previous chest tubes. Nursing report he slept well through the night. He appears to be breathing with more comfort, no SOB or cough. Is ambulating w/o assistance or issues. Reports frequently using IS. Some nausea that he attributes to antibiotics. David Garcia M3 Physical Exam Vital Signs: Vital Signs: Last Vital Signs Temp 97.6 F 02/28/24 04:00 Pulse 78 02/28/24 04:00 Resp 18 02/28/24 04:00 BP 123/76 02/28/24 04:00 Pulse Ox 93 02/28/24 04:00 O2 Del Method Room Air 02/28/24 04:00 O2 Flow Rate 1 02/25/24 23:00 Oxygen Flow Rate 1 02/25/24 17:08 BMI result Body Mass Index 25.7 Const: General: cooperative and comfortable Orientation/consciousness: patient oriented x3 Chest: Other: Right sided bandages clean and intact. Appropriate incisional tenderness. Resp: Other: continues to experience some expected labored breathing Effort & Inspection: able to speak in complete sentences and labored Neuro: General: patient oriented x3 Objective Data Active Medications Albuterol Sulfate (Albuterol Sulfate 90 Mcg 8 Gm Inhaler) 2 puff INHALE Q6H PRN PRN Reason: shortness of breath or wheezing Benzonatate (Benzonatate 100 Mg Capsule) 100 mg PO TID [facility] Last Admin: 02/27/24 20:59 Dose: 100 mg Documented By: RUCHI Bisacodyl (Bisacodyl 10 Mg Supp.Rect) 10 mg [place] BEDTIME PRN PRN Reason: Constipation Last Admin: 02/25/24 09:42 Dose: 10 mg Documented By: CYNTHIA Comments: provider made aware of early administration Calcium Carbonate (Calcium Carbonate 750 Mg Tab.Chew) 750 mg PO Q4H PRN PRN Reason: Heartburn Last Admin: 02/19/24 09:35 Dose: 750 mg Documented By: LEONARD Famotidine (Famotidine/Pf 20 Mg/2 Ml Vial) 20 mg IVPUSH DAILY [facility] Last Admin: 02/27/24 09:16 Dose: 20 mg Documented By: FLY Guaifenesin/Dextromethorphan (Guaifenesin Dm 100/10/5 Ml 5 Ml Syrup) 5 ml PO Q6H PRN PRN Reason: Cough Last Admin: 02/27/24 00:30 Dose: 5 ml Documented By: RUCHI Heparin Sodium (Porcine) (Heparin Sodium,Porcine 5,000 Unit/Ml Vial) 5,000 unit SUBCUT Q12H [place] Last Admin: 02/28/24 03:24 Dose: 5,000 unit Documented By: RUCHI Hydromorphone HCl (Hydromorphone Hcl 1 Mg/Ml Syringe) 1 mg IVPUSH Q3H PRN; Protocol PRN Reason: Pain, Severe (Pain Scale 7-10) Acetaminophen (Ofirmev) 1,000 mg in 100 mls @ 400 mls/hr IV Q6H [facility] Last Infusion: 02/28/24 03:04 Dose: Infused Documented By: RUCHI Vancomycin HCl 1,500 mg/ (Sodium Chloride) 500 mls @ 333.333 mls/hr IV Q12H [facility] Last Admin: 02/28/24 05:31 Dose: 333.3 mls/hr Documented By: RUCHI Magnesium Hydroxide (Milk Of Magnesia 30 Ml Oral.Susp) 30 ml PO DAILY PRN PRN Reason: Constipation Last Admin: 02/25/24 15:43 Dose: 30 ml Documented By: CYNTHIA Melatonin (Melatonin 3 Mg Tablet) 6 mg PO BEDTIME PRN PRN Reason: Insomnia Last Admin: 02/19/24 22:36 Dose: 6 mg Documented By: SNOW Methadone HCl (Methadone Hcl 20 Mg/2 Ml Oral.Conc) 100 mg PO DAILY [facility] Last Admin: 02/27/24 09:15 Dose: 100 mg Documented By: FLY Naloxone HCl (Naloxone Hcl 0.4 Mg/Ml Vial) 0.2 mg IVPUSH Q2M PRN PRN Reason: Excessive sedation or RR < 8 Oxycodone HCl (Oxycodone Hcl Immed Release 5 Mg Tablet) 10 mg PO Q4H PRN PRN Reason: Pain, Moderate(Pain Scale 4-6) Last Admin: 02/28/24 03:24 Dose: 10 mg Documented By: RUCHI Pharmacy Consult (Consult Rx Vancomycin Dosing) 1 each MISCELLANE DAILY PRN PRN Reason: Consult order Polyethylene Glycol (Polyethylene Glycol 3350 17 Gm Powd.Pack) 17 gm PO BID [facility] Last Admin: 02/27/24 20:59 Dose: 17 gm Documented By: RUCHI Prochlorperazine Edisylate (Prochlorperazine Edisylate 10 Mg/2 Ml Vial) 5 mg IVPUSH Q4H PRN PRN Reason: Nausea and Vomiting Last Admin: 02/28/24 05:40 Dose: 5 mg Documented By: RUCHI Senna (Sennosides 8.6 Mg Tablet) 8.6 mg PO BEDTIME [facility] Last Admin: 02/27/24 20:58 Dose: 8.6 mg Documented By: RUCHI Sodium Chloride (0.9 % Sodium Chloride Flush 3 Ml Syringe) 3 ml IVFLUSH QSHIFT [facility] Last Admin: 02/28/24 00:45 Dose: 3 ml Documented By: RUCHI Labs 02/28/24 07:43 02/27/24 06:17 Labs: Laboratory Results - last 24 hr 02/27/24 02/27/24 02/27/24 06:17 15:26 19:58 MCV 83.4 MCH 27.2 MCHC 32.6 RDW 14.6 Plt Count 386 MPV 10.5 Immature Gran % (Auto) 1.0 H Neut % (Auto) 66.4 Lymph % (Auto) 23.8 [place] % (Auto) 6.6 Eos % (Auto) 1.9 Baso % (Auto) 0.3 Lymph # (Auto) 2.3 [place] # (Auto) 0.6 Eos # (Auto) 0.2 Baso # (Auto) 0.0 Abs Immat Gran (auto) 0.10 H Absolute Neuts (auto) 6.3 Absolute Nucleated RBC 0.000 Nucleated RBC % (auto) 0.0 Anion Gap 12 Estim Creat Clear Calc 143.9 Estimated GFR > 60 Random Glucose 102 Calcium 8.6 Free T4 1.38 Random Vancomycin 19.0 Hepatitis C Ab (EIA) Reactive H HIV 1&2 Ab/P24 Ag 4thGn Nonreactive Microbiology Microbiology Results: Microbiology 02/22/24 14:28 Gram Stain - Final Back Routine Culture - Final Methicillin Res Staph Aureus Anaerobic Culture - Final Procedures Date of Service Date of Service: 02/28/24 Progress Note: A&P Assessment and plan Plan POD4 s/p right thoracotomy, empyemectomy/decortication. He is overall doing well. VSS. H/H stable. White count within normal range. Pain is well-controlled off [employer]. OOB and ambulation w/ no adverse sequelae. Consider discharge. Time Spent With Patient Time: Total time managing care of this patient today ____ minutes. Quality Stroke Does the patient have a stroke diagnosis?: No VTE Prior VTE?: No VTE Risk Level:: Medical - moderate - high VTE Device Contraindication: Treatment Not Indicated VTE Drug Contraindication: N/A - Med Ordered
[2024-02-28 07:44] VITALS: BP 146/88; PULSE 91; RESP 16; TEMP 36.7; O2SAT 94
[2024-02-28 07:51] LABS: Hematocrit 23.1 % (42.0-52.0); Hemoglobin 7.6 g/dl (14.0-18.0); Mean Corpuscular HGB Conc 32.9 g/dl (31.0-36.0); Mean Corpuscular Hemoglobin 27.2 pg (27.0-33.0); Mean Corpuscular Volume 82.8 fL (80.0-98.0); Mean Platelet Volume 9.9 fL (9.4-12.4); Platelet Count 407 X10*3/uL (160-400); Red Blood Count 2.79 X10*6/uL (4.60-5.80); Red Cell Distribution Width 14.6 % (11.0-16.0); White Blood Count 9.8 X10*3/uL (4.8-10.8)
[2024-02-28 08:06] LABS: Anion Gap 11 (12-20); Blood Urea Nitrogen 8 mg/dL (9-16); Calcium 8.3 mg/dL (8.4-10.2); Carbon Dioxide 30 mmol/L (22-29); Chloride 99 mmol/L (96-108); Creatinine Clr Calc Pharmacy 139.9; Estimated Glomerular Filt Rate > 60; Glucose Random 86 mg/dL (60-115); Potassium 3.2 mmol/L (3.3-5.1); Sodium 137 mmol/L (135-145)
[2024-02-28 08:32] LABS: HBS Num1 90.52 mIU/mL (0-7.99); HBc Num1 1.16 S/CO (0.00-0.79); HBsAGNum1 0.31 S/CO (0.00-0.99); HIV AB/AG Nonreactive (Nonreactive); HIV Num 1 0.06 S/CO (0.00-0.99); Hepatitis B Surface Antigen Negative (Negative); ~HepC Num1 14.36 S/CO (0.00-0.79); ~Hepatitis B Surface Antibody REACTIVE (Nonreactive); ~Hepatitis C Antibody Reactive (Nonreactive)
[2024-02-28] MEDS: Potassium Chloride ER 20 MEQ TAB.ER.PRT 40 MEQ PO (09:23)
[2024-02-28] MEDS: methADONE HCl 20 MG/2 ML ORAL.CONC 100 MG PO (09:24)
[2024-02-28] MEDS: Benzonatate 100 MG CAPSULE PO (09:24)
[2024-02-28] MEDS: Famotidine/PF 20 MG/2 ML VIAL IVPUSH (09:28)
[2024-02-28 09:46] LABS: INTERNATIONAL NORM RATIO 1.1 (0.9-1.1); Prothrombin Time 13.4 SEC (11.1-13.3)
[2024-02-28 09:53] LABS: HBc Num2 1.21 S/CO; HBc Num3 1.16 S/CO; Hepatitis B Core Antibody Reactive (Nonreactive)
[2024-02-28 11:09] VITALS: BP 118/70; PULSE 72; RESP 16; TEMP 36.3; O2SAT 93
--- NOTE | 2024-02-28 13:04 | P.DS_ITS ---
DS: Providers Provider Date of Service: 02/28/24 Date of admission: 02/18/24 15:07 Date of discharge: 02/28/24 Primary care physician: Sushma Marroquin MD Consults: 02/19/24 07:25 Consult to General Surgery Routine Consulting Provider: [facility] General Surgeons Reason for consultation: right chest loculated effusion Has provider been notified: No 02/19/24 07:26 Consult to Pulmonology Routine Consulting Provider: [facility] Pulmonology Services Reason for consultation: rt chest effusion with mass affect Has provider been notified: No 02/19/24 14:31 Consult to Infectious Diseases Routine Consulting Provider: [facility] Infectious Disease Center Reason for consultation: rt chest fluid collection Has provider been notified: No 02/20/24 11:34 Addiction Medicine Routine Consulting Provider: Addiction Covering Reason for consultation: opiate/cocaine /fenatnyl use disorder Has provider been notified: No DS: Diagnosis Discharge Diagnosis (1) Empyema lung: Status: Acute (2) Pneumonia of right lung due to methicillin resistant Staphylococcus aureus (MRSA): Status: Acute (3) Anemia: Status: Acute (4) Opioid use disorder: Status: Acute (5) Sepsis: Status: Acute (6) Acute respiratory failure with hypoxia: Status: Acute (7) Coagulopathy: Status: Acute DS: Summary Hospital Course Hospital Course: From the history and physical by the admitting hospitalist, Tory Acosta, 02/18/24: 43-year-old gentleman with past medical history significant for mild intermittent asthma on prn albuterol, history of opioid use disorder on methadone, was recently evaluated at [place] [facility] on January 31 for right flank pain and painful urination was diagnosed to have acute pyelonephritis and was discharged home on Keflex 500 mg q.i.d. for 10 days and Naprosyn a renal ultrasound showed bilateral 5 mm non obstructing calculus, no hydronephrosis, Prior to that patient evaluated in ED on January 16 for renal colic and abdominal and pelvic CT scan was obtained that was unremarkable, patient presented today due to persistent constant, severe right mid chest pain with radiation to right anterior chest of 2-3 weeks' duration associated with weight loss 10-15 lb, decreased appetite, intermittent nausea, chills, mild cough productive of yellow phlegm and shortness of breath, he denies vomiting, no diarrhea, no abdominal pain, no urinary symptoms of urgency frequency, no fevers , denies trauma, in the emergency room workup showed WBC count 15.1 hematocrit 30.2 down from 40.3 on January 22, sodium 133, potassium 3.8 creatinine 0.69, alk-phos 466, total bili 1.1 normal AST and ALT, albumin 2.6, U tox positive for opiates, methadone, fentanyl, cocaine patient denies history of smoking, no alcohol, denies history of IV drug use, he sniffs cocaine and heroin, CT abdomen pelvis and CT chest showed thick walled fluid collection containing gas bubbles and air-fluid in the posterior right hemithorax appears to be arising out of the pleural space and compressing the right lower lobe collection measures nearly 14 cm transfers, 11.5 cm AP and 19 cm craniocaudal and exert mass effect upon the posterior right hemidiaphragm and underlying liver there also appears to be fluid and gas in the posterior extrapleural space and fluid appears to be tracking around region of 9th and 10th ribs and a fluid collection in the adjacent right paraspinal muscle is 5.7 x 3.9 x13.5 cm, in emergency room patient treated with IV analgesics, IV vancomycin and Levaquin now being admitted for continued IV antibiotic and for IR consultation for chest tube placement on Tuesday as per thoracic surgery recommendation. 43yo M with mild intermittent asthma, OUD on methadone, recent acute pyelonephritis treated with cephalexin; presenting with 2 wk hx of R upper back pain radiating to chest with chills, weight loss, and dyspnea; ultimately found to have large right empyema with pleural fluid growing MRSA. He was admitted to the telemetry unit and underwent drainage + chest tube placement on 02/20/24; then repeat IR drainage for persistent fluid collection on 02/22/24. Thoracic Surgery was consulted for persistent fluid collection and on 02/24/24 he underwent VATS converted to mini-thoracotomy, decortication with empyemectomy, pneumonolysis, and intercostal nerve block + bronchoscopy. Chest tubes remained in place until 02/26 then discontinued. 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 He was treated with vancomycin and in consultation with Infectious Disease, discharged on doxycycline 100 mg twice daily for 3 weeks. For pain control, methadone was continued and he was discharged with 5 mg oxycodone q4h prn #18. He should follow up with Thoracic Surgery and Infectious Disease in 1 week. He was also noted to be anemic and iron was prescribed; CBCd to be repeated in 1 month. He was also noted to have coagulopathy due to poor nutrition; this was reversed with vitamin K and INR normalized. Time Attestation Discharge Coordination Time (in mins): 45 Quality: Safe Use of Opioids Does Pt have an Active Cancer Diagnosis on the Problem List?: No Quality: Stroke Does the patient have a stroke diagnosis?: No Physical Exam Vital Signs: Vital Signs: Last Vital Signs Temp 97.3 F 02/28/24 11:09 Pulse 72 02/28/24 11:09 Resp 16 02/28/24 11:09 BP 118/70 02/28/24 11:09 Pulse Ox 93 02/28/24 11:09 O2 Del Method Room Air 02/28/24 11:09 O2 Flow Rate 1 02/25/24 23:00 Oxygen Flow Rate 1 02/25/24 17:08 BMI result Body Mass Index 25.7 Gen: in no acute distress HEENT: sclera anicteric, moist mucus membranes Neck: supple Lungs: slightly diminished on R, surgical incisions intact Heart: regular rate and rhythm, no murmurs Abd: soft, non-tender, non-distended Ext: no edema Skin: warm/well-perfused Neuro: alert and oriented x3, no focal findings Psych: appropriate affect DS: Data Data Completed and Pending Completed studies during hospitalization [Text1]: Laboratory Results WBC 9.8 X10*3/uL (4.8-10.8) 02/28/24 07:43 RBC 2.79 X10*6/uL (4.60-5.80) L 02/28/24 07:43 Hgb 8.0 g/dl (14.0-18.0) L 02/28/24 13:41 Hct 24.8 % (42.0-52.0) L 02/28/24 13:41 MCV 82.8 fL (80.0-98.0) 02/28/24 07:43 MCH 27.2 pg (27.0-33.0) 02/28/24 07:43 MCHC 32.9 g/dl (31.0-36.0) 02/28/24 07:43 RDW 14.6 % (11.0-16.0) 02/28/24 07:43 Plt Count 407 X10*3/uL (160-400) H 02/28/24 07:43 MPV 9.9 fL (9.4-12.4) 02/28/24 07:43 Immature Gran % (Auto) 1.0 % (0.0-0.4) H 02/27/24 06:17 Neut % (Auto) 66.4 % (45-73) 02/27/24 06:17 Lymph % (Auto) 23.8 % (20-40) 02/27/24 06:17 Clark % (Auto) 6.6 % (2-11) 02/27/24 06:17 Eos % (Auto) 1.9 % (0-4) 02/27/24 06:17 Baso % (Auto) 0.3 % (0-2) 02/27/24 06:17 Lymph # (Auto) 2.3 X10*3/uL (1.2-4.9) 02/27/24 06:17 Clark # (Auto) 0.6 X10*3/uL (0.1-1.2) 02/27/24 06:17 Eos # (Auto) 0.2 X10*3/uL (0.0-0.4) 02/27/24 06:17 Baso # (Auto) 0.0 X10*3/uL (0.0-0.2) 02/27/24 06:17 Abs Immat Gran (auto) 0.10 X10*3/uL (0.00-0.03) H 02/27/24 06:17 Absolute Neuts (auto) 6.3 x10*3/uL (2.0-8.3) 02/27/24 06:17 Absolute Nucleated RBC 0.000 X10*3/uL (0.0-0.012) 02/28/24 07:43 Nucleated RBC % (auto) 0.0 /100WBC (0.0-0.2) 02/28/24 07:43 Smear Tech's Comments VERIFIED 02/18/24 10:33 Hold Purple Top SEE NOTE 02/24/24 09:50 PT 13.4 SEC (11.1-13.3) H D 02/28/24 09:20 INR 1.1 (0.9-1.1) 02/28/24 09:20 Sodium 135 mmol/L (135-145) 02/28/24 13:41 Potassium 3.7 mmol/L (3.3-5.1) 02/28/24 13:41 Chloride 100 mmol/L (96-108) 02/28/24 13:41 Carbon Dioxide 27 mmol/L (22-29) 02/28/24 13:41 Anion Gap 12 (12-20) 02/28/24 13:41 BUN 7 mg/dL (9-16) L 02/28/24 13:41 Creatinine 0.81 mg/dL (0.5-1.4) 02/28/24 13:41 Estim Creat Clear Calc 122.6 02/28/24 13:41 Estimated GFR > 60 02/28/24 13:41 Random Glucose 126 mg/dL (60-115) H 02/28/24 13:41 Lactic Acid 1.1 mmol/L (0.5-2.0) 02/18/24 10:34 Calcium 8.6 mg/dL (8.4-10.2) 02/28/24 13:41 Magnesium 1.6 mg/dL (1.6-2.6) 02/23/24 06:02 Iron 12 mcg/dL (45-160) L 02/21/24 06:20 TIBC 95 mcg/dL (228-428) L 02/21/24 06:20 % Saturation 13 % (15-50) L 02/21/24 06:20 Unsat Iron Binding 83 ug/dL 02/21/24 06:20 Ferritin 1029 ng/mL (20-250) H 02/21/24 06:20 Total Bilirubin 1.1 mg/dL (0.0-1.0) H 02/18/24 10:33 Direct Bilirubin 0.8 mg/dL (0.0-0.5) H 02/18/24 10:33 AST 33 U/L (5-37) 02/18/24 10:33 ALT 27 U/L (0-40) 02/18/24 10:33 Alkaline Phosphatase 466 U/L (39-117) H 02/18/24 10:33 Total Protein 7.5 g/dL (6.5-8.0) 02/18/24 10:33 Albumin 2.6 g/dL (3.5-5.0) L 02/18/24 10:33 Lipase 7 U/L (8-78) L 02/18/24 10:33 TSH 0.28 uIU/mL (0.32-4.0) L 02/18/24 10:33 Free T4 1.38 ng/dL (0.71-1.85) 02/27/24 06:17 Hold Yellow Top See Note 02/24/24 09:50 Urine Color [place] A 02/18/24 09:48 Urine Appearance Cloudy 02/18/24 09:48 Urine pH 5.5 (5.0-9.0) 02/18/24 09:48 Ur Specific [place] 1.025 (1.005-1.025) 02/18/24 09:48 Urine Protein See Note mg/dL (Neg-Trace) 02/18/24 09:48 Urine Glucose (UA) Negative mg/dL (Negative) 02/18/24 09:48 Urine Ketones Negative mg/dL (Negative) 02/18/24 09:48 Urine Blood Negative (Negative) 02/18/24 09:48 Urine Nitrite See Note (Negative) 02/18/24 09:48 Ur Leukocyte Esterase Small (1+) (Negative) H 02/18/24 09:48 Urine RBC 0-2 /HPF (0-2) 02/18/24 09:48 Urine WBC 0-5 /HPF (0-5) 02/18/24 09:48 Ur Squamous Epith Cells 3-5 /HPF (0-2) 02/18/24 09:48 Urine Bacteria None Seen (None Seen) 02/18/24 09:48 Hyaline Casts 0-2 /LPF (0-2) 02/18/24 09:48 Random Vancomycin 19.0 mcg/mL (15-20) 02/27/24 15:26 Hep Bs Antigen Negative (Negative) 02/28/24 07:43 Hep Bs Antibody REACTIVE (Nonreactive) 02/28/24 07:43 Hep B Core Total Ab Reactive (Nonreactive) 02/28/24 07:43 Hep B Core IgM Ab Cancelled 02/28/24 07:43 Hepatitis C Ab (EIA) Reactive (Nonreactive) H 02/28/24 07:43 HIV 1&2 Ab/P24 Ag 4thGn Nonreactive (Nonreactive) 02/28/24 07:43 Blood Type O Positive 02/24/24 09:50 Antibody Screen NEGATIVE 02/24/24 09:50 Impressions Abdomen/Pelvis CT 02/18/24 11:05 IMPRESSION: * Compared to 01/17/2024, there appears to be new articular surface irregularity at the costotransverse junction of the right 10th rib and mild osseous fragmentation of the transverse process. In this region, there is a circumscribed fluid collection (as well as gas bubbles) in the paraspinal tissues and fluid filling the posterior pleural space of the right hemithorax. The loculated collection exerts mass effect upon the right lower lobe. Consider possibility that infection has arisen out of the area of the right 10th costotransverse junction. Alternatively, if this patient had recent pneumonia, then there could have been development of a large empyema and decompression into the posterior paraspinal tissues. * Diffuse hepatic steatosis and hepatosplenomegaly. * Small stone in the lower pole the right kidney. No ureteral stones or hydroureteronephrosis. Thoracentesis/Paracentesis US 02/20/24 10:30 Impression: Ultrasound-guided right chest tube placement yielding thick purulent fluid. This procedures performed by Curt Montemayor PA-C and supervised by Dr. Boo. Chest CT 02/23/24 15:51 IMPRESSION: 1. Marked interval decrease in size of the right pleural empyema. There is a residual loculated empyema more superiorly from the drainage catheter which could represent undrained segments of the empyema. 2. No significant residual fluid around the drainage catheter in the subcutaneous soft tissues of the right posterior chest wall. There is however still an undrained paraspinal musculature abscess more medially although this is decreased in size. 3. Improved aeration within the right lower lobe with patchy areas of atelectasis and airspace opacity. Increased peribronchial vascular groundglass opacities within the right middle lobe compared to the prior exam. 4. Diffuse lymphadenopathy throughout the mediastinum and bilateral carmenza. Chest X-Ray 02/27/24 12:24 IMPRESSION: Status post removal of right-sided chest tube. Curvilinear lucency at the right lung base remains present with differential diagnosis including free intraperitoneal air versus small loculated subpulmonic pneumothorax. CT scan could distinguish between these 2. I suspect that the more likely diagnosis is loculated pneumothorax as some loculated air could be seen in this region on the 02/23/2024 CT scan. Microbiology 02/22/24 14:28 Back Gram Stain - Final 02/22/24 14:28 Back Routine Culture - Final Methicillin Res Staph Aureus 02/22/24 14:28 Back Anaerobic Culture - Final 02/20/24 10:30 Pleural Fluid Gram Stain - Final 02/20/24 10:30 Pleural Fluid Routine Culture - Final Methicillin Res Staph Aureus 02/20/24 10:30 Pleural Fluid Anaerobic Culture - Final 02/18/24 10:39 Blood - Venous Blood Culture - Final No growth after 5 days. 02/18/24 10:33 Blood - Venous Blood Culture - Final No growth after 5 days. 02/18/24 Unknown Urine clean catch - Clean Catch Midstream Urine Culture - Final No growth. Pathology 02/24/24 Pleural rind, decortication: Acute pleuritis with granulation tissue, necrosis and fibrosis; no evidence of malignancy. Discharge Plan Discharge Anticipated Discharge Date/Time: 02/28/24 12:58 Patient Disposition: Home Health Service Discharge Diagnosis: MRSA empyema anemia Referrals: Billie Espitia MD [Physician] - 1 Week Sushma Marroquin MD [Primary Care Provider] - 1 Week Armando Almazan MD [Physician] - 1 Week Discharge Medications: New oxycodone 5 mg Tablet 5 mg PO Q4H PRN (Reason: severe pain) Qty: 18 0RF Rx Instructions: Partial Fill upon patient request. naloxone 4 mg/actuation spray,non-aerosol 4 mg intranasal Q2M PRN (Reason: opioid overdose) Qty: 2 0RF Rx Instructions: spray 1 dose into ONE nostril; alternate nostrils w each dose until help arrives ferrous sulfate 325 mg (65 mg iron) tablet 325 mg PO DAILY Qty: 30 0RF doxycycline monohydrate 100 mg tablet 100 mg PO BID Qty: 42 0RF Continued methadone 10 mg/5 mL solution 140 mg PO DAILY Patient Comments: verified with ROSALIND Gillis from [facility] at 0640 02/19/24 albuterol sulfate 90 mcg/actuation HFA aerosol inhaler 2 puff inhalation Q6H PRN (Reason: shortness of breath or wheezing) Qty: 8.5 0RF Discharge Orders: Discharge Order (Routine); Ordered 02/28/24 Ordered By: Cherelle Brady Diet: Advance to usual diet Activity on Discharge: As tolerated Stand Alone Forms: Patient Portal Discharge page Print Language: Pakistani Other Ambulatory Orders: Complete Blood Count Auto Diff (Routine) Timeframe: 1 Month Facility: [facility] - Location: Laboratory Ordered By: Cherelle Brady Activity Restrictions/Additional Instructions: May shower. No strenuous activities. VNA services Care Plan Goals: recovery from infection Health Concerns: MRSA empyema anemia Plan of Treatment: take antibiotics as prescribed: - doxycycline 100 mg twice daily for 3 weeks follow up with Dr Anaid Espitia from [facility] Infectious Disease in 1 week follow up with Dr Armando Almazan from [facility] Thoracic Surgery in 1 week Wound care: dry sterile dressing every other day for one week for mild-moderate pain, take acetaminophen [Tylenol] for severe pain, take oxycodone 5 mg every 4 hours as needed take ferrous sulfate 325 mg daily and recheck CBC in 1 month Please follow up with your primary care doctor within 1 week. Return to the hospital if you experience recurrent or worsening symptoms. hepatitis C antibody positive; viral load pending Assessment: See Discharge Summary.
[2024-02-28] MEDS: methADONE HCl 20 MG/2 ML ORAL.CONC 40 MG PO (13:24)
--- NOTE | 2024-02-28 13:29 | W.MHC.F2F ---
Service Date Service Date: 02/28/24 Encounter Date of encounter: 02/28/24 Reasons for Services Signs and symptoms assessed: wound care Reason for longterm: wound care MD Overseeing Care: Sushma Marroquin Homebound: Leaving the home is medically contraindicated at this time without the asist of a device and/or another person due th the listed conditions above and below. Reason homebound: immunosuppression / infection risk Homebound supporting statement: Wound care: dry sterile dressing every other day for one week Certification: Based on the above findings, I certify that this patient is confined to the home and needs intermittent longterm care, physical therapy and/or speech therapy, or continues to need occupational therapy. The patient is under my care, and I have initiated the establishment of the plan of care. The patient will be followed by a physician who will periodically review the plan of care. Time Spent With Patient Time: Total time managing care of this patient today ____ minutes.
--- NOTE | 2024-02-28 13:43 | MHC.RECOVRN ---
Met with pt to follow up and provide support. Pt sitting in bed, asleep, wakes to voice. Pt reports he is doing well, reports he might discharge today and is looking forward to that. Pt reports he slept better last night than the night before. In regards to methadone, pt states I can feel that it's not all there. Pt reports it is manageable, however. Denies questions or concerns for t/w. Discussed with Gaby Tate APRN.
[2024-02-28 13:50] LABS: Hematocrit 24.8 % (42.0-52.0)
[2024-02-28 14:03] LABS: Anion Gap 12 (12-20); Blood Urea Nitrogen 7 mg/dL (9-16); Calcium 8.6 mg/dL (8.4-10.2); Carbon Dioxide 27 mmol/L (22-29); Chloride 100 mmol/L (96-108); Creatinine Clr Calc Pharmacy 122.6; Estimated Glomerular Filt Rate > 60; Glucose Random 126 mg/dL (60-115); Potassium 3.7 mmol/L (3.3-5.1); Sodium 135 mmol/L (135-145)
--- NOTE | 2024-02-28 14:54 | MHC.CM.PN ---
Pt has been medically cleared for DC, he will go home via family transport and have home [facility].
[2024-02-28 15:09] VITALS: BP 143/82; PULSE 76; RESP 16; TEMP 36.1; O2SAT 94
[2024-03-03 20:13] LABS: HCV Log PCR <1.18 NOT DETECTED Log IU/mL (NOT DETECTED); HepC Viral Load <15 NOT DETECTED IU/mL (NOT DETECTED)
== END 2024-02-28 18:01 | disposition home health service (06) | DRG 710 ==
LOC: HO.ED 15:12 → HO.EDOVER 15:16 → HO.IMC 19:49
PROVIDERS: Internal Medicine; Physician Assistant Medical; Physician Assistant Surgical; Student in an Organized Health Care Education/Training Program; Surgery; Admitting Provider Hospitalist; Emergency Provider Emergency Medicine; PCP Internal Medicine; Visit Provider Family Medicine
PROC: 0W9930Z Drainage of Right Pleural Cavity with Drainage Device, Percutaneous Approach (ICD-10-PCS; CPT 32551; principal; 2024-02-20 09:30)
PROC: 0BBN0ZZ Excision of Right Pleura, Open Approach (ICD-10-PCS; principal; 2024-02-24 13:50)
DX: A41.9 Sepsis, unspecified organism (principal); J96.01 Acute respiratory failure with hypoxia; J86.9 Pyothorax without fistula; E87.1 Hypo-osmolality and hyponatremia; J45.20 Mild intermittent asthma, uncomplicated; D50.9 Iron deficiency anemia, unspecified; F11.20 Opioid dependence, uncomplicated; B95.62 Methicillin resistant Staphylococcus aureus infection as the cause of diseases classified elsewhere; J98.11 Atelectasis; R94.31 Abnormal electrocardiogram [ECG] [EKG]
CPT/HCPCS: 32557; 36415; 49405; 71045; 71250; 71260; 74176; 80048; 80076; 80202; 81001; 81003; 82565; 82728; 83540; 83605; 83690; 83735; 84439; 84443; 85014; 85018; 85025; 85027; 85610; 86704; 86706; 86803; 86850; 86900; 86901; 87040; 87070; 87073; 87077; 87086; 87186; 87205; 87340; 87389; 87522; 88305; 93005; 99285; A7041; C1729; C1758; C9290; J0131; J0692; J0696; J0737; J1100; J1170; J1644; J1836; J1885; J1956; J2060; J2250; J2371; J2405; J2704; J2795; J3010; J3370; J3371; J3475; Q4186; Q9967

== ENCOUNTER 2024-02-18 15:07 | Outpatient (BNV) | payer OTHER, SELFPAY | END 2024-02-18 20:15 | PROVIDERS: Admitting Provider Hospitalist; Emergency Provider Emergency Medicine; PCP Internal Medicine; Visit Provider Internal Medicine Cardiovascular Disease | DX: R94.31 Abnormal electrocardiogram [ECG] [EKG] (principal) | CPT/HCPCS: 93010 ==

== ENCOUNTER 2024-02-18 15:07 | Outpatient (BNV) | payer OTHER, SELFPAY | END 2024-02-22 14:00 | PROVIDERS: Admitting Provider Hospitalist; Emergency Provider Emergency Medicine; PCP Internal Medicine; Visit Provider Physician Assistant Surgical | DX: G06.2 Extradural and subdural abscess, unspecified (principal) | CPT/HCPCS: 49405 ==

== ENCOUNTER 2024-02-18 15:07 | Outpatient (BNV) | payer OTHER, SELFPAY | END 2024-02-27 14:30 | PROVIDERS: Admitting Provider Hospitalist; Emergency Provider Emergency Medicine; PCP Internal Medicine; Visit Provider Internal Medicine Cardiovascular Disease | DX: R94.31 Abnormal electrocardiogram [ECG] [EKG] (principal) | CPT/HCPCS: 93010 ==

== ENCOUNTER 2024-02-18 15:07 | Outpatient (BNV) | payer OTHER, SELFPAY | END 2024-02-28 12:26 | PROVIDERS: Admitting Provider Hospitalist; Emergency Provider Emergency Medicine; PCP Internal Medicine; Visit Provider Internal Medicine Cardiovascular Disease | DX: R94.31 Abnormal electrocardiogram [ECG] [EKG] (principal) | CPT/HCPCS: 93010 ==

== ENCOUNTER 2024-02-18 15:07 | Outpatient (BNV) | payer OTHER, SELFPAY | END 2024-02-20 09:35 | PROVIDERS: Admitting Provider Hospitalist; Emergency Provider Emergency Medicine; PCP Internal Medicine; Visit Provider Physician Assistant Surgical | DX: J86.9 Pyothorax without fistula (principal) | CPT/HCPCS: 32557 ==

== ENCOUNTER 2024-02-18 15:07 | Outpatient (BNV) | payer OTHER, SELFPAY | END 2024-02-24 06:30 | PROVIDERS: Admitting Provider Hospitalist; Emergency Provider Emergency Medicine; PCP Internal Medicine; Visit Provider Internal Medicine | DX: R94.31 Abnormal electrocardiogram [ECG] [EKG] (principal) | CPT/HCPCS: 93010 ==

== ENCOUNTER 2024-02-18 15:07 | Outpatient (BNV) | payer OTHER, SELFPAY | END 2024-02-23 12:45 | PROVIDERS: Admitting Provider Hospitalist; Emergency Provider Emergency Medicine; PCP Internal Medicine; Visit Provider Internal Medicine | DX: R00.1 Bradycardia, unspecified (principal) | CPT/HCPCS: 93010 ==

== ENCOUNTER → 2024-02-18 15:07 | Outpatient (BNV) | payer OTHER, SELFPAY | PROVIDERS: Admitting Provider Hospitalist; Emergency Provider Emergency Medicine; PCP Internal Medicine; Visit Provider Hospitalist | DX: J86.9 Pyothorax without fistula (principal); J15.212 Pneumonia due to Methicillin resistant Staphylococcus aureus; D63.8 Anemia in other chronic diseases classified elsewhere; F11.90 Opioid use, unspecified, uncomplicated; A41.9 Sepsis, unspecified organism; J96.01 Acute respiratory failure with hypoxia; D68.9 Coagulation defect, unspecified | CPT/HCPCS: 99223; 99232; 99233; 99239; G0180 ==

== ENCOUNTER → 2024-02-18 15:07 | Outpatient (BNV) | payer OTHER, SELFPAY | PROVIDERS: Admitting Provider Hospitalist; Emergency Provider Emergency Medicine; PCP Internal Medicine; Visit Provider Physician Assistant Surgical | DX: Z98.890 Other specified postprocedural states (principal) | CPT/HCPCS: 32220; 99024; 99231; 99232; 99233 ==

== ENCOUNTER → 2024-02-18 15:07 | Outpatient (BNV) | payer OTHER, SELFPAY | PROVIDERS: Admitting Provider Hospitalist; Emergency Provider Emergency Medicine; PCP Internal Medicine; Visit Provider Surgery | DX: J86.9 Pyothorax without fistula (principal) | CPT/HCPCS: 99222; 99232 ==

== ENCOUNTER → 2024-02-18 15:07 | Outpatient (BNV) | payer OTHER, SELFPAY | PROVIDERS: Admitting Provider Hospitalist; Emergency Provider Emergency Medicine; PCP Internal Medicine; Visit Provider Internal Medicine | DX: Z98.890 Other specified postprocedural states (principal); F19.10 Other psychoactive substance abuse, uncomplicated; J86.9 Pyothorax without fistula | CPT/HCPCS: 99222 ==

== ENCOUNTER → 2024-02-18 15:07 | Outpatient (BNV) | payer OTHER, SELFPAY | PROVIDERS: Admitting Provider Hospitalist; Emergency Provider Emergency Medicine; PCP Internal Medicine; Visit Provider Hospitalist | DX: J86.9 Pyothorax without fistula (principal); L02.91 Cutaneous abscess, unspecified; F19.10 Other psychoactive substance abuse, uncomplicated | CPT/HCPCS: 99223 ==

== ENCOUNTER → 2024-02-18 15:07 | Outpatient (BNV) | payer OTHER, SELFPAY | PROVIDERS: Admitting Provider Hospitalist; Emergency Provider Emergency Medicine; PCP Internal Medicine; Visit Provider Nurse Practitioner Psychiatric/Mental Health | DX: F11.90 Opioid use, unspecified, uncomplicated (principal) | CPT/HCPCS: 99231; 99499 ==

== ENCOUNTER 2024-03-06 12:17 | Outpatient (AMB) | payer OTHER, SELFPAY ==
[2024-03-06 12:19] VITALS: BP 158/96; PULSE 79; O2SAT 98; BMI 26.3
--- NOTE | 2024-03-06 12:19 | A.OFFPC_ITS ---
Vital Signs 3 03/06/24 12:19 Height 5 ft 11 in Weight 188 lb 4 oz BMI 26.3 BP 158/96 H Blood Pressure Location Lt brachial Position Sitting Pulse 79 Pulse Source Pulse Oximeter Pulse Oximetry (%) 98 Oxygen Delivery Method Room Air Intake Visit Reasons: HDF Lung and Kidney Infection Allergies bee pollen [BEE STINGS] Allergy (Intermediate, Verified 03/06/24 12:20) HIVES Penicillins Allergy (Mild, Verified 03/06/24 12:20) UNKNOWN penicillin V Allergy (Unknown, Verified 03/06/24 12:20) unknown SANJAY DELIGHT Allergy (Mild, Uncoded 02/24/24 13:42) HIVES Medication List - Last Reconciled 03/06/24 by Sushma Marroquin MD albuterol sulfate 90 mcg/actuation 2 puffs inhalation Q6H PRN doxycycline monohydrate 100 mg PO BID methadone 140 mg PO DAILY Tobacco use date assessed: 03/06/24 Dental Screening Dental Screen Date: 03/06/24 Did you have a dental visit in the last 12 months?: No Did you have a dental problem in the last 6 months where you did not have access to dental care?: No Was dental information given to patient?: No HPI HDF Lung and Kidney Infection 2 HPI0 Details Patient is a 43-year-old gentleman with a past medical history of mild asthma, history of opioid use disorder on methadone, was evaluated in [facility] Emergency room in January for right flank pain and painful urination. And was diagnosed with acute pyelonephritis. He was discharged home on Keflex for 10 days and naproxen Renal ultrasound showed bilateral 5 mm nonobstructing calculus no hydronephrosis. abdomen and pelvic CT scan was on remarkable. He presented to emergency room again with the chest pain which was persistent and constant right-sided radiating to right anterior chest for 2-3 weeks' duration. Patient also lost appetite and some weight during that duration. Urine toxicology report was positive for opioids, methadone and fentanyl as well as cocaine. Patient denied history of smoking, or alcohol use he denied history of IV drug use But he sniffs cocaine and heroin. CT abdomen pelvis showed thick walled fluid collection containing gas bubble and air-fluid in the posterior right hemithorax appearing to be arising out of right lower lobe. Measuring about 14 cm. He was found to have right empyema pleural fluid growing MRSA Patient was admitted and underwent drainage with chest tube placement on 02/20/2024 Thoracic surgery was consulted for persistent fluid collection on 23 of February, patient underwent VATS converted to mini thoracotomy, decortication with empuemectomy , via inter costal nerve block. Chest tubes remain in place until February 26 and then discontinued. 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 Methadone was continued Patient was discharged with 5 mg oxycodone 18 tablets. He already has appointment with thoracic surgeon Dr. Almazan this coming Tuesday Patient says that he was told there is no need to see infectious disease, and he would like to wait until seen by thoracic surgeon He is able to take deep breaths without any pain However he is requesting oxycodone script which I do not think is needed as patient is already on methadone. He is anemic as well last hemoglobin was 8.0 he was given 30 tablets of ferrous sulfate which he is taking 1 a day I have sent more tablets for him is to continue that CBC need to be repeated end of this month. On examination patient seems to be comfortable and breathing normally. Does not seem to be short of breath. [facility] Medical History Kidney stones Crack cocaine use Heroin abuse Drug abuse Social History Household Members: Family Housing: House Comment: pt refusing alarms; educated to call before getting up Patient Tobacco Use Status: Never used Tobacco e-Cigarette/Vaping Use: Never Used Substance Use Type: Crack/Cocaine service: No Current occupational status: unemployed Cognitive needs: No Hearing needs: No Vision needs: No Questionnaire PHQ-9 Over the last 2 weeks, how often have you been bothered by any of the following problems? 1. Little interest or pleasure in doing things: not at all 2. Feeling down, depressed, or hopeless: not at all 3. Trouble falling or staying asleep, or sleeping too much: not at all 4. Feeling tired or having little energy: not at all 5. Poor appetite or overeating: not at all 6. Feeling bad about yourself - or that you are a failure or have let yourself or your family down: not at all 7. Trouble concentrating on things, such as reading the newspaper or watching television: not at all 8. Moving or speaking so slowly that other people could have noticed. Or the opposite - being so fidgety or restless that you have been moving around a lot more than usual: not at all 9. Thoughts that you would be better off or of hurting yourself in some way: not at all Total score: 0 Depression Screening Interpretation: Negative Depression Screening Done: Yes 71829 - PHQ-9 Billing: Yes Source: Developed by Drs. Darien Alejandra, Marietta Sr, Tao Qeusada and colleagues, with an educational tami from [employer]. Thrive Questionnaire Date Thrive assessed: 03/06/24 I am a: Patient What is your living situation today?: I have a steady place to live Within the past 12 months, did the food you bought not last and you didn't have the money to get more?: Never true Within the past 12 months, did you worry whether your food would run out before you got money to buy more?: Never true Do you have trouble paying for medicines?: No Do you have trouble getting transportation to medical appointments?: No Do you have trouble paying your heating and electricity bill?: No Do you have trouble taking care of your child, family member or friend?: No Do you have trouble with day-to-day activities such as bathing, preparing meals, shopping, managing finances, etc.?: No Are you currently unemployed and looking for a job?: No Are you interested in more education?: No Please select the resources that you would like help with: Housing/Care Home Currently or been in a relationship where the following occur: I choose not to answer THRIVE Score: 0 AUDIT C Alcohol Use Questionnaire (AUDIT-C) 1. How often do you have a drink containing alcohol?: Never 3. How often do you have six or more drinks on one occasion?: Never Total Score: 0 Score Reviewed/Action Taken: Yes SHELLEY-7 AMB Questionnaire SHELLEY-7 Date SHELLEY - 7 assessed: 03/06/24 Feeling nervous, anxious, or on edge: 0 = Not at all Not being able to stop or control worryin = Not at all Worrying too much about different things: 0 = Not at all Trouble relaxin = Not at all Being so restless that it is hard to sit still: 0 = Not at all Becoming easily annoyed or irritable: 0 = Not at all Feeling afraid as if something awful might happen: 0 = Not at all Total SHELLEY-7 score (0-4 normal; 5-9 mild; 10-14 moderate; 15-21 severe): 0 Source: Developed by Drs. Darien Alejandra, Marietta Sr, Tao Quesada and colleagues, with an educational tami from [employer]. SHELLEY-7 Assessment Billing SHELLEY-7 Assessment Tool: SHELLEY-7 Assessment 70966 Review of Systems Const Denies chills and Denies fever(s) ENT Denies epistaxis and Denies nasal discharge Card Denies chest pain Resp Denies chest congestion, Denies cough and Denies hemoptysis GI Denies diarrhea and Denies nausea Skin/Breast Denies rash Neuro Reports no additional complaints Psych Reports no additional complaints Endo Reports no additional complaints Physical exam (Primary Care) Vital Signs: Last Vital Signs Pulse 79 03/06/24 12:19 BP 158/96 H 03/06/24 12:19 Pulse Ox 98 03/06/24 12:19 Oxygen Delivery Method Room Air 03/06/24 12:19 BMI result Body Mass Index 26.3 Tobacco/Smoking Status: Tobacco use Status Tobacco use date assessed 03/06/24 03/06/24 12:23 Patient Tobacco Use Status Never used Tobacco 03/06/24 12:23 e-Cigarette/Vaping Use Never Used 03/06/24 12:23 PHQ-9: PHQ-9 Score PHQ-9: Total score 0 03/06/24 12:31 Depression Screening Interpretation: Negative Thrive Assessment: Date of Thrive Assessment Date Thrive assessed 03/06/24 03/06/24 12:23 Currently or been in a relationship where the following occur: I choose not to answer Const General: cooperative, comfortable and no acute distress Orientation/consciousness: patient oriented x3 HENMT Head: Yes normocephalic Eyes General: appearance normal, both eyes and all related structures Neck Neck: Yes supple Chest Chest/axillae images: 2 1. Dressing on without any blood stains Resp Other: Dull breath sounds right lower lobe Effort & Inspection: normal respiratory effort, no cough and no stridor Cardio Rhythm: regular rhythm Heart sounds: S1 normal heart sound present and S2 normal heart sound present Skin General skin exam: turgor normal Neuro General: patient oriented x3, tone normal and moves all extremities Extrem Right lower extremity: no edema Left lower extremity: no edema Assessment and Plan Assessment & Plan (1) Hospital discharge follow-up: Code(s): Z09 - Encounter for follow-up examination after completed treatment for conditions other than malignant neoplasm (2) Iron deficiency anemia: Code(s): D50.9 - Iron deficiency anemia, unspecified Qualifiers: Iron deficiency anemia type: unspecified iron deficiency Qualified Code(s): D50.9 - Iron deficiency anemia, unspecified (3) Pneumonia of right lung due to methicillin resistant Staphylococcus aureus (MRSA): Code(s): J15.212 - Pneumonia due to Methicillin resistant Staphylococcus aureus Qualifiers: Lung location: lower lobe of lung Qualified Code(s): J15.212 - Pneumonia due to Methicillin resistant Staphylococcus aureus (4) Status post thoracotomy: Code(s): Z98.890 - Other specified postprocedural states (5) Methadone dependence: Code(s): F11.20 - Opioid dependence, uncomplicated Plan Patient is a 43-year-old gentleman with a past medical history of mild asthma, history of opioid use disorder on methadone, was evaluated in [facility] Emergency room in January for right flank pain and painful urination. And was diagnosed with acute pyelonephritis. He was discharged home on Keflex for 10 days and naproxen Renal ultrasound showed bilateral 5 mm nonobstructing calculus no hydronephrosis. abdomen and pelvic CT scan was on remarkable. He presented to emergency room again with the chest pain which was persistent and constant right-sided radiating to right anterior chest for 2-3 weeks' duration. Patient also lost appetite and some weight during that duration. Urine toxicology report was positive for opioids, methadone and fentanyl as well as cocaine. Patient denied history of smoking, or alcohol use he denied history of IV drug use But he sniffs cocaine and heroin. CT abdomen pelvis showed thick walled fluid collection containing gas bubble and air-fluid in the posterior right hemithorax appearing to be arising out of right lower lobe. Measuring about 14 cm. He was found to have right empyema pleural fluid growing MRSA Patient was admitted and underwent drainage with chest tube placement on 02/20/2024 Thoracic surgery was consulted for persistent fluid collection on 23 of February, patient underwent VATS converted to mini thoracotomy, decortication with empuemectomy , via inter costal nerve block. Chest tubes remain in place until February 26 and then discontinued. 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 Methadone was continued Patient was discharged with 5 mg oxycodone 18 tablets. He already has appointment with thoracic surgeon Dr. Almazan this coming Tuesday Patient says that he was told there is no need to see infectious disease, and he would like to wait until seen by thoracic surgeon He is able to take deep breaths without any pain However he is requesting oxycodone script which I do not think is needed as patient is already on methadone. He is anemic as well last hemoglobin was 8.0 he was given 30 tablets of ferrous sulfate which he is taking 1 a day I have sent more tablets for him is to continue that CBC need to be repeated end of this month. On examination patient seems to be comfortable and breathing normally. Does not seem to be short of breath. 45 minutes spent in care of this patient Orders: Orders 2 Complete Blood Count Auto Diff Today D50.9 - Iron deficiency anemia, unspecified Comprehensive Met. Panel Today D50.9 - Iron deficiency anemia, unspecified Medications: Refilled 2 ferrous sulfate 325 mg PO DAILY 90 tabs 1RF Coding Level of Care Code Est Pt Level 5 (52487) Diagnoses Hospital discharge follow-up Z09 Iron deficiency anemia, unspecified iron deficiency anemia type D50.9 Iron deficiency anemia type: unspecified iron deficiency Pneumonia of right lower lobe due to methicillin resistant Staphylococcus aureus (MRSA) J15.212 Lung location: lower lobe of lung Status post thoracotomy Z98.890 Methadone dependence F11.20 Additional Codes SHELLEY-7 Assessment Billing - SHELLEY-7 Assessment Tool: SHELLEY-7 Assessment [id number] ([id number])
== END 2024-03-06 15:09 | disposition home or self-care (01) ==
PROVIDERS: PCP Internal Medicine; Visit Provider Internal Medicine
DX: J15.212 Pneumonia due to Methicillin resistant Staphylococcus aureus (principal); F11.20 Opioid dependence, uncomplicated; Z09 Encounter for follow-up examination after completed treatment for conditions other than malignant neoplasm; D50.9 Iron deficiency anemia, unspecified; Z98.890 Other specified postprocedural states
CPT/HCPCS: 99215

== ENCOUNTER 2024-03-12 12:51 | Outpatient (AMB) | payer OTHER, SELFPAY ==
--- NOTE | 2024-03-12 12:57 | MHC.OFFVIS ---
Vital Signs 03/12/24 12:58 Height 5 ft 11 in Weight 187 lb 6.287 oz BMI 26.1 Pulse 72 Intake Visit Reasons: (R) chest loculated effusion Intake Note: Patient is seen in office for post op assessment post chest loculated effusin. Pt c/o: denies any concerns at the time of visit Physician Industrial Required: No Accompanied by: Self / Same As Patient Allergies bee pollen [BEE STINGS] Allergy (Intermediate, Verified 03/12/24 12:59) HIVES Penicillins Allergy (Mild, Verified 03/12/24 12:59) UNKNOWN penicillin V Allergy (Unknown, Verified 03/12/24 12:59) unknown SANJAY DELIGHT Allergy (Mild, Uncoded 03/12/24 12:59) HIVES HPI Comments Details: Patient presents for follow-up status post right decortication for empyema. He is doing quite well. No respiratory issues or complaints. He has incisional discomfort which is improving. He is otherwise tolerating his diet, having regular bowel habits. Increasing his activity level. [facility] Medical History Opioid use disorder IV drug abuse Abscess Empyema lung Acute hyponatremia Acute upper back pain Acute flank pain Methadone dependence Kidney stones Crack cocaine use Heroin abuse Drug abuse Surgical History (Updated 03/12/24 @ 13:03 by Armando Almazan MD) Status post thoracotomy Social History Household Members: Family Housing: House Comment: pt refusing alarms; educated to call before getting up Patient Tobacco Use Status: Never used Tobacco e-Cigarette/Vaping Use: Never Used Substance Use Type: Crack/Cocaine service: No Current occupational status: unemployed Cognitive needs: No Hearing needs: No Vision needs: No Physical Exam Vital Signs: Last Vital Signs Pulse 72 03/12/24 12:58 BMI result Body Mass Index 26.1 Chest Other: All incisions clean dry and intact healing very well. Breath sounds equal bilaterally. Assessment & Plan Assessment & Plan (1) Status post thoracotomy: Code(s): Z98.890 - Other specified postprocedural states Category: Surgical (2) Hospital discharge follow-up: Code(s): Z09 - Encounter for follow-up examination after completed treatment for conditions other than malignant neoplasm Category: Surgical Plan From a surgical perspective, patient is doing very well. He has been given local instructions and should avoid strenuous activities for next few weeks time. Patient was also scheduled to see infectious disease physician later this afternoon as well. All questions answered. Patient will otherwise follow-up with me p.r.n.. Coding Level of Care Code Global (28958) Diagnoses Status post thoracotomy Z98.890 Hospital discharge follow-up Z09
[2024-03-12 12:58] VITALS: PULSE 72; BMI 26.1
== END 2024-03-12 13:03 | disposition home or self-care (01) ==
PROVIDERS: PCP Internal Medicine; Visit Provider Surgery
DX: Z98.890 Other specified postprocedural states (principal); Z09 Encounter for follow-up examination after completed treatment for conditions other than malignant neoplasm
CPT/HCPCS: 99024

== ENCOUNTER → 2024-03-12 12:51 | Outpatient (BNVA) | payer OTHER, SELFPAY | PROVIDERS: PCP Internal Medicine; Visit Provider Surgery | DX: Z98.890 Other specified postprocedural states (principal) | CPT/HCPCS: 99212 ==

== ENCOUNTER 2024-03-12 13:10 | Outpatient (AMB) | payer OTHER, SELFPAY ==
--- NOTE | 2024-03-12 13:11 | A.OFFVIS_ITS ---
Vital Signs 03/12/24 13:15 Height 5 ft 11 in Weight 182 lb BMI 25.4 Pulse 82 Pulse Source Pulse Oximeter Pulse Oximetry (%) 98 Oxygen Delivery Method Room Air Intake Visit Reasons: [facility] reff list/MRSA Allergies bee pollen [BEE STINGS] Allergy (Intermediate, Verified 03/12/24 12:59) HIVES Penicillins Allergy (Mild, Verified 03/12/24 12:59) UNKNOWN penicillin V Allergy (Unknown, Verified 03/12/24 12:59) unknown SANJAY DELIGHT Allergy (Mild, Uncoded 03/12/24 12:59) HIVES HPI HPI C reff list/MRSA: Details: He has had MRSA empyema. He has no complaints at this time. He has finished po linezolid. [facility] Medical History Opioid use disorder IV drug abuse Abscess Empyema lung Acute hyponatremia Acute upper back pain Acute flank pain Methadone dependence Kidney stones Crack cocaine use Heroin abuse Drug abuse Surgical History Status post thoracotomy Social History Household Members: Family Housing: House Comment: pt refusing alarms; educated to call before getting up Patient Tobacco Use Status: Never used Tobacco e-Cigarette/Vaping Use: Never Used Substance Use Type: Crack/Cocaine service: No Current occupational status: unemployed Cognitive needs: No Hearing needs: No Vision needs: No Review of Systems Const All systems reviewed & are unremarkable except as noted in HPI and below Physical Exam Vital Signs: Last Vital Signs Pulse 82 03/12/24 13:15 Pulse Ox 98 03/12/24 13:15 Oxygen Delivery Method Room Air 03/12/24 13:15 BMI result Body Mass Index 25.4 Assessment & Plan Assessment & Plan (1) Status post thoracotomy: Comment: He is doing well and has no complaints He has no fever or complaints Code(s): Z98.890 - Other specified postprocedural states Category: Surgical Plan: Would continue off antibiotics. Follow up if needed. (2) Hospital discharge follow-up: Code(s): Z09 - Encounter for follow-up examination after completed treatment for conditions other than malignant neoplasm Category: Surgical Plan: na Coding Level of Care Code Est Pt Level 3 (19991) Diagnoses Status post thoracotomy Z98.890 Hospital discharge follow-up Z09
[2024-03-12 13:15] VITALS: PULSE 82; O2SAT 98; BMI 25.4
== END 2024-03-12 14:39 | disposition home or self-care (01) ==
LOC: HO.HID 13:10
PROVIDERS: PCP Internal Medicine; Visit Provider Internal Medicine
DX: Z98.890 Other specified postprocedural states (principal); Z09 Encounter for follow-up examination after completed treatment for conditions other than malignant neoplasm
CPT/HCPCS: 99213

== ENCOUNTER 2024-04-03 09:35 | Outpatient (REF) | payer OTHER, SELFPAY ==
[2024-04-03 13:45] LABS: Basophils Absolute Auto 0.1 X10*3/uL (0.0-0.2); Basophils Percent Auto 0.7 % (0-2); Eosinophils Absolute Auto 0.2 X10*3/uL (0.0-0.4); Eosinophils Percent Auto 2.1 % (0-4); Hematocrit 37.7 % (42.0-52.0); Hemoglobin 12.2 g/dl (14.0-18.0); Imm Gran Abs Auto 0.05 X10*3/uL (0.00-0.03); Imm Gran Pct Auto 0.6 % (0.0-0.4); Lymphocytes Absolute Auto 2.3 X10*3/uL (1.2-4.9); Lymphocytes Percent Auto 28.6 % (20-40); MANUAL DIFF FLAG SCAN; Mean Corpuscular HGB Conc 32.4 g/dl (31.0-36.0); Mean Corpuscular Hemoglobin 27.2 pg (27.0-33.0); Monocytes Absolute Auto 0.5 X10*3/uL (0.1-1.2); Monocytes Percent Auto 6.1 % (2-11); Neutrophils Percent Auto 61.9 % (45-73); PLT CLUMP 1; Red Blood Count 4.49 X10*6/uL (4.60-5.80); Red Cell Distribution Width 15.4 % (11.0-16.0); SCAN SMEAR FLAG 1
[2024-04-03 14:14] LABS: Mean Platelet Volume 11.7 fL (9.4-12.4); Platelet Count 256 X10*3/uL (160-400)
[2024-04-03 14:15] LABS: SLIDE REVIEW VERIFIED
== END 2024-04-03 09:36 | disposition home or self-care (01) ==
LOC: HO.HMGCLDS 09:35
PROVIDERS: PCP Internal Medicine; Visit Provider Family Medicine
DX: D64.9 Anemia, unspecified (principal)
CPT/HCPCS: 36415; 85025

== ENCOUNTER 2024-07-19 08:06 | Outpatient (AMB) | payer OTHER, SELFPAY ==
--- NOTE | 2024-07-19 08:10 | AM.OFFWIN_ITS ---
Intake Vital Signs 07/19/24 08:11 Weight 216 lb BP 110/70 Blood Pressure Location Lt brachial Position Sitting Pulse 74 Pulse Source Pulse Oximeter Temp 98 F Temp Source Oral Pulse Oximetry (%) 97 Oxygen Delivery Method Room Air Intake Visit Reasons: EP ? UTI Intake Note: Patient here for lower abd pain and pain when urinating that started yesterday. Patient Tobacco Use Status: Never used Tobacco Allergies bee pollen [BEE STINGS] Allergy (Intermediate, Verified 07/19/24 08:17) HIVES Penicillins Allergy (Mild, Verified 07/19/24 08:17) UNKNOWN penicillin V Allergy (Unknown, Verified 07/19/24 08:17) unknown SANJAY DELIGHT Allergy (Mild, Uncoded 07/19/24 08:17) HIVES Do you need a note to return to daycare/school/sports/work: No HPI HPI Comments History of Present Illness Details History of Present Illness The patient is a 44-year-old male presenting with suspected urinary tract infection. He reports onset of symptoms as of yesterday, characterized by dysuria described as pain during urination and reduced urine output. He also experiences pelvic pain and tenderness primarily in the suprapubic region radiating to the groin. Associated systemic symptoms include chills and subjective fever, estimated approximately around 101?F, though this was not measured. He reports a past medical history of kidney stones and a severe MRSA infection requiring hospitalization in March, during which he underwent surgical intervention. He denies hematuria in the current instance. His current medications include methadone and albuterol, with no known allergies. Physical Exam General: Cooperative, healthy appearing, comfortable, no acute distress and well developed Orientation: Patient oriented x3 Limitations: No limitations Head: Normal to inspection Ears: Hearing grossly normal bilaterally Nose: Normal external nose present Face and sinus: Normal facial exam Eyes: Appearance normal, both eyes and all related structures Neck: Normal visual inspection and Yes full ROM Respiratory: Normal respiratory effort and able to speak in complete sentences. GI: Soft abdomen, TTP suprapubic area Back: negative CVA bilaterally Skin: No rashes or lesions noted Neuro: Patient oriented x3 Extremities: Normal to inspection [facility] Medical History Opioid use disorder IV drug abuse Abscess Empyema lung Acute hyponatremia Acute upper back pain Acute flank pain Methadone dependence Kidney stones Crack cocaine use Heroin abuse Drug abuse Surgical History Status post thoracotomy Social History Household Members: Family Housing: House Comment: pt refusing alarms; educated to call before getting up Patient Tobacco Use Status: Never used Tobacco e-Cigarette/Vaping Use: Never Used Substance Use Type: Crack/Cocaine service: No Current occupational status: unemployed Cognitive needs: No Hearing needs: No Vision needs: No Review of Systems Const All systems reviewed & are unremarkable except as noted in HPI and below Assessment & Plan Assessment & Plan (1) Urinary tract infection: Code(s): N39.0 - Urinary tract infection, site not specified Qualifiers: Urinary tract infection type: acute cystitis Hematuria presence: with hematuria Qualified Code(s): N30.01 - Acute cystitis with hematuria Plan: Plan - Commence treatment with Cefuroxime axetil, prescribed to be taken every 12 hours for a duration of five days. - A urine culture will be sent for laboratory analysis to identify potential bacterial pathogens and their antibiotic sensitivities. Follow-up will be based on culture results, with plans to adjust the antibiotic regimen if necessary. - Patient is advised to seek emergency care if symptoms significantly worsen, particularly if high-grade fever develops or other severe symptoms arise, due to his complex medical history including prior MRSA infection. - Review and revisit patient history for re-evaluation, paying attention to any progression of symptoms or new remarkable changes. - Close monitoring of symptoms and ensuring patient understands signs that warrant direct medical attention. Patient was informed and verbally consented to the use of an ambient scribe for clinic note documentation during this visit. Orders: Orders Urine Culture Today N39.0 - Urinary tract infection, site not specified Medications: New cefuroxime axetil 500 mg PO Q12H 10 tabs 0RF Coding Level of Care Code Est Pt Level 3 (46784) Diagnoses Acute cystitis with hematuria N30.01 Urinary tract infection type: acute cystitis Hematuria presence: with hematuria
[2024-07-19 08:11] VITALS: BP 110/70; PULSE 74; TEMP 36.6; O2SAT 97
== END 2024-07-19 09:06 | disposition home or self-care (01) ==
PROVIDERS: PCP Internal Medicine; Visit Provider Physician Assistant
DX: N30.01 Acute cystitis with hematuria (principal); Z13.9 Encounter for screening, unspecified

== ENCOUNTER 2024-07-19 08:06 | Outpatient (REF) | payer OTHER, SELFPAY | END 2024-07-19 08:07 | disposition home or self-care (01) | LOC: HO.LAB 08:06 | PROVIDERS: PCP Internal Medicine; Visit Provider Physician Assistant | DX: N30.01 Acute cystitis with hematuria (principal) | CPT/HCPCS: 81003; 87086; 99212 ==

== ENCOUNTER 2025-01-15 07:46 | Inpatient (IN) | payer OTHER, SELFPAY ==
--- NOTE | ~2025-01-15 | US_ITS ---
EXAMINATION: US TRIPLEX LOWER EXTREMITY, LEFT CLINICAL INFORMATION: Swelling/edema, left lower extremity COMPARISON: None available. TECHNIQUE: Color-flow triplex imaging with spectral analysis and compression Doppler were performed on the left lower extremity. FINDINGS: Respiratory variation, normal compression and augmented flow are present throughout the interrogated left common femoral vein, superficial femoral vein, profunda femoral vein, popliteal vein and midcalf peroneal and posterior tibial venous segments . There is no Hendricks's cyst. US/US venous duplex LE IMPRESSION: No acute deep venous thrombosis interrogated veins, left lower extremity. Negative for DVT. Electronically signed by: Cale Jett MD 01/15/2025 02:22 PM EDT
--- NOTE | ~2025-01-15 | CT_ITS ---
Examination: CT left femur with IV contrast. CLINICAL INDICATION: Distal femur swelling. Question abscess. COMPARISON: None. TECHNIQUE: 1.5 mm thin axial and reformatted 2 mm thin sagittal and coronal images of left femur obtained following IV 85 mL Omnipaque [id number]. FINDINGS: The anterior, posterior and lateral compartments of left thigh are normal. No focal mass, fluid collection, edema or abscess seen. There is no bony abnormality involving the left femur. There is tiny fluid within the left knee joint likely within normal limits. No abnormal lymph nodes. The left femoral artery and the vein appears intact. CT/CT femur LT w IV con IMPRESSION: No focal mass, fluid collection abscess seen in the left leg, especially in lower thigh. The bony cortex and bone marrow appears normal with no focal abnormality seen involving the left femur. Trace fluid in the left knee.. Electronically signed by: Liborio Oneal MD 01/15/2025 11:50 AM EDT
[2025-01-15 07:54] VITALS: BP 148/93; PULSE 72; RESP 16; TEMP 36.7; O2SAT 95
[2025-01-15 08:07] VITALS: BMI 35.4
--- NOTE | 2025-01-15 08:24 | ED_ITS ---
HPI - Skin/Abscess/Foreign Bdy General Chief complaint: Skin/Abscess/Foreign Body Stated complaint: Cellulitis Left leg? Infected? Time Seen by Provider: 01/15/25 08:15 Source: patient Mode of arrival: ambulatory Limitations: no limitations History of Present Illness HPI narrative: this is a 44 years old male presented to the emergency department complaining of an area of redness and swelling in the left distal thigh ongoing since Tuesday ( about 4 days) he denies any fever or chills injury. No history of diabetes or immuno suppression MD complaint: other (redness and swelling) Onset (ago): day(s) (4) Location: LLE Severity: moderate Quality: burning Pain Consistency: constant Relieving factors: none Exacerbating factors: none Associated symptoms: denies other symptoms Related Data Home Medications ?Medication ?Instructions ?Recorded ?Confirmed acetaminophen 500 mg tablet 1,000 mg PO Q8H PRN 01/15/25 Pain/Inflammation ibuprofen 200 mg tablet (Advil) 400 mg PO Q8H PRN Pain /Inflammation 01/15/25 01/15/25 methadone 10 mg/mL oral 50 mg PO QPM 01/15/25 concentrate (Methadone Intensol) methadone 10 mg/mL oral 110 mg PO DAILY 01/15/25 concentrate (Methadone Intensol) Previous Rx's ?Medication ?Instructions ?Recorded albuterol sulfate 90 mcg/actuation 2 puff inhalation Q 6H PRN 02/06/24 aerosol inhaler shortness of breath or wheez ing #8.5 grams Allergies Allergy/AdvReac Type Severity Reaction Status Date / Time bee pollen (BEE STINGS) Allergy Intermediate HIVES Verified 01/15/25 08:08 Penicillins Allergy Mild UNKNOWN Verified 01/15/25 08:08 penicillin V Allergy Unknown unknown Verified 01/15/25 08:08 SANJAY DELIGHT Allergy Mild HIVES Uncoded 07/19/24 08:17 Review of Systems 2 Constitutional: Constitutional: Denies chills and Denies fever(s) Musculoskeletal: Musculoskeletal: Reports as per HPI PMFSH Past Medical History [facility] Narrative: history of IVDA Medical History Opioid use disorder IV drug abuse Abscess Empyema lung Acute hyponatremia Acute upper back pain Acute flank pain Methadone dependence Kidney stones Crack cocaine use Heroin abuse Drug abuse Surgical History Status post thoracotomy Social History Social History Household Members: Family Housing: Apartment Do you presently have visiting nurse or other home services: No Comment: pt refusing alarms; educated to call before getting up Patient Tobacco Use Status: Never used Tobacco e-Cigarette/Vaping Use: Never Used Second Hand Smoke Exposure: No Substance Use Type: Crack/Cocaine service: No Current occupational status: unemployed Cognitive needs: No Hearing needs: No Vision needs: No Physical Exam 2 Vital Signs: Vital Signs: Last Vital Signs Temp 97.8 F 01/16/25 02:40 Pulse 60 01/16/25 02:40 Resp 18 01/16/25 02:40 BP 140/75 H 01/16/25 02:40 Pulse Ox 98 01/16/25 02:40 O2 Del Method Room Air 01/16/25 02:40 BMI result Body Mass Index 35.4 he looks well hrrrrrre is not toxic-appearing he is comfortable in the stretcher Const: General: cooperative Nutritional Appearance: well nourished O rientation/consciousness: patient oriented x3 HEENT: Head: Yes normal to inspection Face and sinus: Yes normal facial exam Neck: Neck: Yes normal visual inspection and Yes full ROM Chest: Chest palpation & inspection: normal inspection of the chest Resp: Effort & Inspection: normal respiratory effort Cardio: Jugular venous distension: no JVD Rate: regular rate Rhythm: r egular rhythm GI: Inspection: Yes normal to inspection Palpation (GI): Soft to palpation, not firm and nontender Skin: Other: there is an area of redness and tenderness in the left distal thigh Neuro: General: patient oriented x3 Cranial nerves: Yes CN's II-XII intact bilaterally Extrem: Other: area tenderness ,redness' swelling in the left distal thigh see picture Medications Administered Generic Name Dose Route Start Last Admin Trade Name Freq PRN Reason Stop Dose Admin Enoxaparin Sodium 40 mg 01/15/25 14:00 01/15/25 14:08 Enoxaparin Sodium 40 Mg/0.4 Ml Syringe SUBCUT 40 mg Q24H [place] Administration Ibuprofen 400 mg 01/15/25 13:49 01/15/25 22:25 Ibuprofen 400 Mg Tablet PO 400 mg TID PRN Administration Fever or Pain, Mild (Pain Scale 1-3) Sodium Chloride 3 ml 01/15/25 16:00 01/16/25 01:15 0.9 % Sodium Chloride Flush 3 Ml Syringe IVFLUSH 3 ml QSHIFT [place] Administration Discontinued Medications Generic Name Dose Route Start Last Admin Trade Name Arturoq PRN Reason Stop Dose Admin Ceftriaxone Sodium 1 gm 01/15/25 08:21 01/15/25 09:11 Ceftriaxone Sodium 1 Gm Vial IVPUSH 01/15/25 08:22 1 gm ONCE ONE Administration Vancomycin HCl 1,250 mg/ 250 mls @ 166.667 mls/hr 01/15/25 12:57 01/15/25 15:39 Sodium Chloride IV 01/15/25 14:26 Infused ONCE ONE Infusion Iohexol 100 ml 01/15/25 11:27 01/15/25 11:27 Iohexol 350 Mg/Ml 100 Ml Infus..Btl IV 01/15/25 11:28 85 ml ONCE ONE Administration Ondansetron HCl 4 mg 01/15/25 09:14 01/15/25 09:20 Ondansetron Hcl 4 Mg/2 Ml Vial IVPUSH 01/15/25 09:15 4 mg ONCE ONE Administration Ondansetron HCl 4 mg 01/15/25 14:05 01/15/25 14:09 Ondansetron Hcl 4 Mg/2 Ml Vial IVPUSH 01/15/25 14:06 4 mg ONCE ONE Administration Medical Decision Making Medical Decision Making [facility] Narrative: patient presented with a an area of redness tenderness left distal leg medial aspect differential diagnosis cellulitis/abscess Differential Diagnosis Differential Diagnoses: The differential diagnosis associated with the presentation includes Lab Data 01/15/25 08:34 01/16/25 05:35 Labs: Lab Results 01/15/25 Range/Units 08:34 WBC 7.9 (4.8-10.8) X10*3/uL RBC 4.70 (4.60-5.80) X10*6/uL Hgb 13.4 L (14.0-18.0) g/dl Hct 39.1 L (42.0-52.0) % MCV 83.2 (80.0-98.0) fL MCH 28.5 (27.0-33.0) pg MCHC 34.3 (31.0-36.0) g/dl RDW 14.5 (11.0-16.0) % Plt Count 205 (160-400) X10*3/uL MPV 10.7 (9.4-12.4) fL Immature Gran % (Auto) 0.4 (0.0-0.4) % Neut % (Auto) 64.9 (45-73) % Lymph % (Auto) 25.9 (20-40) % [place] % (Auto) 7.1 (2-11) % Eos % (Auto) 1.3 (0-4) % Baso % (Auto) 0.4 (0-2) % Lymph # (Auto) 2.0 (1.2-4.9) X10*3/uL [place] # (Auto) 0.6 (0.1-1.2) X10*3/uL Eos # (Auto) 0.1 (0.0-0.4) X10*3/uL Baso # (Auto) 0.0 (0.0-0.2) X10*3/uL Abs Immat Gran (auto) 0.03 (0.00-0.03) X10*3/uL Absolute Neuts (auto) 5.1 (2.0-8.3) x10*3/uL Absolute Nucleated RBC 0.000 (0.0-0.012) X10*3/uL Nucleated RBC % (auto) 0.0 (0.0-0.2) /100WBC ESR 38 H (0-15) MM/HR Sodium 135 (135-145) mmol/L Potassium 4.1 (3.3-5.1) mmol/L Chloride 102 (96-108) mmol/L Carbon Dioxide 27 (22-29) mmol/L Anion Gap 10 L (12-20) BUN 19 H (9-16) mg/dL Creatinine 0.82 (0.5-1.4) mg/dL Estim Creat Clear Calc 136.8 Estimated GFR > 60 Random Glucose 121 H (60-115) mg/dL Calcium 9.2 D (8.4-10.2) mg/dL Total Bilirubin 0.4 (0.0-1.0) mg/dL AST 34 (5-37) U/L ALT 22 (0-40) U/L Alkaline Phosphatase 149 H (39-117) U/L Total Protein 7.8 (6.5-8.0) g/dL Albumin 4.1 (3.5-5.0) g/dL Discharge Plan Discharge Clinical Impression: Cellulitis of left thigh Patient Disposition: Admitted As Inpatient Interventions: Admission Worksheet (ED) Last Done: 01/15/25 19:20 Discharge Date/Time: 01/15/25 20:17
--- OUTSIDE RECORDS SUMMARY | 2025-01-15 08:34 | XMS_ITS | Clinical Summary ---
Author Organization [employer] Address [address] [place] [address] Care Team Providers Care Land Law Examiner Name Role Phone Unavailable Primary Care Provider Unavailabl e Immunizations Immunization Administration Dates Next Due Moderna Covid-19 Vaccine 12+ 07/30/2022 Social History Tobacco Use Types Packs/Day Years Used Date Smoking Tobacco: Never Assessed Sex and Gender Information Value Date Recorded Sex Assigned at Male 05/31/2022 10:36 AM EDT Legal Sex Male 10:36 AM EDT Gender Identity Male 05/31/2022 10:36 AM EDT Sexual Orientation Straight 05/31/2022 10 :36 AM EDT Last Filed Vital Signs Vital Sign Reading Time Taken Comments Blood Pressure 142/100 08/02/2019 12:01 AM EST Pulse 84 08/02/2019 12:01 AM EST Temperature - - Respiratory Rate - - Oxygen Saturation - - Inhaled Oxygen Concentration - - Weight 96.5 kg (212 lb 12.8 oz) 020 12:01 AM EST Height 173 cm (5' 8.11 ) 08/02/2019 12: 01 AM EST Body Mass Index 32.25 08/02/2019 12:01 AM EST Plan of Treatment Health Maintenance Due Date Last Done Comments CT Colonography 1978 Colonoscopy 1978 Colorectal Cancer Screening 1978 Depression Screening 1978 FIT DNA/Cologuard 1978 FIT 1978 FOBT 1978 HIV Screening 1978 Lipid Panel 1978 SDOH Screening 1978 Sigmoidoscopy 1978 Disability Screening 1978 Alcohol/Substance Use Screening 1990 Tobacco Screening 1990 Family Planning (PISQ) 1993 Hepatitis C Screening 1996 Pneumococcal Vaccine: Pediatrics (0 to 5 Years) and At-Risk Patients (6 to 49) Years (2 of 2 - PCV) 11/06/2015 11/05/2014 DTaP/Tdap/Td Vaccines (2 - Td or Tdap) 03/26/2024 03/26/2014 COVID-19 Vaccine (3 - season) 2024 07/30/2022, 02/11/2021 Influenza Vaccine (Season Ended) 2025 Zoster Vaccines (1 of 2) 2028 RSV Patients and Patients Aged 60 years or older (1 - 1-dose 75+ series) 2053 Hepatitis A Vaccines Aged Out 05/26/2011, 02/09/20 09 No longer eligible based on patient's age to complete this topic Hepatitis B Vaccines Completed 11/14/2014, 09/26/2011, 05/26/2011, Additional history exists HIB Vaccines Aged Out No longer eligi ble based on patient's age to complete this topic HPV Vaccines Aged Out No longer eligi ble based on patient's age to complete this topic IPV Vaccines Aged Out No longer eligi ble based on patient's age to complete this topic Meningococcal B Vaccine Aged Out No l onger eligible based on patient's age to complete this topic Meningococcal Vaccine Aged Out No cecelia ephraim eligible based on patient's age to complete this topic RSV under 20 months Aged Out No longe r eligible based on patient's age to complete this topic Rotavirus Vaccines Aged Out No longer eligible based on patient's age to complete this topic Insurance [facility]
[2025-01-15 08:41] LABS: MANUAL DIFF FLAG NO
[2025-01-15 08:45] LABS: Basophils Percent Auto 0.4 % (0-2); Eosinophils Absolute Auto 0.1 X10*3/uL (0.0-0.4); Eosinophils Percent Auto 1.3 % (0-4); Hematocrit 39.1 % (42.0-52.0); Hemoglobin 13.4 g/dl (14.0-18.0); Imm Gran Abs Auto 0.03 X10*3/uL (0.00-0.03); Imm Gran Pct Auto 0.4 % (0.0-0.4); Lymphocytes Percent Auto 25.9 % (20-40); Mean Corpuscular HGB Conc 34.3 g/dl (31.0-36.0); Mean Corpuscular Hemoglobin 28.5 pg (27.0-33.0); Mean Corpuscular Volume 83.2 fL (80.0-98.0); Mean Platelet Volume 10.7 fL (9.4-12.4); Monocytes Absolute Auto 0.6 X10*3/uL (0.1-1.2); Monocytes Percent Auto 7.1 % (2-11); Neutrophils Absolute Auto 5.1 x10*3/uL (2.0-8.3); Neutrophils Percent Auto 64.9 % (45-73); Platelet Count 205 X10*3/uL (160-400); Red Cell Distribution Width 14.5 % (11.0-16.0); White Blood Count 7.9 X10*3/uL (4.8-10.8)
--- NOTE | 2025-01-15 08:57 | PC.NURSE ---
Pt requesting food prior to antibiotics as they cause nausea, okay to eat per MD. Pt given meal.
[2025-01-15 09:01] LABS: Alanine Aminotransferase 22 U/L (0-40); Albumin Level 4.1 g/dL (3.5-5.0); Alkaline Phosphatase 149 U/L (39-117); Anion Gap 10 (12-20); Aspartate Amino Transferase 34 U/L (5-37); Bilirubin Total 0.4 mg/dL (0.0-1.0); Blood Urea Nitrogen 19 mg/dL (9-16); Calcium 9.2 mg/dL (8.4-10.2); Carbon Dioxide 27 mmol/L (22-29); Chloride 102 mmol/L (96-108); Creatinine Clr Calc Pharmacy 136.8; Estimated Glomerular Filt Rate > 60; Glucose Random 121 mg/dL (60-115); Potassium 4.1 mmol/L (3.3-5.1); Sodium 135 mmol/L (135-145); Total Protein 7.8 g/dL (6.5-8.0)
[2025-01-15] MEDS: cefTRIAXone sodium 1 GM VIAL IVPUSH (09:11)
[2025-01-15] MEDS: ondansetron HCL 4 MG/2 ML VIAL IVPUSH ×2 (09:20→14:09)
[2025-01-15 09:25] LABS: Erythrocyte Sedimentation Rate 38 MM/HR (0-15)
--- NOTE | 2025-01-15 10:13 | PC.NURSE ---
Patient is away for imaging at this time.
[2025-01-15] MEDS: iohexoL 350 MG/ML 100 ML INFUS..BTL IV (11:27)
[2025-01-15 11:55] VITALS: BP 126/103; PULSE 63; RESP 16; O2SAT 97
--- NOTE | 2025-01-15 13:09 | P.HPHOSP_ITS ---
History of Present Illness Date of Service: 01/15/25 Chief Complaint: Cellulitis left thigh 44-year-old male with a past medical history of mild intermittent asthma, opioid misuse DO on methadone maintenance therapy, history of empyema in his lung requiring chest tube and IV antibiotics for MRSA in January of this year, history of pyelonephritis presented to ED for evaluation of left thigh swelling and tenderness. Patient reports increased swelling and tenderness since Tuesday. Denies any fever but reports chills yesterday. Area is tender to touch. Patient reports that he has not injected any substances in several months. On exam he reports tenderness to her left thigh, denies any shortness of breath, chest pain, dizziness, lightheadedness, headaches, abdominal pain, back pain or other concerning symptoms. His vitals are stable. Lab work revealed no leukocytosis. +Elevated Sed rate. Blood cultures are pending CT of the femur reveals no focal mass, fluid collection, or no focal abnormality involving the left femur. Trace fluid noted in the left knee but patient has no complaints of pain in the knee. Patient received a dose of ceftriaxone and Zofran in the ED. he will be admitted for treatment of cellulitis of the left thigh. Review of Systems 2 Review of Systems: Denies any shortness of breath, chest pain, dizziness, lightheadedness, abdominal pain or discomfort, nausea vomiting or diarrhea PMFSH Medical History Opioid use disorder IV drug abuse Abscess Empyema lung Acute hyponatremia Acute upper back pain Acute flank pain Methadone dependence Kidney stones Crack cocaine use Heroin abuse Drug abuse Surgical History Status post thoracotomy Social History Household Members: Family Housing: House Comment: pt refusing alarms; educated to call before getting up Patient Tobacco Use Status: Never used Tobacco e-Cigarette/Vaping Use: Never Used Substance Use Type: Crack/Cocaine Advance Directives: No Advance Directives Information Provided: No service: No Current occupational status: unemployed Cognitive needs: No Hearing needs: No Vision needs: No Meds Allergies Allergy/AdvReac Type Severity Reaction Status Date / Time bee pollen [BEE STINGS] Allergy Intermediate HIVES Verified 01/15/25 08:08 Penicillins Allergy Mild UNKNOWN Verified 01/15/25 08:08 penicillin V Allergy Unknown unknown Verified 01/15/25 08:08 SANJAY DELIGHT Allergy Mild HIVES Uncoded 07/19/24 08:17 Active Medications: Current Medications Vancomycin HCl 1,250 mg/ (Sodium Chloride) 250 mls @ 166.667 mls/hr IV ONCE ONE Stop: 01/15/25 14:26 Home Medications ?Medication ?Instructions ?Recorded ?Confirmed ?Last Taken ?Type acetaminophen 500 mg tablet 1,000 mg PO Q8H PRN 01/15/25 01/15/25 Unknown History Pain/Inflammation ibuprofen 200 mg tablet (Advil) 400 mg PO Q8H PRN Pain/Inflammation 01/15/25 01/15/25 Unknown History methadone 10 mg/mL oral 50 mg PO BEDTIME 01/15/25 Unknown History concentrate (Methadone Intensol) methadone 10 mg/mL oral 110 mg PO DAILY 01/15/25 Unknown History concentrate (Methadone Intensol) Physical Exam 2 Vital Signs and Narrative: Vital Signs: Last Vital Signs Temp 98.1 F 01/15/25 07:54 Pulse 63 01/15/25 11:55 Resp 16 01/15/25 11:55 BP 126/103 H 01/15/25 11:55 Pulse Ox 97 01/15/25 11:55 O2 Del Method Room Air 01/15/25 11:55 BMI result Body Mass Index 35.4 CONST: Alert and oriented, in NAD. Well nourished HEENT: Normocephalic, atraumatic, MMM, Eyes clear, Neck supple RESP: Lungs clear, RRR even and regular HEART:,RRR, S1, S2. No murmur, no edema GI:Abdomen Soft NT, ND. + BS times four :Deferred SKIN: Warm dry and intact, Small scabbed area to upper prakash near area of linear scar. Calves soft, area non fluctuant, tender to touch, warm NEURO:CN II-XII Intact bilaterally, Sensation intact. Speech clear PSYCH: Normal affect Results Labs 01/15/25 08:34 01/15/25 08:34 Labs: Laboratory Results - last 24 hr 01/15/25 08:34 MCV 83.2 MCH 28.5 MCHC 34.3 RDW 14.5 Plt Count 205 MPV 10.7 Immature Gran % (Auto) 0.4 Neut % (Auto) 64.9 Lymph % (Auto) 25.9 [place] % (Auto) 7.1 Eos % (Auto) 1.3 Baso % (Auto) 0.4 Lymph # (Auto) 2.0 [place] # (Auto) 0.6 Eos # (Auto) 0.1 Baso # (Auto) 0.0 Abs Immat Gran (auto) 0.03 Absolute Neuts (auto) 5.1 Absolute Nucleated RBC 0.000 Nucleated RBC % (auto) 0.0 ESR 38 H Anion Gap 10 L Estim Creat Clear Calc 136.8 Estimated GFR > 60 Random Glucose 121 H Calcium 9.2 D Total Bilirubin 0.4 AST 34 ALT 22 Alkaline Phosphatase 149 H Total Protein 7.8 Albumin 4.1 Imaging Radiologist's Impressions: Impressions Femur CT 01/15/25 10:06 IMPRESSION: No focal mass, fluid collection abscess seen in the left leg, especially in lower thigh. The bony cortex and bone marrow appears normal with no focal abnormality seen involving the left femur. Trace fluid in the left knee.. Electronically signed by: Liborio Oneal MD 01/15/2025 11:50 AM EDT RP Assessment and Plan (1) Cellulitis of left thigh: Status: Acute Plan 44-year-old male with a past medical history of mild intermittent asthma, polysubstance use on methadone treatment, history of pyelonephritis, history of MRSA empyema presents to the ED with worsening swelling and warmth to left thigh. Found to have a cellulitis and he will be admitted for IV antibiotics. Left thigh cellulitis Patient reports area developed on Tuesday accompanied with chills, no fever. No leukocytosis, CT reveals no evidence of abscess. Blood cultures pending Will check a ultrasound of the left leg to rule out DVT Start vancomycin due to history of MRSA and presentation. Follow labs. Motrin as needed for pain. History of IVDA, denies use in several months. Polysubstance use-opiates Continue outpatient dose of methadone 140 mg daily Code status: Full code DVT prophylaxis: Lovenox Quality Stroke Does the patient have a stroke diagnosis?: No VTE Prior VTE?: No VTE Risk Level:: Medical - moderate - high VTE Device Contraindication: Treatment Not Indicated VTE Drug Contraindication: N/A - Med Ordered
--- NOTE | 2025-01-15 13:38 | PHA.MEDREC ---
Addendum entered by Joe Mena [facility] 01/15/25 13:51: med rec reviewed Original Note: Pharmacy Consult ? Medication Reconciliation Pharmacy has completed the medication reconciliation. Spoke with pt and he confirmed her medications. Pt confirmed his Methadone and confirmed he takes 110mg in the morning and 50mg at the bedtime. He confirmed he took 110mg of Methadone this morning.
[2025-01-15] MEDS: Enoxaparin Sodium 40 MG/0.4 ML SYRINGE SUBCUT (14:08)
[2025-01-15] MEDS: 0.9 % Sodium Chloride Flush 3 ML SYRINGE IVFLUSH (14:09)
[2025-01-15] MEDS: vancomycin HCL 1,250 MG in 0.9 % Sodium Chloride 250 ML 166.67 MG IV (14:09)
--- NOTE | 2025-01-15 17:06 | MHC.EDTECH ---
Pt has a night time dosage of Methadone on his person. RN made aware Pharmacy is being contacted
[2025-01-15 17:22] VITALS: BP 125/78; PULSE 68; RESP 16; TEMP 36.8; O2SAT 96
--- NOTE | 2025-01-15 17:31 | PC.NURSE ---
Methadone verification completed with Marisol Carias at [facility]. [phone]. 110mg QAM, 50mg QPM. Last dose (50mg) taken at 17:03 witnessed by this RN with take-home dose. [facility] doses good through 01/21/2025. Form faxed to [facility] pharmacy. Yvette aware of admission at [facility]. While on the phone confirming Methadone dose with Marisol, Marisol asked this RN to get the patient to come to the phone to confirm the Methadone dose. This RN explained that we do not have an available cordless phone, and I am not normally asked to have the patient speak to the Methadone clinic directly. 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 We each have our different policies, and this is how we've always done it . This RN stated that I've spoken to multiple Methadone clinics for other patients, including [facility], and have never been asked to have a patient come to the phone to speak with the clinic directly. I then asked the patient to come to the phone at the nurse's station to speak to Marisol. Spoke with art glass setter (Samra) who witnessed this interaction. Form was completed and faxed to pharmacy per policy.
--- NOTE | 2025-01-15 18:16 | HE.PHANOTE ---
Methadone verified , miravista 110 mg qam and 50 mg qpm last dose given 01/15/2025
[2025-01-15 20:37] VITALS: BP 155/82; PULSE 63; RESP 18; TEMP 36.4; O2SAT 97
[2025-01-15 22:10] VITALS: BMI 36.6
[2025-01-15] MEDS: Ibuprofen 400 MG TABLET PO (22:25)
[2025-01-16] MEDS: 0.9 % Sodium Chloride Flush 3 ML SYRINGE IVFLUSH ×3 (01:15→17:02)
[2025-01-16 02:40] VITALS: BP 140/75; PULSE 60; RESP 18; TEMP 36.6; O2SAT 98
[2025-01-16 06:30] LABS: Anion Gap 11 (12-20); Blood Urea Nitrogen 16 mg/dL (9-16); Calcium 8.8 mg/dL (8.4-10.2); Carbon Dioxide 25 mmol/L (22-29); Chloride 104 mmol/L (96-108); Creatinine Clr Calc Pharmacy 132.5; Estimated Glomerular Filt Rate > 60; Glucose Random 101 mg/dL (60-115); Potassium 4.1 mmol/L (3.3-5.1); Sodium 136 mmol/L (135-145)
[2025-01-16 07:12] LABS: Basophils Percent Auto 0.6 % (0-2); Eosinophils Absolute Auto 0.1 X10*3/uL (0.0-0.4); Eosinophils Percent Auto 1.9 % (0-4); Hematocrit 38.6 % (42.0-52.0); Imm Gran Abs Auto 0.04 X10*3/uL (0.00-0.03); Imm Gran Pct Auto 0.6 % (0.0-0.4); Lymphocytes Absolute Auto 2.6 X10*3/uL (1.2-4.9); Lymphocytes Percent Auto 36.7 % (20-40); MANUAL DIFF FLAG SCAN; Mean Corpuscular HGB Conc 33.7 g/dl (31.0-36.0); Mean Corpuscular Hemoglobin 28.2 pg (27.0-33.0); Mean Corpuscular Volume 83.7 fL (80.0-98.0); Monocytes Absolute Auto 0.6 X10*3/uL (0.1-1.2); Neutrophils Absolute Auto 3.7 x10*3/uL (2.0-8.3); Neutrophils Percent Auto 52.2 % (45-73); PLT CLUMP 1; Red Blood Count 4.61 X10*6/uL (4.60-5.80); Red Cell Distribution Width 14.7 % (11.0-16.0); SCAN SMEAR FLAG 1
[2025-01-16 07:19] VITALS: BP 109/68; PULSE 60; RESP 18; TEMP 36.4; O2SAT 98
[2025-01-16 07:55] LABS: Mean Platelet Volume 11.5 fL (9.4-12.4); Platelet Count 171 X10*3/uL (160-400)
[2025-01-16 07:56] LABS: SLIDE REVIEW VERIFIED
[2025-01-16] MEDS: methADONE HCl 20 MG/2 ML ORAL.CONC 110 MG PO (08:35)
[2025-01-16] MEDS: Ibuprofen 400 MG TABLET PO ×3 (08:37→21:37)
[2025-01-16] MEDS: vancomycin HCL 1,250 MG in 0.9 % Sodium Chloride 250 ML 166.67 MG IV (08:40)
--- NOTE | 2025-01-16 09:40 | HO.PM.IMPN ---
Subjective Subjective Date of Service: 01/16/25 Interval History: seen and evaluated this morning Feels little better Still has erythema and pain in thigh noo ther events Review of Systems Review of Systems: Yes all other systems are reviewed and are negative Physical Exam Vital Signs: Vital Signs: Last Vital Signs Temp 97.6 F 01/16/25 07:19 Pulse 60 01/16/25 07:19 Resp 18 01/16/25 07:19 BP 109/68 01/16/25 07:19 Pulse Ox 98 01/16/25 07:19 O2 Del Method Room Air 01/16/25 07:19 BMI result Body Mass Index 36.6 Const: Other: Constitutional : Awake, interactive, not in distress Neck : Normal inspection, Supple Cardiovascular : RRR, no JVP, no lower extremity edema Respiratory : good bilateral air entry, no crackles, wheezes or rhonchi Gastrointestinal: soft, lax, Normal bowel sounds, Non tender Skin : Warm, Dry, Left thigh warmth, erythema Neurological : Alert & oriented x3, No focal deficit , CN 2-12 within normal Objective Data Active Medications Acetaminophen (Acetaminophen 325 Mg Tablet) 650 mg PO Q6H PRN PRN Reason: Pain, Mild 1-3,fever,headache Albuterol Sulfate (Albuterol Sulfate 90 Mcg 8 Gm Inhaler) 2 puff INHALE Q6H PRN PRN Reason: shortness of breath or wheezing Enoxaparin Sodium (Enoxaparin Sodium 40 Mg/0.4 Ml Syringe) 40 mg SUBCUT Q24H REPLACED BY [facility] Last Admin: 01/15/25 14:08 Dose: 40 mg Documented By: KP Vancomycin HCl 1,250 mg/ (Sodium Chloride) 250 mls @ 166.667 mls/hr IV Q12H REPLACED BY [facility] Stop: 01/16/25 10:00 Last Admin: 01/16/25 08:40 Dose: 166.67 mls/hr Documented By: TITA Clindamycin Phosphate (Cleocin) 600 mg in 50 mls @ 100 mls/hr IV Q8H REPLACED BY [facility] Ibuprofen (Ibuprofen 400 Mg Tablet) 400 mg PO TID REPLACED BY [facility] Last Admin: 01/16/25 08:37 Dose: 400 mg Documented By: TITA Methadone HCl (Methadone Hcl 20 Mg/2 Ml Oral.Conc) 110 mg PO DAILY REPLACED BY [facility] Last Admin: 01/16/25 08:35 Dose: 110 mg Documented By: TITA Co-signed By: SANDRA Methadone HCl (Methadone Hcl 20 Mg/2 Ml Oral.Conc) 50 mg PO BEDTIME [place] Ondansetron HCl (Ondansetron Hcl 4 Mg/2 Ml Vial) 4 mg IVPUSH Q8H PRN PRN Reason: Nausea and Vomiting Sodium Chloride (0.9 % Sodium Chloride Flush 3 Ml Syringe) 3 ml IVFLUSH QSHIFT REPLACED BY [facility] Last Admin: 01/16/25 08:40 Dose: 3 ml Documented By: TITA Labs 01/16/25 05:35 01/16/25 05:35 Labs: Laboratory Results - last 24 hr 01/16/25 05:35 MCV 83.7 MCH 28.2 MCHC 33.7 RDW 14.7 Plt Count 171 MPV 11.5 Immature Gran % (Auto) 0.6 H Neut % (Auto) 52.2 Lymph % (Auto) 36.7 [place] % (Auto) 8.0 Eos % (Auto) 1.9 Baso % (Auto) 0.6 Lymph # (Auto) 2.6 [place] # (Auto) 0.6 Eos # (Auto) 0.1 Baso # (Auto) 0.0 Abs Immat Gran (auto) 0.04 H Absolute Neuts (auto) 3.7 Absolute Nucleated RBC 0.000 Nucleated RBC % (auto) 0.0 Smear Tech's Comments VERIFIED Anion Gap 11 L Estim Creat Clear Calc 132.5 Estimated GFR > 60 Random Glucose 101 Calcium 8.8 Assessment and Plan (1) Cellulitis of left thigh: Status: Acute Plan 44-year-old male with a past medical history of mild intermittent asthma, polysubstance use on methadone treatment, history of pyelonephritis, history of MRSA empyema presents to the ED with worsening swelling and warmth to left thigh. Found to have a cellulitis and he will be admitted for IV antibiotics. Left thigh cellulitis with abscess formation CT showing fluid collection abscess seen in the left leg, especially in lower thigh. Blood cultures pending negative ultrasound of the left leg for DVT dc vancomycin due to history of MRSA and switch to Clindamycin IV Motrin as needed for pain. consider surgery consult if no improvement History of IVDA denies use in several months Continue outpatient dose of methadone 140 mg daily Code status: Full code DVT prophylaxis: Lovenox The patient will need overnight stay for treatment with IV antibiotics and possible need for surgical evaluation of reported abscess Quality Stroke Does the patient have a stroke diagnosis?: No VTE Prior VTE?: No VTE Risk Level:: Medical - moderate - high VTE Device Contraindication: Treatment Not Indicated VTE Drug Contraindication: N/A - Med Ordered
[2025-01-16] MEDS: Clindamycin Phosphate/D5W 600 MG/50 ML PIGGYBACK 100 MG IV ×2 (10:40→16:56)
--- NOTE | 2025-01-16 12:40 | MHC.CM.PN ---
pt lives with parents he goes to [facility] for [facility]adone he has a ride home pt is indepedent will not require additional services
[2025-01-16] MEDS: Enoxaparin Sodium 40 MG/0.4 ML SYRINGE SUBCUT (14:29)
[2025-01-16 15:20] VITALS: BP 129/87; PULSE 62; RESP 20; TEMP 36.1; O2SAT 98
[2025-01-16 18:59] VITALS: BP 124/77; PULSE 52; RESP 20; TEMP 36.9; O2SAT 96
[2025-01-16] MEDS: methADONE HCl 20 MG/2 ML ORAL.CONC 50 MG PO (21:39)
[2025-01-17] MEDS: 0.9 % Sodium Chloride Flush 3 ML SYRINGE IVFLUSH ×3 (03:05→17:25)
[2025-01-17] MEDS: Clindamycin Phosphate/D5W 600 MG/50 ML PIGGYBACK 100 MG IV ×3 (03:05→17:27)
[2025-01-17 03:16] VITALS: BP 159/84; PULSE 59; RESP 20; TEMP 36.8; O2SAT 98
[2025-01-17 07:18] VITALS: BP 105/58; PULSE 58; RESP 16; TEMP 36.3; O2SAT 97
[2025-01-17] MEDS: Ibuprofen 400 MG TABLET PO ×3 (08:54→21:21)
[2025-01-17] MEDS: methADONE HCl 20 MG/2 ML ORAL.CONC 110 MG PO (08:56)
--- NOTE | 2025-01-17 10:34 | P.PNIM_ITS ---
Subjective Subjective Date of Service: 01/17/25 Interval History: seen and evaluated this morning Feels little better but has pain and can not carry weight on left leg Still has erythema and pain in thigh noo ther events Review of Systems Review of Systems: Yes all other systems are reviewed and are negative Physical Exam 2 Vital Signs: Vital Signs: Last Vital Signs Temp 97.3 F 01/17/25 07:18 Pulse 58 01/17/25 07:18 Resp 16 01/17/25 07:18 BP 105/58 L 01/17/25 07:18 Pulse Ox 97 01/17/25 07:18 O2 Del Method Room Air 01/17/25 07:18 BMI result Body Mass Index 36.6 Const: Other: Constitutional : Awake, interactive, not in distress Neck : Normal inspection, Supple Cardiovascular : RRR, no JVP, no lower extremity edema Respiratory : good bilateral air entry, no crackles, wheezes or rhonchi Gastrointestinal: soft, lax, Normal bowel sounds, Non tender Skin : Warm, Dry, Left thigh warmth, erythema and tenderness Neurological : Alert & oriented x3, No focal deficit Objective Data Active Medications Acetaminophen (Acetaminophen 325 Mg Tablet) 650 mg PO Q6H PRN PRN Reason: Pain, Mild 1-3,fever,headache Albuterol Sulfate (Albuterol Sulfate 90 Mcg 8 Gm Inhaler) 2 puff INHALE Q6H PRN PRN Reason: shortness of breath or wheezing Enoxaparin Sodium (Enoxaparin Sodium 40 Mg/0.4 Ml Syringe) 40 mg SUBCUT Q24H [facility] Last Admin: 01/16/25 14:29 Dose: 40 mg Documented By: TITA Clindamycin Phosphate (Cleocin) 600 mg in 50 mls @ 100 mls/hr IV Q8H [facility] Last Infusion: 01/17/25 03:35 Dose: Infused Documented By: SINDI Ibuprofen (Ibuprofen 400 Mg Tablet) 400 mg PO TID [facility] Last Admin: 01/17/25 08:54 Dose: 400 mg Documented By: RENEE Methadone HCl (Methadone Hcl 20 Mg/2 Ml Oral.Conc) 110 mg PO DAILY [facility] Last Admin: 01/17/25 08:56 Dose: 110 mg Documented By: RENEE Co-signed By: FILOMENA Methadone HCl (Methadone Hcl 20 Mg/2 Ml Oral.Conc) 50 mg PO BEDTIME [facility] Last Admin: 01/16/25 21:39 Dose: 50 mg Documented By: SINDI Co-signed By: ANILA Ondansetron HCl (Ondansetron Hcl 4 Mg/2 Ml Vial) 4 mg IVPUSH Q8H PRN PRN Reason: Nausea and Vomiting Sodium Chloride (0.9 % Sodium Chloride Flush 3 Ml Syringe) 3 ml IVFLUSH QSHIFT [facility] Last Admin: 01/17/25 08:55 Dose: 3 ml Documented By: MARIAHAMER Labs 01/16/25 05:35 01/16/25 05:35 Microbiology Microbiology Results: Microbiology 01/15/25 08:34 Blood Culture - Preliminary Blood - Venous No growth after 24 hours. 01/15/25 08:34 Blood Culture - Preliminary Blood - Venous No growth after 24 hours. Assessment and Plan (1) Cellulitis of left thigh: Status: Acute Plan 44-year-old male with a past medical history of mild intermittent asthma, polysubstance use on methadone treatment, history of pyelonephritis, history of MRSA empyema presents to the ED with worsening swelling and warmth to left thigh. Found to have a cellulitis and he will be admitted for IV antibiotics. Left thigh cellulitis with abscess formation CT showing fluid collection abscess seen in the left leg, especially in lower thigh. Blood cultures pending negative ultrasound of the left leg for DVT dc vancomycin due to history of MRSA and switch to Clindamycin IV Motrin as needed for pain. surgery consult as no improvement History of IVDA denies use in several months Continue outpatient dose of methadone 140 mg daily Code status: Full code DVT prophylaxis: Lovenox The patient will need overnight stay for treatment with IV antibiotics and possible need for surgical evaluation of reported abscess Quality Stroke Does the patient have a stroke diagnosis?: No VTE Prior VTE?: No VTE Risk Level:: Medical - moderate - high VTE Device Contraindication: Treatment Not Indicated VTE Drug Contraindication: N/A - Med Ordered
[2025-01-17 10:43] LABS: MANUAL DIFF FLAG NO
[2025-01-17 10:47] LABS: Basophils Percent Auto 0.3 % (0-2); Eosinophils Absolute Auto 0.1 X10*3/uL (0.0-0.4); Eosinophils Percent Auto 1.4 % (0-4); Hematocrit 38.7 % (42.0-52.0); Hemoglobin 12.9 g/dl (14.0-18.0); Imm Gran Abs Auto 0.04 X10*3/uL (0.00-0.03); Imm Gran Pct Auto 0.6 % (0.0-0.4); Lymphocytes Absolute Auto 1.6 X10*3/uL (1.2-4.9); Lymphocytes Percent Auto 22.7 % (20-40); Mean Corpuscular HGB Conc 33.3 g/dl (31.0-36.0); Mean Corpuscular Hemoglobin 28.4 pg (27.0-33.0); Mean Corpuscular Volume 85.1 fL (80.0-98.0); Mean Platelet Volume 10.4 fL (9.4-12.4); Monocytes Absolute Auto 0.3 X10*3/uL (0.1-1.2); Monocytes Percent Auto 4.3 % (2-11); Neutrophils Absolute Auto 5.1 x10*3/uL (2.0-8.3); Neutrophils Percent Auto 70.7 % (45-73); Platelet Count 206 X10*3/uL (160-400); Red Blood Count 4.55 X10*6/uL (4.60-5.80); Red Cell Distribution Width 14.1 % (11.0-16.0); White Blood Count 7.2 X10*3/uL (4.8-10.8)
[2025-01-17 10:58] LABS: Anion Gap 11 (12-20); Blood Urea Nitrogen 14 mg/dL (9-16); Carbon Dioxide 28 mmol/L (22-29); Chloride 103 mmol/L (96-108); Estimated Glomerular Filt Rate > 60; Glucose Random 107 mg/dL (60-115); Potassium 3.9 mmol/L (3.3-5.1); Sodium 138 mmol/L (135-145)
[2025-01-17] MEDS: oxyCODONE HCl Immed Release 5 MG TABLET PO ×2 (11:22→17:26)
--- NOTE | 2025-01-17 12:12 | P.PNGS_ITS ---
Subjective Subjective Date of Service: 01/17/25 Physical Exam 2 Vital Signs: Vital Signs: Last Vital Signs Temp 97.3 F 01/17/25 07:18 Pulse 58 01/17/25 07:18 Resp 16 01/17/25 07:18 BP 105/58 L 01/17/25 07:18 Pulse Ox 97 01/17/25 07:18 O2 Del Method Room Air 01/17/25 07:18 BMI result Body Mass Index 36.6 Objective Data Active Medications Acetaminophen (Acetaminophen 325 Mg Tablet) 650 mg PO Q6H PRN PRN Reason: Pain, Mild 1-3,fever,headache Albuterol Sulfate (Albuterol Sulfate 90 Mcg 8 Gm Inhaler) 2 puff INHALE Q6H PRN PRN Reason: shortness of breath or wheezing Enoxaparin Sodium (Enoxaparin Sodium 40 Mg/0.4 Ml Syringe) 40 mg SUBCUT Q24H [facility] Last Admin: 01/16/25 14:29 Dose: 40 mg Documented By: TITA Clindamycin Phosphate (Cleocin) 600 mg in 50 mls @ 100 mls/hr IV Q8H [facility] Last Infusion: 01/17/25 11:19 Dose: Infused Documented By: RENEE Ibuprofen (Ibuprofen 400 Mg Tablet) 400 mg PO TID [facility] Last Admin: 01/17/25 08:54 Dose: 400 mg Documented By: RENEE Methadone HCl (Methadone Hcl 20 Mg/2 Ml Oral.Conc) 110 mg PO DAILY [facility] Last Admin: 01/17/25 08:56 Dose: 110 mg Documented By: RENEE Co-signed By: FILOMENA Methadone HCl (Methadone Hcl 20 Mg/2 Ml Oral.Conc) 50 mg PO BEDTIME [facility] Last Admin: 01/16/25 21:39 Dose: 50 mg Documented By: SINDI Co-signed By: ANILA Ondansetron HCl (Ondansetron Hcl 4 Mg/2 Ml Vial) 4 mg IVPUSH Q8H PRN PRN Reason: Nausea and Vomiting Oxycodone HCl (Oxycodone Hcl Immed Release 5 Mg Tablet) 5 mg PO Q6H PRN PRN Reason: Pain, Severe (Pain Scale 7-10) Last Admin: 01/17/25 11:22 Dose: 5 mg Documented By: RENEE Sodium Chloride (0.9 % Sodium Chloride Flush 3 Ml Syringe) 3 ml IVFLUSH QSHIFT [facility] Last Admin: 01/17/25 08:55 Dose: 3 ml Documented By: RENEE Labs 01/17/25 10:31 01/17/25 10:31 Labs: Laboratory Results - last 24 hr 01/17/25 01/17/25 01/17/25 10:31 10:31 10:31 MCV 85.1 MCH 28.4 MCHC 33.3 RDW 14.1 Plt Count 206 MPV 10.4 Immature Gran % (Auto) 0.6 H Neut % (Auto) 70.7 Lymph % (Auto) 22.7 [place] % (Auto) 4.3 Eos % (Auto) 1.4 Baso % (Auto) 0.3 Lymph # (Auto) 1.6 [place] # (Auto) 0.3 Eos # (Auto) 0.1 Baso # (Auto) 0.0 Abs Immat Gran (auto) 0.04 H Absolute Neuts (auto) 5.1 Absolute Nucleated RBC 0.000 Nucleated RBC % (auto) 0.0 Anion Gap 11 L Estim Creat Clear Calc 120.0 Cancelled Estimated GFR > 60 Cancelled Random Glucose 107 Calcium 9.0 Microbiology Microbiology Results: Microbiology 01/15/25 08:34 Blood Culture - Preliminary Blood - Venous No growth after 48 hours. 01/15/25 08:34 Blood Culture - Preliminary Blood - Venous No growth after 48 hours. Procedures Date of Service Date of Service: 01/17/25 Progress Note: A&P Time Spent With Patient Time: Total time managing care of this patient today ____ minutes. Quality Stroke Does the patient have a stroke diagnosis?: No VTE Prior VTE?: No VTE Risk Level:: Medical - moderate - high VTE Device Contraindication: Treatment Not Indicated VTE Drug Contraindication: N/A - Med Ordered
--- NOTE | 2025-01-17 12:30 | PM.CNGS ---
History of Present Illness Consult details Consult date: 01/17/25 <Aki Alejo PA-C - Last Filed: 01/17/25 12:35> Narrative: patient pain and redness on the left thigh for 6 days. Denies and spontaneous drainage. Denies fever, chills. <Aki Alejo PA-C - Last Filed: 01/17/25 12:35> Review of Systems Review of Systems: Yes all other systems are reviewed and are negative <Aki Alejo PA-C - Last Filed: 01/17/25 12:35> [facility] Past Medical History Medical History: Medical History Opioid use disorder IV drug abuse Abscess Empyema lung Acute hyponatremia Acute upper back pain Acute flank pain Methadone dependence Kidney stones Crack cocaine use Heroin abuse Drug abuse <Aki Alejo PA-C - Last Filed: 01/17/25 12:35> Surgical History Surgical History: Surgical History Status post thoracotomy <Aki Alejo PA-C - Last Filed: 01/17/25 12:35> Social History Social History: Social History Household Members: Family Housing: Apartment Do you presently have visiting nurse or other home services: No Comment: pt refusing alarms; educated to call before getting up Patient Tobacco Use Status: Never used Tobacco e-Cigarette/Vaping Use: Never Used Second Hand Smoke Exposure: No Substance Use Type: Crack/Cocaine service: No Current occupational status: unemployed Cognitive needs: No Hearing needs: No Vision needs: No <SHAN Underwood Last Filed: 01/17/25 12:35> Meds Allergies/Adverse reactions: Allergies Allergy/AdvReac Type Severity Reaction Status Date / Time bee pollen (BEE STINGS) Allergy Intermediate HIVES Verified 01/15/25 08:08 Penicillins Allergy Mild UNKNOWN Verified 01/15/25 08:08 penicillin V Allergy Unknown unknown Verified 01/15/25 08:08 SANJAY DELIGHT Allergy Mild HIVES Uncoded 07/19/24 08:17 <SHAN Underwood Last Filed: 01/17/25 12:35> Active Medications: Current Medications Acetaminophen (Acetaminophen 325 Mg Tablet) 650 mg PO Q6H PRN PRN Reason: Pain, Mild 1-3,fever,headache Albuterol Sulfate (Albuterol Sulfate 90 Mcg 8 Gm Inhaler) 2 puff INHALE Q6H PRN PRN Reason: shortness of breath or wheezing Enoxaparin Sodium (Enoxaparin Sodium 40 Mg/0.4 Ml Syringe) 40 mg SUBCUT Q24H [facility] Last Admin: 01/16/25 14:29 Dose: 40 mg Clindamycin Phosphate (Cleocin) 600 mg in 50 mls @ 100 mls/hr IV Q8H [facility] Last Infusion: 01/17/25 11:19 Dose: Infused Ibuprofen (Ibuprofen 400 Mg Tablet) 400 mg PO TID [facility] Last Admin: 01/17/25 08:54 Dose: 400 mg Methadone HCl (Methadone Hcl 20 Mg/2 Ml Oral.Conc) 110 mg PO DAILY [facility] Last Admin: 01/17/25 08:56 Dose: 110 mg Methadone HCl (Methadone Hcl 20 Mg/2 Ml Oral.Conc) 50 mg PO BEDTIME [facility] Last Admin: 01/16/25 21:39 Dose: 50 mg Ondansetron HCl (Ondansetron Hcl 4 Mg/2 Ml Vial) 4 mg IVPUSH Q8H PRN PRN Reason: Nausea and Vomiting Oxycodone HCl (Oxycodone Hcl Immed Release 5 Mg Tablet) 5 mg PO Q6H PRN PRN Reason: Pain, Severe (Pain Scale 7-10) Last Admin: 01/17/25 11:22 Dose: 5 mg Sodium Chloride (0.9 % Sodium Chloride Flush 3 Ml Syringe) 3 ml IVFLUSH QSHIFT [facility] Last Admin: 01/17/25 08:55 Dose: 3 ml <Aki Alejo PA-C - Last Filed: 01/17/25 12:35> Home medications: Home Medications ?Medication ?Instructions ?Recorded ?Confirmed ?Last Taken ?Type acetaminophen 500 mg tablet 1,000 mg PO Q8H PRN 01/15/25 01/15/25 Unknown History Pain/Inflammation ibuprofen 200 mg tablet (Advil) 400 mg PO Q8H PRN Pain/Inflammation 01/15/25 01/15/25 Unknown History methadone 10 mg/mL oral 50 mg PO QPM 01/15/25 01/15/25 01/15/25 History concentrate (Methadone Intensol) methadone 10 mg/mL oral 110 mg PO DAILY 01/15/25 01/15/25 01/15/25 History concentrate (Methadone Intensol) <SAHN Underwood Last Filed: 01/17/25 12:35> Physical Exam Vital Signs: Vital Signs: Last Vital Signs Temp 97.3 F 01/17/25 07:18 Pulse 58 01/17/25 07:18 Resp 16 01/17/25 07:18 BP 105/58 L 01/17/25 07:18 Pulse Ox 97 01/17/25 07:18 O2 Del Method Room Air 01/17/25 07:18 BMI result Body Mass Index 36.6 <SHAN Udnerwood Last Filed: 01/17/25 12:35> Const: General: no acute distress <Aki Alejo PA-C - Last Filed: 01/17/25 12:35> Orientation/consciousness: patient oriented x3 <Aki Alejo PA-C - Last Filed: 01/17/25 12:35> Resp: Effort & Inspection: normal respiratory effort and able to speak in complete sentences <SHAN Underwood Last Filed: 01/17/25 12:35> Skin: Other: distal medial left thigh: erythematous and indurated, no palpable or visible fluid collection. Tender to palpation. decreased ROM of the knee <SHAN Underwood Last Filed: 01/17/25 12:35> Neuro: General: patient oriented x3 <SHAN Underwood Last Filed: 01/17/25 12:35> Results Labs Result diagrams: 01/17/25 10:31 01/17/25 10:31 <SHAN Underwood Last Filed: 01/17/25 12:35> Labs: Abnormal lab results 01/17/25 Range/Units 10:31 RBC 4.55 L (4.60-5.80) X10*6/uL Hgb 12.9 L (14.0-18.0) g/dl Hct 38.7 L (42.0-52.0) % Immature Gran % (Auto) 0.6 H (0.0-0.4) % Abs Immat Gran (auto) 0.04 H (0.00-0.03) X10*3/uL Anion Gap 11 L (12-20) Short CBC 01/17/25 Range/Units 10:31 WBC 7.2 (4.8-10.8) X10*3/uL Hgb 12.9 L (14.0-18.0) g/dl Hct 38.7 L (42.0-52.0) % Plt Count 206 (160-400) X10*3/uL BMP 01/17/25 01/17/25 10:31 10:31 Sodium 138 Potassium 3.9 Chloride 103 Carbon Dioxide 28 BUN 14 Creatinine 0.95 Cancelled Calcium 9.0 All other labs normal. <Aki Alejo PA-C - Last Filed: 01/17/25 12:35> Assessment and Plan (1) Cellulitis of left thigh: Status: Acute <Aki Alejo PA-C - Last Filed: 01/17/25 12:35> 44 year old male with a past medical history of mild intermittent asthma, opioid misuse DO on methadone maintenance therapy, history of empyema in his lung requiring chest tube and IV antibiotics for MRSA seen in consult for left thigh cellulitis. Patient has been on vancomycin for MRSA coverage. There has been no improvment in his pain with antibiotics. On CT there is a very small fluid collection on the medial aspect of the distal left thigh. On exam the area is erythematous, indurated, and the he has decreased ROM of the left knee however i was unable to palpate any fluid collection that could be drained. Would recommend continuing with antibiotics, pain control as needed. Will continue to follow peripherally for development of a fluid collection. <Aki Alejo PA-C - Last Filed: 01/17/25 12:35> 44 year old male with a past medical history of mild intermittent asthma, opioid misuse DO on methadone maintenance therapy, history of empyema in his lung requiring chest tube and IV antibiotics for MRSA seen in consult for left thigh cellulitis. Patient has been on vancomycin for MRSA coverage. There has been no improvment in his pain with antibiotics. On CT there is a very small fluid collection on the medial aspect of the distal left thigh. On exam the area is erythematous, indurated, and the he has decreased ROM of the left knee however i was unable to palpate any fluid collection that could be drained. Would recommend continuing with antibiotics, pain control as needed. Will continue to follow peripherally for development of a fluid collection. Patient seen and examined independently and agree with the above assessment and plan. Marked firmness in the skin with no evidence of fluctuance to indicate underlying abscess. Recommend keeping left leg elevated at all times and up on pillows. Continue antibiotics. We will monitor extent of swelling. <Osvaldo Stevens MD - Last Filed: 01/17/25 13:28> Procedures Date of Service Date of Service: 01/17/25 <Aki Alejo PA-C - Last Filed: 01/17/25 12:35> 01/17/25 <Osvaldo Stevens MD - Last Filed: 01/17/25 13:28>
[2025-01-17] MEDS: Enoxaparin Sodium 40 MG/0.4 ML SYRINGE SUBCUT (14:41)
[2025-01-17 16:00] VITALS: BP 111/59; PULSE 54; RESP 14; TEMP 35.9; O2SAT 96
--- NOTE | 2025-01-17 16:37 | P.CDIM_ITS ---
PROVIDER RESPONSE TEXT: To clarify, the appropriate diagnosis supported by the clinical indicators: Obesity Due to excess calories QUERY TEXT: PHYSICIAN'S DOCUMENTATION REQUEST Date of Query: 01/17/2025 08:01 AM EDT Patient Name: Osmany Nicholson Admit Date: 01/15/2025 Dear Sowmya Ross MD, A review of the medical record indicates additional documentation may be needed. Please review below and update the documentation accordingly. Clinical Indicators: Height: 5ft 9in Weight: 112.3kg BMI: 36.6 Other Clinical Notes Supporting Significance of the BMI: Nursing notes Height and Weight: BMI 36.6 Obese Class II If possible, please provide an associated diagnosis related to the abnormal BMI, such as: Overweight Obesity Due to excess calories Obesity Drug induced Obesity Due to other cause Specify the other cause Severe or Morbid Obesity With alveolar hypoventilation Severe or Morbid Obesity Without alveolar hypoventilation Other (explain) Clinically unable to determine (explain) Thank you, Allyssa Figueroa, CCS, CDIS Use of terms such as suspected, likely, concern for, or probable (associated with a specific diagnosis that is being evaluated, monitored, or treated as if it exists) are acceptable and can be coded in the inpatient setting, when documented at the time of discharge. Please use your independent medical judgment in providing your response. THIS QUERY IS PART OF THE PERMANENT MEDICAL RECORD
[2025-01-17 19:59] VITALS: BP 160/79; PULSE 86; RESP 20; TEMP 36.1; O2SAT 99
[2025-01-17] MEDS: methADONE HCl 20 MG/2 ML ORAL.CONC 50 MG PO (21:21)
[2025-01-18] MEDS: Clindamycin Phosphate/D5W 600 MG/50 ML PIGGYBACK 100 MG IV (01:43)
[2025-01-18] MEDS: 0.9 % Sodium Chloride Flush 3 ML SYRINGE IVFLUSH ×2 (01:43→09:24)
[2025-01-18] MEDS: oxyCODONE HCl Immed Release 5 MG TABLET PO ×2 (01:48→12:25)
[2025-01-18 02:37] VITALS: RESP 16
[2025-01-18 03:28] VITALS: BP 113/67; PULSE 54; RESP 18; TEMP 36; O2SAT 96
[2025-01-18] MEDS: Acetaminophen 325 MG TABLET 650 MG PO (03:39)
[2025-01-18 07:48] VITALS: BP 117/73; PULSE 57; RESP 12; TEMP 37; O2SAT 97
--- NOTE | 2025-01-18 08:43 | P.PNGS_ITS ---
Subjective Subjective Date of Service: 01/18/25 Patient reports: no new complaints and still having pain Interval history: Patient largely unchanged from yesterday. Continues to have pain behind the knee and difficulty moving the knee. He denies fever, chills. Denies any drainage Physical Exam 2 Vital Signs: Vital Signs: Last Vital Signs Temp 98.6 F 01/18/25 07:48 Pulse 57 01/18/25 07:48 Resp 12 01/18/25 07:48 BP 117/73 01/18/25 07:48 Pulse Ox 97 01/18/25 07:48 O2 Del Method Room Air 01/18/25 07:48 BMI result Body Mass Index 36.6 Skin: Other: Left medial knee some improvement of erythema. Very tender to touch, warm. No palpable fluid collection Objective Data Active Medications Acetaminophen (Acetaminophen 325 Mg Tablet) 650 mg PO Q6H PRN PRN Reason: Pain, Mild 1-3,fever,headache Last Admin: 01/18/25 03:39 Dose: 650 mg Documented By: BAO Albuterol Sulfate (Albuterol Sulfate 90 Mcg 8 Gm Inhaler) 2 puff INHALE Q6H PRN PRN Reason: shortness of breath or wheezing Clindamycin HCl (Clindamycin Hcl 300 Mg Capsule) 300 mg PO Q8H [facility] Enoxaparin Sodium (Enoxaparin Sodium 40 Mg/0.4 Ml Syringe) 40 mg SUBCUT Q24H [facility] Last Admin: 01/17/25 14:41 Dose: 40 mg Documented By: RENEE Ibuprofen (Ibuprofen 400 Mg Tablet) 400 mg PO TID [facility] Last Admin: 01/17/25 21:21 Dose: 400 mg Documented By: SINDI Methadone HCl (Methadone Hcl 20 Mg/2 Ml Oral.Conc) 110 mg PO DAILY [facility] Last Admin: 01/17/25 08:56 Dose: 110 mg Documented By: RENEE Co-signed By: FILOMENA Methadone HCl (Methadone Hcl 20 Mg/2 Ml Oral.Conc) 50 mg PO BEDTIME [facility] Last Admin: 01/17/25 21:21 Dose: 50 mg Documented By: SINDI Co-signed By: ANILA Ondansetron HCl (Ondansetron Hcl 4 Mg/2 Ml Vial) 4 mg IVPUSH Q8H PRN PRN Reason: Nausea and Vomiting Oxycodone HCl (Oxycodone Hcl Immed Release 5 Mg Tablet) 5 mg PO Q6H PRN PRN Reason: Pain, Severe (Pain Scale 7-10) Last Admin: 01/18/25 01:48 Dose: 5 mg Documented By: BAO Sodium Chloride (0.9 % Sodium Chloride Flush 3 Ml Syringe) 3 ml IVFLUSH QSHIFT [place] Last Admin: 01/18/25 01:43 Dose: 3 ml Documented By: BAO Labs 01/17/25 10:31 01/17/25 10:31 Labs: Laboratory Results - last 24 hr 01/17/25 01/17/25 01/17/25 10:31 10:31 10:31 MCV 85.1 MCH 28.4 MCHC 33.3 RDW 14.1 Plt Count 206 MPV 10.4 Immature Gran % (Auto) 0.6 H Neut % (Auto) 70.7 Lymph % (Auto) 22.7 Reeves % (Auto) 4.3 Eos % (Auto) 1.4 Baso % (Auto) 0.3 Lymph # (Auto) 1.6 Reeves # (Auto) 0.3 Eos # (Auto) 0.1 Baso # (Auto) 0.0 Abs Immat Gran (auto) 0.04 H Absolute Neuts (auto) 5.1 Absolute Nucleated RBC 0.000 Nucleated RBC % (auto) 0.0 Anion Gap 11 L Estim Creat Clear Calc 120.0 Cancelled Estimated GFR > 60 Cancelled Random Glucose 107 Calcium 9.0 Total Creatine Kinase 87 Microbiology Microbiology Results: Microbiology 01/15/25 08:34 Blood Culture - Preliminary Blood - Venous No growth after 48 hours. 01/15/25 08:34 Blood Culture - Preliminary Blood - Venous No growth after 48 hours. Procedures Date of Service Date of Service: 01/18/25 Progress Note: A&P Assessment and plan (1) Cellulitis of left thigh: Status: Acute Plan 44-year-old male admitted for cellulitis of left lower extremity the level of the knee. Patient continuing to have pain difficulty with ambulation due to the pain. Patient is on IV antibiotics, no new leukocytosis. On exam the patient is very tender at the medial aspect of left knee. There has been some improvement in the erythema. There remains no palpable fluid collection. At this point there was no indication for surgery or incision and drainage. We will recommend continuing antibiotics and supportive care. We will continue to follow during this admission for any abscess formation. Time Spent With Patient Time: Total time managing care of this patient today ____ minutes. Quality Stroke Does the patient have a stroke diagnosis?: No VTE Prior VTE?: No VTE Risk Level:: Medical - moderate - high VTE Device Contraindication: Treatment Not Indicated VTE Drug Contraindication: N/A - Med Ordered
[2025-01-18] MEDS: methADONE HCl 20 MG/2 ML ORAL.CONC 110 MG PO (09:25)
[2025-01-18] MEDS: Ibuprofen 400 MG TABLET PO (09:25)
[2025-01-18] MEDS: Clindamycin HCL 300 MG CAPSULE PO (09:25)
[2025-01-18 10:06] LABS: Creatinine Clr Calc Pharmacy 118.7; Estimated Glomerular Filt Rate > 60
[2025-01-18 10:07] LABS: Anion Gap 11 (12-20); Blood Urea Nitrogen 11 mg/dL (9-16); Calcium 8.8 mg/dL (8.4-10.2); Carbon Dioxide 27 mmol/L (22-29); Chloride 102 mmol/L (96-108); Creatinine Clr Calc Pharmacy 121.3; Estimated Glomerular Filt Rate > 60; Glucose Random 100 mg/dL (60-115); Sodium 136 mmol/L (135-145)
--- NOTE | 2025-01-18 12:12 | P.DS_ITS ---
DS: Providers Provider Date of Service: 01/18/25 Date of admission: 01/15/25 12:56 Date of discharge: 01/18/25 Primary care physician: Sushma Marroquin MD Consults: 01/17/25 10:32 Consult to General Surgery Routine Consulting Provider: [facility] [place] [facility] Reason for consultation: left thigh pain, Abscess on CT for eval and rec DS: Diagnosis Discharge Diagnosis (1) Cellulitis of left thigh: Status: Acute (2) Left thigh pain: Status: Acute DS: Summary Hospital Course Hospital Course: Admission note HPI 44-year-old male with a past medical history of mild intermittent asthma, opioid misuse DO on methadone maintenance therapy, history of empyema in his lung requiring chest tube and IV antibiotics for MRSA in January of this year, history of pyelonephritis presented to ED for evaluation of left thigh swelling and tenderness. Patient reports increased swelling and tenderness since Tuesday. Denies any fever but reports chills yesterday. Area is tender to touch. Patient reports that he has not injected any substances in several months. On exam he reports tenderness to her left thigh, denies any shortness of breath, chest pain, dizziness, lightheadedness, headaches, abdominal pain, back pain or other concerning symptoms. His vitals are stable. Lab work revealed no leukocytosis. +Elevated Sed rate. Blood cultures are pending CT of the femur reveals no focal mass, fluid collection, or no focal abnormality involving the left femur. Trace fluid noted in the left knee but patient has no complaints of pain in the knee. Patient received a dose of ceftriaxone and Zofran in the ED. he will be admitted for treatment of cellulitis of the left thigh. Hospital course The patient was admitted to the hospital for Left thigh cellulitis with concern of abscess formation as CT showing fluid collection abscess seen in the left leg, especially in lower thigh. Evaluated by surgical team who felt no need for intervention needed and can be treated with IV antibiotics only. His Blood cultures remained negative. Had negative ultrasound of the left leg for DVT. Started on IV vancomycin due to history of MRSA and switch to Clindamycin IV with good responseo remi the course of hospital stay as pain, erythema and tenderness improved. He was able to ambulate. pain controlled with Ibuprofen and PRN OXycodone. To be discharged on 1 more week of Clindamycin. History of IVDA. denies use in several months. Continue outpatient dose of methadone 110 mg daily and 50 bedtime. Discharge plan Continue antibiotic for 1 more week Taky Tylenol and advil for pain control Increase activity as tolerated come back to ED if worsening pain, swelling or fever Time Attestation Discharge Coordination Time (in mins): 38 Quality: Safe Use of Opioids Does Pt have an Active Cancer Diagnosis on the Problem List?: No Quality: Stroke Does the patient have a stroke diagnosis?: No Physical Exam Vital Signs: Vital Signs: Last Vital Signs Temp 98.6 F 01/18/25 07:48 Pulse 57 01/18/25 07:48 Resp 12 01/18/25 07:48 BP 117/73 01/18/25 07:48 Pulse Ox 97 01/18/25 07:48 O2 Del Method Room Air 01/18/25 07:48 BMI result Body Mass Index 36.6 Const: Other: Constitutional : Awake, interactive, not in distress Neck : Normal inspection, Supple Cardiovascular : RRR, no JVP, no lower extremity edema Respiratory : good bilateral air entry, no crackles, wheezes or rhonchi Gastrointestinal: soft, lax, Normal bowel sounds, Non tender Skin : Warm, Dry, Left thigh resolving warmth, no significant erythema and tenderness , full range of motion of knee Neurological : Alert & oriented x3, No focal deficit DS: Data Data Completed and Pending Completed studies during hospitalization [Text1]: Procedures Drainage of Mediastinum, Percutaneous Approach (02/18/24) Drainage of Right Pleural Cavity with Drainage Device, Percutaneous Approach (02/18/24) Excision of Right Pleura, Open Approach (02/18/24) Insertion of Infusion Device into Superior Vena Cava, Percutaneous Approach (02/18/24) Release Right Lower Lung Lobe, Open Approach (02/18/24) Release Right Upper Lung Lobe, Open Approach (02/18/24) Ultrasonography of Superior Vena Cava, Guidance (02/18/24) Labs on day of discharge: Laboratory Results - last 24 hr 01/17/25 01/18/25 01/18/25 10:31 09:47 09:47 Sodium 136 Potassium 4.0 Chloride 102 Carbon Dioxide 27 Anion Gap 11 L BUN 11 Creatinine 0.94 0.96 Estim Creat Clear Calc 121.3 Estimated GFR Random Glucose Calcium Total Creatine Kinase 87 01/18/25 01/18/25 09:47 09:47 Sodium Potassium Chloride Carbon Dioxide Anion Gap BUN Creatinine Estim Creat Clear Calc 118.7 Estimated GFR > 60 > 60 Random Glucose 100 Calcium 8.8 Total Creatine Kinase Preliminary micro results at discharge 01/15/25 08:34 Blood Culture - Preliminary Blood - Venous No growth after 48 hours. 01/15/25 08:34 Blood Culture - Preliminary Blood - Venous No growth after [address] Leg : Radiologist's impression: ITS Impressions Femur CT 01/15/25 10:06 IMPRESSION: No focal mass, fluid collection abscess seen in the left leg, especially in lower thigh. The bony cortex and bone marrow appears normal with no focal abnormality seen involving the left femur. Trace fluid in the left knee.. Electronically signed by: Liborio Oneal MD 01/15/2025 11:50 AM EDT RP Venous Duplex 01/15/25 14:00 IMPRESSION: No acute deep venous thrombosis interrogated veins, left lower extremity. Negative for DVT. Electronically signed by: Cale Jett MD 01/15/2025 02:22 PM EDT RP Discharge Plan Discharge Anticipated Discharge Date/Time: 01/18/25 12:02 Patient Disposition: Home, Self-Care Discharge Diagnosis: Cellulitis Referrals: Sushma Marroquin MD [Primary Care Provider, Internal Medicine] - 1 Week Discharge Medications: New clindamycin HCl 300 mg Capsule 300 mg PO Q8H Qty: 21 0RF (DME) crutches Kit See Rx Instructions .Route Qty: 1 0RF Rx Instructions: As directed Continued acetaminophen 500 mg Tablet 1,000 mg PO Q8H PRN (Reason: Pain/Inflammation) ibuprofen [Advil] 200 mg Tablet 400 mg PO Q8H PRN (Reason: Pain/Inflammation) methadone [Methadone Intensol] 10 mg/mL Concentrate 110 mg PO DAILY methadone [Methadone Intensol] 10 mg/mL Concentrate 50 mg PO QPM albuterol sulfate 90 mcg/actuation HFA aerosol inhaler 2 puff inhalation Q6H PRN (Reason: shortness of breath or wheezing) Qty: 8.5 0RF Discharge Orders: Discharge Order (Routine); Ordered 01/18/25 Ordered By: Sowmya Ross Diet: Advance to usual diet Activity on Discharge: As tolerated Stand Alone Forms: Patient Portal Discharge page Print Language: Turkish Care Plan Goals: Continue antibiotic for 1 more week Taky Tylenol and advil for pain control Increase activity as tolerated come back to ED if worsening pain, swelling or fever Health Concerns: Cellulitis Plan of Treatment: Antibiotics Assessment: as above
--- NOTE | 2025-01-18 12:26 | MHC.CM.PN ---
pt dcd home self care
[2025-01-18 13:47] VITALS: BP 129/70; PULSE 65; RESP 18; TEMP 36.2; O2SAT 96
== END 2025-01-18 13:57 | disposition home or self-care (01) | DRG 383 ==
LOC: HO.ED 12:59 → HO.EDOVER 13:38 → HO.S3 19:32
PROVIDERS: Admitting Provider Student in an Organized Health Care Education/Training Program; Emergency Provider Emergency Medicine; PCP Internal Medicine; Visit Provider Student in an Organized Health Care Education/Training Program
DX: L03.116 Cellulitis of left lower limb (principal); E66.09 Other obesity due to excess calories; F11.20 Opioid dependence, uncomplicated; J45.20 Mild intermittent asthma, uncomplicated; Z71.3 Dietary counseling and surveillance; Z68.36 Body mass index [BMI] 36.0-36.9, adult; Z86.14 Personal history of Methicillin resistant Staphylococcus aureus infection; Z79.899 Other long term (current) drug therapy
CPT/HCPCS: 36415; 73701; 80048; 80053; 82550; 82565; 85025; 85652; 87040; 93971; 99221; 99285; J0696; J0736; J1650; J2405; J3371; Q9967

== ENCOUNTER → 2025-01-15 08:22 | Outpatient (BNV) | payer OTHER, SELFPAY | PROVIDERS: Emergency Provider Emergency Medicine; PCP Internal Medicine; Visit Provider Radiology Diagnostic Radiology | DX: R22.42 Localized swelling, mass and lump, left lower limb (principal) | CPT/HCPCS: 73701; 93971 ==

== ENCOUNTER → 2025-01-15 12:56 | Outpatient (BNV) | payer OTHER, SELFPAY | PROVIDERS: Admitting Provider Student in an Organized Health Care Education/Training Program; Emergency Provider Emergency Medicine; PCP Internal Medicine | DX: L03.116 Cellulitis of left lower limb (principal) | CPT/HCPCS: 99222; 99232 ==

== ENCOUNTER → 2025-01-15 12:56 | Outpatient (BNV) | payer OTHER, SELFPAY | PROVIDERS: Admitting Provider Student in an Organized Health Care Education/Training Program; Emergency Provider Emergency Medicine; PCP Internal Medicine; Visit Provider Nurse Practitioner Family | DX: L03.116 Cellulitis of left lower limb (principal) | CPT/HCPCS: 99222; 99232; 99239 ==

== ENCOUNTER 2025-01-24 09:45 | Outpatient (AMB) | payer OTHER, SELFPAY ==
--- NOTE | 2025-01-24 09:47 | MHC.PC.OV ---
Vital Signs 01/24/25 09:49 Height 5 ft 10 in Weight 238 lb BMI 34.1 BP 136/90 H Blood Pressure Location Lt brachial Position Sitting Pulse 79 Pulse Source Pulse Oximeter Temp 98.4 F Temp Source Oral Pulse Oximetry (%) 96 Oxygen Delivery Method Room Air Intake Visit Reasons: Lt leg cellulitis [facility]-update pcp Allergies bee pollen (BEE STINGS) Allergy (Intermediate, Verified 01/24/25 09:51) HIVES Penicillins Allergy (Mild, Verified 01/24/25 09:51) UNKNOWN penicillin V Allergy (Unknown, Verified 01/24/25 09:51) unknown SANJAY DELIGHT Allergy (Mild, Uncoded 07/19/24 08:17) HIVES Tobacco use date assessed: 01/24/25 Dental Screening Dental Screen Date: 01/24/25 Did you have a dental visit in the last 12 months?: No Did you have a dental problem in the last 6 months where you did not have access to dental care?: No HPI HPI Comments History of Present Illness Details 44-year-old male here for F follow up, he has a past medical history of mild intermittent asthma, opioid misuse DO on methadone maintenance therapy, history of empyema in his lung requiring chest tube and IV antibiotics for MRSA in January of this year, history of pyelonephritis presented to the [facility] Emergency Department on 01/15 for evaluation of left thigh swelling and tenderness. Lab work revealed no leukocytosis, elevated sed rate. The patient was admitted to the hospital for left thigh cellulitis with concern of abscess formation as CT showing fluid collection abscess seen in the left leg, especially in lower thigh. Evaluated by surgical team who felt no need for intervention needed and can be treated with IV antibiotics only. His Blood cultures remained negative. Had negative ultrasound of the left leg for DVT. Started on IV vancomycin due to history of MRSA and switch to Clindamycin IV with good response over the course of hospital stay as pain, erythema and tenderness improved. He was able to ambulate. pain controlled with Ibuprofen and PRN Oxycodone. He was discharged on 01/18 with 1 more week of Clindamycin. Since being discharged, patient reports he is taking his Clindamycin every 8 hours, reports the leg is still a little sore and he is able to put some pressure on it. He was using crutches but he has stopped using them, last use was yesterday. States leg is a little warm and swollen still. [facility] Medical History Opioid use disorder IV drug abuse Abscess Empyema lung Acute hyponatremia Acute upper back pain Acute flank pain Methadone dependence Kidney stones Crack cocaine use Heroin abuse Drug abuse Surgical History Status post thoracotomy Social History Household Members: Family Housing: Apartment Do you presently have visiting nurse or other home services: No Comment: pt refusing alarms; educated to call before getting up Patient Tobacco Use Status: Never used Tobacco e-Cigarette/Vaping Use: Never Used Second Hand Smoke Exposure: No Substance Use Type: Crack/Cocaine service: No Current occupational status: unemployed Cognitive needs: No Hearing needs: No Vision needs: No Questionnaire PHQ-9 Over the last 2 weeks, how often have you been bothered by any of the following problems? 1. Little interest or pleasure in doing things: not at all 2. Feeling down, depressed, or hopeless: not at all 3. Trouble falling or staying asleep, or sleeping too much: not at all 4. Feeling tired or having little energy: not at all 5. Poor appetite or overeating: not at all 6. Feeling bad about yourself - or that you are a failure or have let yourself or your family down: not at all 7. Trouble concentrating on things, such as reading the newspaper or watching television: not at all 8. Moving or speaking so slowly that other people could have noticed. Or the opposite - being so fidgety or restless that you have been moving around a lot more than usual: not at all 9. Thoughts that you would be better off or of hurting yourself in some way: not at all Total score: 0 Depression Screening Interpretation: Negative Depression Screening Done: Yes 67351 - PHQ-9 Billing: Yes Source: Developed by Drs. Darien Alejandra, Marietta Sr, Tao Quesada and colleagues, with an educational tami from [employer]. Thrive Questionnaire Date Thrive assessed: 01/24/25 SHELLEY-7 AMB Questionnaire SHELLEY-7 Date SHELLEY - 7 assessed: 03/06/24 Source: Developed by Drs. Darien Alejandra, Marietta Sr, Tao Quesada and colleagues, with an educational tami from [employer]. Review of Systems Const All systems reviewed & are unremarkable except as noted in HPI and below Physical exam (Primary Care) Vital Signs: Last Vital Signs Temp 98.4 F 01/24/25 09:49 Pulse 79 01/24/25 09:49 Pulse Ox 96 01/24/25 09:49 Oxygen Delivery Method Room Air 01/24/25 09:49 BMI result Body Mass Index 34.1 Tobacco/Smoking Status: Tobacco use Status Tobacco use date assessed 03/06/24 01/24/25 09:49 Patient Tobacco Use Status Never used Tobacco 01/24/25 09:49 e-Cigarette/Vaping Use Never Used 01/24/25 09:49 Depression Screening Interpretation: Negative Thrive Assessment: Date of Thrive Assessment Date Thrive assessed 01/16/25 01/24/25 09:49 Const General: cooperative, healthy appearing, comfortable, no acute distress and well developed Orientation/consciousness: patient oriented x3 Limitations: no limitations HENMT Head: Yes normal to inspection Eyes General: appearance normal, both eyes and all related structures Neck Neck: Yes normal visual inspection and Yes full ROM Resp Effort & Inspection: normal respiratory effort and able to speak in complete sentences Neuro Other: limping gait General: patient oriented x3 Extrem General: Yes normal to inspection Left lower extremity: hip/thigh (distal medial thigh:slight warmth, mild erythema, slight edema, slight TTP) Coding Level of Care Code Est Pt Level 3 (17922) Diagnoses Hospital discharge follow-up Z09 Cellulitis of left thigh L03.116 Additional Codes PHQ-9 - 37269 - PHQ-9 Billing: Yes ([id number]) Assessment & Plan Assessment & Plan (1) Hospital discharge follow-up: Code(s): Z09 - Encounter for follow-up examination after completed treatment for conditions other than malignant neoplasm Category: Surgical Plan: Vital signs are stable, patient is well-appearing and physical exam shows a residual cellulitis on the distal medial left thigh. Encouraged patient to continue taking antibiotics as he still has a residual cellulitis. Advised to use crutches as needed as he is still walking with a limping gait. Recommended he come to the walk-in clinic or go to the emergency department if his symptoms worsen or he develops a fever. (2) Cellulitis of left thigh: Code(s): L03.116 - Cellulitis of left lower limb Category: Medical Plan: As above
[2025-01-24 09:49] VITALS: BP 136/90; PULSE 79; TEMP 36.9; O2SAT 96; BMI 34.1
--- NOTE | 2025-01-24 09:56 | A.OFFPC_ITS ---
Vital Signs 01/24/25 09:49 Height 5 ft 10 in Weight 238 lb BMI 34.1 BP 136/90 H Blood Pressure Location Lt brachial Position Sitting Pulse 79 Pulse Source Pulse Oximeter Temp 98.4 F Temp Source Oral Pulse Oximetry (%) 96 Oxygen Delivery Method Room Air Intake Visit Reasons: Lt leg cellulitis C-update pcp Allergies bee pollen (BEE STINGS) Allergy (Intermediate, Verified 01/24/25 09:51) HIVES Penicillins Allergy (Mild, Verified 01/24/25 09:51) UNKNOWN penicillin V Allergy (Unknown, Verified 01/24/25 09:51) unknown SANJAY DELIGHT Allergy (Mild, Uncoded 07/19/24 08:17) HIVES Tobacco use date assessed: 01/24/25 Dental Screening Dental Screen Date: 01/24/25 Did you have a dental visit in the last 12 months?: No Did you have a dental problem in the last 6 months where you did not have access to dental care?: No [facility] Medical History Opioid use disorder IV drug abuse Abscess Empyema lung Acute hyponatremia Acute upper back pain Acute flank pain Methadone dependence Kidney stones Crack cocaine use Heroin abuse Drug abuse Surgical History Status post thoracotomy Social History Household Members: Family Housing: Apartment Do you presently have visiting nurse or other home services: No Comment: pt refusing alarms; educated to call before getting up Patient Tobacco Use Status: Never used Tobacco e-Cigarette/Vaping Use: Never Used Second Hand Smoke Exposure: No Substance Use Type: Crack/Cocaine service: No Current occupational status: unemployed Cognitive needs: No Hearing needs: No Vision needs: No Questionnaire PHQ-9 Over the last 2 weeks, how often have you been bothered by any of the following problems? 1. Little interest or pleasure in doing things: several days 2. Feeling down, depressed, or hopeless: several days 3. Trouble falling or staying asleep, or sleeping too much: not at all 4. Feeling tired or having little energy: not at all 5. Poor appetite or overeating: several days 6. Feeling bad about yourself - or that you are a failure or have let yourself or your family down: not at all 7. Trouble concentrating on things, such as reading the newspaper or watching television: more than half the days 8. Moving or speaking so slowly that other people could have noticed. Or the opposite - being so fidgety or restless that you have been moving around a lot more than usual: not at all 9. Thoughts that you would be better off or of hurting yourself in some way: not at all Total score: 5 Depression Screening Interpretation: Negative Depression Screening Done: Yes 19917 - PHQ-9 Billing: Yes Source: Developed by Drs. Darien Alejandra, Tao Recio and colleagues, with an educational tami from [employer]. Thrive Questionnaire Date Thrive assessed: 01/24/25 I am a: Patient What is your living situation today?: I have a steady place to live Within the past 12 months, did the food you bought not last and you didn't have the money to get more?: Sometimes True Within the past 12 months, did you worry whether your food would run out before you got money to buy more?: Sometimes True Do you have trouble paying for medicines?: Yes Do you have trouble getting transportation to medical appointments?: No Do you have trouble paying your heating and electricity bill?: No Do you have trouble taking care of your child, family member or friend?: No Do you have trouble with day-to-day activities such as bathing, preparing meals, shopping, managing finances, etc.?: No Are you currently unemployed and looking for a job?: Yes Are you interested in more education?: No Please select the resources that you would like help with: Job search/training THRIVE Score: 2 SHELLEY-7 AMB Questionnaire SHELLEY-7 Date SHELLEY - 7 assessed: 03/06/24 Source: Developed by Drs. Darien Alejandra, Marietta Sr, Tao Quesada and colleagues, with an educational tami from [employer]. Physical exam (Primary Care) Vital Signs: Last Vital Signs Temp 98.4 F 01/24/25 09:49 Pulse 79 01/24/25 09:49 BP 136/90 H 01/24/25 09:49 Pulse Ox 96 01/24/25 09:49 Oxygen Delivery Method Room Air 01/24/25 09:49 BMI result Body Mass Index 34.1 Tobacco/Smoking Status: Tobacco use Status Tobacco use date assessed 01/24/25 01/24/25 09:57 Patient Tobacco Use Status Never used Tobacco 01/24/25 09:57 e-Cigarette/Vaping Use Never Used 01/24/25 09:57 PHQ-9: PHQ-9 Score PHQ-9: Total score 0 01/24/25 09:57 Depression Screening Interpretation: Negative Thrive Assessment: Date of Thrive Assessment Date Thrive assessed 01/24/25 01/24/25 09:57 Coding Additional Codes PHQ-9 - 21252 - PHQ-9 Billing: Yes ([id number])
--- OUTSIDE RECORDS SUMMARY | 2025-01-24 10:59 | XMS_ITS | Clinical Summary ---
Author Organization [employer] Address [address] [place] [address] Care Team Providers Care Commercial Loan Administrator Name Role Phone Unavailable Primary Care Provider [...] patient's age to complete this topic Insurance [facility]
== END 2025-01-24 10:27 | disposition home or self-care (01) ==
LOC: HO.HMCC 09:45
PROVIDERS: PCP Internal Medicine; Visit Provider Physician Assistant
DX: Z09 Encounter for follow-up examination after completed treatment for conditions other than malignant neoplasm (principal); L03.116 Cellulitis of left lower limb

== ENCOUNTER → 2025-01-24 09:45 | Outpatient (BNVA) | payer OTHER, SELFPAY | PROVIDERS: PCP Internal Medicine; Visit Provider Physician Assistant | DX: L03.116 Cellulitis of left lower limb (principal); J45.20 Mild intermittent asthma, uncomplicated; F11.20 Opioid dependence, uncomplicated; Z09 Encounter for follow-up examination after completed treatment for conditions other than malignant neoplasm | CPT/HCPCS: 96127; 99212 ==

== ENCOUNTER 2025-03-17 08:53 | Inpatient (IN) | payer OTHER, SELFPAY ==
--- NOTE | ~2025-03-17 | US_ITS ---
CLINICAL HISTORY: edema BLEs --- Additional Notes or Special Instructions: homans sign positive, 8 24 25 ok per provider. Can wait until AM Venous duplex ultrasound bilateral lower extremity Comparison: US/SR - US LOWER EXTREMITY VEINS LIMITED FOLLOW UP LEFT - 01/15/25 14:00 EDT Findings: The visualized deep veins are fully compressible with normal Doppler color flow and spectral tracings. No popliteal cyst. Generalized edema within the subcutaneous fat of the bilateral lower extremities. This is especially true within the calves. IMPRESSION: 1. Negative for bilateral lower extremity deep vein thrombosis. This document has been electronically signed by: Tushar Park MD on 03/24/2025 09:46:05
--- NOTE | ~2025-03-17 | XR_ITS ---
CLINICAL HISTORY: SOB on exertion, BLE edema Exam: PA and lateral views of the chest. Comparison: February 27, 2024. Findings: Lungs are well inflated. Cardiac silhouette is at the upper limits of normal for size. Streaky bilateral perihilar interstitial prominence, most pronounced within the right lower lobe. Likely tiny bilateral pleural effusions. No pneumothorax. Central venous catheter on prior study is no longer evident. Impression: Mild congestive heart failure. This document has been electronically signed by: Tushar Park MD on 03/23/2025 21:12:35
[2025-03-17 09:09] VITALS: BP 167/87; PULSE 89; RESP 20; TEMP 37; O2SAT 97; BMI 39.8
--- OUTSIDE RECORDS SUMMARY | 2025-03-17 09:21 | XMS_ITS | Clinical Summary ---
Author Organization [facility] Address [address] [place] [address] Care Team Providers Care Bailer Tenders Supervisor Name Role Phone Mehrdad Davalos MD Primary Care Provider [phone] Allergies Active Allergy Reactions Criticality Noted Date Comments Bee Venom Protein (Honey Bee) Anaphylaxis High 12/03 anaphylaxis Moxifloxacin 12/09/2014 hives Penicillins Rash 03/26/2014 Medications albuterol HFA (PROAIR HFA ; PROVENTIL HFA ; VENTOLIN HFA) 90 mcg/actuation inhaler Inhale 2 Puffs into the lungs every 4 hours as needed for Cough, Wheezing or Shortness of Breath. 5 Active EPINEPHRINE INJ Inject into the muscle. Active clindamycin (CLEOCIN T) 1 % gel Apply topically BID 5 Active buprenorphine-n aloxone (SUBOXONE) 8-2 [address] tablet Place 16 mg under the tongue daily. Active naproxen (NAPROSYN) 250 mg tablet Take 1 Tab by mouth 2 times daily (with meals). 5 Active Active Problems Problem Noted Date Diagnosed Date Asthma 03/26/2014 Heroin use 03/26/2014 Immunizations Name Administration Dates Next Due Hepatitis A Adult (Havrix; V aqta) 19yo and older 05/26/2011 Hepatitis A-Hepatitis B Adul t (Twinrix) 18yo and older 02/08/2009 Hepatitis B (Unispsx-J-Wdgjo , Recombivax HB-Adult) 19yo and older 11/14/2014,09/26/2011,05/26/2011 Pneumococcal polysaccharide 23 valent (Pneumovax 23) 2yo and older 11/05/2014 Tdap Tetanus diptheria acell ular pertussis (Boostrix; Adacel) 7yo and older 03/26/2014 Surgical History Surgery Date Site/Laterality Comments OTHER SURGICAL HISTORY PROCEDURE: IN LITHOTRIPSY XTRCORP SHOCK WAVE MULTIPLE TOOTH EXTRACTIONS PROCEDURE: HISTORICAL DENTAL EXTRACTION Medical History Medical History Date Comments Asthma 03/26/2014 DX:Asthma Heroin use 03/26/2014 DX:Heroin use History of kidney stones 12/09/2014 DX:Hist ory of kidney stones Family History Medical History Relation Name Comments Thyroid disease Brother 1 Depression Father Diabetes Father Hypertension Mother Diabetes Paternal Grandfather Other cancer Paternal Grandfather renal Prostate cancer Paternal Grandfather Breast cancer Paternal Grandmother Relation Name Status Comments Brother 1 Brother 2 Alive Brother 3 Alive Father Alive Mother Alive Paternal Grandfather Paternal Grandmother Sister Alive Social History Tobacco Use Types Packs/Day Years Used Date Smoking Tobacco: Former Smokeless Tobacco: Former Alcohol Use Standard Drinks/Week Comments Not Asked 0 (1 standard drink = 0.6 oz pur e alcohol) Sex and Gender Information Value Date Recorded Sex Assigned at Not on file Legal Sex Male 8:21 PM EST Gender Identity Not on file Sexual Orientation Not on file Obstetrics History Plan of Treatment Health Maintenance Due Date Last Done Comments Hepatitis A Vaccines (3 of 3 - Hep A Twinrix risk 3-dose series) 10/25/2011 05/26/2011, 02/08/2009 Pneumococcal Vaccine: Pediatrics (0 to 5 Years) and At-Risk Patients (6 to 49 Years) (2 of 2 - PCV) 11/06/2015 11/05/2014 DTaP,Tdap,and Td Vaccines (2 - Td or Tdap) 03/26/2024 03/26/2014 COVID-19 Vaccine ( - season) 2024 Cholesterol Screening (Lipid Panel) 07/24/2024 03/26/2014 Colorectal Cancer Screening: Colonoscopy 07/24/2024 HIV Screening 07/24/2024 Hepatitis C Screening 07/24/2024 Social Influencers of Health Screening 07/24/2024 Depression Screening 08/01/2024 Influenza Vaccine (#1) 2025 Hepatitis B Vaccines Completed 11/14/2014, 09/26/2011, 05/26/2011, Additional history exists HIB Vaccines Aged Out No longer eligi ble based on patient's age to complete this topic HPV Vaccines Aged Out No longer eligi ble based on patient's age to complete this topic IPV Vaccines Aged Out No longer eligi ble based on patient's age to complete this topic MMR Vaccines Aged Out No longer eligi ble based on patient's age to complete this topic Meningococcal ACWY Vaccine Aged Out N o longer eligible based on patient's age to complete this topic Meningococcal B Vaccine Aged Out No l onger eligible based on patient's age to complete this topic RSV Immunization Patients Under 20 months Aged Out No longer eligible based on patient's age to complete this topic Varicella Vaccines Aged Out No longer eligible based on patient's age to complete this topic Procedures Procedure Name Priority Date/Time Associated Diagnosis Comments LIPID PANEL Routine 03/26/2014 from Last 3 Months or Most Recently Relevant to Health Maintenance Results * Lipid panel (03/26/2014) LDL/HDL Ratio 2 0 - 4 Triglycerides 120 0 - 150 mg/dL Cholesterol 147 0 - 200 mg/dL HDL 62 >=40 mg/dL LDL Cholesterol 61 0 - 100 mg/dL Blood Venous blood specimen / Unknown Historical Provider LAB BLOOD ORDERABLES Nataliia l Result from Last 3 Months or Most Recently Relevant to Health Maintenance Care Teams Bailer Tenders Supervisor Relationship Specialty Start Date End Date Mehrdad Davalos MD PCP - General Internal Medicine 03/07/14
--- NOTE | 2025-03-17 09:54 | MHC.EDTECH ---
locker 7
[2025-03-17 10:04] LABS: Hematocrit 39.2 % (42.0-52.0); Hemoglobin 13.2 g/dl (14.0-18.0); Imm Gran Abs Auto 0.03 X10*3/uL (0.00-0.03); Imm Gran Pct Auto 0.4 % (0.0-0.4); Lymphocytes Absolute Auto 2.0 X10*3/uL (1.2-4.9); MANUAL DIFF FLAG SCAN; Mean Corpuscular HGB Conc 33.7 g/dl (31.0-36.0); Mean Corpuscular Hemoglobin 28.6 pg (27.0-33.0); Mean Corpuscular Volume 85.0 fL (80.0-98.0); NRBC Abs Auto 0.000 X10*3/uL (0.0-0.012); NRBC Pct Auto 0.0 /100WBC (0.0-0.2); PLT CLUMP 1; Red Blood Count 4.61 X10*6/uL (4.60-5.80); SCAN SMEAR FLAG 1
--- NOTE | 2025-03-17 10:07 | ED.PSYCH ---
HPI - Psych General Chief Complaint: Psychiatric Symptoms Stated Complaint: Psychiatric Help Time Seen by Provider: 03/17/25 09:56 Source: patient Mode of arrival: ambulatory Limitations: no limitations History of Present Illness ED Provider: Sydney Hoskins APRN HPI Narrative: 44-year-old male with a history of polysubstance use currently on methadone presents the ER with complaints of increasing depression over the last few months. He denies any SI or HI. He denies taking medication for depression. He does not have a therapist or psychiatrist. He does smoke crack daily 10-20 dollars per day. He denies any additional substance use. Denies alcohol use. He has no physical complaints today. He is here seeking a crisis consultation. Related Data Home Medications ?Medication ?Instructions ?Recorded ?Confirmed methadone 10 mg/mL oral 50 mg PO QPM 01/15/25 03/17/25 concentrate (Methadone Intensol) methadone 10 mg/mL oral 110 mg PO DAILY 01/15/25 03/17/25 concentrate (Methadone Intensol) Allergies Allergy/AdvReac Type Severity Reaction Status Date / Time bee pollen (BEE STINGS) Allergy Intermediate HIVES Verified 03/17/25 09:10 Penicillins Allergy Mild UNKNOWN Verified 03/17/25 09:10 penicillin V Allergy Unknown unknown Verified 03/17/25 09:10 SANJAY DELIGHT Allergy Mild HIVES Uncoded 03/17/25 09:10 Review of Systems Review of Systems: Yes all other systems are reviewed and are negative Constitutional: Constitutional: Reports no additional constitutional complaints, Denies body ache(s), Denies chills, Denies fever(s), Denies headache(s) and Denies weakness Eyes: Eyes: Reports no additional eye complaints and Denies change in vision ENT: Reports system reviewed and no additional complaints, except as documented, Denies dizziness, Denies headache(s), Denies nasal congestion, Denies nasal discharge and Denies neck pain Cardiovascular: Cardiovascular: Reports no additional cardiovascular complaints, Denies chest pain, Denies leg edema and Denies dyspnea Respiratory: Respiratory: Reports no additional respiratory complaints, Denies cough and Denies dyspnea Gastrointestinal: Gastrointestinal: Reports no additional gastrointestinal complaints, Denies abdominal pain, Denies diarrhea, Denies nausea and Denies vomiting Genitourinary: Genitourinary: Denies urinary incontinence Musculoskeletal: Musculoskeletal: Reports no additional musculoskeletal complaints, Denies back pain, Denies arthralgias, Denies joint swelling, Denies neck pain, Denies numbness and Denies tingling Integumentary/Breasts: Skin/Breast: Reports system reviewed and no additional complaints, except as docu and Denies rash Neurologic: Reports system reviewed and no additional complaints, except as documented, Denies Abnormal speech present, Denies dizziness, Denies headache(s), Denies numbness, Denies tingling and Denies weakness Psychiatric: Psychiatric: Reports depression, Denies homicidal ideation and Denies suicidal ideation [facility] Past Medical History Attestation statement: The following information was validated with the patient. Source: old records reviewed and nursing notes reviewed Medical History Opioid use disorder IV drug abuse Abscess Empyema lung Acute hyponatremia Acute upper back pain Acute flank pain Methadone dependence Kidney stones Crack cocaine use Heroin abuse Drug abuse Surgical History Status post thoracotomy Social History Social History Household Members: Family Housing: Apartment Do you presently have visiting nurse or other home services: No Comment: pt refusing alarms; educated to call before getting up Patient Tobacco Use Status: Never used Tobacco Smoked in Last 30 Days: No e-Cigarette/Vaping Use: Never Used Second Hand Smoke Exposure: No Use of substances other than those prescribed or required for medical reasons: Yes Substance Use Type: Crack/Cocaine Advance Directives: No Advance Directives Information Provided: No Nutrition Risks: No Nutritional Risk service: No Current occupational status: unemployed Cognitive needs: No Hearing needs: No Vision needs: No Physical Exam Vital Signs: Vital Signs: Last Vital Signs Temp 98 F 03/19/25 12:33 Pulse 57 03/19/25 12:33 Resp 16 03/19/25 12:33 BP 118/65 03/19/25 12:33 Pulse Ox 99 03/19/25 12:33 O2 Del Method Room Air 03/19/25 12:33 BMI result Body Mass Index 39.8 Const: General: cooperative, healthy appearing, comfortable and no acute distress Orientation/consciousness: patient oriented x3 Limitations: no limitations HEENT: Head: Yes normal to inspection Ears: hearing grossly normal bilaterally General nose exam: Normal external nose present Face and sinus: Yes normal facial exam Mouth: Normal oral and palatal mucosa present Throat: Yes posterior oropharynx normal Eyes: General: appearance normal, both eyes and all related structures Pupils: Equal, round and reactive pupils present Neck: Neck: Yes normal visual inspection Chest: Chest palpation & inspection: normal inspection of the chest Resp: Effort & Inspection: normal respiratory effort Auscultation: clear to auscultation bilaterally Cardio: Rate: regular rate Rhythm: regular rhythm Peripheral pulses: Peripheral pulses 2+ throughout GI: Inspection: Yes normal to inspection Palpation (GI): Soft to palpation and nontender Auscultation: normal bowel sounds Back/Spine/Pelvis: Thoracic/Lumbar Spine: thoracic and lumbar spine normal to inspection Skin: General skin exam: no rashes or lesions noted Neuro: General: patient oriented x3, no focal motor deficits and normal sensation to monofilament Cranial nerves: Yes CN's II-XII intact bilaterally and Yes Equal, round and reactive pupils present Cognition (Neuro): normal cognition Speech: No Abnormal speech present Gait exam (Neuro): Normal gait present Motor exam (neuro): 5/5 motor strength present throughout Extrem: General: Yes normal to inspection Course Course Course Narrative: Time: 18:20 Date: 03/17/25 Provider: Sydney Hoskins NP Patient in physician observation for psychiatric evaluation.? Reevaluation(s) Reevaluation #1: Time: 12:54 Date: 03/18/25 Provider: Salud Peña DO Patient in physician observation for psychiatric evaluation.? No acute events reported overnight. No current complaints. VS stable.? Patient is in bed search status. Will continue to monitor. Reevaluation #2: DR. Melchor's progress note; 03/19/2025. 10;00. VSS, no events overnight reported by by the nurse, under section 12, continue physician observation. bed search is underway. Time: 10:00 Reevaluation #3: Discontinue physician observation patient is admitted to . Time: 12:53 Medications Administered Generic Name Dose Route Start Last Admin Trade Name Freq PRN Reason Stop Dose Admin Methadone HCl 50 mg 03/17/25 19:15 03/18/25 18:47 Methadone Hcl 20 Mg/2 Ml Oral.Conc PO 50 mg DAILY@1900 [place] Administration Methadone HCl 110 mg 03/18/25 09:00 03/19/25 08:45 Methadone Hcl 20 Mg/2 Ml Oral.Conc PO 110 mg DAILY [place] Administration Discontinued Medications Generic Name Dose Route Start Last Admin Trade Name Bryanna PRN Reason Stop Dose Admin Ibuprofen 600 mg 03/18/25 12:58 03/18/25 13:18 Ibuprofen 600 Mg Tablet PO 03/18/25 12:59 600 mg ONCE ONE Administration Medical Decision Making Medical Decision Making [facility] Narrative: 44-year-old male with a history of polysubstance use currently on methadone presents the ER with complaints of increasing depression over the last few months. He denies any SI or HI. He denies taking medication for depression. He does not have a therapist or psychiatrist. He does smoke crack daily 10-20 dollars per day. He denies any additional substance use. Denies alcohol use. He has no physical complaints today. He is here seeking a crisis consultation. No concern for acute ingestion or trauma. VSS Will obtain labs, [place], crisis consultation Differential Diagnosis Differential Diagnoses: The differential diagnosis associated with the presentation includes depression, polysubstance use Admission/Observation Consideration of admission/observation: Escalation of care including admission/observation considered Consult Healthcare Provider Management of the patient was discussed with: Behavioral Health Provider Patient seen by care team and plan for dual diagnosis bed search on section 12 Lab Data [facility] Lab Attestation statement: I reviewed the patient's lab results. 03/17/25 09:40 03/17/25 09:40 Labs: Lab Results 03/17/25 03/17/25 03/18/25 Range/Units 09:40 12:50 11:18 WBC 6.7 (4.8-10.8) X10*3/uL RBC 4.61 (4.60-5.80) X10*6/uL Hgb 13.2 L (14.0-18.0) g/dl Hct 39.2 L (42.0-52.0) % MCV 85.0 (80.0-98.0) fL MCH 28.6 (27.0-33.0) pg MCHC 33.7 (31.0-36.0) g/dl RDW 14.3 (11.0-16.0) % Plt Count 189 (160-400) X10*3/uL MPV 11.5 (9.4-12.4) fL Immature Gran % (Auto) 0.4 (0.0-0.4) % Neut % (Auto) 60.7 (45-73) % Lymph % (Auto) 29.0 (20-40) % [place] % (Auto) 6.8 (2-11) % Eos % (Auto) 2.7 (0-4) % Baso % (Auto) 0.4 (0-2) % Lymph # (Auto) 2.0 (1.2-4.9) X10*3/uL [place] # (Auto) 0.5 (0.1-1.2) X10*3/uL Eos # (Auto) 0.2 (0.0-0.4) X10*3/uL Baso # (Auto) 0.0 (0.0-0.2) X10*3/uL Abs Immat Gran (auto) 0.03 (0.00-0.03) X10*3/uL Absolute Neuts (auto) 4.1 (2.0-8.3) x10*3/uL Absolute Nucleated RBC 0.000 (0.0-0.012) X10*3/uL Nucleated RBC % (auto) 0.0 (0.0-0.2) /100WBC Smear Tech's Comments VERIFIED Sodium 137 (135-145) mmol/L Potassium 4.3 (3.3-5.1) mmol/L Chloride 104 (96-108) mmol/L Carbon Dioxide 22 (22-29) mmol/L Anion Gap 15 (12-20) BUN 14 (9-16) mg/dL Creatinine 0.97 (0.5-1.4) mg/dL Estim Creat Clear Calc 108.1 Estimated GFR > 60 Random Glucose 99 (60-115) mg/dL Calcium 9.1 (8.4-10.2) mg/dL Total Bilirubin 0.7 (0.0-1.0) mg/dL AST 48 H (5-37) U/L ALT 52 H (0-40) U/L Alkaline Phosphatase 173 H (39-117) U/L Total Protein 8.0 (6.5-8.0) g/dL Albumin 4.0 (3.5-5.0) g/dL Urine Color Yellow Urine Appearance Cloudy Urine pH 6.0 (5.0-9.0) Ur Specific Jenkins 1.025 (1.005-1.025) Urine Protein Negative (Neg-Trace) mg/dL Urine Glucose (UA) Negative (Negative) mg/dL Urine Ketones Trace (Negative) mg/dL Urine Blood Negative (Negative) Urine Nitrite Negative (Negative) Ur Leukocyte Esterase Negative (Negative) Urine RBC 0-2 (0-2) /HPF Urine WBC 0-5 (0-5) /HPF Ur Squamous Epith Cells 0-2 (0-2) /HPF Urine Bacteria None Seen (None Seen) Hyaline Casts 0-2 (0-2) /LPF Salicylates < 5.0 L (15-30) mg/dL Urine Opiates Screen POSITIVE H (Not Detect) Ur Buprenorphine Scrn Not Detected (Not Detect) ng/mL Ur Oxycodone Screen Not Detected (Not Detect) ng/mL Urine Methadone Screen Positive H (Not Detect) ng/mL Urine Fentanyl Screen POSITIVE H (Not Detect) Acetaminophen < 3 (<30) mcg/mL Ur Barbiturates Screen Not Detected (Not Detect) Ur Phencyclidine Scrn Not Detected (Not Detect) Ur Amphetamines Screen Not Detected (Not Detect) U Benzodiazepines Scrn Not Detected (Not Detect) Urine Cocaine Screen POSITIVE H (Not Detect) U Marijuana (THC) Screen Not Detected (Not Detect) Ethyl Alcohol < 10 mg/dL Discharge Plan Discharge Clinical Impression: Depression, Cocaine abuse Patient Disposition: Admitted As Inpatient Interventions: [place]-Suicide Risk Severity Scale Last Done: 03/19/25 13:16 Admission Worksheet (ED) Last Done: 03/19/25 13:17
[2025-03-17 10:10] LABS: Acetaminophen LAB < 3 mcg/mL (<30); Alanine Aminotransferase 52 U/L (0-40); Albumin Level 4.0 g/dL (3.5-5.0); Alkaline Phosphatase 173 U/L (39-117); Anion Gap 15 (12-20); Aspartate Amino Transferase 48 U/L (5-37); Blood Urea Nitrogen 14 mg/dL (9-16); Calcium 9.1 mg/dL (8.4-10.2); Carbon Dioxide 22 mmol/L (22-29); Chloride 104 mmol/L (96-108); Creatinine Clr Calc Pharmacy 108.1; Estimated Glomerular Filt Rate > 60; Potassium 4.3 mmol/L (3.3-5.1); Salicylate < 5.0 mg/dL (15-30); Sodium 137 mmol/L (135-145); Total Protein 8.0 g/dL (6.5-8.0)
--- NOTE | 2025-03-17 10:11 | PC.NURSE ---
Patient is a 44-year-old male with a past medical history of mild intermittent asthma, polysubstance use on methadone treatment, history of pyelonephritis, history of MRSA empyema presents to the ED with increasing depression, denies SI. Patient not any psych medication and does not have a therapist. Alert and oriented. Cooperative with care. Respirations even and non-labored. Abdomen soft, non-tender with positive bowel sounds. Denies any physical complaints at this time. Pending CARE team eval.
[2025-03-17 10:23] LABS: Platelet Count 189 X10*3/uL (160-400); White Blood Count 6.7 X10*3/uL (4.8-10.8)
[2025-03-17 13:09] LABS: Cannabinoid Screen Urine Not Detected (Not Detect)
--- NOTE | 2025-03-17 14:33 | MHC.EDTECH ---
Patient arrives to pod via emergency room triage. No belongings list entered. Note in chart states patient items are locked in locker 7.
[2025-03-17 15:47] VITALS: BP 122/78; PULSE 57; RESP 20; TEMP 36.9; O2SAT 98
--- NOTE | 2025-03-17 18:59 | HE.PHANOTE ---
RE: METHADONE DOSING Dose is 160 mg split 110 mg am + 50 mg pm. Last methadone dose given on 03/12/25 at [facility] [phone] Allen.
--- NOTE | 2025-03-17 19:38 | PC.NURSE ---
Jeanine from [facility] called stating pt was last dosed with Methadone on 03/12/25. Pt receives 110mg in the am and 50mg in the pm and was given 6 take home bottles to be dosed through 03/18/25. Pt was due to return back for dosing 03/19/25.
[2025-03-17] MEDS: methADONE HCl 20 MG/2 ML ORAL.CONC 50 MG PO (19:52)
[2025-03-17 19:53] VITALS: BP 104/79; PULSE 79; RESP 16; TEMP 36.6; O2SAT 95
--- NOTE | 2025-03-18 | ECG_ITS ---
Test Reason : ADMISSION Blood Pressure : */* mmHG Vent. Rate : 52 BPM Atrial Rate : 52 BPM P-R Int : 186 ms QRS Dur : 84 ms QT Int : 506 ms P-R-T Axes : 40 14 20 degrees QTcB Int : 470 ms Sinus bradycardia Otherwise normal ECG When compared with ECG of 28-Feb-2024 12:26, ST no longer depressed in Lateral leads Nonspecific T wave abnormality no longer evident in Anterior leads Referred By: Sushma Marroquin Electronically Signed By: ROSITA GARCIA MD
[2025-03-18 00:56] VITALS: BP 127/76; PULSE 55; RESP 18; TEMP 36.4; O2SAT 95
[2025-03-18 06:41] VITALS: PULSE 58; RESP 16; O2SAT 98
[2025-03-18 07:20] VITALS: BP 115/66; PULSE 55; RESP 18; TEMP 36.3; O2SAT 94
--- NOTE | 2025-03-18 07:57 | PC.NURSE ---
Pt in braga bed with sitter present. Pt without complaint. Eating breakfast. A/ox4. VSS. Plan of care ongoing.
[2025-03-18] MEDS: methADONE HCl 20 MG/2 ML ORAL.CONC 110 MG PO (08:09)
--- NOTE | 2025-03-18 09:18 | PHA.MEDREC ---
Addendum entered by Summer Pérez RPh 03/18/25 09:53: Reviewed by [facility] Original Note: Pharmacy Consult ? Medication Reconciliation Pharmacy has reviewed the medication reconciliation done by nursing.
[2025-03-18 11:25] LABS: Appearance Urine Cloudy; Glucose Urine UA Negative (Negative); PH 6.0 (5.0-9.0); Specific Gravity - Urine 1.025 (1.005-1.025)
[2025-03-18 12:54] VITALS: BP 108/50; PULSE 57; RESP 18; TEMP 36.3; O2SAT 97
[2025-03-18] MEDS: methADONE HCl 20 MG/2 ML ORAL.CONC 50 MG PO (18:47)
--- NOTE | 2025-03-18 19:20 | PC.NURSE ---
assumed care for pt at this time. pt escorted over from ed main to the pod by security, pt ambulated with steady gait. introduced myself to pt and updated on plan of care. pt calm and cooperative at this time, denies any pain, and needs are met. plan of care on going
--- NOTE | 2025-03-19 07:27 | PC.NURSE ---
Assumed care of patient at 0645, pt appears to be in no apparent distress this am, calm and cooperative, resting on couch in bh 7. Continue plan of care for dual dx bedsearch
[2025-03-19] MEDS: methADONE HCl 20 MG/2 ML ORAL.CONC 110 MG PO (08:45)
[2025-03-19 08:51] VITALS: BP 128/80; PULSE 58; RESP 14; TEMP 36.6; O2SAT 96
[2025-03-19 12:33] VITALS: BP 118/65; PULSE 57; RESP 16; TEMP 36.6; O2SAT 99
[2025-03-19 13:50] VITALS: BP 146/75; PULSE 55; RESP 18; TEMP 37.2; O2SAT 96
--- NOTE | 2025-03-19 16:30 | PC.ADMIT ---
Nursing admission note: 44 year old male DX: Unspecified depressive disorder, Cocaine use disorder, severe, uncomplicated, opioid use disorder, severe. Self presented to [facility] ED reporting several months of worsening depression. Patient signed conditional voluntary for admission. Reports no prior inpatient admissions to behavioral health. States he was looking for recovery treatment, history of prior substance use treatment including ATS, CCS and other. Patient A+O x3, disoriented to date. Calm and cooperative with admission process. Reports depressed mood, denies SI/HI at this time. Reports feelings of hopelessness, helplessness. Endorses anxiety. Affect tearful during admission assessment. Presents with intermittent eye contact. Dressed in hospital attire, fair attention to ADL. Reports racing thoughts, difficulty with concentration and focus, easily distracted. Endorses anergia, avolition. Denies A/V hallucinations, no overt psychosis or expressed delusions. Speech normal rate, tone, prosody. Reports poor sleep, difficulty falling and maintaining sleep, reports hx of nightmares. Previously DX with sleep apnea, denies use of CPAP stating not a problem at this time. TOX screen + for Cocaine, Fentanyl, Methadone and opiate. Currently on MAT. Reports last use of cocaine 3 days ago, reports daily use. Preferred route is by smoking, denies IV drug use. Medical history includes severe MRSA infection requiring surgical intervention approximately 1 year ago. Hospitalized for 30 days after which he was unable to work. Large scar on back R side. Bruised area R upper chest. Audible wheeze on inspiration and expiration, INSURANCE BILLING SPECIALIST Noemí Fletcher aware. Identifies recent loss of grandmother stressor. Goal for admission is to take care of my depression . Placed on unit safety checks, see nursing assessment, crisis evaluation for further details.
[2025-03-19] MEDS: methADONE HCl 20 MG/2 ML ORAL.CONC 50 MG PO (19:51)
[2025-03-19 19:52] VITALS: BP 145/81; PULSE 66; RESP 16; TEMP 36.4; O2SAT 96
--- NOTE | 2025-03-19 22:51 | P.HPPS_ITS ---
[facility] Date of Service: 03/19/25 Chief Complaint: phyc help Sources of Information: patient interviewed, chart reviewed and crisis/core team assessment reviewed HPI Subjective Notes: [place]z Warning and Conditional Voluntary Healthcare Proxy: No Guardianship: No Medical Problems Affecting Mental Status: Yes (report severe pain after last year surgery affect his mental health) Narrative: Per care team note: Patient is a 44 years old single weight Haitian speaking male not prior mental health illnesses/hx but with history of polysubstance use included crack/cocaine and opiates use who presented to the ED reporting worsening depression symptoms the past couple of months, I no energy, no no reasons to go on . Reports feeling hopeless, and helpless, disturbances in both sleep and appetite was he had identifies as exacerbated by substance use. On M3: Reports that I am very depressed after last year surgery. I have no energy. Not able to work due to pain . Reports increase in depression in the past couple of months, low motivation to do activities. He also has not able to work for 1.5 years after the surgery. Also reports his grandmother from his mom about 2 months ago who he was very close to. Reports sleep is terrible with trouble falling asleep and staying asleep. No change in appetite. Reports anxiety and depression an 8/10 on a scale of 0-10. Reports using cocaine/crack smoke it, with last use was 3 days ago, denies withdrawal symptoms. He does not appear to be withdrawal. Reports no alcohol issues. Deny fentanyl use. He is on methadone total of 160 mg in divided dose. Reports methadone somehow help with the pain in with a craving for substance use and that he is happy with the current dose. Requests to talk to addiction team regarding treatment substance use. Denies suicidal thoughts, denies SIB/HI/AVH. Denies suicidal thoughts history, denies suicide attempts history. He does not appear to be psychotic, do not make any delusional or paranoid statements. He is goal directed. Motivated for treatment to target the depression symptoms to get right mind set, and better outlook on life . Discussed with patient regarding antidepressants to treat depressive mood. He agrees with Cymbalta, and melatonin with trazodone p.r.n. for insomnia. Dx: Denies mental health treatment, or diagnosis history. With current presentation, he meets criteria for MDD, recurrent, moderate to severe. Past Psychiatric History: No prior hospitalizations for psychiatric care. No psychotropic medication prescribed history. No PHP history. History of 4-6 detox admissions for heroin/cocaine many years before. No outpatient psychiatrist. History of having therapist at [facility]. However the physician was taken away 4 months ago. Therefore, he has no outpatient therapist. Has PCP at [facility]. Medical Evaluation Reviewed: Yes FORMERLY [facility], 1928–1983 Medical History Opioid use disorder IV drug abuse Abscess Empyema lung Acute hyponatremia Acute upper back pain Acute flank pain Methadone dependence Kidney stones Crack cocaine use Heroin abuse Drug abuse Surgical History Status post thoracotomy Family History: Reports his dad has bipolar, with alcohol use. Brothers being schizophrenic, bipolar. A younger sister and younger brother has drug issues. Social History: He is single, never , has no children, currently unemployed, graduated from high school. He stay in the home with the parents and a brother. It would love to find a new place to move out if possible. 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 Substance History: History of heroin use. Not currently. Use cocaine every day with last use was 3 days ago. He spent 20-30 dollars a day on cocaine. No alcohol or smoking issues. Denies marijuana use, denies fentanyl use. However U tox positive for opiates, methadone, fentanyl, cocaine. BAL was negative Trauma History: Denies Diagnostics Vital Signs (24Hr): Vital Signs - 24 hr 03/19/25 08:51 03/19/25 12:33 03/19/25 13:50 Temperature 97.8 F 98 F 99 F Pulse Rate 58 57 55 Respiratory Rate 14 16 18 Blood Pressure 128/80 118/65 146/75 H Pulse Oximetry 96 99 96 Oxygen Delivery Method Room Air Room Air Room Air BMI result Body Mass Index 39.8 Labs 03/17/25 09:40 03/17/25 09:40 Labs: Laboratory Results - last 48 hr 03/18/25 11:18 Urine Color Yellow Urine Appearance Cloudy Urine pH 6.0 Ur Specific [place] 1.025 Urine Protein Negative Urine Glucose (UA) Negative Urine Ketones Trace Urine Blood Negative Urine Nitrite Negative Ur Leukocyte Esterase Negative Urine RBC 0-2 Urine WBC 0-5 Ur Squamous Epith Cells 0-2 Urine Bacteria None Seen Hyaline Casts 0-2 Meds/Allergies Meds Home Medications ?Medication ?Instructions ?Recorded ?Confirmed ?Type methadone 10 mg/mL oral 50 mg PO QPM 01/15/25 History concentrate (Methadone Intensol) methadone 10 mg/mL oral 110 mg PO DAILY 01/15/25 History concentrate (Methadone Intensol) Allergies Allergies Allergy/AdvReac Type Severity Reaction Status Date / Time bee pollen (BEE STINGS) Allergy Intermediate HIVES Verified 03/17/25 09:10 Penicillins Allergy Mild UNKNOWN Verified 03/17/25 09:10 penicillin V Allergy Unknown unknown Verified 03/17/25 09:10 SANJAY DELIGHT Allergy Mild HIVES Uncoded 03/17/25 09:10 Mental Status Exam Mental Status Exam Narrative: Patient is alert and oriented; behavior is cooperative, moderate anxiety and depression; patient is not in distress; dressed in hospital attire with kempt hair, adequate hygiene; mood is described as ok but depressed and anxious and affect congruent; eye contact appropriate; Speech is normal rate, volume and prosody and not pressured; no psychomotor agitation/retardation present; thought process is organized and goal directed; Thought content is WNL, pertinent to relevant topics and without any delusional content, paranoid ideation or grandiosity; denies any SI/SIB/HI. Denies AH and there is no evidence of perceptual disturbance. Patient's insight and judgment poor. Assessment & Plan Assessment & Plan (1) Cocaine abuse: Status: Acute Code(s): F14.10 - Cocaine abuse, uncomplicated (2) Opiate use: Status: Acute Code(s): F11.90 - Opioid use, unspecified, uncomplicated (3) Major depressive disorder without psychotic features: Status: Acute Code(s): F32.9 - Major depressive disorder, single episode, unspecified Plan HPI: Patient is a 44 years old single weight Haitian speaking male with no prior mental health illnesses/hx but history of polysubstance use included crack/cocaine and opiates use who presented to the ED reporting worsening depression symptoms the past couple of months, I have no energy, no reasons to go on . Reports feeling hopeless, and helpless, disturbances in both sleep and appetite was he had identifies as exacerbated by substance use. Formulation/clinical reasoning: Worsening depression symptoms, low to no energy, no motivation, sleep disturbances-trouble falling asleep and staying asleep, increased substance use, not able to work after surgery from last year due to pain, grandmother 2 months ago. Collateral done by the care team with mom, mom reports he has passive SI history. No prior treatment for mental health illnesses. No outpatient providers. Given above information, patient could be benefit from restrictive environment for own safety, diagnostic/diagnosis, start of medication for depression, and refer patient to outpatient psychiatric services as aftercare upon discharge. Hospital course: 03/19/25: Patient agreed to start on Cymbalta 20 mg daily for depression/anxiety/and pain. Melatonin 6 mg at bedtime for insomnia. Motrin 600 p.r.n. for severe pain. Albuterol p.r.n. for shortness of breath/wheezing (hx of asthma) Hydroxyzine and trazodone p.r.n. per protocol. Methadone 110 daily in the morning, and 50 mg at 19:00 as MAT. He has been on methadone since 1999 but was on and off. Plan Patient on 15 minute checks for safety. Admitted to M3. CV. Work with treatment team to do collateral and/or CSS/CCS if possible for aftercare. He is interested in getting psychiatrist/therapist referral possible. Refer to patient to ocean lifeguard specialist. Dx if necessary. Some baseline lab works. Patient educated on: diagnosis, medication risk/benefits, substance abuse and therapeutic strategies Informed Consent: understands and further education needed Reason for continued inpatient stay Substantial Risk for: med/psych decompensation Statement Statement: I have reviewed the history and physical and performed a pertinent examination on my patient. No changes have occurred unless specified. If the History and Physical was not performed prior to admission, the Hospitalist's service will be consulted for completing the admission physical. Time Spent With Patient Time: Total time managing care of this patient today ____ minutes.
[2025-03-20 08:00] VITALS: BP 142/69; PULSE 62; RESP 16; TEMP 36.3; O2SAT 97
[2025-03-20] MEDS: methADONE HCl 20 MG/2 ML ORAL.CONC 110 MG PO (08:06)
[2025-03-20 08:50] LABS: Albumin Level 3.5 g/dL (3.5-5.0); Alkaline Phosphatase 150 U/L (39-117); Anion Gap 16 (12-20); Aspartate Amino Transferase 37 U/L (5-37); Blood Urea Nitrogen 17 mg/dL (9-16); Calcium 8.5 mg/dL (8.4-10.2); Carbon Dioxide 22 mmol/L (22-29); Chloride 101 mmol/L (96-108); Cholesterol 191 mg/dL (<200); Creatinine Clr Calc Pharmacy 116.5; Estimated Glomerular Filt Rate > 60; HDL Cholesterol 36 mg/dL (>40); Potassium 4.5 mmol/L (3.3-5.1); Sodium 134 mmol/L (135-145); Total Protein 7.3 g/dL (6.5-8.0); Triglycerides 258 mg/dL (<150)
[2025-03-20 08:54] LABS: Alanine Aminotransferase 30 U/L (0-40)
[2025-03-20 09:02] LABS: Free T4 (Free Thyroxine) 1.05 ng/dL (0.71-1.85); Thyroid Stimulating Hormone 0.37 uIU/mL (0.32-4.0)
[2025-03-20 09:26] LABS: Hemoglobin A1C 124.6488 umol/L; Total Hemoglobin (HGBA1C) 3423.2478 umol/L
--- NOTE | 2025-03-20 14:47 | P.PNPSI_ITS ---
Subjective Subjective Date of Service: 03/20/25 Reason For Visit: phyc help Subjective Notes: Conditional Voluntary Interim History: Active on unit. social with peers. attending groups. Patient reports feeling a little better today ; pt reports he is interested in attending a substance abuse program after discharge; psychiatric social worker supervisor aware. pt reports sleeping well. denies SI/HI/VH/AH. Continue current tx plan. Medication Compliance: Yes Side effects from medications: No Attending Groups: Yes Mental Status Exam Mental Status Exam Patient Appearance: Appropriate Patient Orientation: Person, Place, Time and Situation Level of Consciousness: Awake and Alert Patient Behavior: Appropriate, Cooperative and Good Eye Contact Mood Description: Calm Affect Description: Calm Ability to Follow Directions: Good Speech Pattern: Clear Memory Description: Intact Hallucinations: None Delusions: Not Present Thought Process: Intact and Goal Oriented Thought Content: positive for Intact Diagnostics Vital Signs (24Hr): Vital Signs - 24 hr 03/19/25 19:52 03/20/25 08:00 Temperature 97.6 F 97.3 F Pulse Rate 66 62 Respiratory Rate 16 16 Blood Pressure 145/81 H 142/69 H Pulse Oximetry 96 97 Oxygen Delivery Method Room Air Room Air BMI result Body Mass Index 39.8 Labs 03/17/25 09:40 03/20/25 08:14 Labs: Laboratory Results - last 48 hr 03/20/25 08:14 Sodium 134 L Potassium 4.5 Chloride 101 Carbon Dioxide 22 Anion Gap 16 BUN 17 H Creatinine 0.90 Estim Creat Clear Calc 116.5 Estimated GFR > 60 Random Glucose 133 H Estimat Average Glucose 111 Hemoglobin A1c % 5.5 Calcium 8.5 D Total Bilirubin 0.4 AST 37 ALT 30 Alkaline Phosphatase 150 H Total Protein 7.3 Albumin 3.5 Triglycerides 258 H Cholesterol 191 LDL Cholesterol, Calc 104 H HDL Cholesterol 36 L TSH 0.37 Free T4 1.05 Medications Medications Current Medications Acetaminophen (Acetaminophen 325 Mg Tablet) 650 mg PO Q6H PRN PRN Reason: Headache/Pain, Scale 1-10 Last Admin: 03/20/25 12:21 Dose: 650 mg Al Hydroxide/Mg Hydroxide (Magnesium Hydrox/Alum Hydrox 30 Ml Oral.Susp) 30 ml PO Q6H PRN PRN Reason: Heartburn/Nausea Albuterol Sulfate (Albuterol Sulfate 90 Mcg 8 Gm Inhaler) 1 puff INHALE RQ4H PRN PRN Reason: SOB/[place] Duloxetine HCl (Duloxetine Hcl 20 Mg Capsule.) 20 mg PO DAILY [facility] Last Admin: 03/20/25 08:46 Dose: 20 mg Hydroxyzine HCl (Hydroxyzine Hcl 50 Mg Tablet) 50 mg PO Q6H PRN PRN Reason: mild anxiety Ibuprofen (Ibuprofen 600 Mg Tablet) 600 mg PO Q6H PRN PRN Reason: severe pain Last Admin: 03/20/25 13:33 Dose: 600 mg Magnesium Hydroxide (Milk Of Magnesia 30 Ml Oral.Susp) 30 ml PO DAILY PRN PRN Reason: Constipation Melatonin (Melatonin 3 Mg Tablet) 6 mg PO BEDTIME [facility] Last Admin: 03/19/25 20:59 Dose: 6 mg Methadone HCl (Methadone Hcl 20 Mg/2 Ml Oral.Conc) 50 mg PO DAILY@1900 [facility] Last Admin: 03/19/25 19:51 Dose: 50 mg Methadone HCl (Methadone Hcl 20 Mg/2 Ml Oral.Conc) 110 mg PO DAILY@0800 [facility] Last Admin: 03/20/25 08:06 Dose: 110 mg Nicotine (Nicotine 21 Mg Patch.Td24) 21 mg TRANSDERMA DAILY PRN PRN Reason: nicotine craving Nicotine Polacrilex (Nicotine Polacrilex 2 Mg Gum) 2 mg BUCCAL Q2H PRN PRN Reason: Nicotine Cravings Trazodone HCl (Trazodone Hcl 50 Mg Tablet) 50 mg PO BEDTIME MRX1 PRN PRN Reason: Insomnia Last Admin: 03/19/25 21:00 Dose: 50 mg Allergies Allergies Allergy/AdvReac Type Severity Reaction Status Date / Time bee pollen (BEE STINGS) Allergy Intermediate HIVES Verified 03/17/25 09:10 Penicillins Allergy Mild UNKNOWN Verified 03/17/25 09:10 penicillin V Allergy Unknown unknown Verified 03/17/25 09:10 SANJAY DELIGHT Allergy Mild HIVES Uncoded 03/17/25 09:10 Assessment & Plan Assessment & Plan (1) Cocaine abuse: Status: Acute Code(s): F14.10 - Cocaine abuse, uncomplicated (2) Opiate use: Status: Acute Code(s): F11.90 - Opioid use, unspecified, uncomplicated (3) Major depressive disorder without psychotic features: Status: Acute Code(s): F32.9 - Major depressive disorder, single episode, unspecified Plan HPI: Patient is a 44 years old single weight Guyanese speaking male with no prior mental health illnesses/hx but history of polysubstance use included crack/cocaine and opiates use who presented to the ED reporting worsening depression symptoms the past couple of months, I have no energy, no reasons to go on . Reports feeling hopeless, and helpless, disturbances in both sleep and appetite was he had identifies as exacerbated by substance use. Formulation/clinical reasoning: Worsening depression symptoms, low to no energy, no motivation, sleep disturbances-trouble falling asleep and staying asleep, increased substance use, not able to work after surgery from last year due to pain, grandmother 2 months ago. Collateral done by the care team with mom, mom reports he has passive SI history. No prior treatment for mental health illnesses. No outpatient providers. Given above information, patient could be benefit from restrictive environment for own safety, diagnostic/diagnosis, start of medication for depression, and refer patient to outpatient psychiatric services as aftercare upon discharge. Hospital course: 03/19/25: Patient agreed to start on Cymbalta 20 mg daily for depression/anxiety/and pain. Melatonin 6 mg at bedtime for insomnia. Motrin 600 p.r.n. for severe pain. Albuterol p.r.n. for shortness of breath/wheezing (hx of asthma) Hydroxyzine and trazodone p.r.n. per protocol. Methadone 110 daily in the morning, and 50 mg at 19:00 as MAT. He has been on methadone since 1999 but was on and off. Plan Patient on 15 minute checks for safety. Admitted to M3. CV. Work with treatment team to do collateral and/or CSS/CCS if possible for aftercare. He is interested in getting psychiatrist/therapist referral possible. Refer to patient to training specialist. Dx if necessary. Some baseline lab works. 03/20: Active on unit. social with peers. attending groups. Patient reports feeling a little better today ; pt reports he is interested in attending a substance abuse program after discharge; psychiatric social worker supervisor aware. pt reports sleeping well. denies SI/HI/VH/AH. Continue current tx plan. Patient educated on: diagnosis and medication risk/benefits Reason for continued inpatient stay Substantial Risk for: med/psych decompensation Time Spent With Patient Time: Total time managing care of this patient today __20__ minutes.
[2025-03-20 19:14] VITALS: BP 135/74; PULSE 59; RESP 18; TEMP 36.3; O2SAT 95
[2025-03-20] MEDS: methADONE HCl 20 MG/2 ML ORAL.CONC 50 MG PO (19:16)
[2025-03-21 07:00] VITALS: BMI 42.1
[2025-03-21 07:55] VITALS: BP 133/72; PULSE 60; RESP 20; TEMP 36.4; O2SAT 95
[2025-03-21] MEDS: methADONE HCl 20 MG/2 ML ORAL.CONC 110 MG PO (08:03)
--- NOTE | 2025-03-21 08:32 | MHC.RECOVRN ---
Addendum entered by Della Mariano RN 03/21/25 08:47: Pt reported intermittent opioid use and was provided education on harm reduction and the increased risk for overdose. Original Note: Late entry: Met with pt 03/20/25 @ 6pm on M3 to offer support and resources pertaining to GANESH. On approach pt was watching TV in the common area in no apparent distress. Pt was agreeable to meeting with TW and was pleasant, calm and engaged during interview. Pt reports he is currently receiving 150mg of methadone in a split dose 100mg in the morning and 50mg in the evening at [facility] [place]. Pt reports he has been rceiving his methadone in the community since the early . Pt also reports he was receiving counseling services at [facility] but reports due to budget cuts this is no longer offered. Pt states he began using IV heroin since 1997 and smoking cocaine for about the same . Pt denies other substance use including alcohol and marijuana. He states he has had approximately 3-4 overdoses over the years requiring the use of Narcan. Pt reports he has attending several detox visits at [facility]. Pt states he is looking for resources in the community to help establish housing as well as a psychiatric provider and therapist. Pt was instructed that while inpatient, his asigned psych social worker will generally coordinate these types of referrals and was also notified that there are several long-term wait lists for housing. Pt reports he is understanding of this information but would like information on who he could contact in order to be placed on a waiting list. Pt reports he is currently unemployed and lives with his parents. Pt was provided information on local CSS programs, PHP/IOP for day time structure, [facility], contact information for counseling services and encouraged to speak with his assigned psych social worker for discharge planning. Pt also provided with contact information for ACS team and CCC. TW available for further support as needed.
--- NOTE | 2025-03-21 14:58 | P.PNPSI_ITS ---
Subjective Subjective Date of Service: 03/21/25 Reason For Visit: worsening depression and anxiety Subjective Notes: Conditional Voluntary Healthcare Proxy: No Guardianship: No Medical Problems Affecting Mental Status: No Interim History: Medical record and nursing notes reviewed; case discussed during rounds with team/nursing staff, and met with patient for supportive therapy/psychoeducation, as well as medication management. Patient slept for 6 hours, was medication compliant. Denies side effects. However he self-reported that he he did not not slept well. Mood is pretty good but tired . Reports improved in depression and anxiety, much better than the day he came in Observe he was falling asleep in the chair in it in front of the TV. Reports he went to groups this morning. He is visible, social, appropriate. Discussed with patient regarding medication changes, he is receptive with the plan. No safety concerns. Medication Compliance: Yes Side effects from medications: No Attending Groups: Yes Review of Systems Acute medical concerns: No Medical Review of Systems: unchanged Review of Systems Review of Systems Constitutional: Denies fatigue and Denies fever(s) Cardiovascular: Denies chest pain and Denies dyspnea Respiratory: Denies dyspnea Gastrointestinal: Denies abdominal pain Psychiatric: denies suicidal ideation Endocrine: Denies fatigue Yes all other systems are reviewed and are negative Mental Status Exam Mental Status Exam Narrative: Patient is alert and oriented; behavior is cooperative, improving in anxiety and depression; patient is not in distress; dressed in casual attire with kempt hair, adequate hygiene; mood is described as pretty good but tired and affect congruent; eye contact appropriate; Speech is normal rate, volume and prosody and not pressured; no psychomotor agitation/retardation present; thought process is organized and goal directed; Thought content is WNL, pertinent to relevant topics and without any delusional content, paranoid ideation or grandiosity; denies any SI/SIB/HI. Denies AH and there is no evidence of perceptual disturbance. Patient's insight and judgment fair. Diagnostics Vital Signs (24Hr): Vital Signs - 24 hr 03/20/25 19:14 03/21/25 07:55 Temperature 97.4 F 97.5 F Pulse Rate 59 60 Respiratory Rate 18 20 Blood Pressure 135/74 133/72 Pulse Oximetry 95 95 Oxygen Delivery Method Room Air Room Air BMI result Body Mass Index 42.1 Labs 03/17/25 09:40 03/20/25 08:14 Labs: Laboratory Results - last 48 hr 03/20/25 08:14 Sodium 134 L Potassium 4.5 Chloride 101 Carbon Dioxide 22 Anion Gap 16 BUN 17 H Creatinine 0.90 Estim Creat Clear Calc 116.5 Estimated GFR > 60 Random Glucose 133 H Estimat Average Glucose 111 Hemoglobin A1c % 5.5 Calcium 8.5 D Total Bilirubin 0.4 AST 37 ALT 30 Alkaline Phosphatase 150 H Total Protein 7.3 Albumin 3.5 Triglycerides 258 H Cholesterol 191 LDL Cholesterol, Calc 104 H HDL Cholesterol 36 L TSH 0.37 Free T4 1.05 Medications Medications Current Medications Acetaminophen (Acetaminophen 325 Mg Tablet) 650 mg PO Q6H PRN PRN Reason: Headache/Pain, Scale 1-10 Last Admin: 03/21/25 10:53 Dose: 650 mg Al Hydroxide/Mg Hydroxide (Magnesium Hydrox/Alum Hydrox 30 Ml Oral.Susp) 30 ml PO Q6H PRN PRN Reason: Heartburn/Nausea Albuterol Sulfate (Albuterol Sulfate 90 Mcg 8 Gm Inhaler) 1 puff INHALE RQ4H PRN PRN Reason: SOB/Wheering Duloxetine HCl (Duloxetine Hcl 30 Mg Capsule.Dr) 30 mg PO DAILY [facility] Hydroxyzine HCl (Hydroxyzine Hcl 50 Mg Tablet) 50 mg PO Q6H PRN PRN Reason: mild anxiety Last Admin: 03/20/25 21:52 Dose: 50 mg Ibuprofen (Ibuprofen 600 Mg Tablet) 600 mg PO Q6H PRN PRN Reason: severe pain Last Admin: 03/21/25 06:54 Dose: 600 mg Lidocaine (Lidocaine 4 % Patch Adh..Patch) 2 patch TRANSDERMA DAILY [facility]; Protocol Magnesium Hydroxide (Milk Of Magnesia 30 Ml Oral.Susp) 30 ml PO DAILY PRN PRN Reason: Constipation Melatonin (Melatonin 3 Mg Tablet) 9 mg PO BEDTIME [facility] Methadone HCl (Methadone Hcl 20 Mg/2 Ml Oral.Conc) 50 mg PO DAILY@1900 [facility] Last Admin: 03/20/25 19:16 Dose: 50 mg Methadone HCl (Methadone Hcl 20 Mg/2 Ml Oral.Conc) 110 mg PO DAILY@0800 [facility] Last Admin: 03/21/25 08:03 Dose: 110 mg Nicotine (Nicotine 21 Mg Patch.Td24) 21 mg TRANSDERMA DAILY PRN PRN Reason: nicotine craving Nicotine Polacrilex (Nicotine Polacrilex 2 Mg Gum) 2 mg BUCCAL Q2H PRN PRN Reason: Nicotine Cravings Trazodone HCl (Trazodone Hcl 50 Mg Tablet) 50 mg PO BEDTIME MRX1 PRN PRN Reason: Insomnia Last Admin: 03/20/25 21:46 Dose: 50 mg Allergies Allergies Allergy/AdvReac Type Severity Reaction Status Date / Time bee pollen (BEE STINGS) Allergy Intermediate HIVES Verified 03/17/25 09:10 Penicillins Allergy Mild UNKNOWN Verified 03/17/25 09:10 penicillin V Allergy Unknown unknown Verified 03/17/25 09:10 SANJAY DELIGHT Allergy Mild HIVES Uncoded 03/17/25 09:10 Assessment & Plan Assessment & Plan (1) Cocaine abuse: Status: Acute Code(s): F14.10 - Cocaine abuse, uncomplicated (2) Opiate use: Status: Acute Code(s): F11.90 - Opioid use, unspecified, uncomplicated (3) Major depressive disorder without psychotic features: Status: Acute Code(s): F32.9 - Major depressive disorder, single episode, unspecified Plan HPI: Patient is a 44 years old single weight Portuguese speaking male with no prior mental health illnesses/hx but history of polysubstance use included crack/cocaine and opiates use who presented to the ED reporting worsening depression symptoms the past couple of months, I have no energy, no reasons to go on . Reports feeling hopeless, and helpless, disturbances in both sleep and appetite was he had identifies as exacerbated by substance use. Formulation/clinical reasoning: Worsening depression symptoms, low to no energy, no motivation, sleep disturbances-trouble falling asleep and staying asleep, increased substance use, not able to work after surgery from last year due to pain, grandmother 2 months ago. Collateral done by the care team with mom, mom reports he has passive SI history. No prior treatment for mental health illnesses. No outpatient providers. Given above information, patient could be benefit from restrictive environment for own safety, diagnostic/diagnosis, start of medication for depression, and refer patient to outpatient psychiatric services as aftercare upon discharge. Hospital course: 03/19/25: Patient agreed to start on Cymbalta 20 mg daily for depression/anxiety/and pain. Melatonin 6 mg at bedtime for insomnia. Motrin 600 p.r.n. for severe pain. Albuterol p.r.n. for shortness of breath/wheezing (hx of asthma) Hydroxyzine and trazodone p.r.n. per protocol. Methadone 110 daily in the morning, and 50 mg at 19:00 as MAT. He has been on methadone since 1999 but was on and off. 03/20/25: Active on unit. social with peers. attending groups. Patient reports feeling a little better today ; pt reports he is interested in attending a substance abuse program after discharge; medical social consultant aware. pt reports sleeping well. denies SI/HI/VH/AH. Continue current tx plan. 03/21/25: Patient slept for 6 hours, was medication compliant. Denies side effects. However he self-reported that he he did not not slept well. Mood is pretty good but tired . Reports improved in depression and anxiety, much better than the day he came in Observe he was falling asleep in the chair in it in front of the TV. Reports he went to groups this morning. He is visible, social, appropriate. Discussed with patient regarding medication changes, he is receptive with the plan. No safety concerns. Increase Cymbalta from 20 to 30 mg for anxiety depression/pain Increase melatonin 6 to 9 mg for insomnia. Started lidocaine patches for mid back pain and left hip pain Patient received resources from addiction team regarding substance use. utility service worker is aware to make referral by meet next week as I continue to titrate medication for depression. Patient is happy with current methadone dose. Plan Patient on 15 minute checks for safety. Admitted to M3. CV. Work with treatment team to do collateral and/or CSS/CCS if possible for aftercare. He is interested in getting psychiatrist/therapist referral possible. Refer to patient to verifying specialist. Dx if necessary. Some baseline lab works. Patient educated on: diagnosis, medication risk/benefits and therapeutic strategies Informed Consent: understands and further education needed Reason for continued inpatient stay Substantial Risk for: med/psych decompensation Time Spent With Patient Time: Total time managing care of this patient today ____ minutes.
[2025-03-21] MEDS: methADONE HCl 20 MG/2 ML ORAL.CONC 50 MG PO (19:26)
[2025-03-21 20:00] VITALS: BP 122/64; PULSE 53; RESP 18; TEMP 36.9; O2SAT 95
[2025-03-22] MEDS: methADONE HCl 20 MG/2 ML ORAL.CONC 110 MG PO (07:49)
[2025-03-22 07:53] VITALS: BP 112/74; PULSE 61; RESP 16; TEMP 36.9; O2SAT 93
[2025-03-22] MEDS: Lidocaine 4 % Patch ADH..PATCH 2 PATCH TRANSDERMA (08:43)
--- NOTE | 2025-03-22 09:24 | P.PNPSI_ITS ---
Subjective Subjective Date of Service: 03/22/25 Reason For Visit: worsening depression and anxiety Subjective Notes: Conditional Voluntary Interim History: Active on unit. social with peers. attending groups. Patient reports his anxious and depression are now low. He reports sleeping well. denies SI/HI/VH/AH. Continue current tx plan. Medication Compliance: Yes Side effects from medications: No Attending Groups: Yes Mental Status Exam Mental Status Exam Patient Appearance: Appropriate Patient Orientation: Person, Place, Time and Situation Level of Consciousness: Awake and Alert Patient Behavior: Appropriate and Cooperative Mood Description: Calm Affect Description: Calm Ability to Follow Directions: Good Speech Pattern: Clear Memory Description: Intact Hallucinations: None Delusions: Not Present Thought Process: Intact Thought Content: positive for Intact Diagnostics Vital Signs (24Hr): Vital Signs - 24 hr 03/21/25 20:00 03/22/25 07:53 Temperature 98.4 F 98.4 F Pulse Rate 53 61 Respiratory Rate 18 16 Blood Pressure 122/64 112/74 Pulse Oximetry 95 93 Oxygen Delivery Method Room Air Room Air BMI result Body Mass Index 42.1 Labs 03/17/25 09:40 03/20/25 08:14 Labs: Laboratory Results - last 48 hr 03/20/25 08:14 Estimat Average Glucose 111 Hemoglobin A1c % 5.5 Medications Medications Current Medications Acetaminophen (Acetaminophen 325 Mg Tablet) 650 mg PO Q6H PRN PRN Reason: Headache/Pain, Scale 1-10 Last Admin: 03/21/25 10:53 Dose: 650 mg Al Hydroxide/Mg Hydroxide (Magnesium Hydrox/Alum Hydrox 30 Ml Oral.Susp) 30 ml PO Q6H PRN PRN Reason: Heartburn/Nausea Albuterol Sulfate (Albuterol Sulfate 90 Mcg 8 Gm Inhaler) 1 puff INHALE RQ4H PRN PRN Reason: SOB/Wheering Duloxetine HCl (Duloxetine Hcl 30 Mg Capsule.Dr) 30 mg PO DAILY [place] Last Admin: 03/22/25 08:43 Dose: 30 mg Hydroxyzine HCl (Hydroxyzine Hcl 50 Mg Tablet) 50 mg PO Q6H PRN PRN Reason: mild anxiety Last Admin: 03/21/25 22:01 Dose: 50 mg Ibuprofen (Ibuprofen 600 Mg Tablet) 600 mg PO Q6H PRN PRN Reason: severe pain Last Admin: 03/22/25 06:26 Dose: 600 mg Lidocaine (Lidocaine 4 % Patch Adh..Patch) 2 patch TRANSDERMA DAILY [facility]; Protocol Last Admin: 03/22/25 08:43 Dose: 2 patch Magnesium Hydroxide (Milk Of Magnesia 30 Ml Oral.Susp) 30 ml PO DAILY PRN PRN Reason: Constipation Melatonin (Melatonin 3 Mg Tablet) 9 mg PO BEDTIME [facility] Last Admin: 03/21/25 22:00 Dose: 9 mg Methadone HCl (Methadone Hcl 20 Mg/2 Ml Oral.Conc) 50 mg PO DAILY@1900 [facility] Last Admin: 03/21/25 19:26 Dose: 50 mg Methadone HCl (Methadone Hcl 20 Mg/2 Ml Oral.Conc) 110 mg PO DAILY@0800 [facility] Last Admin: 03/22/25 07:49 Dose: 110 mg Nicotine (Nicotine 21 Mg Patch.Td24) 21 mg TRANSDERMA DAILY PRN PRN Reason: nicotine craving Nicotine Polacrilex (Nicotine Polacrilex 2 Mg Gum) 2 mg BUCCAL Q2H PRN PRN Reason: Nicotine Cravings Trazodone HCl (Trazodone Hcl 50 Mg Tablet) 50 mg PO BEDTIME MRX1 PRN PRN Reason: Insomnia Last Admin: 03/21/25 22:01 Dose: 50 mg Allergies Allergies Allergy/AdvReac Type Severity Reaction Status Date / Time bee pollen (BEE STINGS) Allergy Intermediate HIVES Verified 03/17/25 09:10 Penicillins Allergy Mild UNKNOWN Verified 03/17/25 09:10 penicillin V Allergy Unknown unknown Verified 03/17/25 09:10 SANJAY DELIGHT Allergy Mild HIVES Uncoded 03/17/25 09:10 Assessment & Plan Assessment & Plan (1) Cocaine abuse: Status: Acute Code(s): F14.10 - Cocaine abuse, uncomplicated (2) Opiate use: Status: Acute Code(s): F11.90 - Opioid use, unspecified, uncomplicated (3) Major depressive disorder without psychotic features: Status: Acute Code(s): F32.9 - Major depressive disorder, single episode, unspecified Plan HPI: Patient is a 44 years old single weight Armenian speaking male with no prior mental health illnesses/hx but history of polysubstance use included crack/cocaine and opiates use who presented to the ED reporting worsening depression symptoms the past couple of months, I have no energy, no reasons to go on . Reports feeling hopeless, and helpless, disturbances in both sleep and appetite was he had identifies as exacerbated by substance use. Formulation/clinical reasoning: Worsening depression symptoms, low to no energy, no motivation, sleep disturbances-trouble falling asleep and staying asleep, increased substance use, not able to work after surgery from last year due to pain, grandmother 2 months ago. Collateral done by the care team with mom, mom reports he has passive SI history. No prior treatment for mental health illnesses. No outpatient providers. Given above information, patient could be benefit from restrictive environment for own safety, diagnostic/diagnosis, start of medication for depression, and refer patient to outpatient psychiatric services as aftercare upon discharge. Hospital course: 03/19/25: Patient agreed to start on Cymbalta 20 mg daily for depression/anxiety/and pain. Melatonin 6 mg at bedtime for insomnia. Motrin 600 p.r.n. for severe pain. Albuterol p.r.n. for shortness of breath/wheezing (hx of asthma) Hydroxyzine and trazodone p.r.n. per protocol. Methadone 110 daily in the morning, and 50 mg at 19:00 as MAT. He has been on methadone since 1999 but was on and off. 03/20/25: Active on unit. social with peers. attending groups. Patient reports feeling a little better today ; pt reports he is interested in attending a substance abuse program after discharge; social services aware. pt reports sleeping well. denies SI/HI/VH/AH. Continue current tx plan. 03/21/25: Patient slept for 6 hours, was medication compliant. Denies side effects. However he self-reported that he he did not not slept well. Mood is pretty good but tired . Reports improved in depression and anxiety, much better than the day he came in Observe he was falling asleep in the chair in it in front of the TV. Reports he went to groups this morning. He is visible, social, appropriate. Discussed with patient regarding medication changes, he is receptive with the plan. No safety concerns. Increase Cymbalta from 20 to 30 mg for anxiety depression/pain Increase melatonin 6 to 9 mg for insomnia. Started lidocaine patches for mid back pain and left hip pain Patient received resources from addiction team regarding substance use. propeller layout worker is aware to make referral by meet next week as I continue to titrate medication for depression. Patient is happy with current methadone dose. 03/22: Active on unit. social with peers. attending groups. Patient reports his anxious and depression are now low. He reports sleeping well. denies SI/HI/VH/AH. Continue current tx plan. Plan Patient on 15 minute checks for safety. Admitted to M3. CV. Work with treatment team to do collateral and/or CSS/CCS if possible for aftercare. He is interested in getting psychiatrist/therapist referral possible. Refer to patient to medicare specialist. Dx if necessary. Some baseline lab works. Patient educated on: diagnosis and medication risk/benefits Reason for continued inpatient stay Substantial Risk for: med/psych decompensation Time Spent With Patient Time: Total time managing care of this patient today 20___ minutes.
[2025-03-22 20:00] VITALS: BP 124/63; PULSE 52; RESP 16; TEMP 36.3; O2SAT 97
[2025-03-22] MEDS: methADONE HCl 20 MG/2 ML ORAL.CONC 50 MG PO (20:41)
--- NOTE | 2025-03-23 | ECG_ITS ---
Test Reason : BLE edema Blood Pressure : */* mmHG Vent. Rate : 60 BPM Atrial Rate : 60 BPM P-R Int : 182 ms QRS Dur : 88 ms QT Int : 454 ms P-R-T Axes : 43 10 9 degrees QTcB Int : 454 ms Normal sinus rhythm Normal ECG When compared with ECG of 18-Mar-2025 11:40, No significant change was found Referred By: Kinjal Bolton Electronically Signed By: AVINASH HOGAN
[2025-03-23 07:40] VITALS: BP 131/85; PULSE 65; RESP 20; TEMP 36.1; O2SAT 95
--- NOTE | 2025-03-23 07:54 | HO.PSYCHPN ---
Subjective Subjective Date of Service: 03/23/25 Reason For Visit: worsening depression and anxiety Subjective Notes: Conditional Voluntary Interim History: active on the unit. Attending groups. Intermittent sedation which may be related to methadone- lab work ordered as per addiction medicine request. New onset bilateral leg edema. Reports never having this before. No shortness of breath etc.. Chronic pain and hopeful of lidocaine patches bedtime will be more helpful. That being said reports this plan. Reports depression and anxiety are getting a little bit better so feels thankful regarding Cymbalta medication. No active SI. No psychosis. Hopeful for substance rehab setting Medication Compliance: Yes Side effects from medications: No Attending Groups: Yes Review of Systems Review of Systems new onset bilateral leg edema. No tenderness. No shortness of breath. Otherwise chronic pain Mental Status Exam Mental Status Exam Patient Appearance: Appropriate Patient Orientation: Person, Place, Time and Situation Level of Consciousness: Awake and Alert Patient Behavior: Appropriate and Cooperative Mood Description: Calm Affect Description: Calm Ability to Follow Directions: Good Speech Pattern: Clear Memory Description: Intact Depressive Symptoms: Increased Anxiety ( is lessening) and Hopelessness ( is lessening) Diagnostics Vital Signs (24Hr): Vital Signs - 24 hr 03/22/25 20:00 Temperature 97.4 F Pulse Rate 52 Respiratory Rate 16 Blood Pressure 124/63 Pulse Oximetry 97 Oxygen Delivery Method Room Air BMI result Body Mass Index 42.1 Labs 03/23/25 14:19 03/23/25 14:19 Medications Medications Current Medications Acetaminophen (Acetaminophen 325 Mg Tablet) 650 mg PO Q6H PRN PRN Reason: Headache/Pain, Scale 1-10 Last Admin: 03/22/25 15:52 Dose: 650 mg Al Hydroxide/Mg Hydroxide (Magnesium Hydrox/Alum Hydrox 30 Ml Oral.Susp) 30 ml PO Q6H PRN PRN Reason: Heartburn/Nausea Albuterol Sulfate (Albuterol Sulfate 90 Mcg 8 Gm Inhaler) 1 puff INHALE RQ4H PRN PRN Reason: SOB/Wheering Duloxetine HCl (Duloxetine Hcl 30 Mg Capsule.Dr) 30 mg PO DAILY [place] Last Admin: 03/22/25 08:43 Dose: 30 mg Hydroxyzine HCl (Hydroxyzine Hcl 50 Mg Tablet) 50 mg PO Q6H PRN PRN Reason: mild anxiety Last Admin: 03/22/25 15:52 Dose: 50 mg Ibuprofen (Ibuprofen 600 Mg Tablet) 600 mg PO Q6H PRN PRN Reason: severe pain Last Admin: 03/22/25 06:26 Dose: 600 mg Lidocaine (Lidocaine 4 % Patch Adh..Patch) 2 patch TRANSDERMA DAILY REPLACED BY [facility]; Protocol Last Admin: 03/22/25 08:43 Dose: 2 patch Magnesium Hydroxide (Milk Of Magnesia 30 Ml Oral.Susp) 30 ml PO DAILY PRN PRN Reason: Constipation Melatonin (Melatonin 3 Mg Tablet) 9 mg PO BEDTIME REPLACED BY [facility] Last Admin: 03/22/25 22:25 Dose: 9 mg Methadone HCl (Methadone Hcl 20 Mg/2 Ml Oral.Conc) 50 mg PO DAILY@1900 REPLACED BY [facility] Last Admin: 03/22/25 21:14 Dose: Not Given Methadone HCl (Methadone Hcl 20 Mg/2 Ml Oral.Conc) 110 mg PO DAILY@0800 REPLACED BY [facility] Last Admin: 03/22/25 07:49 Dose: 110 mg Nicotine (Nicotine 21 Mg Patch.Td24) 21 mg TRANSDERMA DAILY PRN PRN Reason: nicotine craving Nicotine Polacrilex (Nicotine Polacrilex 2 Mg Gum) 2 mg BUCCAL Q2H PRN PRN Reason: Nicotine Cravings Trazodone HCl (Trazodone Hcl 50 Mg Tablet) 50 mg PO BEDTIME MRX1 PRN PRN Reason: Insomnia Last Admin: 03/22/25 22:24 Dose: 50 mg Allergies Allergies Allergy/AdvReac Type Severity Reaction Status Date / Time bee pollen (BEE STINGS) Allergy Intermediate HIVES Verified 03/17/25 09:10 Penicillins Allergy Mild UNKNOWN Verified 03/17/25 09:10 penicillin V Allergy Unknown unknown Verified 03/17/25 09:10 SANJAY DELIGHT Allergy Mild HIVES Uncoded 03/17/25 09:10 Assessment & Plan Assessment & Plan (1) Cocaine abuse: Status: Acute Code(s): F14.10 - Cocaine abuse, uncomplicated (2) Opiate use: Status: Acute Code(s): F11.90 - Opioid use, unspecified, uncomplicated (3) Major depressive disorder without psychotic features: Status: Acute Code(s): F32.9 - Major depressive disorder, single episode, unspecified Plan HPI: Patient is a 44 years old single weight Martiniquais speaking male with no prior mental health illnesses/hx but history of polysubstance use included crack/cocaine and opiates use who presented to the ED reporting worsening depression symptoms the past couple of months, I have no energy, no reasons to go on . Reports feeling hopeless, and helpless, disturbances in both sleep and appetite was he had identifies as exacerbated by substance use. Formulation/clinical reasoning: Worsening depression symptoms, low to no energy, no motivation, sleep disturbances-trouble falling asleep and staying asleep, increased substance use, not able to work after surgery from last year due to pain, grandmother 2 months ago. Collateral done by the care team with mom, mom reports he has passive SI history. No prior treatment for mental health illnesses. No outpatient providers. Given above information, patient could be benefit from restrictive environment for own safety, diagnostic/diagnosis, start of medication for depression, and refer patient to outpatient psychiatric services as aftercare upon discharge. Hospital course: 03/19/25: Patient agreed to start on Cymbalta 20 mg daily for depression/anxiety/and pain. Melatonin 6 mg at bedtime for insomnia. Motrin 600 p.r.n. for severe pain. Albuterol p.r.n. for shortness of breath/wheezing (hx of asthma) Hydroxyzine and trazodone p.r.n. per protocol. Methadone 110 daily in the morning, and 50 mg at 19:00 as MAT. He has been on methadone since 1999 but was on and off. 03/20/25: Active on unit. social with peers. attending groups. Patient reports feeling a little better today ; pt reports he is interested in attending a substance abuse program after discharge; adoption social worker aware. pt reports sleeping well. denies SI/HI/VH/AH. Continue current tx plan. 03/21/25: Patient slept for 6 hours, was medication compliant. Denies side effects. However he self-reported that he he did not not slept well. Mood is pretty good but tired . Reports improved in depression and anxiety, much better than the day he came in Observe he was falling asleep in the chair in it in front of the TV. Reports he went to groups this morning. He is visible, social, appropriate. Discussed with patient regarding medication changes, he is receptive with the plan. No safety concerns. Increase Cymbalta from 20 to 30 mg for anxiety depression/pain Increase melatonin 6 to 9 mg for insomnia. Started lidocaine patches for mid back pain and left hip pain Patient received resources from addiction team regarding substance use. key worker is aware to make referral by meet next week as I continue to titrate medication for depression. Patient is happy with current methadone dose. 03/22: Active on unit. social with peers. attending groups. Patient reports his anxious and depression are now low. He reports sleeping well. denies SI/HI/VH/AH. Continue current tx plan. 03/23/2025: Reports depression anxiety improving on Cymbalta. There is some sedation which might be related to methadone dosing and will order lab work as per Addiction medicine request. New onset bilateral leg edema place hospitalist consult. Plan Patient on 15 minute checks for safety. Admitted to M3. CV. Work with treatment team to do collateral and/or CSS/CCS if possible for aftercare. He is interested in getting psychiatrist/therapist referral possible. Refer to patient to windows technical specialist. Dx if necessary. Some baseline lab works. Reason for continued inpatient stay Substantial Risk for: inability to function and rapid decompensation Time Spent With Patient Time: Total time managing care of this patient today ____ minutes.
[2025-03-23] MEDS: methADONE HCl 20 MG/2 ML ORAL.CONC 110 MG PO (07:57)
--- NOTE | 2025-03-23 09:20 | MHC.RECOVRN ---
TW contacted provider Ceasar Hooks via [place] [employer] to request lab draw due to concerns of over sedation and request for potential methadone dose adjustment. Labs are currently ordered. TW will continue to follow and offer support as needed.
[2025-03-23 11:49] LABS: Cannabinoid Screen Urine Not Detected (Not Detect)
[2025-03-23 14:43] LABS: Hematocrit 39.3 % (42.0-52.0); NRBC Abs Auto 0.000 X10*3/uL (0.0-0.012); NRBC Pct Auto 0.0 /100WBC (0.0-0.2); PLT CLUMP 1; SCAN SMEAR FLAG 1
[2025-03-23 14:49] LABS: Hemoglobin 13.4 g/dl (14.0-18.0); Imm Gran Abs Auto 0.02 X10*3/uL (0.00-0.03); Imm Gran Pct Auto 0.3 % (0.0-0.4); MANUAL DIFF FLAG SCAN; Mean Corpuscular HGB Conc 34.1 g/dl (31.0-36.0); Mean Corpuscular Hemoglobin 28.3 pg (27.0-33.0); Mean Corpuscular Volume 83.1 fL (80.0-98.0); Red Blood Count 4.73 X10*6/uL (4.60-5.80)
[2025-03-23 14:50] LABS: Lymphocytes Absolute Auto 2.5 X10*3/uL (1.2-4.9)
[2025-03-23 14:53] LABS: White Blood Count 5.9 X10*3/uL (4.8-10.8)
--- NOTE | 2025-03-23 14:58 | MHC.RECOVRN ---
TW attempted to assess pt after consult placed to Addiction Medicine for methadone for dose adjustment due to over sedation. On approach pt was sleeping in common area despite music playing loudly during group time. Pt was wrapped in several blankets respirations even and unlabored. Pt did not appear to be in any acute distress. Nursing reports pt has presented as sedated and is frequently sleeping in common areas. While returning shortly later to assess a different pt, TW noticed pt was now sitting in the common area, writing, and singing along to music. Pt did not present as sedated at that time and was engaged in the task at hand. Ordered labs have been collected and awaiting processing.
[2025-03-23 15:01] LABS: Alanine Aminotransferase 66 U/L (0-40); Albumin Level 3.6 g/dL (3.5-5.0); Alkaline Phosphatase 170 U/L (39-117); Anion Gap 14 (12-20); Aspartate Amino Transferase 65 U/L (5-37); Blood Urea Nitrogen 18 mg/dL (9-16); Calcium 9.1 mg/dL (8.4-10.2); Carbon Dioxide 23 mmol/L (22-29); Chloride 101 mmol/L (96-108); Creatinine Clr Calc Pharmacy 101.9; Estimated Glomerular Filt Rate > 60; Potassium 4.9 mmol/L (3.3-5.1); Sodium 133 mmol/L (135-145); Total Protein 7.4 g/dL (6.5-8.0)
[2025-03-23] MEDS: methADONE HCl 20 MG/2 ML ORAL.CONC 50 MG PO (19:29)
--- NOTE | 2025-03-23 19:42 | HO.PM.IMCN ---
History of Present Illness Data of Consult Service Date: 03/23/25 Requesting physician: Ceasar Hooks Primary Care Provider: Sushma Marroquin MD HPI Reason for consult: bilateral lower extremity edema Pt is a 44 yo male with PMH Asthma, IVDA last use 2 weeks prior with crack cocaine, GANESH on methadone, Tobacco dependence, HLD, obesity, MDD< PNA/MRSA 2023 with thoracotamy, SHERIDAN, nephrolithiasis with multiple lithotripsy procedures was seen today on M3 for report of new onset lower extremity edema. Pt offers that he noted increased edema in both lower extremities over the last 2 days. Pt has also been having increased SOB with walking. Patient currently not having any chest pain, abdominal pain and denies history of arrhythmia. Pt denies any cardiac hx to include HTN, Murmur, HF or chest pain. Pt also offers fatigue that is persisting. Pt deneis hx of GERI. Pt does not have hx of blood clots in legs or lungs. Pt does report hx of asthma with no recent flares. Pt agreeable to work up to explore explanation for increased swelling. Review of Systems Review of Systems: Patient denies any chest pain, shortness of breath at rest but is experiencing shortness breath and wheezing with exertion. Patient is reporting some mild right upper quadrant tenderness but otherwise no abdominal pain, constipation, diarrhea, nausea or vomiting. Patient states the edema in his lower leg started 2 days prior. Patient is reporting all-over body pain which is chronic. Patient was hospitalized last year and diagnosed with pneumonia secondary to MRSA and required a thoracotomy but patient did not require intubation. [facility] Medical History (Updated 03/23/25 @ 19:46 by JOSE [facility]) Asthma Opioid use disorder IV drug abuse Abscess Empyema lung Acute hyponatremia Acute upper back pain Acute flank pain Methadone dependence Kidney stones Crack cocaine use Heroin abuse Drug abuse Cognitive capacity: A/O X3 Functional capacity: independent ambulation Surgical History Status post thoracotomy Social History Household Members: Other Household Members Other:: 3 Housing: Apartment Do you presently have visiting nurse or other home services: No Comment: pt refusing alarms; educated to call before getting up Patient Tobacco Use Status: Never used Tobacco Smoked in Last 30 Days: No e-Cigarette/Vaping Use: Never Used Second Hand Smoke Exposure: No Use of substances other than those prescribed or required for medical reasons: Yes Substance Use Type: Crack/Cocaine Currently Displaying Signs/Symptoms of Drug Intoxication Withdrawal: No Have you been hit, kicked, punched, or otherwise hurt by someone within the past year? If so, by whom?: No Do you feel safe in your current relationship?: No Current Relationship Is there a partner from a previous relationship who is making you feel unsafe now?: No Are you made to feel afraid or neglected: No Sikhism Healthcare Practices: Religious Advance Directives: No Advance Directives Information Provided: No Do you have thoughts of harming others: None Do you have a plan to hurt others: No Plan Recently lost weight without trying: No Eating poorly because of decreased appetite: No Nutrition Risks: No Nutritional Risk service: No Current occupational status: unemployed Sexual orientation: Straight/Heterosexual Cognitive needs: No Hearing needs: No Vision needs: No Ebola Risk: Travel/Contact With Anyone From Affected Area/s: No Has Patient Experienced Ebola Symptoms: No Meds Allergies Allergy/AdvReac Type Severity Reaction Status Date / Time bee pollen (BEE STINGS) Allergy Intermediate HIVES Verified 03/17/25 09:10 Penicillins Allergy Mild UNKNOWN Verified 03/17/25 09:10 penicillin V Allergy Unknown unknown Verified 03/17/25 09:10 SANJAY DELIGHT Allergy Mild HIVES Uncoded 03/17/25 09:10 Active Medications: Current Medications Acetaminophen (Acetaminophen 325 Mg Tablet) 650 mg PO Q6H PRN PRN Reason: Headache/Pain, Scale 1-10 Last Admin: 03/22/25 15:52 Dose: 650 mg Al Hydroxide/Mg Hydroxide (Magnesium Hydrox/Alum Hydrox 30 Ml Oral.Susp) 30 ml PO Q6H PRN PRN Reason: Heartburn/Nausea Albuterol Sulfate (Albuterol Sulfate 90 Mcg 8 Gm Inhaler) 1 puff INHALE RQ4H PRN PRN Reason: SOB/Wheering Duloxetine HCl (Duloxetine Hcl 30 Mg Capsule.Dr) 30 mg PO DAILY [place] Last Admin: 03/23/25 09:05 Dose: 30 mg Hydroxyzine HCl (Hydroxyzine Hcl 50 Mg Tablet) 50 mg PO Q6H PRN PRN Reason: mild anxiety Last Admin: 03/23/25 11:05 Dose: 50 mg Ibuprofen (Ibuprofen 600 Mg Tablet) 600 mg PO Q6H PRN PRN Reason: severe pain Last Admin: 03/23/25 15:26 Dose: 600 mg Lidocaine (Lidocaine 4 % Patch Adh..Patch) 2 patch TRANSDERMA DAILY [facility]; Protocol Magnesium Hydroxide (Milk Of Magnesia 30 Ml Oral.Susp) 30 ml PO DAILY PRN PRN Reason: Constipation Melatonin (Melatonin 3 Mg Tablet) 9 mg PO BEDTIME [facility] Last Admin: 03/22/25 22:25 Dose: 9 mg Methadone HCl (Methadone Hcl 20 Mg/2 Ml Oral.Conc) 50 mg PO DAILY@1900 [facility] Last Admin: 03/23/25 19:29 Dose: 50 mg Methadone HCl (Methadone Hcl 20 Mg/2 Ml Oral.Conc) 110 mg PO DAILY@0800 [facility] Last Admin: 03/23/25 07:57 Dose: 110 mg Nicotine (Nicotine 21 Mg Patch.Td24) 21 mg TRANSDERMA DAILY PRN PRN Reason: nicotine craving Nicotine Polacrilex (Nicotine Polacrilex 2 Mg Gum) 2 mg BUCCAL Q2H PRN PRN Reason: Nicotine Cravings Trazodone HCl (Trazodone Hcl 50 Mg Tablet) 50 mg PO BEDTIME MRX1 PRN PRN Reason: Insomnia Last Admin: 03/22/25 22:24 Dose: 50 mg Home Medications ?Medication ?Instructions ?Recorded ?Confirmed ?Last Taken ?Type methadone 10 mg/mL oral 50 mg PO QPM 01/15/25 03/17/25 03/12/25 History concentrate (Methadone Intensol) methadone 10 mg/mL oral 110 mg PO DAILY 01/15/25 03/17/25 03/12/25 History concentrate (Methadone Intensol) Physical Exam Vital Signs and Narrative: Vital Signs: Last Vital Signs Temp 97 F 03/23/25 07:40 Pulse 65 03/23/25 07:40 Resp 20 03/23/25 07:40 BP 131/85 03/23/25 07:40 Pulse Ox 95 03/23/25 07:40 O2 Del Method Room Air 03/23/25 07:40 BMI result Body Mass Index 42.1 Alert and orientated X3, able to give good history. Neuro: CN II-X11 intact, no deficits, visual acuity intact EYES: PERRLA, EOM intact, sclera nonicteric, conjunctiva pink ENT: hearing intact, no issues with swallowing, uvula midline, lips moist, nares patent no epistaxis Cardiac: S1 S2 RRR, no murmur, mild JVD, +1 pitting edema in Lower ext Pulmonary: lungs diminished B with exp wheeze Abdominal: BS active in all 4 quadrants, no guarding, tenderness, rebounding, obese, abd distended no pain with exam MSK: strength 4/5 upper and lower extremities : no CVA tenderness no bladder distension Extremities: +1 pitting edema in lower extremities, PT and DP pulses palpable +2, no open wounds noted Psych: mood stable, judgement and insight good Skin: no opened wounds noted on exam Results Labs 03/23/25 14:19 03/23/25 14:19 Labs: Laboratory Results - last 24 hr 03/23/25 03/23/25 11:25 14:19 MCV 83.1 MCH 28.3 MCHC 34.1 RDW 13.4 Plt Count TNP MPV TNP Immature Gran % (Auto) 0.3 Neut % (Auto) 43.8 L Lymph % (Auto) 42.8 H Preston % (Auto) 8.3 Eos % (Auto) 4.1 H Baso % (Auto) 0.7 Lymph # (Auto) 2.5 Preston # (Auto) 0.5 Eos # (Auto) 0.2 Baso # (Auto) 0.0 Abs Immat Gran (auto) 0.02 Absolute Neuts (auto) 2.6 Absolute Nucleated RBC 0.000 Nucleated RBC % (auto) 0.0 Smear Tech's Comments VERIFIED Anion Gap 14 Estim Creat Clear Calc 101.9 Estimated GFR > 60 Random Glucose 108 Calcium 9.1 D Total Bilirubin 0.2 AST 65 H ALT 66 H Alkaline Phosphatase 170 H Total Protein 7.4 Albumin 3.6 Urine Opiates Screen Not Detected Ur Buprenorphine Scrn Not Detected Ur Oxycodone Screen Not Detected Urine Methadone Screen Positive H Urine Fentanyl Screen POSITIVE H Ur Barbiturates Screen Not Detected Ur Phencyclidine Scrn Not Detected Ur Amphetamines Screen Not Detected U Benzodiazepines Scrn Not Detected Urine Cocaine Screen Not Detected U Marijuana (THC) Screen Not Detected ABG ABG results: VBG 7.45, 40, 148, 28 Imaging Radiologist's Impressions: CXR mild chf Assessment and Plan (1) Bilateral lower extremity edema: Status: Acute (2) Asthma: Qualifiers: Asthma complication type: uncomplicated Asthma persistence: intermittent Asthma severity: mild Qualified Code(s): J45.20 - Mild intermittent asthma, uncomplicated Status: Acute Plan Pt is a 44 yo male with PMH Asthma, IVDA last use 2 weeks prior with crack cocaine, GANESH on methadone, Tobacco dependence, HLD, obesity, MDD< PNA/MRSA 2023 with thoracotamy, SHERIDAN, nephrolithiasis with multiple lithotripsy procedures was seen today on M3 for report of new onset lower extremity edema. After work up initiated this evening, pt has evidence of CHF. CHF new onset with BLE edema CXR 2V notes MILD CHF EKG pending Pt denies hx of Blood clots, HF, edema in lower extremities Last venous doppler 12/2024 negative for DVT - rechecking dopplers this admission DDIMER [id number] ECHO ordered - note pt has hx of IVDA and last use was 2 weeks prior, no murmur on exam BNP 22 Lasxi 40 X1 today, will provide lasix 40 daily and monitor K Cardiology consulted Daily weights, low NA cardiac diet ordered Renal FX has been stable New onset SOB with exertion, no hypoxia CXR as above notes mild CHF, no PNA and tiny B PL effusions DUO NEBS PRN VBG 7.45, 40, 148, 28 Lasix ordered Asthma Albuterol inhaler prn Adding Duonebs for shortness of breath or wheezing Fluticasone HLD LFT slightly elevated Hold on starting statin Can start Zetia Cardiac Diet GANESH on methadone with recent IVD use involving crack cocaine Toxicology screen positive for fentanyl and methadone Pt states last use of cocaine was 2 weeks ago via IV in upper extremities ECHO ordered Pt continues on methadone Hospitalist Group will continue to follow. Thank you for this consultation.
[2025-03-23 19:51] LABS: Appearance Urine Clear; Glucose Urine UA Negative (Negative); PH 5.5 (5.0-9.0); Specific Gravity - Urine 1.020 (1.005-1.025)
[2025-03-23 20:00] VITALS: BP 124/77; RESP 18; TEMP 37.1; O2SAT 96
[2025-03-23 20:20] VITALS: BP 124/77
[2025-03-23 20:32] LABS: Venous Blood Gas Refer to POC result
[2025-03-23 20:32] LABS: VBG HCO3 28 mmol/L (22-26); VBG O2 % Saturation 100.0 %
[2025-03-23 20:36] LABS: D Dimer High Sensitivity 157 NG/ML
[2025-03-23 20:50] LABS: B Type Natriuretic Peptide 22 pg/mL (<100)
[2025-03-23] MEDS: Lidocaine 4 % Patch ADH..PATCH 2 PATCH TRANSDERMA (21:58)
[2025-03-24 06:00] VITALS: BMI 43.1
[2025-03-24 07:30] VITALS: BP 125/64; PULSE 61; RESP 16; TEMP 36.6; O2SAT 93
[2025-03-24 08:08] LABS: Anion Gap 14 (12-20); Blood Urea Nitrogen 16 mg/dL (9-16); Calcium 8.8 mg/dL (8.4-10.2); Carbon Dioxide 26 mmol/L (22-29); Chloride 99 mmol/L (96-108); Creatinine Clr Calc Pharmacy 112.6; Estimated Glomerular Filt Rate > 60; Potassium 4.1 mmol/L (3.3-5.1); Sodium 135 mmol/L (135-145)
[2025-03-24] MEDS: methADONE HCl 20 MG/2 ML ORAL.CONC 110 MG PO (08:08)
[2025-03-24 08:55] VITALS: BP 125/64
--- NOTE | 2025-03-24 10:28 | P.PNPSI_ITS ---
Subjective Subjective Date of Service: 03/24/25 Reason For Visit: worsening depression and anxiety Interim History: Appreciate hospitalist eval and input/follow up ref bilateral leg oedema. Active on the unit and attending groups. Chronic pain but slept better last PM with patches at night time. Depression and anxiety are getting a little bit better so feels thankful regarding Cymbalta medication. No active SI. No psychosis. Hopeful for substance rehab setting Mental Status Exam Mental Status Exam Narrative: Patient is alert and oriented; behavior is cooperative, improving in anxiety and depression; patient is not in distress; dressed in casual attire with kempt hair, adequate hygiene; mood is described as pretty good but tired and affect congruent; eye contact appropriate; Speech is normal rate, volume and prosody and not pressured; no psychomotor agitation/retardation present; thought process is organized and goal directed; Thought content is WNL, pertinent to relevant topics and without any delusional content, paranoid ideation or grandiosity; denies any SI/SIB/HI. Denies AH and there is no evidence of perceptual disturbance. Patient's insight and judgment fair. Diagnostics Vital Signs (24Hr): Vital Signs - 24 hr 03/23/25 20:00 03/23/25 20:20 03/24/25 07:30 Temperature 98.8 F 97.8 F Pulse Rate 61 Respiratory Rate 18 16 Blood Pressure 124/77 124/77 125/64 Pulse Oximetry 96 93 Oxygen Delivery Method Room Air Room Air 03/24/25 08:55 Temperature Pulse Rate Respiratory Rate Blood Pressure 125/64 Pulse Oximetry Oxygen Delivery Method BMI result Body Mass Index 43.1 Labs 03/23/25 14:19 03/24/25 07:38 Labs: Laboratory Results - last 48 hr 03/23/25 03/23/25 03/23/25 11:25 14:19 20:19 WBC 5.9 RBC 4.73 Hgb 13.4 L Hct 39.3 L MCV 83.1 MCH 28.3 MCHC 34.1 RDW 13.4 Plt Count TNP MPV TNP Immature Gran % (Auto) 0.3 Neut % (Auto) 43.8 L Lymph % (Auto) 42.8 H [place] % (Auto) 8.3 Eos % (Auto) 4.1 H Baso % (Auto) 0.7 Lymph # (Auto) 2.5 [place] # (Auto) 0.5 Eos # (Auto) 0.2 Baso # (Auto) 0.0 Abs Immat Gran (auto) 0.02 Absolute Neuts (auto) 2.6 Absolute Nucleated RBC 0.000 Nucleated RBC % (auto) 0.0 Smear Tech's Comments VERIFIED ESR 21 H D-Dimer High Sensitivty 157 VBG pH VBG pCO2 VBG pO2 VBG HCO3 VBG O2 Saturation VBG Base Excess Sodium 133 L Potassium 4.9 Chloride 101 Carbon Dioxide 23 Anion Gap 14 BUN 18 H Creatinine 1.06 Estim Creat Clear Calc 101.9 Estimated GFR > 60 Random Glucose 108 Calcium 9.1 D Total Bilirubin 0.2 AST 65 H ALT 66 H Alkaline Phosphatase 170 H C-Reactive Protein B-Natriuretic Peptide Total Protein 7.4 Albumin 3.6 Urine Color Yellow Urine Appearance Clear Urine pH 5.5 Ur Specific [place] 1.020 Urine Protein Negative Urine Glucose (UA) Negative Urine Ketones Negative Urine Blood Negative Urine Nitrite Negative Ur Leukocyte Esterase Negative Urine Opiates Screen Not Detected Ur Buprenorphine Scrn Not Detected Ur Oxycodone Screen Not Detected Urine Methadone Screen Positive H Urine Fentanyl Screen POSITIVE H Ur Barbiturates Screen Not Detected Ur Phencyclidine Scrn Not Detected Ur Amphetamines Screen Not Detected U Benzodiazepines Scrn Not Detected Urine Cocaine Screen Not Detected U Marijuana (THC) Screen Not Detected 03/23/25 03/23/25 03/24/25 20:20 20:28 07:38 WBC RBC Hgb Hct MCV MCH MCHC RDW Plt Count MPV Immature Gran % (Auto) Neut % (Auto) Lymph % (Auto) [place] % (Auto) Eos % (Auto) Baso % (Auto) Lymph # (Auto) [place] # (Auto) Eos # (Auto) Baso # (Auto) Abs Immat Gran (auto) Absolute Neuts (auto) Absolute Nucleated RBC Nucleated RBC % (auto) Smear Tech's Comments ESR D-Dimer High Sensitivty VBG pH 7.45 H VBG pCO2 40 VBG pO2 148 VBG HCO3 28 H VBG O2 Saturation 100.0 VBG Base Excess 4.2 Sodium 135 Potassium 4.1 Chloride 99 Carbon Dioxide 26 Anion Gap 14 BUN 16 Creatinine 0.96 Estim Creat Clear Calc 112.6 Estimated GFR > 60 Random Glucose 112 Calcium 8.8 Total Bilirubin AST ALT Alkaline Phosphatase C-Reactive Protein 0.52 H B-Natriuretic Peptide 22 Total Protein Albumin Urine Color Urine Appearance Urine pH Ur Specific [place] Urine Protein Urine Glucose (UA) Urine Ketones Urine Blood Urine Nitrite Ur Leukocyte Esterase Urine Opiates Screen Ur Buprenorphine Scrn Ur Oxycodone Screen Urine Methadone Screen Urine Fentanyl Screen Ur Barbiturates Screen Ur Phencyclidine Scrn Ur Amphetamines Screen U Benzodiazepines Scrn Urine Cocaine Screen U Marijuana (THC) Screen Medications Medications Current Medications Acetaminophen (Acetaminophen 325 Mg Tablet) 650 mg PO Q6H PRN PRN Reason: Headache/Pain, Scale 1-10 Last Admin: 03/22/25 15:52 Dose: 650 mg Al Hydroxide/Mg Hydroxide (Magnesium Hydrox/Alum Hydrox 30 Ml Oral.Susp) 30 ml PO Q6H PRN PRN Reason: Heartburn/Nausea Albuterol Sulfate (Albuterol Sulfate 90 Mcg 8 Gm Inhaler) 1 puff INHALE RQ4H PRN PRN Reason: SOB/Wheering Albuterol/Ipratropium (Albuterol/Iprat 2.5/0.5mg 3 Ml Ampul.Neb) 3 ml INHALE RQ4H WHILE AWAKE PRN PRN Reason: Shortness of Breath/Wheezing Duloxetine HCl (Duloxetine Hcl 30 Mg Capsule.Dr) 30 mg PO DAILY [facility] Last Admin: 03/24/25 08:55 Dose: 30 mg Ezetimibe (Ezetimibe 10 Mg Tablet) 10 mg PO DAILY [facility] Last Admin: 03/24/25 08:56 Dose: 10 mg Fluticasone Propionate (Fluticasone Propionate Nasal 16 Gm [place]) 1 spray NOSTRIL-B DAILY [facility] Last Admin: 03/24/25 09:15 Dose: 1 spray Furosemide (Furosemide 40 Mg Tablet) 40 mg PO DAILY [place]; Protocol Last Admin: 03/24/25 08:55 Dose: 40 mg Hydroxyzine HCl (Hydroxyzine Hcl 50 Mg Tablet) 50 mg PO Q6H PRN PRN Reason: mild anxiety Last Admin: 03/23/25 11:05 Dose: 50 mg Ibuprofen (Ibuprofen 600 Mg Tablet) 600 mg PO Q6H PRN PRN Reason: severe pain Last Admin: 03/24/25 09:15 Dose: 600 mg Lidocaine (Lidocaine 4 % Patch Adh..Patch) 2 patch TRANSDERMA DAILY [facility]; Protocol Last Admin: 03/24/25 09:22 Dose: Not Given Magnesium Hydroxide (Milk Of Magnesia 30 Ml Oral.Susp) 30 ml PO DAILY PRN PRN Reason: Constipation Melatonin (Melatonin 3 Mg Tablet) 9 mg PO BEDTIME [facility] Last Admin: 03/23/25 21:58 Dose: 9 mg Methadone HCl (Methadone Hcl 20 Mg/2 Ml Oral.Conc) 50 mg PO DAILY@1900 [facility] Last Admin: 03/23/25 19:29 Dose: 50 mg Methadone HCl (Methadone Hcl 20 Mg/2 Ml Oral.Conc) 110 mg PO DAILY@0800 [facility] Last Admin: 03/24/25 08:08 Dose: 110 mg Nicotine (Nicotine 21 Mg Patch.Td24) 21 mg TRANSDERMA DAILY PRN PRN Reason: nicotine craving Nicotine Polacrilex (Nicotine Polacrilex 2 Mg Gum) 2 mg [place] Q2H PRN PRN Reason: Nicotine Cravings Trazodone HCl (Trazodone Hcl 50 Mg Tablet) 50 mg PO BEDTIME MRX1 PRN PRN Reason: Insomnia Last Admin: 03/23/25 22:02 Dose: 50 mg Allergies Allergies Allergy/AdvReac Type Severity Reaction Status Date / Time bee pollen (BEE STINGS) Allergy Intermediate HIVES Verified 03/17/25 09:10 Penicillins Allergy Mild UNKNOWN Verified 03/17/25 09:10 penicillin V Allergy Unknown unknown Verified 03/17/25 09:10 SANJAY DELIGHT Allergy Mild HIVES Uncoded 03/17/25 09:10 Assessment & Plan Assessment & Plan (1) Bilateral lower extremity edema: Status: Acute Code(s): R60.0 - Localized edema (2) Asthma: Qualifiers: Asthma complication type: uncomplicated Asthma persistence: i ntermittent Asthma severity: mild Qualified Code(s): J45.20 - Mild intermittent asthma, uncomplicated Status: Acute Code(s): J45.909 - Unspecified asthma, uncomplicated (3) Cocaine abuse: Status: Acute Code(s): F14.10 - Cocaine abuse, uncomplicated (4) Opiate use: Status: Acute Code(s): F11.90 - Opioid use, unspecified, uncomplicated (5) Major depressive disorder without psychotic features: Status: Acute Code(s): F32.9 - Major depressive disorder, single episode, unspecified Assessment and Plan: HPI: Patient is a 44 years old single weight Micronesian speaking male with no prior mental health illnesses/hx but history of polysubstance use included crack/cocaine and opiates use who presented to the ED reporting worsening depression symptoms the past couple of months, I have no energy, no reasons to go on . Reports feeling hopeless, and helpless, disturbances in both sleep and appetite was he had identifies as exacerbated by substance use. Formulation/clinical reasoning: Worsening depression symptoms, low to no energy, no motivation, sleep disturbances-trouble falling asleep and staying asleep, increased substance use, not able to work after surgery from last year due to pain, grandmother 2 months ago. Collateral done by the care team with mom, mom reports he has passive SI history. No prior treatment for mental health illnesses. No outpatient providers. Given above information, patient could be benefit from restrictive environment for own safety, diagnostic/diagnosis, start of medication for depression, and refer patient to outpatient psychiatric services as aftercare upon discharge. Hospital course: 03/19/25: Patient agreed to start on Cymbalta 20 mg daily for depression/anxiety/and pain. Melatonin 6 mg at bedtime for insomnia. Motrin 600 p.r.n. for severe pain. Albuterol p.r.n. for shortness of breath/wheezing (hx of asthma) Hydroxyzine and trazodone p.r.n. per protocol. Methadone 110 daily in the morning, and 50 mg at 19:00 as MAT. He has been on methadone since 1999 but was on and off. 03/20/25: Active on unit. social with peers. attending groups. Patient reports feeling a little better today ; pt reports he is interested in attending a substance abuse program after discharge; social insurance adviser aware. pt reports sleeping well. denies SI/HI/VH/AH. Continue current tx plan. 03/21/25: Patient slept for 6 hours, was medication compliant. Denies side effects. However he self-reported that he he did not not slept well. Mood is pretty good but tired . Reports improved in depression and anxiety, much better than the day he came in Observe he was falling asleep in the chair in it in front of the TV. Reports he went to groups this morning. He is visible, social, appropriate. Discussed with patient regarding medication changes, he is receptive with the plan. No safety concerns. Increase Cymbalta from 20 to 30 mg for anxiety depression/pain Increase melatonin 6 to 9 mg for insomnia. Started lidocaine patches for mid back pain and left hip pain Patient received resources from addiction team regarding substance use. pick up worker is aware to make referral by meet next week as I continue to titrate medication for depression. Patient is happy with current methadone dose. 03/22: Active on unit. social with peers. attending groups. Patient reports his anxious and depression are now low. He reports sleeping well. denies SI/HI/VH/AH. Continue current tx plan. 03/23/2025: Reports depression anxiety improving on Cymbalta. There is some sedation which might be related to methadone dosing and will order lab work as per Addiction medicine request. New onset bilateral leg edema place hospitalist consult. 03/24: appreciate hospitalist input and follow up ref bilateral leg oedema Plan Patient on 15 minute checks for safety. Admitted to M3. CV. Work with treatment team to do collateral and/or CSS/CCS if possible for aftercare. He is interested in getting psychiatrist/therapist referral possible. Refer to patient to claims specialist. Dx if necessary. Some baseline lab works. Plan Pt is a 44 yo male with PMH Asthma, IVDA last use 2 weeks prior with crack cocaine, GANESH on methadone, Tobacco dependence, HLD, obesity, MDD< PNA/MRSA 2023 with thoracotamy, SHERIDAN, nephrolithiasis with multiple lithotripsy procedures was seen today on M3 for report of new onset lower extremity edema. After work up initiated this evening, pt has evidence of CHF. CHF new onset with BLE edema CXR 2V notes MILD CHF EKG pending Pt denies hx of Blood clots, HF, edema in lower extremities Last venous doppler 12/2024 negative for DVT - rechecking dopplers this admission DDIMER 157 ECHO ordered - note pt has hx of IVDA and last use was 2 weeks prior, no murmur on exam BNP 22 Lasxi 40 X1 today, will provide lasix 40 daily and monitor K Cardiology consulted Daily weights, low NA cardiac diet ordered Renal FX has been stable New onset SOB with exertion, no hypoxia CXR as above notes mild CHF, no PNA and tiny B PL effusions DUO NEBS PRN VBG 7.45, 40, 148, 28 Lasix ordered Asthma Albuterol inhaler prn Adding Duonebs for shortness of breath or wheezing Fluticasone HLD LFT slightly elevated Hold on starting statin Can start Zetia Cardiac Diet GANESH on methadone with recent IVD use involving crack cocaine Toxicology screen positive for fentanyl and methadone Pt states last use of cocaine was 2 weeks ago via IV in upper extremities ECHO ordered Pt continues on methadone Hospitalist Group will continue to follow. Thank you for this consultation. Reason for continued inpatient stay Substantial Risk for: inability to function and rapid decompensation Time Spent With Patient Time: Total time managing care of this patient today ____ minutes.
--- NOTE | 2025-03-24 12:13 | PM.EVENT ---
Event Note Date of Service: 03/24/25 Event Note: Addiction consult placed to evaluate need for methadone dose reduciton due to concern for oversedation Chart reviewed Nursing documentation metions patient falling asleep in some common areas, however overall patient has been documented as being awake, alert, and visible in the [place] Plan: -updated lab work -while methadone can cause some drowsiness, jonel btwn 2-3 hours after dose administration due to peak effect, he has also been stable on this dose for some time -if drowsiness continues to be a concern, can reassess or if methadone needs to be decreased, can start with 5mg reduction Time Spent With Patient Time: Total time managing care of this patient today ____ minutes.
--- NOTE | 2025-03-24 13:07 | MHC.RECOVRN ---
TW met with pt due to concerns of over sedation and potential need for methadone dose adjustment. On approach pt was sitting in the common area, coloring w/ peers. He was pleasant and calm, neatly dressed. Alert and oriented. Pt reports he experiencing ongoing depression and poor sleep in the evenings which is contributing to his increase in need for sleep during the day. Pt states he does not feel appearance of sedation is attributed to his methadone dose and wishes to keep his dose the same. Labs collected yesterday reveal AST 65, ALT 30, Na+, 133. Information was relayed to Gaby Tate HNP-. No changes have been made to methadone dose at this time. TW available for further concerns or questions if needed.
[2025-03-24] MEDS: methADONE HCl 20 MG/2 ML ORAL.CONC 50 MG PO (19:20)
[2025-03-24 20:00] VITALS: BP 129/78; PULSE 69; RESP 20; TEMP 37.3; O2SAT 96
[2025-03-24] MEDS: Lidocaine 4 % Patch ADH..PATCH 2 PATCH TRANSDERMA (21:38)
[2025-03-25 06:00] VITALS: BMI 43.3
--- NOTE | 2025-03-25 07:00 | CA_ITS ---
Transthoracic Echocardiogram Patient (Last, First, Middle): Osmany Nicholson P Gender: M Date of : 1980 Age: 44 Procedure Date: 03/25/2025 Procedure Type: Transthoracic Echocardiogram Location: S3E Height: 165.1 cm Weight: 117.48 kg BSA: 2.21 m2 Heart Rate: 71 bpm BP: 129 / 78 mmHg Dry Mop Maker: FERNANDA Referring MD: Kinjal WILLIS Symptoms: CHF Study Quality: Fair ECG Rhythm: Sinus Conclusions: - The quality of the study was technically difficult. - The left ventricular systolic function is low normal. The visually estimated ejection fraction is between 50-55%. - No obvious valvular pathology seen on this study. Findings Procedure Information Contrast agent, definity, is being given per protocol without apparent complications. The quality of the study was technically difficult. The study quality is limited by patients body habitus and lung artifact. Left Ventricle Mildly increased left ventricular cavity size. The left ventricular systolic function is low normal. The visually estimated ejection fraction is between 50-55%. Regional wall motion abnormalities can not be excluded due to suboptimal endocardial definition. Diastolic function is normal for age. There is mild septal asymmetric hypertrophy. Right Ventricle The right ventricle was not well visualized. Mildly increased right ventricular cavity size. There is normal right ventricular systolic function. Atria Both atria are normal in size. Aortic Valve There is a normal trileaflet aortic valve. There is mild calcification of the aortic valve. There is no aortic valve stenosis. There is no aortic valve regurgitation. Mitral Valve The mitral valve appears normal. There is no mitral valve regurgitation. There is no mitral valve stenosis. Pulmonic Valve The pulmonic valve is likely normal. Tricuspid Valve There is no tricuspid valve regurgitation. Tricuspid regurgitation envelope is inadequate for calculation of right ventricular systolic pressure. Great Vessels The asc aorta is normal in size. Venous The inferior vena cava was not well visualized. Pericardium/Pleural There is no evidence of pericardial effusion. Prior Study Comparison No significant change compared to prior study dated: 10/02/2008. Recommendations, Care & Conclusions No obvious valvular pathology seen on this study. Measurements 2D Linear Measurements IVSd: 1.19 0.6-0.9/0.6-1.0 cm LVIDd: 6.07 3.9-5.3/4.2-5.9 cm LVIDd Index: 2.75 2.4-3.2/2.2-3.1 cm/m2 LVIDs: 4.13 2.0-3.6 cm LVPWd: 0.94 0.7-1.1 cm LA Diam: 5.00 2.7-3.8/3.0-4.0 cm LAIDs Index: 2.26 1.5-2.3 cm/m2 LV Mass: 340.20 67-162/88-224 g LV Mass Index: 153.94 43-95/49-115 g/m2 LVOT Diam: 2.30 3.0+(-)1.3 cm 2D Systolic Function EF 4C: 65.30 >55% EF 2C: 42.00 >55% EF BiP: 52.70 >55% Mitral Valve MV Pk E: 0.70 MV PK A: 0.68 MV Decel Time: 213.00 E/A: 1.00 E'Lateral: 7.18 E'Medial: 5.77 E/E' Med: 12.10 E/E' Lat: 9.70 PHT: 63.00 MVA PHT: 3.49 Decel [place]: 3.27 Aortic Valve AoV Pk Jimmy: 1.67 AoV Mn Jimmy: 1.06 AoV VTI: 0.28 AoV Pk Grad: 11.00 Aov Mn Grad: 5.00 MIGUEL Cont.VTI: 3.49 LVOT LVOT Pk Jimmy: 1.16 LVOT Mn Jimmy: 0.78 LVOT VTI: 0.24 LVOT Pk Grad: 5.00 LVOT Mn Grad: 3.00 LVOT Diam: 2.30 LVOT Area: 4.15 Diastolic Function MV Pk E: 0.70 MV Pk A: 0.68 E/A: 1.00 E'Medial: 5.77 E/E' Med: 12.10 E' Laterial: 7.18 E/E' Lat: 9.70 Right Ventricle TAPSE (mm): 20.30 TVS' Jimmy: 12.30 Tricuspid Valve RA Press: 4.00 Great Vessels Aorta Sinus of Valsalva: 3.40 2.0-3.5 cm Ao Asc: 3.40 2.1-3.4 cm Pulmonary Valve PV Pk Jimmy: 0.92 Peak PV Grad: 3.00 Updated in Other Vendor System with Status of Final Ant Dickens MD electronically signed on 03/25/2025 11:22:13 AM with status of Final
[2025-03-25] MEDS: methADONE HCl 20 MG/2 ML ORAL.CONC 110 MG PO (08:07)
[2025-03-25 08:20] LABS: HBS Num1 79.44 mIU/mL (0-7.99); HBc Num1 2.86 S/CO (0.00-0.79); HBsAGNum1 0.41 S/CO (0.00-0.99); HIV Num 1 0.18 S/CO (0.00-0.99); Hepatitis A Antibody IgM 0.19 Index (0-0.79); Hepatitis B Surface Antigen Negative (Negative); ~HepC Num1 18.35 S/CO (0.00-0.79); ~Hepatitis A Antibody IgM Nonreactive (Nonreactive); ~Hepatitis B Surface Antibody REACTIVE (Nonreactive); ~Hepatitis C Antibody Reactive (Nonreactive)
[2025-03-25 08:26] VITALS: BP 139/72; PULSE 77; RESP 18; TEMP 36.8; O2SAT 95
[2025-03-25 09:20] LABS: HBc Num2 2.70 S/CO; HBc Num3 2.71 S/CO
--- NOTE | 2025-03-25 15:27 | P.PNPSI_ITS ---
Subjective Subjective Date of Service: 03/25/25 Reason For Visit: worsening depression and anxiety Subjective Notes: Conditional Voluntary Healthcare Proxy: No Guardianship: No Medical Problems Affecting Mental Status: No Interim History: Medical record and nursing notes reviewed; case discussed during rounds with team/nursing staff, and met with patient for supportive therapy/psychoeducation, as well as medication management. Patient slept for 8 hours, appetite good, compliant with medication. Appear less sedated today, reports feeling tired. Bilateral edema on his feet, continue encourage patient to elevated his legs, he has aware cardiac issues. Remain on water pills , for edema. He also having CA echo done this morning. Pending result. drug department worker informed patient that we will send a referral out to outpatient treatment program, pending results. Anxiety elevated due to unsure regarding housing. Reports his parents go on vacation for 2 weeks this Tuesday. He also had methadone take-home bottle at his parents, that he may not able to get them after parents on vacation. Denies sedation from methadone and he feel tired. Denies the sedation related to methadone. Denies safety concerns, medication and treatment compliance. Medication Compliance: Yes Side effects from medications: No Attending Groups: Intermittent Review of Systems Acute medical concerns: No Medical Review of Systems: unchanged Review of Systems Review of Systems new onset bilateral leg edema. No tenderness. No shortness of breath. Otherwise chronic pain Mental Status Exam Mental Status Exam Narrative: Patient is alert and oriented; behavior is cooperative, improving in anxiety and depression; patient is not in distress; dressed in casual attire with kempt hair, adequate hygiene; mood is described as tired and anxious and affect congruent; eye contact appropriate; Speech is normal rate, volume and prosody and not pressured; no psychomotor agitation/retardation present; thought process is organized and goal directed; Thought content is WNL, pertinent to relevant topics and without any delusional content, paranoid ideation or grandiosity; denies any SI/SIB/HI. Denies AH and there is no evidence of perceptual disturbance. Patient's insight and judgment fair. Diagnostics Vital Signs (24Hr): Vital Signs - 24 hr 03/24/25 20:00 03/25/25 08:26 Temperature 99.2 F 98.2 F Pulse Rate 69 77 Respiratory Rate 20 18 Blood Pressure 129/78 139/72 Pulse Oximetry 96 95 Oxygen Delivery Method Room Air Room Air BMI result Body Mass Index 43.3 Labs 03/23/25 14:19 03/24/25 07:38 Labs: Laboratory Results - last 48 hr 03/23/25 03/23/25 03/23/25 11:25 20:19 20:20 ESR 21 H D-Dimer High Sensitivty 157 VBG pH VBG pCO2 VBG pO2 VBG HCO3 VBG O2 Saturation VBG Base Excess Sodium Potassium Chloride Carbon Dioxide Anion Gap BUN Creatinine Estim Creat Clear Calc Estimated GFR Random Glucose Calcium C-Reactive Protein 0.52 H B-Natriuretic Peptide 22 Urine Color Yellow Urine Appearance Clear Urine pH 5.5 Ur Specific [place] 1.020 Urine Protein Negative Urine Glucose (UA) Negative Urine Ketones Negative Urine Blood Negative Urine Nitrite Negative Ur Leukocyte Esterase Negative Hepatitis A IgM Ab Nonreactive Hep Bs Antigen Negative Hep Bs Antibody REACTIVE Hep B Core Total Ab Reactive Hepatitis C Ab (EIA) Reactive H HIV 1&2 Ab/P24 Ag 4thGn Nonreactive 03/23/25 03/24/25 20:28 07:38 ESR D-Dimer High Sensitivty VBG pH 7.45 H VBG pCO2 40 VBG pO2 148 VBG HCO3 28 H VBG O2 Saturation 100.0 VBG Base Excess 4.2 Sodium 135 Potassium 4.1 Chloride 99 Carbon Dioxide 26 Anion Gap 14 BUN 16 Creatinine 0.96 Estim Creat Clear Calc 112.6 Estimated GFR > 60 Random Glucose 112 Calcium 8.8 C-Reactive Protein B-Natriuretic Peptide Urine Color Urine Appearance Urine pH Ur Specific [place] Urine Protein Urine Glucose (UA) Urine Ketones Urine Blood Urine Nitrite Ur Leukocyte Esterase Hepatitis A IgM Ab Hep Bs Antigen Hep Bs Antibody Hep B Core Total Ab Hepatitis C Ab (EIA) HIV 1&2 Ab/P24 Ag 4thGn Medications Medications Current Medications Acetaminophen (Acetaminophen 325 Mg Tablet) 650 mg PO Q6H PRN PRN Reason: Headache/Pain, Scale 1-10 Last Admin: 03/22/25 15:52 Dose: 650 mg Al Hydroxide/Mg Hydroxide (Magnesium Hydrox/Alum Hydrox 30 Ml Oral.Susp) 30 ml PO Q6H PRN PRN Reason: Heartburn/Nausea Albuterol Sulfate (Albuterol Sulfate 90 Mcg 8 Gm Inhaler) 1 puff INHALE RQ4H PRN PRN Reason: SOB/Wheering Albuterol/Ipratropium (Albuterol/Iprat 2.5/0.5mg 3 Ml Ampul.Neb) 3 ml INHALE RQ4H WHILE AWAKE PRN PRN Reason: Shortness of Breath/Wheezing Duloxetine HCl (Duloxetine Hcl 30 Mg Capsule.Dr) 30 mg PO DAILY [facility] Last Admin: 03/25/25 08:29 Dose: 30 mg Ezetimibe (Ezetimibe 10 Mg Tablet) 10 mg PO DAILY [facility] Last Admin: 03/25/25 08:29 Dose: 10 mg Fluticasone Propionate (Fluticasone Propionate Nasal 16 Gm [place]) 1 spray NOSTRIL-B DAILY [facility] Last Admin: 03/25/25 08:28 Dose: 1 spray Furosemide (Furosemide 40 Mg Tablet) 40 mg PO DAILY [facility]; Protocol Last Admin: 03/25/25 08:29 Dose: 40 mg Hydroxyzine HCl (Hydroxyzine Hcl 50 Mg Tablet) 50 mg PO Q6H PRN PRN Reason: mild anxiety Last Admin: 03/24/25 19:52 Dose: 50 mg Ibuprofen (Ibuprofen 600 Mg Tablet) 600 mg PO Q6H PRN PRN Reason: severe pain Last Admin: 03/25/25 08:28 Dose: 600 mg Lidocaine (Lidocaine 4 % Patch Adh..Patch) 2 patch TRANSDERMA DAILY [facility]; Protocol Last Admin: 03/24/25 21:38 Dose: 2 patch Magnesium Hydroxide (Milk Of Magnesia 30 Ml Oral.Susp) 30 ml PO DAILY PRN PRN Reason: Constipation Melatonin (Melatonin 3 Mg Tablet) 9 mg PO BEDTIME [facility] Last Admin: 03/24/25 21:41 Dose: 9 mg Methadone HCl (Methadone Hcl 20 Mg/2 Ml Oral.Conc) 50 mg PO DAILY@1900 [facility] Last Admin: 03/24/25 19:20 Dose: 50 mg Methadone HCl (Methadone Hcl 20 Mg/2 Ml Oral.Conc) 110 mg PO DAILY@0800 [facility] Last Admin: 03/25/25 08:07 Dose: 110 mg Nicotine (Nicotine 21 Mg Patch.Td24) 21 mg TRANSDERMA DAILY PRN PRN Reason: nicotine craving Nicotine Polacrilex (Nicotine Polacrilex 2 Mg Gum) 2 mg BUCCAL Q2H PRN PRN Reason: Nicotine Cravings Trazodone HCl (Trazodone Hcl 50 Mg Tablet) 50 mg PO BEDTIME MRX1 PRN PRN Reason: Insomnia Last Admin: 03/24/25 21:42 Dose: 50 mg Allergies Allergies Allergy/AdvReac Type Severity Reaction Status Date / Time bee pollen (BEE STINGS) Allergy Intermediate HIVES Verified 03/17/25 09:10 Penicillins Allergy Mild UNKNOWN Verified 03/17/25 09:10 penicillin V Allergy Unknown unknown Verified 03/17/25 09:10 SANJAY DELIGHT Allergy Mild HIVES Uncoded 03/17/25 09:10 Assessment & Plan Assessment & Plan (1) Bilateral lower extremity edema: Status: Acute Code(s): R60.0 - Localized edema (2) Asthma: Qualifiers: Asthma severity: mild Asthma persistence: intermittent Asthma complication type: uncomplicated Qualified Code(s): J45.20 - Mild intermittent asthma, uncomplicated Status: Acute Code(s): J45.909 - Unspecified asthma, uncomplicated (3) Cocaine abuse: Status: Acute Code(s): F14.10 - Cocaine abuse, uncomplicated (4) Opiate use: Status: Acute Code(s): F11.90 - Opioid use, unspecified, uncomplicated (5) Major depressive disorder without psychotic features: Status: Acute Code(s): F32.9 - Major depressive disorder, single episode, unspecified Assessment and Plan: HPI: Patient is a 44 years old single weight Cambodian speaking male with no prior mental health illnesses/hx but history of polysubstance use included crack/cocaine and opiates use who presented to the ED reporting worsening depression symptoms the past couple of months, I have no energy, no reasons to go on . Reports feeling hopeless, and helpless, disturbances in both sleep and appetite was he had identifies as exacerbated by substance use. Formulation/clinical reasoning: Worsening depression symptoms, low to no energy, no motivation, sleep disturbances-trouble falling asleep and staying asleep, increased substance use, not able to work after surgery from last year due to pain, grandmother 2 months ago. Collateral done by the care team with mom, mom reports he has passive SI history. No prior treatment for mental health illnesses. No outpatient providers. Given above information, patient could be benefit from restrictive environment for own safety, diagnostic/diagnosis, start of medication for depression, and refer patient to outpatient psychiatric services as aftercare upon discharge. Hospital course: 03/19/25: Patient agreed to start on Cymbalta 20 mg daily for depression/anxiety/and pain. Melatonin 6 mg at bedtime for insomnia. Motrin 600 p.r.n. for severe pain. Albuterol p.r.n. for shortness of breath/wheezing (hx of asthma) Hydroxyzine and trazodone p.r.n. per protocol. Methadone 110 daily in the morning, and 50 mg at 19:00 as MAT. He has been on methadone since 1999 but was on and off. 03/20/25: Active on unit. social with peers. attending groups. Patient reports feeling a little better today ; pt reports he is interested in attending a substance abuse program after discharge; social problems specialist aware. pt reports sleeping well. denies SI/HI/VH/AH. Continue current tx plan. 03/21/25: Patient slept for 6 hours, was medication compliant. Denies side effects. However he self-reported that he he did not not slept well. Mood is pretty good but tired . Reports improved in depression and anxiety, much better than the day he came in Observe he was falling asleep in the chair in it in front of the TV. Reports he went to groups this morning. He is visible, social, appropriate. Discussed with patient regarding medication changes, he is receptive with the plan. No safety concerns. Increase Cymbalta from 20 to 30 mg for anxiety depression/pain Increase melatonin 6 to 9 mg for insomnia. Started lidocaine patches for mid back pain and left hip pain Patient received resources from addiction team regarding substance use. drug department worker is aware to make referral by meet next week as I continue to titrate medication for depression. Patient is happy with current methadone dose. 03/22: Active on unit. social with peers. attending groups. Patient reports his anxious and depression are now low. He reports sleeping well. denies SI/HI/VH/AH. Continue current tx plan. 03/23/2025: Reports depression anxiety improving on Cymbalta. There is some sedation which might be related to methadone dosing and will order lab work as per Addiction medicine request. New onset bilateral leg edema place hospitalist consult. 03/24: appreciate hospitalist input and follow up ref bilateral leg edema. 03/25/25: Patient slept for 8 hours, appetite good, compliant with medication. Appear less sedated today, reports feeling tired. Bilateral edema on his feet, continue encourage patient to elevated his legs, he has aware cardiac issues. Remain on water pills , for edema. He also having CA echo done this morning. Pending result. drug department worker informed patient that we will send a referral out to outpatient treatment program, pending results. Anxiety elevated due to unsure regarding housing. Reports his parents go on vacation for 2 weeks this Tuesday. He also had methadone take-home bottle at his parents, that he may not able to get them after parents on vacation. Denies sedation from methadone and he feel tired. Denies the sedation related to methadone. Denies safety concerns, medication and treatment compliance. Plan Patient on 15 minute checks for safety. Admitted to [facility]. CV. Work with treatment team to do collateral and/or CSS/CCS if possible for aftercare. He is interested in getting psychiatrist/therapist referral possible. Refer to patient to business process specialist. Dx if necessary. Some baseline lab works. Plan CHF new onset with BLE edema CXR 2V notes MILD CHF EKG pending Pt denies hx of Blood clots, HF, edema in lower extremities Last venous doppler 12/2024 negative for DVT - rechecking dopplers this admission DDIMER 157 ECHO ordered - note pt has hx of IVDA and last use was 2 weeks prior, no murmur on exam BNP 22 Lasxi 40 X1 today, will provide lasix 40 daily and monitor K Cardiology consulted Daily weights, low NA cardiac diet ordered Renal FX has been stable New onset SOB with exertion, no hypoxia CXR as above notes mild CHF, no PNA and tiny B PL effusions DUO NEBS PRN VBG 7.45, 40, 148, 28 Lasix ordered Asthma Albuterol inhaler prn Adding Duonebs for shortness of breath or wheezing Fluticasone HLD LFT slightly elevated Hold on starting statin Can start Zetia Cardiac Diet GANESH on methadone with recent IVD use involving crack cocaine Toxicology screen positive for fentanyl and methadone Pt states last use of cocaine was 2 weeks ago via IV in upper extremities ECHO ordered Pt continues on methadone Hospitalist Group will continue to follow. Thank you for this consultation. Patient educated on: diagnosis, medication risk/benefits, substance abuse and therapeutic strategies Informed Consent: understands and further education needed Reason for continued inpatient stay Substantial Risk for: med/psych decompensation Time Spent With Patient Time: Total time managing care of this patient today ____ minutes.
[2025-03-25] MEDS: methADONE HCl 20 MG/2 ML ORAL.CONC 50 MG PO (18:58)
[2025-03-25 20:00] VITALS: BP 115/72; PULSE 61; RESP 16; TEMP 36.3; O2SAT 95
[2025-03-25] MEDS: Lidocaine 4 % Patch ADH..PATCH 2 PATCH TRANSDERMA (21:46)
[2025-03-26 06:00] VITALS: BMI 43.4
[2025-03-26 07:14] LABS: Hepatitis B Core Antibody IgM NON-REACTIVE (NON-REACTIVE)
[2025-03-26 07:38] VITALS: BP 144/83; PULSE 68; RESP 18; TEMP 36.9; O2SAT 96
[2025-03-26] MEDS: methADONE HCl 20 MG/2 ML ORAL.CONC 110 MG PO (08:09)
--- NOTE | 2025-03-26 11:53 | P.DS_ITS ---
DS: Providers Provider Date of Service: 03/26/25 Date of admission: 03/19/25 12:19 Date of discharge: 03/26/25 Primary care physician: Sushma Marroquin MD Attending physician on admission: Noemí Fletcher Consults: 03/19/25 14:07 Addiction Medicine Provider Routine Consulting Provider: Addiction Covering Reason for consultation: on MAT, wants more treatment/resources Has provider been notified: Yes 03/22/25 19:25 Addiction Medicine Provider Routine Consulting Provider: Addiction Covering Reason for consultation: Too sedatedon current MTD dose 160mg in divded dose. Need dose adjustment Has provider been notified: No 03/23/25 15:54 Consult to Hospitalist Routine Comment: Consulting Provider: [facility] Hospitalists Reason For Exam: new onset bilateral leg edema Discharging clinician: Noemí Fletcher DS: Diagnosis Discharge Diagnosis (1) Bilateral lower extremity edema: Status: Acute (2) Asthma: Status: Acute (3) Cocaine abuse: Status: Acute (4) Opiate use: Status: Acute (5) Major depressive disorder without psychotic features: Status: Acute DS: Medications Discharge Medications Home Medications: Home Medications ?Medication ?Instructions ?Recorded ?Confirmed methadone 10 mg/mL oral 50 mg PO QPM 01/15/25 concentrate (Methadone Intensol) methadone 10 mg/mL oral 110 mg PO DAILY 01/15/25 concentrate (Methadone Intensol) Previous Rx's ?Medication ?Instructions ?Recorded albuterol sulfate 90 mcg/actuation 1 puff inhalation R Q4H PRN 03/26/25 aerosol inhaler (Ventolin HFA) SOB/Wheering #6.7 grams duloxetine 30 mg capsule,delayed 30 mg PO DAILY depres odalys #30 caps 03/26/25 release ezetimibe 10 mg tablet 10 mg PO DAILY Elevated 03/02 01/23 Cholesterol #30 tabs furosemide 40 mg tablet 40 mg PO DAILY Billateral lo wer 03/26/25 extremity edema #30 tabs hydroxyzine HCl 50 mg tablet 50 mg PO BID PRN mild anx iety #60 03/26/25 tabs ibuprofen 600 mg tablet 600 mg PO Q6H PRN severe margaret n #30 03/26/25 tabs ipratropium 0.5 mg-albuterol 3 mg 3 ml inhalation RQ4H WHILE AWAKE 03/26/25 (2.5 mg base)/3 mL nebulization PRN Shortness Of Breat h/Wheezing soln 14 days #90 mL lidocaine 4 % topical patch 2 patch transdermal BEDTIM E Pain 03/26/25 (Lidocaine Pain Relief) on hip and back #60 ea melatonin 3 mg tablet 9 mg (3 x 3 mg) PO BEDTIME 0 03/26/25 insomnia #90 tabs trazodone 50 mg tablet 50 mg PO BEDTIME PRN Insomni a #30 03/26/25 tabs Mental Status Exam Mental Status Exam Narrative: Patient presents well-groomed, casually dressed. Affect is mild anxiety and restrictive range. Speech is clear and coherent. Thought process is linear and logical. Thought content is appropriate and relevant. Patient denies suicidal or homicidal ideation intent or plan. No overt psychotic symptoms elicited. Insight is good. Judgment is good. Data Data Completed and Pending Completed studies during hospitalization [Text1]: 03/20/25 03/23/25 03/23/25 08:14 11:25 14:19 WBC 5.9 RBC 4.73 Hgb 13.4 L Hct 39.3 L MCV 83.1 MCH 28.3 MCHC 34.1 RDW 13.4 Plt Count TNP MPV TNP Immature Gran % (Auto) 0.3 Neut % (Auto) 43.8 L Lymph % (Auto) 42.8 H [place] % (Auto) 8.3 Eos % (Auto) 4.1 H Baso % (Auto) 0.7 Lymph # (Auto) 2.5 [place] # (Auto) 0.5 Eos # (Auto) 0.2 Baso # (Auto) 0.0 Abs Immat Gran (auto) 0.02 Absolute Neuts (auto) 2.6 Absolute Nucleated RBC 0.000 Nucleated RBC % (auto) 0.0 Smear Tech's Comments VERIFIED ESR D-Dimer High Sensitivty VBG pH VBG pCO2 VBG pO2 VBG HCO3 VBG O2 Saturation VBG Base Excess Sodium 134 L 133 L Potassium 4.5 4.9 Chloride 101 101 Carbon Dioxide 22 23 Anion Gap 16 14 BUN 17 H 18 H Creatinine 0.90 1.06 Estim Creat Clear Calc 116.5 101.9 Estimated GFR > 60 > 60 Random Glucose 133 H 108 Estimat Average Glucose 111 Hemoglobin A1c % 5.5 Calcium 8.5 D 9.1 D Total Bilirubin 0.4 0.2 AST 37 65 H ALT 30 66 H Alkaline Phosphatase 150 H 170 H C-Reactive Protein B-Natriuretic Peptide Total Protein 7.3 7.4 Albumin 3.5 3.6 Triglycerides 258 H Cholesterol 191 LDL Cholesterol, Calc 104 H HDL Cholesterol 36 L TSH 0.37 Free T4 1.05 Urine Color Yellow Urine Appearance Clear Urine pH 5.5 Ur Specific [place] 1.020 Urine Protein Negative Urine Glucose (UA) Negative Urine Ketones Negative Urine Blood Negative Urine Nitrite Negative Ur Leukocyte Esterase Negative Urine Opiates Screen Not Detected Ur Buprenorphine Scrn Not Detected Ur Oxycodone Screen Not Detected Urine Methadone Screen Positive H Urine Fentanyl Screen POSITIVE H Ur Barbiturates Screen Not Detected Ur Phencyclidine Scrn Not Detected Ur Amphetamines Screen Not Detected U Benzodiazepines Scrn Not Detected Urine Cocaine Screen Not Detected U Marijuana (THC) Screen Not Detected Hepatitis A IgM Ab Hep Bs Antigen Hep Bs Antibody Hep B Core Total Ab Hep B Core IgM Ab Hepatitis C Ab (EIA) HIV 1&2 Ab/P24 Ag 4thGn 03/23/25 03/23/25 03/23/25 20:19 20:20 20:28 WBC RBC Hgb Hct MCV MCH MCHC RDW Plt Count MPV Immature Gran % (Auto) Neut % (Auto) Lymph % (Auto) [place] % (Auto) Eos % (Auto) Baso % (Auto) Lymph # (Auto) [place] # (Auto) Eos # (Auto) Baso # (Auto) Abs Immat Gran (auto) Absolute Neuts (auto) Absolute Nucleated RBC Nucleated RBC % (auto) Smear Tech's Comments ESR 21 H D-Dimer High Sensitivty 157 VBG pH 7.45 H VBG pCO2 40 VBG pO2 148 VBG HCO3 28 H VBG O2 Saturation 100.0 VBG Base Excess 4.2 Sodium Potassium Chloride Carbon Dioxide Anion Gap BUN Creatinine Estim Creat Clear Calc Estimated GFR Random Glucose Estimat Average Glucose Hemoglobin A1c % Calcium Total Bilirubin AST ALT Alkaline Phosphatase C-Reactive Protein 0.52 H B-Natriuretic Peptide 22 Total Protein Albumin Triglycerides Cholesterol LDL Cholesterol, Calc HDL Cholesterol TSH Free T4 Urine Color Urine Appearance Urine pH Ur Specific [place] Urine Protein Urine Glucose (UA) Urine Ketones Urine Blood Urine Nitrite Ur Leukocyte Esterase Urine Opiates Screen Ur Buprenorphine Scrn Ur Oxycodone Screen Urine Methadone Screen Urine Fentanyl Screen Ur Barbiturates Screen Ur Phencyclidine Scrn Ur Amphetamines Screen U Benzodiazepines Scrn Urine Cocaine Screen U Marijuana (THC) Screen Hepatitis A IgM Ab Nonreactive Hep Bs Antigen Negative Hep Bs Antibody REACTIVE Hep B Core Total Ab Reactive Hep B Core IgM Ab NON-REACTIVE Hepatitis C Ab (EIA) Reactive H HIV 1&2 Ab/P24 Ag 4thGn Nonreactive 03/24/25 07:38 WBC RBC Hgb Hct MCV MCH MCHC RDW Plt Count MPV Immature Gran % (Auto) Neut % (Auto) Lymph % (Auto) [place] % (Auto) Eos % (Auto) Baso % (Auto) Lymph # (Auto) [place] # (Auto) Eos # (Auto) Baso # (Auto) Abs Immat Gran (auto) Absolute Neuts (auto) Absolute Nucleated RBC Nucleated RBC % (auto) Smear Tech's Comments ESR D-Dimer High Sensitivty VBG pH VBG pCO2 VBG pO2 VBG HCO3 VBG O2 Saturation VBG Base Excess Sodium 135 Potassium 4.1 Chloride 99 Carbon Dioxide 26 Anion Gap 14 BUN 16 Creatinine 0.96 Estim Creat Clear Calc 112.6 Estimated GFR > 60 Random Glucose 112 Estimat Average Glucose Hemoglobin A1c % Calcium 8.8 Total Bilirubin AST ALT Alkaline Phosphatase C-Reactive Protein B-Natriuretic Peptide Total Protein Albumin Triglycerides Cholesterol LDL Cholesterol, Calc HDL Cholesterol TSH Free T4 Urine Color Urine Appearance Urine pH Ur Specific [place] Urine Protein Urine Glucose (UA) Urine Ketones Urine Blood Urine Nitrite Ur Leukocyte Esterase Urine Opiates Screen Ur Buprenorphine Scrn Ur Oxycodone Screen Urine Methadone Screen Urine Fentanyl Screen Ur Barbiturates Screen Ur Phencyclidine Scrn Ur Amphetamines Screen U Benzodiazepines Scrn Urine Cocaine Screen U Marijuana (THC) Screen Hepatitis A IgM Ab Hep Bs Antigen Hep Bs Antibody Hep B Core Total Ab Hep B Core IgM Ab Hepatitis C Ab (EIA) HIV 1&2 Ab/P24 Ag 4thGn DS: Summary Hospital Course Hospital Course: HPI: Patient is a 44 years old single weight Salvadorean speaking male with no prior mental health illnesses/hx but history of polysubstance use included crack/cocaine and opiates use who presented to the ED reporting worsening depression symptoms the past couple of months, I have no energy, no reasons to go on . Reports feeling hopeless, and helpless, disturbances in both sleep and appetite was he had identifies as exacerbated by substance use. Formulation/clinical reasoning: Worsening depression symptoms, low to no energy, no motivation, sleep disturbances-trouble falling asleep and staying asleep, increased substance use, not able to work after surgery from last year due to pain, grandmother 2 months ago. Collateral done by the care team with mom, mom reports he has passive SI history. No prior treatment for mental health illnesses. No outpatient providers. Given above information, patient could be benefit from restrictive environment for own safety, diagnostic/diagnosis, start of medication for depression, and refer patient to outpatient psychiatric services as aftercare upon discharge. Hospital course: 03/19/25: Patient agreed to start on Cymbalta 20 mg daily for depression/anxiety/and pain. Melatonin 6 mg at bedtime for insomnia. Motrin 600 p.r.n. for severe pain. Albuterol p.r.n. for shortness of breath/wheezing (hx of asthma) Hydroxyzine and trazodone p.r.n. per protocol. Methadone 110 daily in the morning, and 50 mg at 19:00 as MAT. He has been on methadone since 1999 but was on and off. 03/20/25: Active on unit. social with peers. attending groups. Patient reports feeling a little better today ; pt reports he is interested in attending a substance abuse program after discharge; health social work professor aware. pt reports sleeping well. denies SI/HI/VH/AH. Continue current tx plan. 03/21/25: Patient slept for 6 hours, was medication compliant. Denies side effects. However he self-reported that he he did not not slept well. Mood is pretty good but tired . Reports improved in depression and anxiety, much better than the day he came in Observe he was falling asleep in the chair in it in front of the TV. Reports he went to groups this morning. He is visible, social, appropriate. Discussed with patient regarding medication changes, he is receptive with the plan. No safety concerns. Increase Cymbalta from 20 to 30 mg for anxiety depression/pain Increase melatonin 6 to 9 mg for insomnia. Started lidocaine patches for mid back pain and left hip pain Patient received resources from addiction team regarding substance use. pack worker supervisor is aware to make referral by meet next week as I continue to titrate medication for depression. Patient is happy with current methadone dose. 03/22: Active on unit. social with peers. attending groups. Patient reports his anxious and depression are now low. He reports sleeping well. denies SI/HI/VH/AH. Continue current tx plan. 03/23/2025: Reports depression anxiety improving on Cymbalta. There is some sedation which might be related to methadone dosing and will order lab work as per Addiction medicine request. New onset bilateral leg edema place hospitalist consult. 03/24: appreciate hospitalist input and follow up ref bilateral leg edema. Plan- Per hospitalist note and recommendation: CHF new onset with BLE edema CXR 2V notes MILD CHF EKG WNL. Pt denies hx of Blood clots, HF, edema in lower extremities Last venous doppler 12/2024 negative for DVT - rechecking dopplers this admission DDIMER [id number] ECHO ordered - note pt has hx of IVDA and last use was 2 weeks prior, no murmur on exam BNP 22 Lasxi 40 X1 today, will provide lasix 40 daily and monitor K Cardiology consulted Daily weights, low NA cardiac diet ordered Renal FX has been stable New onset SOB with exertion, no hypoxia CXR as above notes mild CHF, no PNA and tiny B PL effusions DUO NEBS PRN VBG 7.45, 40, 148, 28 Lasix ordered Asthma Albuterol inhaler prn Adding Duonebs for shortness of breath or wheezing Fluticasone HLD LFT slightly elevated Hold on starting statin Can start Zetia Cardiac Diet GANESH on methadone with recent IVD use involving crack cocaine Toxicology screen positive for fentanyl and methadone Pt states last use of cocaine was 2 weeks ago via IV in upper extremities ECHO ordered Pt continues on methadone HPI: Patient is a 44 years old single weight Salvadorean speaking male with no prior mental health illnesses/hx but history of polysubstance use included crack/cocaine and opiates use who presented to the ED reporting worsening depression symptoms the past couple of months, I have no energy, no reasons to go on . Reports feeling hopeless, and helpless, disturbances in both sleep and appetite was he had identifies as exacerbated by substance use. Formulation/clinical reasoning: Worsening depression symptoms, low to no energy, no motivation, sleep disturbances-trouble falling asleep and staying asleep, increased substance use, not able to work after surgery from last year due to pain, grandmother 2 months ago. Collateral done by the care team with mom, mom reports he has passive SI history. No prior treatment for mental health illnesses. No outpatient providers. Given above information, patient could be benefit from restrictive environment for own safety, diagnostic/diagnosis, start of medication for depression, and refer patient to outpatient psychiatric services as aftercare upon discharge. Hospital course: 03/19/25: Patient agreed to start on Cymbalta 20 mg daily for depression/anxiety/and pain. Melatonin 6 mg at bedtime for insomnia. Motrin 600 p.r.n. for severe pain. Albuterol p.r.n. for shortness of breath/wheezing (hx of asthma) Hydroxyzine and trazodone p.r.n. per protocol. Methadone 110 daily in the morning, and 50 mg at 19:00 as MAT. He has been on methadone since 1999 but was on and off. 03/20/25: Active on unit. social with peers. attending groups. Patient reports feeling a little better today ; pt reports he is interested in attending a substance abuse program after discharge; health social work professor aware. pt reports sleeping well. denies SI/HI/VH/AH. Continue current tx plan. 03/21/25: Patient slept for 6 hours, was medication compliant. Denies side effects. However he self-reported that he he did not not slept well. Mood is pretty good but tired . Reports improved in depression and anxiety, much better than the day he came in Observe he was falling asleep in the chair in it in front of the TV. Reports he went to groups this morning. He is visible, social, appropriate. Discussed with patient regarding medication changes, he is receptive with the plan. No safety concerns. Increase Cymbalta from 20 to 30 mg for anxiety depression/pain Increase melatonin 6 to 9 mg for insomnia. Started lidocaine patches for mid back pain and left hip pain Patient received resources from addiction team regarding substance use. pack worker supervisor is aware to make referral by meet next week as I continue to titrate medication for depression. Patient is happy with current methadone dose. 03/22: Active on unit. social with peers. attending groups. Patient reports his anxious and depression are now low. He reports sleeping well. denies SI/HI/VH/AH. Continue current tx plan. 03/23/2025: Reports depression anxiety improving on Cymbalta. There is some sedation which might be related to methadone dosing and will order lab work as per Addiction medicine request. New onset bilateral leg edema place hospitalist consult. 03/24: appreciate hospitalist input and follow up ref bilateral leg edema. Per hospitalist note: CHF new onset with BLE edema CXR 2V notes MILD CHF EKG pending Pt denies hx of Blood clots, HF, edema in lower extremities Last venous doppler 12/2024 negative for DVT - rechecking dopplers this admission DDIMER [id number] ECHO ordered - note pt has hx of IVDA and last use was 2 weeks prior, no murmur on exam BNP 22 Lasxi 40 X1 today, will provide lasix 40 daily and monitor K Cardiology consulted Daily weights, low NA cardiac diet ordered Renal FX has been stable New onset SOB with exertion, no hypoxia CXR as above notes mild CHF, no PNA and tiny B PL effusions DUO NEBS PRN VBG 7.45, 40, 148, 28 Lasix ordered Asthma Albuterol inhaler prn Adding Duonebs for shortness of breath or wheezing Fluticasone HLD LFT slightly elevated Hold on starting statin Can start Zetia Cardiac Diet GANESH on methadone with recent IVD use involving crack cocaine Toxicology screen positive for fentanyl and methadone Pt states last use of cocaine was 2 weeks ago via IV in upper extremities ECHO ordered Pt continues on methadone 03/25/25: Patient slept for 8 hours, appetite good, compliant with medication. Appear less sedated today, reports feeling tired. Bilateral edema on his feet, continue encourage patient to elevated his legs, he has aware cardiac issues. Remain on water pills , for edema. He also having CA echo done this morning. Pending result. pack worker supervisor informed patient that we will send a referral out to outpatient treatment program, pending results. Anxiety elevated due to unsure regarding housing. Reports his parents go on vacation for 2 weeks this Tuesday. He also had methadone take-home bottle at his parents, that he may not able to get them after parents on vacation. Denies sedation from methadone and he feel tired. Denies the sedation related to methadone. Denies safety concerns, medication and treatment compliance. 03/26/25: mild improving in Lower extremity edema. Continue taking Lasix. Patient to FLU with OP provider regarding medical condition. Continue with MTD maintenance total of 160mg in divided dose. Patient to go back to [facility] clinic on 03/27/25. Patient requested to be discharged today, return to parents and will go to treatment program once bed is available. Patient also would call friends and siblings to see if he can stay with them when parents are away for vacation. Patient states that he can call treatment places himself to see when they have bed available. Time spent discussing smoking cessation with patient: more than 10 minutes Status at Discharge Cognitive/behavioral status at discharge: CONDITION ON DISCHARGE: CURRENT STATUS IT RELATES TO ADMISSION CRITERIA: Stable, improved. Improvements in depression, anxiety, and suicidal ideation. Improvements in sleep, energy, and appetite. and no hallucination or paranoia/delusional thought. Worry about placement and do not want ot be on the street. Functional status at discharge: independent ambulation Overall status at discharge: patient is back to baseline Time Spent with Patient Time attestation: Total time managing care of this patient today ____ minutes. Time spent: Greater than 30 minutes Discharge Plan Discharge Anticipated Discharge Date/Time: 03/26/25 14:30 Patient Disposition: Home, Self-Care Discharge Diagnosis: MDD, Bilateral lower extremity edema Referrals: [facility] Walk In Clinic [Other] - 1 Week Referral Note: WALK IN HOURS ARE TUESDAY- 8AM-8PM PLEASE BRING YOUR DISCHARGE PAPERWORK, ID, AND INSURANCE CARD. Sushma Marroquin MD [Primary Care Provider, Internal Medicine] - 1 Week Referral Note: Please call to make a follow up appointment with your primary care provider. Discharge Medications: New ezetimibe 10 mg Tablet 10 mg PO DAILY Qty: 30 0RF duloxetine 30 mg Capsule,Delayed Release(Dr/Ec) 30 mg PO DAILY Qty: 30 0RF hydroxyzine HCl 50 mg Tablet 50 mg PO BID PRN (Reason: mild anxiety) Qty: 60 0RF ibuprofen 600 mg Tablet 600 mg PO Q6H PRN (Reason: severe pain) Qty: 30 0RF trazodone 50 mg Tablet 50 mg PO BEDTIME PRN (Reason: Insomnia) Qty: 30 0RF furosemide 40 mg Tablet 40 mg PO DAILY Qty: 30 0RF Protocol: Hold for SBP< HOLD for SBP < : 90 melatonin 3 mg Tablet 9 mg PO BEDTIME Qty: 90 0RF lidocaine [Lidocaine Pain Relief] 4 % Adhesive Patch,Medicated 2 patch transdermal BEDTIME Qty: 60 0RF Protocol: Apply to: Apply to: Apply one patch on mid right back and 1 patch on left hip On at 9pm, off at albuterol sulfate [Ventolin HFA] 90 mcg/actuation Hfa Aerosol Inhaler 1 puff inhalation RQ4H PRN (Reason: SOB/Wheering) Qty: 6.7 0RF ipratropium-albuterol 0.5 mg-3 mg(2.5 mg base)/3 mL Solution For Nebulization 3 ml inhalation RQ4H WHILE AWAKE PRN (Reason: Shortness Of Breath/Wheezing) 14 Days Qty: 90 0RF Continued methadone [Methadone Intensol] 10 mg/mL Concentrate 110 mg PO DAILY methadone [Methadone Intensol] 10 mg/mL Concentrate 50 mg PO QPM Discharge Orders: Discharge Order (Routine); Ordered 03/26/25 Ordered By: Noemí Fletcher Diet: Low salt diet Activity on Discharge: As tolerated Stand Alone Forms: Patient Portal Discharge page, Community Support Print Language: Salvadorean Care Plan Goals: Maintain mood and safe behaviors Take medications as prescribed Continue to pursue sobriety Practice coping skills Continue with outpatient providers and reach out to them as needed Health Concerns: Mood stability and behaviors Sobriety Plan of Treatment: Follow up with your PCP, psychiatric provider and other outpatient providers regarding above concerns Take medications as prescribed Assessment: Assessment: Risk assessment at time of discharge: Patient was interviewed prior to discharge and found to be fully oriented and without any SI or HI. Patient has improved insight and judgment and wants to continue treatment. Patient is not in imminent risk of harm to self or others and has a safety plan that includes presenting to the closest ER or calling 911 if feeling unsafe. Patient has been observed closely by nursing and unit staff throughout admission; patient has not engaged in any behaviors that suggest dangerousness to self or others and has d emonstrated appropriate behaviors and impulse control. Substance abuse treatment and risks discussed with patient who at this time patient declines help with outpatient treatment options including programs; instead patient is choosing to work out sobriety on own
[2025-03-26] MEDS: methADONE HCl 20 MG/2 ML ORAL.CONC 50 MG PO (14:02)
== END 2025-03-26 14:17 | disposition home or self-care (01) | DRG 754 ==
LOC: HO.ED 03-18 19:19 → HO.PADLT16 03-19 12:52
PROVIDERS: Nurse Practitioner Family; Psychiatry & Neurology Psychiatry; Admitting Provider Nurse Practitioner Psychiatric/Mental Health; Emergency Provider Emergency Medicine; PCP Internal Medicine; Visit Provider Nurse Practitioner Psychiatric/Mental Health
DX: F32.9 Major depressive disorder, single episode, unspecified (principal); I50.9 Heart failure, unspecified; E78.5 Hyperlipidemia, unspecified; F11.20 Opioid dependence, uncomplicated; F14.10 Cocaine abuse, uncomplicated; J45.909 Unspecified asthma, uncomplicated; Z86.14 Personal history of Methicillin resistant Staphylococcus aureus infection; Z79.899 Other long term (current) drug therapy
CPT/HCPCS: 36415; 71046; 80048; 80053; 80061; 80143; 80179; 80307; 81001; 81003; 82803; 83036; 83880; 84439; 84443; 85025; 85379; 85652; 86140; 86704; 86705; 86706; 86709; 86803; 87340; 87389; 93005; 93306; 93970; 99285; 99499; Q9957; S9485

== ENCOUNTER → 2025-03-18 11:40 | Outpatient (BNV) | payer OTHER, SELFPAY | PROVIDERS: Emergency Provider Emergency Medicine; PCP Internal Medicine; Visit Provider Internal Medicine Cardiovascular Disease | DX: R00.1 Bradycardia, unspecified (principal) | CPT/HCPCS: 93010 ==

== ENCOUNTER 2025-03-19 12:19 | Outpatient (BNV) | payer OTHER, SELFPAY | END 2025-03-23 21:14 | PROVIDERS: Admitting Provider Nurse Practitioner Psychiatric/Mental Health; Emergency Provider Emergency Medicine; PCP Internal Medicine; Visit Provider Internal Medicine | DX: R60.0 Localized edema (principal) | CPT/HCPCS: 93010 ==

== ENCOUNTER 2025-03-19 12:19 | Outpatient (BNV) | payer OTHER, SELFPAY | END 2025-03-24 08:25 | PROVIDERS: Admitting Provider Nurse Practitioner Psychiatric/Mental Health; Emergency Provider Emergency Medicine; PCP Internal Medicine; Visit Provider Radiology Diagnostic Radiology | DX: R22.43 Localized swelling, mass and lump, lower limb, bilateral (principal) | CPT/HCPCS: 93970 ==

== ENCOUNTER 2025-03-19 12:19 | Outpatient (BNV) | payer OTHER, SELFPAY | END 2025-03-25 07:00 | PROVIDERS: Admitting Provider Nurse Practitioner Psychiatric/Mental Health; Emergency Provider Emergency Medicine; PCP Internal Medicine; Visit Provider Internal Medicine | DX: I50.9 Heart failure, unspecified (principal) | CPT/HCPCS: 93306 ==

== ENCOUNTER 2025-03-19 12:19 | Outpatient (BNV) | payer OTHER, SELFPAY | END 2025-03-23 19:00 | PROVIDERS: Admitting Provider Nurse Practitioner Psychiatric/Mental Health; Emergency Provider Emergency Medicine; PCP Internal Medicine; Visit Provider Radiology Diagnostic Radiology | DX: R06.09 Other forms of dyspnea (principal); R60.0 Localized edema | CPT/HCPCS: 71046 ==

== ENCOUNTER → 2025-03-19 12:19 | Outpatient (BNV) | payer OTHER, SELFPAY | PROVIDERS: Admitting Provider Nurse Practitioner Psychiatric/Mental Health; Emergency Provider Emergency Medicine; PCP Internal Medicine; Visit Provider Nurse Practitioner Family | DX: R60.0 Localized edema (principal); J45.20 Mild intermittent asthma, uncomplicated | CPT/HCPCS: 99223 ==

== ENCOUNTER → 2025-03-19 12:19 | Outpatient (BNV) | payer OTHER, SELFPAY | PROVIDERS: Admitting Provider Nurse Practitioner Psychiatric/Mental Health; Emergency Provider Emergency Medicine; PCP Internal Medicine; Visit Provider Nurse Practitioner Psychiatric/Mental Health | DX: F32.2 Major depressive disorder, single episode, severe without psychotic features (principal); F14.10 Cocaine abuse, uncomplicated; R60.0 Localized edema; J45.20 Mild intermittent asthma, uncomplicated; F11.90 Opioid use, unspecified, uncomplicated | CPT/HCPCS: 99232 ==